=== PATIENT | female | born 1980 | race Caucasian/White ===

== ENCOUNTER 2016-03-10 19:44 | Emergency (ER) | payer OTHER ==
[~2016-03-10] VITALS: Ht 172.7 cm; Wt 79.8 kg
[~2016-03-10 19:44] MED LIST: ACET-1256 PO; BCPILLS PO; CLC100 PO; CLON0.5T3 PO; DICL1GEL28 TOP; KETO10TA PO; MAGN250T3 PO; MENT4GEL TOP; MIDO5TAB PO; MULT-506 PO; PRLSR20 PO; RIBO1TAB PO; SODI1000 PO; SULF500T36 PO; TOPI25TA99 PO; TRAZ1TAB16 PO; VENL1CAP92 PO; VENL75CA73 PO; [UNRECOGNIZED DRUG - CODE] PO
[2016-03-10 20:00] VITALS: TEMP 37; Ht 172.7 cm; Wt 79.8 kg
[2016-03-10] MEDS ORDERED: SODIUM CHLORIDE 0.9% 1000ML 1,000 ML IV STA ×2 (20:23)
--- NOTE | 2016-03-10 20:27 | EMERGENCY ROOM VISIT NOTE ---
History Report prepared by Paulette: Alex Alicea Under the Supervision of: Dr. Gini Dong M.D. First contact with patient: 20:17 Chief Complaint: FLU LIKE SX Stated Complaint: FLU : DEHYDRATION History of Present Illness The patient is a 35 year old female who presents to the Emergency Room with complaints of persistent flu-like symptoms that started 2 days ago. She says this is her 3rd bout with the flu this year. Her symptoms consist of episodes of vomiting and diarrhea, in addition to chills, sweating, and abdominal pain. She notes that her vomiting has stopped but she is still having episodes of diarrhea. The patient describes her abdominal pain as cramping and she also says her abdomen feels bloated. The patient says she is dehydrated, but is trying to drink as much as she can. She has arthritis, and is taking medications for that. Source of History: patient Onset: 2 days ago Position: other (global - flu-like symptoms) Timing: other (persistent) Associated Symptoms: + abdominal pain, + chills, + diaphoresis, + diarrhea, + vomiting Note: Associated symptoms: Abdomen feels bloated. Review of Systems See HPI for pertinent positives & negatives. A total of 10 systems reviewed and were otherwise negative. Past Medical & Surgical Medical Problems: (1) Depression (2) fibromyalgia (3) Juvenile chronic arthritis (4) Orthostatic hypotension (5) Orthostatic hypotension (6) Orthostatic hypotension Surgical Problems: (1) S/P appendectomy Family History Cancer Heart disease Hypertension Social History Smoking Status: Never Smoker Alcohol Use: occasionally Drug Use: none Marital Status: Housing Status: lives with significant other Occupation Status: employed Current/Historical Medications Scheduled Acetaminophen (Tylenol), 1,000 MG PO PRN Control Pills ( Control Pills), 1 TAB PO HS Clonazepam (Klonopin), 0.25 MG PO HS Docusate Sodium (Docusate Sodium), 200 MG PO BID Etodolac (Etodolac), 500 MG PO AMHS Magnesium (Magnesium 250 mg), 500 MG PO DAILY Midodrine Hcl (Midodrine Hcl), 10 MG PO TID Multivitamin (Multivitamin), 1 TAB PO DAILY Omeprazole (Prilosec), 20 MG PO AMHS Ondasetron Odt (Zofran Odt), 4 MG SL Q6H Riboflavin (B-2), 400 MG PO DAILY Sodium Chloride (Sodium Chloride), 2 GM PO TID Sulfasalazine (Azulfidine), 1,000 MG PO AMHS Topiramate (Topamax ), 50 MG PO BID Trazodone Hcl (Desyrel), 50 MG PO HS Venlafaxine Hcl (Venlafaxine Extended Rel), 75 MG PO DAILY Venlafaxine Hcl (Effexor Extended Rel), 150 MG PO DAILY Scheduled PRN Diclofenac Sod (Voltaren), 2 GM TOP QID PRN for PRN Ketorolac Tromethamine (Toradol), 10 MG PO BID PRN for SEVERE PAIN Menthol (Topical Analgesic) (Biofreeze), 1 APPL TOP for Pain Allergies Coded Allergies: Bupropion (Verified Allergy, Mild, 03/10/16) LOW BP Metoclopramide (Verified Allergy, Mild, 03/10/16) LOW BP Adhesives (Verified Allergy, Unknown, RASH, 03/10/16) Gabapentin (Unverified Allergy, Unknown, SHORTNESS OF BREATH, 03/10/16) DEPRESSION MEDICATIONS DEACTIVATE Hyoscyamine (Verified Allergy, Unknown, SHORTNESS OF BREATH/HYPOTENSION, ) Patient states "Levobid or Levibid" Infliximab (Verified Allergy, Unknown, HYPOTENSION, 03/10/16) Latex1 -Allergic Contact Dermititis (Verified Allergy, Unknown, 03/10/16) Propoxyphene (Verified Allergy, Unknown, 03/10/16) Replaces DARVOCET-N 10 Morphine (Verified Adverse Reaction, Intermediate, STOMACH UPSET, 03/10/16) ORAL MORPHINE = ABDOMINAL PAIN Physical Exam Vital Signs Date Time Temp Pulse Resp B/P Pulse Ox O2 Delivery O2 Flow Rate FiO2 03/10/16 22:13 71 112/73 100 03/10/16 20:00 37.0 82 16 116/85 100 Physical Exam CONSTITUTIONAL: Mild distress. HEENT: No icterus, moist mucous membranes NECK: No meningismus, trachea is midline. CARDIOVASCULAR: Regular rate, normal perfusion RESPIRATORY: Unlabored breathing. Clear to auscultation. GASTROINTESTINAL: Benign abdomen. GENITOURINARY: No flank tenderness MUSCULOSKELETAL: Full range of motion NEUROLOGIC: No acute gross focal deficits. PSYCHIATRIC: Normal affect SKIN: Normal for ethnicity. Medical Decision & Procedures Laboratory Results Test 03/10/16 20:46 Bedside Hemoglobin 15.6 g/dl (12.0-16.0) Bedside Hematocrit 46 % (37-47) Bedside Sodium 142 mEq/L (135-144) Bedside Potassium 3.4 mEq/L (3.3-5.0) Bedside Chloride 105 mEq/L (101-112) Bedside Total CO2 24 mEq/l (24-31) Anion Gap 17.0 mmol/L (16-25) Bedside Blood Urea Nitrogen 7 mg/dl (7-18) Bedside Creatinine 0.9 mg/dl (0.6-1.3) Bedside Glucose (other) 97 mg/dl (70-99) Bedside Ionized Calcium (Ginger) 1.22 mmol/l (1.12-1.32) Medications Administered Medications (Trade) Dose Ordered Sig/Debbi Route Start Time Stop Time Status Last Admin Dose Admin Sodium Chloride 1,000 ml @ 0 mls/hr Q0M STAT IV 03/10/16 20:23 03/10/16 20:25 DC 03/10/16 20:50 999 MLS/HR Sodium Chloride (Nss 1000ml) 1,000 ml @ 0 mls/hr Q0M STAT IV 03/10/16 20:23 03/10/16 20:25 DC 03/10/16 20:50 999 MLS/HR ED Course 2018: Past medical records reviewed. The patient was evaluated in room C5. A complete history and physical examination was performed. The patient verbally expressed agreement and understanding of the treatment plan. The patient will be discharged. 2022 :Ordered NSS 1000 ml @ 0 mls/hr Wide Open IV. 2029: Ordered Zofran ODT 4MG Home Pack 1 homepack PO. Medical Decision Differential diagnoses include: viral syndrome. Patient presented to the emergency department over concern of dehydration for 2 days of vomiting and diarrhea and crampy abdominal pain. Abdomen was benign. She was hydrated with IV fluid boluses. Patient improved and subsequent discharged with Zofran home pack and prescription. Impression Primary Impression: Gastroenteritis Scribe Attestation The scribe's documentation has been prepared under my direction and personally reviewed by me in its entirety. I confirm that the note above accurately reflects all work, treatment, procedures, and medical decision making performed by me. Departure Information Dispostion Home / Self-Care Prescriptions Ondasetron Odt (ZOFRAN ODT) 4 Mg Tab 4 MG SL Q6H for Nausea, #20 TAB Prov: Gini Dong MD 03/10/16 Referrals Cinda Kirby M.D. (PCP) Forms HOME CARE DOCUMENTATION FORM, IMPORTANT VISIT INFORMATION Patient Instructions ED Gastroenteritis Viral, My [facility]
[2016-03-10] MEDS ORDERED: ONDANSETRON HOME PACK 4MG OD TAB PO ONE (20:30)
[2016-03-10] MEDS ORDERED: SODI1TAB PO (20:57)
[2016-03-10] MEDS ORDERED: LDN500 PO (20:57)
[2016-03-10] MEDS ORDERED: VLTG TOP (20:57)
[2016-03-10] MEDS ORDERED: CLC100 PO (20:57)
[2016-03-10] MEDS ORDERED: VENL150C56 PO (20:57)
[2016-03-10] MEDS ORDERED: ONDA4TAB10 SL (20:58)
[2016-03-10 21:03] LABS: ISTAT CREATININE 0.9 mg/dl (0.6-1.3); ISTAT HEMOGLOBIN 15.6 g/dl (12.0-16.0); ISTAT IONIZED CALCIUM 1.22 mmol/l (1.12-1.32)
[2016-03-10 22:13] VITALS: BP 112/73; PULSE 71; O2SAT 100
== END 2016-03-10 22:15 | disposition home or self-care (01) ==
LOC: C.EDB 19:46 → C.EDC 22:15
DX: K52.9 Noninfective gastroenteritis and colitis, unspecified (principal); F32.9 Major depressive disorder, single episode, unspecified; M79.7 Fibromyalgia; M08.90 Juvenile arthritis, unspecified, unspecified site; I95.1 Orthostatic hypotension; Z79.3 Long term (current) use of hormonal contraceptives; Z79.899 Other long term (current) drug therapy

== ENCOUNTER → 2016-03-25 | Outpatient (CLI) | payer OTHER ==
[~2016-03-25] MED LIST changes: +DICL1GEL12 TOP; -DICL1GEL28 TOP; +LDN500 PO; +MULTTAB5 PO; +NITR-5 PO; +ONDA4TAB10 SL; +PRT/40 PO; -SODI1000 PO; +SODI1TAB PO; +SUCR1TAB PO; +VALA500T60 PO; +VENL150C56 PO; -VENL1CAP92 PO; +VLTG TOP; +ZNTT/150 PO; +[UNRECOGNIZED DRUG - CODE] PO; -[UNRECOGNIZED DRUG - CODE] PO
== END | disposition home or self-care (01) ==
LOC: C.PAPS 08:09
PROVIDERS: ATTEND Obstetrics & Gynecology
DX: Z01.419 Encounter for gynecological examination (general) (routine) without abnormal findings (principal)

== ENCOUNTER 2016-05-25 14:27 | Emergency (ER) | payer OTHER ==
[~2016-05-25] VITALS: Ht 172.7 cm; Wt 80.7 kg
[~2016-05-25 14:27] MED LIST changes: -CLC100 PO; -CLON0.5T3 PO; -DICL1GEL12 TOP; -KETO10TA PO; -LDN500 PO; -MAGN250T3 PO; -MENT4GEL TOP; -MIDO5TAB PO; -MULTTAB5 PO; -NITR-5 PO; -PRT/40 PO; -RIBO1TAB PO; -SODI1TAB PO; -SUCR1TAB PO; -SULF500T36 PO; -TOPI25TA99 PO; -TRAZ1TAB16 PO; -VALA500T60 PO; -VENL150C56 PO; -ZNTT/150 PO; -[UNRECOGNIZED DRUG - CODE] PO
[2016-05-25 14:30] VITALS: TEMP 36.7; Ht 172.7 cm; Wt 80.7 kg
[2016-05-25] MEDS ORDERED: SODIUM CHLORIDE 0.9% 1000ML 1,000 ML IV STA ×2 (14:46)
[2016-05-25 15:04] LABS: BASO % 0.2 %; BASO ABS # 0.01 K/uL (0-0.2); COMPLETE YES; EOS % 0.7 %; HEMATOCRIT 39.5 % (37-47); IG% 0.2 %; LYMPH % 38.9 %; LYMPH ABS # 2.18 K/uL (1.2-3.4); MEAN CELL VOLUME 88.6 fL (80-100); MEAN CORPUSCULAR HGB CONC 33.9 g/dl (32-36); MEAN PLATELET VOLUME 10.2 fL (7.4-10.4); PLATELET COUNT 206 K/uL (130-400); RED BLOOD COUNT 4.46 M/uL (4.2-5.4); WHITE BLOOD COUNT 5.61 K/uL (4.8-10.8)
[2016-05-25 15:26] LABS: URINE APPEARANCE CLEAR (CLEAR); URINE COLOR DK YELLOW; URINE NITRITE NEG (NEG); URINE SPECIFIC GRAVITY 1.018 (1.000-1.030); UROBILINOGEN NEG (NEG); ZZUR CULT IF INDIC CLEAN CATCH NO
[2016-05-25 15:34] LABS: BLOOD UREA NITROGEN 15 mg/dl (7-18); BUN/CREATININE RATIO 14.9 (10-20); CALCIUM 8.5 mg/dl (8.5-10.1); CARBON DIOXIDE 22 mmol/L (21-32); CHLORIDE 111 mmol/L (98-107); CREATININE 0.97 mg/dl (0.60-1.20); GLUCOSE 106 mg/dl (70-99); SODIUM 141 mmol/L (136-145)
[2016-05-25 15:36] LABS: MANUAL MICROSCOPIC REQUIRED? NO; REVIEW REQ? NO; URINE BILIRUBIN NEG (NEG)
--- NOTE | 2016-05-25 16:25 | EMERGENCY ROOM VISIT NOTE ---
History First contact with patient: 14:33 Chief Complaint: DIZZY Stated Complaint: DIZZY, FAINTED, LOW BLOOD PRESSURE Nursing Triage Summary: Triage note; pt reports "i have been really dizzy sine waking up, i have low blood pressure and am on medication for it, this morning i was sitting on the floor and passed out." pt using crutches for arthritis in right foot. History of Present Illness The patient is a 35 year old female who presents to the Emergency Room with complaints of a syncopal episode which occurred this morning. The patient reports that she has a history of similar episodes. She states that she woke up her son this morning and that she was sitting down and began to feel lightheaded and had tunnel vision. She states that she had a syncopal episode and landed onto a pillow. She reports a very long history of orthostatic hypotension and syncopal episodes in states that she has received IV fluids in the past with improvement. She was previously seen at [facility], but now sees her primary care provider. She does report increased stress recently, as she has recently adopted 3 brothers. She states that stress has increased her symptoms in the past. She also reports that she is currently having a flareup of arthritis, which also tends to increase symptoms for her. Her symptoms usually improve with rest. She states that she takes salt tablets and midodrine , and has increased caffeine in her diet and increased exercise with significant improvement of her symptoms over the past few years. She states she feels slightly dizzy and lightheaded at this time. She denies any chest pain, shortness of breath, recent illnesses, fevers/chills, headache, neck pain , abdominal pain, nausea or vomiting. Review of Systems A complete 10-point Review of Systems was discussed with the patient, with pertinent positives and negatives listed in the History of Present Illness. All remaining Review of Systems questions can be considered negative unless otherwise specified. Past Medical/Surgical History Medical Problems: (1) Depression (2) fibromyalgia (3) Juvenile chronic arthritis (4) Orthostatic hypotension (5) Orthostatic hypotension (6) Orthostatic hypotension Surgical Problems: (1) S/P appendectomy Family History Cancer Heart disease Hypertension Social History Smoking Status: Never Smoker Alcohol Use: occasionally Drug Use: none Marital Status: Housing Status: lives with significant other Occupation Status: employed Current/Historical Medications Scheduled Control Pills ( Control Pills), 1 TAB PO HS Clonazepam (Klonopin), 0.25 MG PO HS Docusate Sodium (Docusate Sodium), 200 MG PO BID Etodolac (Etodolac), 500 MG PO AMHS Magnesium (Magnesium 250 mg), 500 MG PO DAILY Midodrine Hcl (Midodrine Hcl), 10 MG PO TID Multivitamin (Multivitamin), 1 TAB PO DAILY Omeprazole (Prilosec), 20 MG PO AMHS Riboflavin (B-2), 400 MG PO DAILY Sodium Chloride (Sodium Chloride), 2 GM PO TID Sulfasalazine (Azulfidine), 1,000 MG PO AMHS Topiramate (Topamax ), 75 MG PO BID Trazodone Hcl (Desyrel), 100 MG PO HS Venlafaxine Hcl (Venlafaxine Extended Rel), 75 MG PO DAILY Venlafaxine Hcl (Effexor Extended Rel), 150 MG PO DAILY Scheduled PRN Ketorolac Tromethamine (Toradol), 10 MG PO BID PRN for SEVERE PAIN Menthol (Topical Analgesic) (Biofreeze), 1 APPL TOP for Pain Allergies Coded Allergies: Bupropion (Verified Allergy, Mild, 05/25/16) LOW BP Metoclopramide (Verified Allergy, Mild, 05/25/16) LOW BP Adhesives (Verified Allergy, Unknown, RASH, 05/25/16) Gabapentin (Unverified Allergy, Unknown, SHORTNESS OF BREATH, 05/25/16) DEPRESSION MEDICATIONS DEACTIVATE Hyoscyamine (Verified Allergy, Unknown, SHORTNESS OF BREATH/HYPOTENSION, ) Patient states "Levobid or Levibid" Infliximab (Verified Allergy, Unknown, HYPOTENSION, 05/25/16) Latex1 -Allergic Contact Dermititis (Verified Allergy, Unknown, 05/25/16) Propoxyphene (Verified Allergy, Unknown, 05/25/16) Replaces DARVOCET-N 10 Morphine (Verified Adverse Reaction, Intermediate, STOMACH UPSET, 05/25/16) ORAL MORPHINE = ABDOMINAL PAIN Physical Exam Vital Signs Date Time Temp Pulse Resp B/P Pulse Ox O2 Delivery O2 Flow Rate FiO2 05/25/16 16:32 64 16 103/66 100 05/25/16 15:15 73 105/60 80 108/70 95 108/75 05/25/16 14:30 36.7 90 18 121/77 98 Room Air Physical Exam VITALS: Vitals are noted on the nurse's note and reviewed by myself. Vital signs stable. GENERAL: This is a 35-year-old female, in no acute distress, nondiaphoretic, well-developed well-nourished. SKIN: The skin was without rashes. Capillary reflex less than 2 seconds. EARS: External auditory canals clear, tympanic membranes pearly anderson without erythema or effusion bilaterally. EYES: Pupils equal round and reactive to light and accommodation. Conjunctivae without injection, sclerae without icterus. Extraocular movements intact. No nystagmus. MOUTH: Mucous membranes moist. NECK: Supple without nuchal rigidity. No lymphadenopathy. HEART: Regular rate and rhythm without murmurs gallops or rubs. LUNGS: Clear to auscultation bilaterally without wheezes, rales or rhonchi. ABDOMEN: Positive bowel sounds x 4. Soft, nontender to palpation. MUSCULOSKELETAL: Full range of motion throughout. Strength 5/5. NEURO: Patient was alert and oriented to person place and time. Normal sensation to light and sharp touch. Deep tendon reflexes 2+ throughout. No focal neurological deficits. Medical Decision & Procedures Laboratory Results 05/25/16 14:55 Red Blood Count 4.46, Mean Corpuscular Volume 88.6, Mean Corpuscular Hemoglobin 30.0, Mean Corpuscular Hemoglobin Concent 33.9, Mean Platelet Volume 10.2, Neutrophils (%) (Auto) 53.0, Lymphocytes (%) (Auto) 38.9, Monocytes (%) (Auto) 7.0, Eosinophils (%) (Auto) 0.7, Basophils (%) (Auto) 0.2, Neutrophils # (Auto) 2.98, Lymphocytes # (Auto) 2.18, Monocytes # (Auto) 0.39, Eosinophils # (Auto) 0.04, Basophils # (Auto) 0.01 05/25/16 14:55 Test 05/25/16 14:55 05/25/16 15:05 White Blood Count 5.61 K/uL (4.8-10.8) Red Blood Count 4.46 M/uL (4.2-5.4) Hemoglobin 13.4 g/dL (12.0-16.0) Hematocrit 39.5 % (37-47) Mean Corpuscular Volume 88.6 fL (80-100) Mean Corpuscular Hemoglobin 30.0 pg (25-34) Mean Corpuscular Hemoglobin Concent 33.9 g/dl (32-36) Platelet Count 206 K/uL (130-400) Mean Platelet Volume 10.2 fL (7.4-10.4) Neutrophils (%) (Auto) 53.0 % Lymphocytes (%) (Auto) 38.9 % Monocytes (%) (Auto) 7.0 % Eosinophils (%) (Auto) 0.7 % Basophils (%) (Auto) 0.2 % Neutrophils # (Auto) 2.98 K/uL (1.4-6.5) Lymphocytes # (Auto) 2.18 K/uL (1.2-3.4) Monocytes # (Auto) 0.39 K/uL (0.11-0.59) Eosinophils # (Auto) 0.04 K/uL (0-0.5) Basophils # (Auto) 0.01 K/uL (0-0.2) RDW Standard Deviation 42.3 fL (36.4-46.3) RDW Coefficient of Variation 13.1 % (11.5-14.5) Immature Granulocyte % (Auto) 0.2 % Immature Granulocyte # (Auto) 0.01 K/uL (0.00-0.02) Anion Gap 8.0 mmol/L (3-11) Est Creatinine Clear Calc Drug Dose 92.0 ml/min Estimated GFR () 88.9 Estimated GFR (Non- 76.7 BUN/Creatinine Ratio 14.9 (10-20) Calcium Level 8.5 mg/dl (8.5-10.1) Troponin I < 0.015 ng/ml (0-0.045) Thyroid Stimulating Hormone (TSH) 1.160 uIu/ml (0.300-4.500) Urine Color DK YELLOW Urine Appearance CLEAR (CLEAR) Urine pH 6.0 (4.5-7.5) Urine Specific [place] 1.018 (1.000-1.030) Urine Protein NEG (NEG) Urine Glucose (UA) NEG (NEG) Urine Ketones NEG (NEG) Urine Occult Blood NEG (NEG) Urine Nitrite NEG (NEG) Urine Bilirubin NEG (NEG) Urine Urobilinogen NEG (NEG) Urine Leukocyte Esterase SMALL (NEG) Urine WBC (Auto) 1-5 /hpf (0-5) Urine RBC (Auto) 0-4 /hpf (0-4) Urine Hyaline Casts (Auto) 1-5 /lpf (0-5) Urine Epithelial Cells (Auto) 5-10 /lpf (0-5) Urine Bacteria (Auto) NEG (NEG) Urine Test NEG (NEG) Medications Administered Medications (Trade) Dose Ordered Sig/Debbi Route Start Time Stop Time Status Last Admin Dose Admin Sodium Chloride 1,000 ml @ 999 mls/hr Q1H1M STAT IV 05/25/16 14:46 05/25/16 15:46 DC 05/25/16 15:06 999 MLS/HR Sodium Chloride (Nss 1000ml) 1,000 ml @ 999 mls/hr Q1H1M STAT IV 05/25/16 14:46 05/25/16 15:46 DC 05/25/16 15:06 999 MLS/HR ECG Rate (beats per minute): 68 Rhythm: normal sinus Findings: no acute ischemic change, no ectopy Change: no significant change ED Course The patient was evaluated as above. Labs were drawn and IV access was obtained. Patient was medicated with 2 L normal saline solution. Patient was reevaluated and felt much better. She was ready for discharge home. Discharge instructions were reviewed with the patient. The patient verbalized understanding of my assessment and treatment plan and was discharged home in good condition. Medical Decision Differential diagnosis includes orthostatic hypotension, arrhythmia, anxiety, among others. The patient is a 35-year-old female with past medical history orthostatic hypotension and fibromyalgia who presents today complaining of a syncopal episode. The patient reports this is not unusual for her, and records do show that she has been here multiple times previously for similar complaints. Labs revealed no leukocytosis, anemia or concerning electrolyte abnormalities. Urinalysis was not suggestive of infection. Urine was negative. EKG was interpreted by myself and showed a normal sinus rhythm. Troponin 1 was elevated. Orthostatic vital signs did show an increase in heart rate, but no decrease in blood pressure. The patient was given 2 L of fluids and felt much better. She states her symptoms today are similar to previous episodes. Her neurological exam is normal. She requested discharge home. The patient's case was reviewed with Dr. Goode, ED attending physician, who agreed with my assessment and treatment plan. Based on the patient's presentation and work up, I feel the patient is stable for outpatient treatment. The patient was educated to the emergency department for any worsening of their current condition or new/concerning symptoms. The patient will follow up with her primary care provider this week. Impression Primary Impression: Syncope Departure Information Dispostion Home / Self-Care Condition GOOD Referrals Cinda Kirby M.D. (PCP) Patient Instructions My [facility] Additional Instructions Rest and drink plenty of fluids. Follow-up with your primary care provider within one week. Return to the emergency department with recurrent episodes of passing out, worsening of your current condition, or any other new/concerning symptoms. Problem Qualifiers Primary Impression: Syncope Syncope type: unspecified Qualified Codes: R55 - Syncope and collapse
[2016-05-25 16:32] VITALS: BP 103/66; PULSE 64; O2SAT 100
[2016-12-15] MEDS ORDERED: MAGN250T3 PO (10:34)
[2016-12-15] MEDS ORDERED: CLON0.5T3 PO (10:34)
[2016-12-15] MEDS ORDERED: TOPI25TA99 PO (10:34)
[2016-12-15] MEDS ORDERED: MENT4GEL TOP (10:53)
[2016-12-15] MEDS ORDERED: RIBO1TAB PO (10:53)
[2016-12-15] MEDS ORDERED: ZNTT/150 PO (11:00)
[2016-12-15] MEDS ORDERED: PANT40TA2 PO (11:00)
[2016-12-15] MEDS ORDERED: MIDO5TAB PO (11:55)
[2016-12-15] MEDS ORDERED: TRAZ-119 PO (13:58)
[2016-12-15] MEDS ORDERED: KETO10TA PO (14:15)
[2016-12-15] MEDS ORDERED: [UNRECOGNIZED DRUG - CODE] PO (14:20)
[2016-12-15] MEDS ORDERED: VALA500T60 PO (14:20)
[2016-12-15] MEDS ORDERED: MULTTAB5 PO (14:20)
[2016-12-15] MEDS ORDERED: DICL1GEL12 TOP (14:20)
== END 2016-05-25 16:33 | disposition home or self-care (01) ==
LOC: C.EDB 14:30 → C.EDC 16:33
DX: R55 Syncope and collapse (principal); F32.9 Major depressive disorder, single episode, unspecified; M08.90 Juvenile arthritis, unspecified, unspecified site; Z90.49 Acquired absence of other specified parts of digestive tract; Z79.899 Other long term (current) drug therapy; Z88.5 Allergy status to narcotic agent; Z88.8 Allergy status to other drugs, medicaments and biological substances; Z91.040 Latex allergy status; Z91.09 Other allergy status, other than to drugs and biological substances; Z80.9 Family history of malignant neoplasm, unspecified; Z82.49 Family history of ischemic heart disease and other diseases of the circulatory system

== ENCOUNTER 2016-09-24 10:26 | Emergency (ER) | payer OTHER ==
[~2016-09-24] VITALS: Ht 174 cm; Wt 80.5 kg
[~2016-09-24 10:26] MED LIST changes: -ACET-1256 PO; +CLC100 PO; +CLON0.5T3 PO; +KETO10TA PO; +LDN500 PO; +MAGN250T3 PO; +MENT4GEL TOP; +MIDO5TAB PO; -ONDA4TAB10 SL; +RIBO1TAB PO; +SODI1TAB PO; +SULF500T36 PO; +TOPI25TA99 PO; +TRAZ1TAB16 PO; +VENL150C56 PO; -VLTG TOP
[2016-09-24 10:31] VITALS: TEMP 36.7; Ht 174 cm; Wt 80.5 kg
[2016-09-24] MEDS ORDERED: ZNTT/150 PO (11:00)
[2016-09-24] MEDS ORDERED: PRT/40 PO (11:00)
[2016-09-24] MEDS ORDERED: SODIUM CHLORIDE 0.9% 1000ML 1,000 ML IV STA (11:16)
[2016-09-24 11:43] LABS: BASO % 0.3 %; BASO ABS # 0.02 K/uL (0-0.2); COMPLETE YES; HEMATOCRIT 40.5 % (37-47); IG% 0.2 %; LYMPH % 40.7 %; LYMPH ABS # 2.33 K/uL (1.2-3.4); MEAN CELL VOLUME 92.3 fL (80-100); MEAN CORPUSCULAR HEMOGLOBIN 31.2 pg (25-34); MEAN CORPUSCULAR HGB CONC 33.8 g/dl (32-36); MONO % 8.7 %; NEUT % 49.1 %; PLATELET COUNT 247 K/uL (130-400); RED BLOOD COUNT 4.39 M/uL (4.2-5.4); WHITE BLOOD COUNT 5.73 K/uL (4.8-10.8)
[2016-09-24] MEDS ORDERED: CAFFEINE CITRATE 500 MG in SODIUM CHLORIDE 0.9% 1000ML 1,000 ML IV ONE (11:45)
[2016-09-24 11:55] LABS: URINE APPEARANCE CLOUDY (CLEAR); URINE COLOR DK YELLOW; URINE EPITHELIAL CELL AUTO >30 /lpf (0-5); URINE NITRITE POS (NEG); URINE SPECIFIC GRAVITY 1.029 (1.000-1.030); UROBILINOGEN NEG (NEG); ZZUR CULT IF INDIC CLEAN CATCH YES
[2016-09-24 12:01] LABS: MANUAL MICROSCOPIC REQUIRED? NO; REVIEW REQ? YES
[2016-09-24 12:02] LABS: BUN/CREATININE RATIO 13.8 (10-20); CALCIUM 8.7 mg/dl (8.5-10.1); CREATININE 0.92 mg/dl (0.60-1.20); POTASSIUM 4.1 mmol/L (3.5-5.1)
[2016-09-24 12:02] LABS: URINE BILIRUBIN NEG (NEG)
[2016-09-24 12:10] LABS: URINE MUCUS PRESENT (NONE PRSENT)
[2016-09-24] MEDS ORDERED: NITROFURANTOIN MONOHYDRATE 100 MG CAP PO ONE (12:45)
[2016-09-24] MEDS ORDERED: ONDANSETRON INJ 2 MG/ML 2 ML VIAL IV STA (13:45)
[2016-09-24] MEDS ORDERED: MECLIZINE HCL 25 MG TAB PO STA (14:05)
[2016-09-24] MEDS ORDERED: NITR-5 PO (14:55)
--- NOTE | 2016-09-24 14:57 | EMERGENCY ROOM VISIT NOTE ---
History First contact with patient: 11:06 Chief Complaint: HYPOTENSION Stated Complaint: PASSING OUT, LOW BP History of Present Illness The patient is a 36 year old female who presents to the Emergency Room with complaints of syncope. The patient has a long-standing history of low blood pressure and passing out. She has been worked up extensively by her family physician Dr. Kirby as well as cardiology. She sees a computing services director at [facility]. The patient states that she has been placed on Mididrin , high salt diet and high caffeine. This has helped her symptoms. The patient states that 2 weeks ago she had flulike symptoms for several days and she thinks that that triggered the onset of her multiple syncopal episodes this week. She states she thinks she passed out 3-4 times this week. The last time being last evening. The patient most times can catch herself and sit down and prevent the syncopal episode. The patient states that she drinks high pH water to help with her hydration. She sees her family doctor on a routine basis. The patient denies any head injuries with her syncopal episodes. The patient states she gets lightheaded and then sometimes gets a headache. She has not taken any caffeine yet today. Review of Systems 10 system review was performed and was negative unless stated otherwise history of present illness. Past Medical/Surgical History Medical Problems: (1) Depression (2) fibromyalgia (3) Juvenile chronic arthritis (4) Orthostatic hypotension (5) Orthostatic hypotension (6) Orthostatic hypotension Surgical Problems: (1) S/P appendectomy Family History Cancer Heart disease Hypertension Social History Smoking Status: Never Smoker Alcohol Use: occasionally Drug Use: none Marital Status: Housing Status: lives with significant other Occupation Status: employed Current/Historical Medications Scheduled Control Pills ( Control Pills), 1 TAB PO HS Clonazepam (Klonopin), 0.25 MG PO HS Docusate Sodium (Docusate Sodium), 200 MG PO BID Etodolac (Etodolac), 500 MG PO AMHS Magnesium (Magnesium 250 mg), 500 MG PO DAILY Midodrine Hcl (Midodrine Hcl), 10 MG PO TID Multivitamin (Multivitamin), 1 TAB PO DAILY Pantoprazole (Pantoprazole Sodium), 40 MG PO DAILY Ranitidine (Zantac), 150 MG PO BID Riboflavin (B-2), 400 MG PO DAILY Sodium Chloride (Sodium Chloride), 2 GM PO TID Sulfasalazine (Azulfidine), 1,000 MG PO AMHS Topiramate (Topamax ), 75 MG PO BID Trazodone Hcl (Desyrel), 100 MG PO HS Venlafaxine Hcl (Venlafaxine Extended Rel), 75 MG PO DAILY Venlafaxine Hcl (Effexor Extended Rel), 150 MG PO DAILY Scheduled PRN Ketorolac Tromethamine (Toradol), 10 MG PO BID PRN for SEVERE PAIN Menthol (Topical Analgesic) (Biofreeze), 1 APPL TOP for Pain Physical Exam Vital Signs Date Time Temp Pulse Resp B/P (MAP) Pulse Ox O2 Delivery O2 Flow Rate FiO2 09/24/16 14:13 85 18 144/73 99 Room Air 09/24/16 12:24 48 18 105/69 100 Room Air 09/24/16 11:32 52 99/57 95 Room Air 55 103/68 73 103/61 09/24/16 10:31 36.7 71 16 115/73 96 Room Air Physical Exam VITALS: Temperature 36.7, blood pressure 115/73, pulse 71, respirations 16 GENERAL: 36-year-old white female appears in no acute distress. MENTAL Status: Alert and oriented 3. EYES: PERRLA. EOMs intact. EARS: Canals clear. TMs without fluid level noted. NECK: Supple, no lymphadenopathy noted. No carotid bruits noted. LUNGS: Clear auscultation without wheezes rales or rhonchi. CARDIAC: Regular rate and rhythm without murmur. Pulses is full and equal throughout. ABDOMEN: Positive bowel sounds all 4 quadrants. Soft, nontender to palpation without organomegaly or masses. NEURO:Cranial nerves two through 12 intact. Cerebellar function intact with [id number]. Fine motor intact with alternating finger motions. EXTREMITIES: No cyanosis or edema noted. Medical Decision & Procedures Laboratory Results 09/24/16 11:30 Red Blood Count 4.39, Mean Corpuscular Volume 92.3, Mean Corpuscular Hemoglobin 31.2, Mean Corpuscular Hemoglobin Concent 33.8, Mean Platelet Volume 10.0, Neutrophils (%) (Auto) 49.1, Lymphocytes (%) (Auto) 40.7, Monocytes (%) (Auto) 8.7, Eosinophils (%) (Auto) 1.0, Basophils (%) (Auto) 0.3, Neutrophils # (Auto) 2.81, Lymphocytes # (Auto) 2.33, Monocytes # (Auto) 0.50, Eosinophils # (Auto) 0.06, Basophils # (Auto) 0.02 09/24/16 11:30 Test 09/24/16 11:30 09/24/16 11:38 White Blood Count 5.73 K/uL (4.8-10.8) Red Blood Count 4.39 M/uL (4.2-5.4) Hemoglobin 13.7 g/dL (12.0-16.0) Hematocrit 40.5 % (37-47) Mean Corpuscular Volume 92.3 fL (80-100) Mean Corpuscular Hemoglobin 31.2 pg (25-34) Mean Corpuscular Hemoglobin Concent 33.8 g/dl (32-36) Platelet Count 247 K/uL (130-400) Mean Platelet Volume 10.0 fL (7.4-10.4) Neutrophils (%) (Auto) 49.1 % Lymphocytes (%) (Auto) 40.7 % Monocytes (%) (Auto) 8.7 % Eosinophils (%) (Auto) 1.0 % Basophils (%) (Auto) 0.3 % Neutrophils # (Auto) 2.81 K/uL (1.4-6.5) Lymphocytes # (Auto) 2.33 K/uL (1.2-3.4) Monocytes # (Auto) 0.50 K/uL (0.11-0.59) Eosinophils # (Auto) 0.06 K/uL (0-0.5) Basophils # (Auto) 0.02 K/uL (0-0.2) RDW Standard Deviation 44.9 fL (36.4-46.3) RDW Coefficient of Variation 13.2 % (11.5-14.5) Immature Granulocyte % (Auto) 0.2 % Immature Granulocyte # (Auto) 0.01 K/uL (0.00-0.02) Anion Gap 3.0 mmol/L (3-11) Est Creatinine Clear Calc Drug Dose 96.9 ml/min Estimated GFR () 94.2 Estimated GFR (Non- 81.2 BUN/Creatinine Ratio 13.8 (10-20) Calcium Level 8.7 mg/dl (8.5-10.1) Total Bilirubin 0.4 mg/dl (0.2-1) Direct Bilirubin 0.1 mg/dl (0-0.2) Aspartate Amino Transf (AST/SGOT) 9 U/L (15-37) Alanine Aminotransferase (ALT/SGPT) 13 U/L (12-78) Alkaline Phosphatase 68 U/L (45-117) Total Protein 6.9 gm/dl (6.4-8.2) Albumin 3.3 gm/dl (3.4-5.0) Lipase 263 U/L (73-393) Urine Color DK YELLOW Urine Appearance CLOUDY (CLEAR) Urine pH 6.0 (4.5-7.5) Urine Specific [place] 1.029 (1.000-1.030) Urine Protein NEG (NEG) Urine Glucose (UA) NEG (NEG) Urine Ketones TRACE (NEG) Urine Occult Blood NEG (NEG) Urine Nitrite POS (NEG) Urine Bilirubin NEG (NEG) Urine Urobilinogen NEG (NEG) Urine Leukocyte Esterase MODERATE (NEG) Urine WBC (Auto) 10-30 /hpf (0-5) Urine RBC (Auto) 0-4 /hpf (0-4) Urine Hyaline Casts (Auto) /lpf (0-5) Urine Epithelial Cells (Auto) >30 /lpf (0-5) Urine Bacteria (Auto) NEG (NEG) Urine Pathogenic Casts /lpf (0) Urine Mucus PRESENT (NONE PRSENT) Urine Yeast (Auto) (NONE PRSENT) Medications Administered Medications (Trade) Dose Ordered Sig/Debbi Route Start Time Stop Time Status Last Admin Dose Admin Sodium Chloride 1,000 ml @ 999 mls/hr Q1H1M STAT IV 09/24/16 11:16 09/24/16 12:16 DC 09/24/16 11:37 999 MLS/HR Caffeine Citrated 500 mg/Sodium Chloride 1,025 ml @ 512.5 mls/ hr TODAY@1145 ONCE IV 09/24/16 11:45 09/24/16 13:44 DC 09/24/16 11:45 512.5 MLS/HR Nitrofurantoin Macrocrystals (Macrobid Cap) 100 mg ONE ONCE PO 09/24/16 12:45 09/24/16 12:46 DC 09/24/16 13:03 100 MG Ondansetron HCl (Zofran Inj) 4 mg NOW STAT IV 09/24/16 13:45 09/24/16 13:58 DC 09/24/16 13:54 4 MG Meclizine HCl (Antivert Tab) 25 mg NOW STAT PO 09/24/16 14:05 09/24/16 14:08 DC 09/24/16 14:12 25 MG ED Course The patient was evaluated. The patient's EMR medication list were reviewed. The patient was just here in May for signs of similar symptoms. IV access was obtained. The patient was given 1 L normal saline wide-open. She was given caffeine 500 mg IV. EKG was ordered and interpreted by myself as above without any acute findings. CBC and differential, renal profile, LFTs lipase levels were ordered. Urinalysis was ordered. Orthostatic blood pressures were ordered. Labs are reviewed and were unremarkable. Urinalysis revealed positive nitrates positive leukocytes and bacteria. The patient was given Macrobid 100 mg by mouth. Culture is pending. Orthostatics were normal. The patient was reevaluated. She was feeling slightly better she still had a slight headache but they caffeine was still running. She was reevaluated and now was feeling nauseated therefore she was given Zofran 4 mg IV for nausea. She was again reevaluated and stated that the nausea was slightly better but she was very dizzy. The patient was then given Antivert 25 mg by mouth. Patient was reevaluated and was feeling better. The patient was discharged home in stable condition. Medical Decision The patient has a long-standing history of this syncopal episodes which has been worked up extensively in the past. I do not feel that any additional imaging is necessary at this time. Medication Reconcilliation Current Medication List: was personally reviewed by me Blood Pressure Screening Patient's blood pressure: Normal blood pressure Impression Primary Impression: Syncope Additional Impressions: UTI (urinary tract infection) Nausea Departure Information Dispostion Home / Self-Care Condition GOOD Prescriptions Nitrofurantoin Monohyd Macrocr (Macrobid) 100 Mg Cap 100 MG PO BID for 7 Days, #14 CAP Prov: Denia Gray PA-C 09/24/16 Referrals Cinda Kirby M.D. (PCP) Forms HOME CARE DOCUMENTATION FORM, IMPORTANT VISIT INFORMATION, WORK / SCHOOL INSTRUCTIONS Patient Instructions ED UTI Cystitis Female, My [facility], Syncope Additional Instructions Push fluids. Take the antinausea medicine that you have at home as needed for nausea. Take Macrobid as prescribed for your urinary tract infection. Follow- up with your family doctor on Tuesday for reevaluation. If symptoms worsen in the interim, return to ER. Problem Qualifiers Primary Impression: Syncope Syncope type: unspecified Qualified Codes: R55 - Syncope and collapse Additional Impressions: UTI (urinary tract infection) Urinary tract infection type: acute cystitis Hematuria presence: with hematuria Qualified Codes: N30.01 - Acute cystitis with hematuria
[2016-09-24 15:44] VITALS: BP 113/75; PULSE 73; O2SAT 99
== END 2016-09-24 15:45 | disposition home or self-care (01) ==
LOC: C.EDB 10:28 → C.EDC 15:45
DX: R55 Syncope and collapse (principal); R11.0 Nausea; N39.0 Urinary tract infection, site not specified; F32.9 Major depressive disorder, single episode, unspecified; M08.90 Juvenile arthritis, unspecified, unspecified site; Z79.899 Other long term (current) drug therapy; Z80.9 Family history of malignant neoplasm, unspecified; Z82.49 Family history of ischemic heart disease and other diseases of the circulatory system

== ENCOUNTER 2016-09-27 13:02 | Emergency (ER) | payer OTHER ==
[~2016-09-27] VITALS: Ht 172.7 cm; Wt 100.0 kg
[~2016-09-27 13:02] MED LIST changes: +NITR-5 PO; -PRLSR20 PO; +PRT/40 PO; +ZNTT/150 PO
[2016-09-27 13:12] VITALS: TEMP 36.4; Ht 172.7 cm; Wt 100.0 kg
[2016-09-27] MEDS ORDERED: SODIUM CHLORIDE 0.9% 1000ML 2,000 ML IV STA (13:48)
--- NOTE | 2016-09-27 14:14 | DIAGNOSTIC IMAGING REPORT ---
SINGLE VIEW CHEST CLINICAL HISTORY: Dizziness. Muscle spasms. FINDINGS: An AP, portable, upright chest radiograph is compared to study dated 12/25/2008. The examination is degraded by portable technique and patient rotation. The cardiomediastinal silhouette is unremarkable. The lungs and pleural spaces are clear. No pneumothorax is seen. The bony thorax is grossly intact. IMPRESSION: No active disease in the chest. Electronically signed by: Wilbur Steele M.D. 09/27/2016 2:13 PM Dictated Date/Time: 09/27/2016 2:12 PM
[2016-09-27] MEDS ORDERED: ACET-1256 PO (14:20)
[2016-09-27] MEDS ORDERED: DICL1GEL12 TOP (14:20)
[2016-09-27] MEDS ORDERED: [UNRECOGNIZED DRUG - CODE] PO (14:20)
[2016-09-27] MEDS ORDERED: SUCR1TAB PO (14:20)
[2016-09-27] MEDS ORDERED: MULTTAB5 PO (14:20)
[2016-09-27] MEDS ORDERED: VALA500T60 PO (14:20)
[2016-09-27 14:53] LABS: BASO % 0.3 %; BASO ABS # 0.02 K/uL (0-0.2); COMPLETE YES; EOS % 0.4 %; HEMATOCRIT 40.4 % (37-47); IG% 0.1 %; LYMPH % 31.4 %; LYMPH ABS # 2.11 K/uL (1.2-3.4); MEAN CELL VOLUME 91.8 fL (80-100); MEAN CORPUSCULAR HEMOGLOBIN 29.5 pg (25-34); MEAN CORPUSCULAR HGB CONC 32.2 g/dl (32-36); MEAN PLATELET VOLUME 9.8 fL (7.4-10.4); MONO % 7.7 %; NEUT % 60.1 %; PLATELET COUNT 233 K/uL (130-400); WHITE BLOOD COUNT 6.72 K/uL (4.8-10.8)
[2016-09-27 15:09] LABS: BLOOD UREA NITROGEN 14 mg/dl (7-18); BUN/CREATININE RATIO 18.2 (10-20); CALCIUM 8.3 mg/dl (8.5-10.1); CARBON DIOXIDE 26 mmol/L (21-32); CHLORIDE 112 mmol/L (98-107); CREATININE 0.79 mg/dl (0.60-1.20); GLUCOSE 82 mg/dl (70-99); MAGNESIUM 1.9 mg/dl (1.8-2.4); SODIUM 143 mmol/L (136-145)
[2016-09-27 15:12] LABS: URINE APPEARANCE CLEAR (CLEAR); URINE COLOR DK YELLOW; URINE NITRITE NEG (NEG); URINE SPECIFIC GRAVITY 1.014 (1.000-1.030); UROBILINOGEN NEG (NEG)
[2016-09-27 15:14] LABS: PHOSPHORUS 2.6 mg/dl (2.5-4.9)
[2016-09-27] MEDS ORDERED: ACETAMINOPHEN IV 650 MG in EMPTY BAG 0 ML IV STA (15:14)
[2016-09-27] MEDS ORDERED: LORAZEPAM 2 MG/ML 1 ML VIAL IV STA (15:14)
[2016-09-27 15:24] LABS: MANUAL MICROSCOPIC REQUIRED? NO; REVIEW REQ? NO; URINE BILIRUBIN NEG (NEG)
--- NOTE | 2016-09-27 17:19 | EMERGENCY ROOM VISIT NOTE ---
History First contact with patient: 13:14 Chief Complaint: DIZZY Stated Complaint: NAUSEA, MUSCLE CRAMPS History of Present Illness Patient is a 36-year-old white female with long-standing history significant for anxiety, depression, IBS, orthostatic hypotension and autonomic dysfunction , who presents emergency department for evaluation of dizziness, weakness and muscle spasms that began this morning. Patient was seen here in the emergency department 3 days ago for similar symptoms. At that time she was found to have a urinalysis that was concerning for a UTI and she was placed on Macrobid. She felt better after receiving IV fluids in the emergency department, and felt like she had more energy when she was discharged. She did not have any symptoms consistent with UTI however, and throughout the weekend she noted increased muscle cramping and subjective low-grade fevers (did not check with a thermometer). She thought it could be related to the Macrobid, and thus stopped this after 5 doses. Today she tried to go to work, where she began to feel weak, dizzy, nauseous, and began to experience spasms in her neck and legs. She has a mild headache and double vision. She reports drinking a Pepsi to try to help with her symptoms. She did increase her fluid and salt intake as well as drink caffeinated beverages over the weekend which she has been told to do. She otherwise reports she is taking her regular medications as prescribed. She reports "I just don't feel like myself." Review of Systems Review of systems as per HPI. All other systems reviewed were negative. 10 systems reviewed. 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 (11) Migraine (12) Nausea (13) Orthostasis (14) Orthostatic hypotension (15) Orthostatic hypotension (16) Orthostatic hypotension (17) Orthostatic hypotension (18) Orthostatic hypotension (19) Orthostatic hypotension (20) Postural hypotension (21) Postural imbalance (22) Syncope (23) Syncope (24) Syncope (25) UTI (urinary tract infection) (26) Vaginal bleeding Surgical Problems: (1) History of oral surgery (2) History of orthopedic surgery (3) S/P appendectomy Electronic medical records are reviewed and summarized as above/below. See Problem List. Family History Cancer Heart disease Hypertension Social History Smoking Status: Never Smoker Alcohol Use: occasionally Drug Use: none Marital Status: Housing Status: lives with family Occupation Status: employed Current/Historical Medications Scheduled Clonazepam (Klonopin), 0.25 MG PO HS Diclofenac Sodium (Topical) (Voltaren 1% Top Gel), 2 GM TOP QID Docusate Sodium (Docusate Sodium), 200 MG PO BID Ethinyl Estradiol/Norethindr (Ortho-Novum ), 1 TAB PO DAILY Etodolac (Etodolac), 500 MG PO AMHS Magnesium (Magnesium 250 mg), 500 MG PO DAILY Midodrine Hcl (Midodrine Hcl), 10 MG PO TID Multiple Vitamins W/ Minerals (Centrum), 1 TAB PO QAM Pantoprazole (Pantoprazole Sodium), 40 MG PO BID Ranitidine (Zantac), 150 MG PO BID Riboflavin (B-2), 400 MG PO DAILY Sodium Chloride (Sodium Chloride), 2 GM PO TID Sucralfate (Sucralfate), 1 GM PO AC Sulfasalazine (Azulfidine), 1,000 MG PO AMHS Topiramate (Topamax ), 50 MG PO AMPM Trazodone Hcl (Desyrel), 50 MG PO HS Venlafaxine Hcl (Venlafaxine Extended Rel), 75 MG PO QPM Venlafaxine Hcl (Effexor Extended Rel), 150 MG PO DAILY Scheduled PRN Acetaminophen (Tylenol), 1,000 MG PO Q8 PRN for Pain Ketorolac Tromethamine (Toradol), 10 MG PO Q4 PRN for Pain Menthol (Topical Analgesic) (Biofreeze), 1 APPL TOP for Pain Valacyclovir (Valtrex), 500 MG PO AMPM PRN for OUTBREAKS Allergies Coded Allergies: Bupropion (Verified Allergy, Mild, 09/24/16) LOW BP Metoclopramide (Verified Allergy, Mild, 09/24/16) LOW BP Adhesives (Verified Allergy, Unknown, RASH, 09/24/16) Gabapentin (Unverified Allergy, Unknown, SHORTNESS OF BREATH, 09/24/16) DEPRESSION MEDICATIONS DEACTIVATE Hyoscyamine (Verified Allergy, Unknown, SHORTNESS OF BREATH/HYPOTENSION, ) Patient states "Levobid or Levibid" Infliximab (Verified Allergy, Unknown, HYPOTENSION, 09/24/16) Latex1 -Allergic Contact Dermititis (Verified Allergy, Unknown, 09/24/16) Propoxyphene (Verified Allergy, Unknown, 09/24/16) Replaces DARVOCET-N 10 Morphine (Verified Adverse Reaction, Intermediate, STOMACH UPSET, 09/24/16) ORAL MORPHINE = ABDOMINAL PAIN Physical Exam Vital Signs Date Time Temp Pulse Resp B/P (MAP) Pulse Ox O2 Delivery O2 Flow Rate FiO2 09/27/16 17:29 67 16 111/67 100 09/27/16 15:28 63 98/63 98 Room Air 65 109/72 72 106/69 09/27/16 14:37 126 20 107/70 100 Room Air 09/27/16 13:20 70 09/27/16 13:12 36.4 73 24 120/74 99 Room Air Physical Exam CONSTITUTIONAL: Patient is a well-appearing 36-year-old white female who is awake and alert and in no acute distress. HEENT: Normocephalic, atraumatic. Pupils equal, round, reactive to light and accommodation. EOMs intact without nystagmus. Sclera are anicteric. Tympanic membranes intact, with normal landmarks. External canals are clear. No hemotympanum or Blanton sign. Oral and nasopharynx are clear. No CSF rhinorrhea. Mucous membranes are moist. NECK: Supple, nontender, no lymphadenopathy. Full range of motion. HEART: Regular rate and rhythm, with normal S1 and S2, no murmur or gallop or rub is heard. LUNGS: Breath sounds equal and clear to auscultation without wheezes, rales, or rhonchi heard. ABDOMEN: Bowel sounds are present. Abdomen is soft, nontender and nondistended. No guarding or rebound. SKIN: No lesions or rash, normal skin turgor. EXTREMITIES: No cyanosis, edema, joint tenderness or swelling. No deformity. NEUROLOGICAL: Alert and oriented x4. Cranial nerves 2 through 12, sensation and strength grossly intact. Negative Romberg, and pronator drift. Finger to nose, finger to finger and rapid alternating movements are intact. Immediate, recent and remote memories are intact. Concentration is normal. Medical Decision & Procedures ER Provider Diagnostic Interpretation: SINGLE VIEW CHEST CLINICAL HISTORY: Dizziness. Muscle spasms. FINDINGS: An AP, portable, upright chest radiograph is compared to study dated 12/25/2008. The examination is degraded by portable technique and patient rotation. The cardiomediastinal silhouette is unremarkable. The lungs and pleural spaces are clear. No pneumothorax is seen. The bony thorax is grossly intact. IMPRESSION: No active disease in the chest. Laboratory Results 09/27/16 14:40 Red Blood Count 4.40, Mean Corpuscular Volume 91.8, Mean Corpuscular Hemoglobin 29.5, Mean Corpuscular Hemoglobin Concent 32.2, Mean Platelet Volume 9.8, Neutrophils (%) (Auto) 60.1, Lymphocytes (%) (Auto) 31.4, Monocytes (%) (Auto) 7.7, Eosinophils (%) (Auto) 0.4, Basophils (%) (Auto) 0.3, Neutrophils # (Auto) 4.03, Lymphocytes # (Auto) 2.11, Monocytes # (Auto) 0.52, Eosinophils # (Auto) 0.03, Basophils # (Auto) 0.02 09/27/16 14:40 Test 09/27/16 14:40 09/27/16 14:45 White Blood Count 6.72 K/uL (4.8-10.8) Red Blood Count 4.40 M/uL (4.2-5.4) Hemoglobin 13.0 g/dL (12.0-16.0) Hematocrit 40.4 % (37-47) Mean Corpuscular Volume 91.8 fL (80-100) Mean Corpuscular Hemoglobin 29.5 pg (25-34) Mean Corpuscular Hemoglobin Concent 32.2 g/dl (32-36) Platelet Count 233 K/uL (130-400) Mean Platelet Volume 9.8 fL (7.4-10.4) Neutrophils (%) (Auto) 60.1 % Lymphocytes (%) (Auto) 31.4 % Monocytes (%) (Auto) 7.7 % Eosinophils (%) (Auto) 0.4 % Basophils (%) (Auto) 0.3 % Neutrophils # (Auto) 4.03 K/uL (1.4-6.5) Lymphocytes # (Auto) 2.11 K/uL (1.2-3.4) Monocytes # (Auto) 0.52 K/uL (0.11-0.59) Eosinophils # (Auto) 0.03 K/uL (0-0.5) Basophils # (Auto) 0.02 K/uL (0-0.2) RDW Standard Deviation 44.1 fL (36.4-46.3) RDW Coefficient of Variation 13.2 % (11.5-14.5) Immature Granulocyte % (Auto) 0.1 % Immature Granulocyte # (Auto) 0.01 K/uL (0.00-0.02) Anion Gap 5.0 mmol/L (3-11) Est Creatinine Clear Calc Drug Dose 124.1 ml/min Estimated GFR () 113.2 Estimated GFR (Non- 97.7 BUN/Creatinine Ratio 18.2 (10-20) Calcium Level 8.3 mg/dl (8.5-10.1) Phosphorus Level 2.6 mg/dl (2.5-4.9) Magnesium Level 1.9 mg/dl (1.8-2.4) Troponin I < 0.015 ng/ml (0-0.045) Urine Color DK YELLOW Urine Appearance CLEAR (CLEAR) Urine pH 6.0 (4.5-7.5) Urine Specific [place] 1.014 (1.000-1.030) Urine Protein NEG (NEG) Urine Glucose (UA) NEG (NEG) Urine Ketones NEG (NEG) Urine Occult Blood NEG (NEG) Urine Nitrite NEG (NEG) Urine Bilirubin NEG (NEG) Urine Urobilinogen NEG (NEG) Urine Leukocyte Esterase SMALL (NEG) Urine WBC (Auto) 1-5 /hpf (0-5) Urine RBC (Auto) 0-4 /hpf (0-4) Urine Hyaline Casts (Auto) 0 /lpf (0-5) Urine Epithelial Cells (Auto) 10-20 /lpf (0-5) Urine Bacteria (Auto) NEG (NEG) Urine Test NEG (NEG) Medications Administered Medications (Trade) Dose Ordered Sig/Debbi Route Start Time Stop Time Status Last Admin Dose Admin Sodium Chloride 2,000 ml @ 999 mls/hr Q2H1M STAT IV 09/27/16 13:48 09/27/16 15:48 DC 09/27/16 14:50 999 MLS/HR Lorazepam (Ativan Inj) 1 mg NOW STAT IV 09/27/16 15:14 09/27/16 15:18 DC 09/27/16 15:42 1 MG Acetaminophen 650 mg/Empty Bag 65 ml @ 260 mls/hr ONE STAT IV 09/27/16 15:14 09/27/16 15:28 DC 09/27/16 15:41 260 MLS/HR ECG Indication: weakness, syncope Rate (beats per minute): 62 Rhythm: normal sinus Findings: no acute ischemic change, no ectopy Change: no significant change ED Course The patient was seen and assessed as above. Her old records are reviewed. IV lock was initiated and laboratory studies were collected. Orthostatic vitals did not indicate orthostasis. She was hydrated with normal saline solution. Urinalysis, urine test, CBC, BMP, magnesium, phosphorus and troponin were drawn. Chest x-ray was obtained and was unremarkable. Patient was reassessed and continued to complain of a mild headache and spasms in her neck. She was medicated with acetaminophen 650 mg IV and lorazepam 1 mg IV. Her laboratory studies revealed a normal white count and H&H. No gross electrolyte abnormalities are noted. Troponin is negative. Urinalysis notes only a small amount of leuk esterase and 10-20 epithelial cells, essentially negative for infection. Urine test was negative. The patient was reassessed. At this time her mother was at the bedside. The patient reported that she felt improved. She has a long-standing history of symptoms similar to this, and has responded well to IV hydration. Her physical exam is benign. There is no apparent infectious etiology. She has a benign neurologic exam. Differential includes acute coronary syndrome, arrhythmia, seizure, syncope, orthostasis, dehydration, electrolyte/metabolic abnormalities , anemia, hypoglycemia, among others. The patient was encouraged to rest at home, push her fluids, salt and caffeine intake as previously educated by her specialists, and to have close follow-up with her primary care provider in the next one to 2 days. She exposed understanding of this and was agreeable. The patient was discharged home in good condition, accompanied by her mother. Vital signs were stable at that time. Medication reconciliation: I attest that I have personally reviewed the patient' s current medication list. Blood pressure screening : Patient was found to have normal blood pressure on screening and does not require follow-up. Medical Decision See emergency Department course Impression Primary Impression: Dizziness Departure Information Referrals Cinda Kirby M.D. (PCP) Patient Instructions My [facility] [place] i-marker Additional Instructions Rest and drink plenty of fluids as tolerated. Continue current medications. Diet as tolerated. Return to the ER immediately for passing out, headache, rapid heart rates, chest pains, difficulty breathing, black or bloody stools, slurred speech, numbness, weakness, visual changes, worsening of your condition, or as needed. Refrain from dangerous activities, operating machinery, drinking alcohol, and such until you are rechecked at a follow up appointment. No driving until cleared by your primary care physician. Follow up with your primary physician in 2-3 days for a recheck of your current condition.
[2016-09-27 17:29] VITALS: BP 111/67; PULSE 67; O2SAT 100
== END 2016-09-27 17:31 | disposition home or self-care (01) ==
LOC: EDBD 13:02 → C.EDB 13:04
DX: R42 Dizziness and giddiness (principal); F41.9 Anxiety disorder, unspecified; F32.9 Major depressive disorder, single episode, unspecified; K58.9 Irritable bowel syndrome, unspecified; Z87.440 Personal history of urinary (tract) infections; Z90.89 Acquired absence of other organs; Z98.890 Other specified postprocedural states; Z82.49 Family history of ischemic heart disease and other diseases of the circulatory system; Z79.899 Other long term (current) drug therapy

== ENCOUNTER 2016-12-15 14:50 | Emergency (ER) | payer OTHER ==
[~2016-12-15] VITALS: Ht 172.7 cm; Wt 76.2 kg
[~2016-12-15 14:50] MED LIST changes: +ACET-1256 PO; -BCPILLS PO; -CLC100 PO; +DICL1GEL12 TOP; -LDN500 PO; -MULT-506 PO; +MULTTAB5 PO; -NITR-5 PO; +PANT40TA2 PO; -PRT/40 PO; -SODI1TAB PO; +SUCR1TAB PO; -SULF500T36 PO; +TRAZ-119 PO; -TRAZ1TAB16 PO; +VALA500T60 PO; -VENL150C56 PO; +[UNRECOGNIZED DRUG - CODE] PO
[2016-12-15 14:56] VITALS: TEMP 36.7; Ht 172.7 cm; Wt 76.2 kg
[2016-12-15] MEDS ORDERED: ACETAMINOPHEN 500 MG TAB PO STA (15:06)
[2016-12-15] MEDS ORDERED: SODIUM CHLORIDE 0.9% 1000ML 1,000 ML IV STA (15:06)
[2016-12-15] MEDS ORDERED: ONDANSETRON INJ 2 MG/ML 2 ML VIAL IV STA (15:06)
[2016-12-15 15:52] LABS: BASO % 0.2 %; BASO ABS # 0.01 K/uL (0-0.2); COMPLETE YES; EOS % 0.4 %; HEMATOCRIT 41.4 % (37-47); LYMPH % 42.7 %; MEAN CELL VOLUME 91.8 fL (80-100); MEAN CORPUSCULAR HEMOGLOBIN 30.4 pg (25-34); MEAN CORPUSCULAR HGB CONC 33.1 g/dl (32-36); MEAN PLATELET VOLUME 10.1 fL (7.4-10.4); MONO % 5.2 %; NEUT % 51.5 %; PLATELET COUNT 220 K/uL (130-400); RED BLOOD COUNT 4.51 M/uL (4.2-5.4); WHITE BLOOD COUNT 5.15 K/uL (4.8-10.8)
[2016-12-15 15:56] LABS: PREG INTERNAL NEGATIVE QC NEG CLEAR BACKGROUND; PREG INTERNAL POSITIVE QC POS CONTROL LINE
[2016-12-15 16:02] LABS: URINE APPEARANCE CLEAR (CLEAR); URINE COLOR DK YELLOW; URINE NITRITE NEG (NEG); URINE PH 5.5 (4.5-7.5); URINE SPECIFIC GRAVITY 1.024 (1.000-1.030); UROBILINOGEN NEG (NEG); ZZUR CULT IF INDIC CLEAN CATCH NO
[2016-12-15 16:03] LABS: MANUAL MICROSCOPIC REQUIRED? NO; REVIEW REQ? NO
[2016-12-15 16:04] LABS: URINE BILIRUBIN NEG (NEG)
[2016-12-15 16:04] LABS: BUN/CREATININE RATIO 10.5 (10-20); CALCIUM 8.6 mg/dl (8.5-10.1); CREATININE 1.07 mg/dl (0.60-1.20); MAGNESIUM 2.2 mg/dl (1.8-2.4); POTASSIUM 3.6 mmol/L (3.5-5.1)
[2016-12-15] MEDS ORDERED: PROMETHAZINE HCL INJ 25 MG in SODIUM CHLORIDE 0.9% 50ML 50 ML IV STA (16:16)
--- NOTE | 2016-12-15 17:04 | DIAGNOSTIC IMAGING REPORT ---
ABDOMEN LIMITED (US) HISTORY: Pain. Nausea. RUQ and mid abdominal pain. Please eval gallbladder and pancreas. COMPARISON: 04/16/2011 FINDINGS: Pancreas: The pancreas demonstrates a normal echotexture. Liver: Mild fatty infiltration Gallbladder: Slightly contracted. No shadowing gallstones. CBD: 3 mm Right kidney: No hydronephrosis. IMPRESSION: Mild fatty infiltration of liver. Mild gallbladder contraction. Normal caliber bile ducts. No shadowing gallstones. The above report was generated using voice recognition software. It may contain grammatical, syntax or spelling errors. Electronically signed by: Isra Gray M.D. 12/15/2016 5:03 PM Dictated Date/Time: 12/15/2016 5:01 PM
--- NOTE | 2016-12-15 17:07 | EMERGENCY ROOM VISIT NOTE ---
History First contact with patient: 14:58 Chief Complaint: VOMITING Stated Complaint: SICK X3DAYS, NO ENERGY Nursing Triage Summary: triage note; pt reports nausea and vomitting x 3 days. History of Present Illness The patient is a 36 year old female who presents to the Emergency Room via private vehicle with complaints of "sick 3 days, no energy". The patient states that she had a bad migraine all last week, and Tuesday was seen for a physical and received an injection of Toradol. She notes that her headache was feeling much better by that time. She states that she then started vomiting on Tuesday, and has difficulty tolerating fluids or foods. She denies any diarrhea. She notes she has been unable to take her medications secondary to the vomiting. This is been for the past 2 days. She feels dehydrated. She denies any chest pain, fevers or chills, vaginal discharge, chance of , urinary symptoms. She does note minimal lower and mid abdominal pain rated as a 2/10. This began after the vomiting. Review of Systems A complete 10-point Review of Systems was discussed with the patient, with pertinent positives and negatives listed in the History of Present Illness. All remaining Review of Systems questions can be considered negative unless otherwise specified. 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 (11) Migraine (12) Nausea (13) Orthostasis (14) Orthostatic hypotension (15) Orthostatic hypotension (16) Orthostatic hypotension (17) Orthostatic hypotension (18) Orthostatic hypotension (19) Orthostatic hypotension (20) Postural hypotension (21) Postural imbalance (22) Syncope (23) Syncope (24) Syncope (25) UTI (urinary tract infection) (26) Vaginal bleeding Surgical Problems: (1) History of oral surgery (2) History of orthopedic surgery (3) S/P appendectomy Family History Cancer Heart disease Hypertension Social History Smoking Status: Never Smoker Alcohol Use: occasionally Drug Use: none Marital Status: Housing Status: lives with family Occupation Status: employed Current/Historical Medications Scheduled Clonazepam (Klonopin), 0.25 MG PO HS Docusate Sodium (Docusate Sodium), 200 MG PO BID Ethinyl Estradiol/Norethindr (Ortho-Novum ), 1 TAB PO DAILY Etodolac (Etodolac), 500 MG PO AMHS Magnesium (Magnesium 250 mg), 500 MG PO DAILY Midodrine Hcl (Midodrine Hcl), 10 MG PO TID Multiple Vitamins W/ Minerals (Centrum), 1 TAB PO QAM Pantoprazole (Pantoprazole Sodium), 40 MG PO DAILY Ranitidine (Zantac), 150 MG PO BID Riboflavin (B-2), 400 MG PO DAILY Sodium Chloride (Sodium Chloride), 2 GM PO TID Sulfasalazine (Azulfidine), 1,000 MG PO AMHS Topiramate (Topamax ), 75 MG PO AMPM Trazodone Hcl (Desyrel), 50 MG PO HS Venlafaxine Hcl (Venlafaxine Extended Rel), 75 MG PO QAM Venlafaxine Hcl (Effexor Extended Rel), 150 MG PO QA Scheduled PRN Acetaminophen (Tylenol), 1,000 MG PO Q8 PRN for Pain Diclofenac Sodium (Topical) (Voltaren 1% Top Gel), 2 GM TOP QID PRN for Pain Ketorolac Tromethamine (Toradol), 10 MG PO Q4 PRN for Pain Menthol (Topical Analgesic) (Biofreeze), 1 APPL TOP for Pain Promethazine Hcl (Phenergan), 25 MG PO Q4H PRN for Nausea Sucralfate (Sucralfate), 1 GM PO AC PRN for ABD PAIN Valacyclovir (Valtrex), 500 MG PO AMPM PRN for OUTBREAKS Physical Exam Vital Signs Date Time Temp Pulse Resp B/P (MAP) Pulse Ox O2 Delivery O2 Flow Rate FiO2 12/15/16 18:45 58 18 104/71 98 Room Air 12/15/16 17:28 98 Room Air 12/15/16 16:45 60 18 109/63 98 Room Air 12/15/16 14:56 36.7 80 18 108/78 95 Room Air Physical Exam VITAL SIGNS - Vital signs and nursing notes were reviewed. Stable. GENERAL -36-year-old female appearing her stated age who is in no acute distress. Communicates well with provider and answers questions appropriately. SKIN - Without rashes. No petechial rashes. HEAD - NC/AT. EYES - PERRL with EOMI bilaterally. Sclera anicteric. EARS - No deformities of external structures noted on gross examination bilaterally. No pain elicited with palpation of the tragus bilaterally. NOSE - Midline and without cyanosis. No epistaxis or purulent drainage noted. MOUTH/OROPHARYNX - Without perioral cyanosis. Buccal mucosa pink and moist and without leukoplakia. LUNGS - Chest wall symmetric without accessory muscle use, intercostals retractions, or central cyanosis. Normal vesicular breath sounds CTA B/L. No wheezes, rales, or rhonchi appreciated. CARDIAC - RRR with S1/S2. No murmur, rubs, or gallops appreciated. ABDOMEN - Abdominal contour normal without pulsations or visible masses. BS normoactive all four quadrants. No significant tenderness, palpable masses, hepatosplenomegaly, or ascites noted. EXTREMITIES - No clubbing or peripheral cyanosis. No pretibial edema present. + 5/5 strength noted in UE/LE bilaterally. NEUROLOGIC - Cranial nerves II through XII grossly intact. Sensory intact to light touch throughout. Medical Decision & Procedures ER Provider Diagnostic Interpretation: ABDOMEN LIMITED (US) HISTORY: Pain. Nausea. RUQ and mid abdominal pain. Please eval gallbladder and pancreas. COMPARISON: 04/16/2011 FINDINGS: Pancreas: The pancreas demonstrates a normal echotexture. Liver: Mild fatty infiltration Gallbladder: Slightly contracted. No shadowing gallstones. CBD: 3 mm Right kidney: No hydronephrosis. IMPRESSION: Mild fatty infiltration of liver. Mild gallbladder contraction. Normal caliber bile ducts. No shadowing gallstones. The above report was generated using voice recognition software. It may contain grammatical, syntax or spelling errors. Electronically signed by: Isra Gray M.D. 12/15/2016 5:03 PM Dictated Date/Time: 12/15/2016 5:01 PM Laboratory Results 12/15/16 15:24 Red Blood Count 4.51, Mean Corpuscular Volume 91.8, Mean Corpuscular Hemoglobin 30.4, Mean Corpuscular Hemoglobin Concent 33.1, Mean Platelet Volume 10.1, Neutrophils (%) (Auto) 51.5, Lymphocytes (%) (Auto) 42.7, Monocytes (%) (Auto) 5.2, Eosinophils (%) (Auto) 0.4, Basophils (%) (Auto) 0.2, Neutrophils # (Auto) 2.65, Lymphocytes # (Auto) 2.20, Monocytes # (Auto) 0.27, Eosinophils # (Auto) 0.02, Basophils # (Auto) 0.01 12/15/16 15:24 Test 12/15/16 15:20 12/15/16 15:24 Urine Color DK YELLOW Urine Appearance CLEAR (CLEAR) Urine pH 5.5 (4.5-7.5) Urine Specific [place] 1.024 (1.000-1.030) Urine Protein NEG (NEG) Urine Glucose (UA) NEG (NEG) Urine Ketones NEG (NEG) Urine Occult Blood NEG (NEG) Urine Nitrite NEG (NEG) Urine Bilirubin NEG (NEG) Urine Urobilinogen NEG (NEG) Urine Leukocyte Esterase SMALL (NEG) Urine WBC (Auto) 1-5 /hpf (0-5) Urine RBC (Auto) 0-4 /hpf (0-4) Urine Hyaline Casts (Auto) 1-5 /lpf (0-5) Urine Epithelial Cells (Auto) 10-20 /lpf (0-5) Urine Bacteria (Auto) NEG (NEG) Urine Test NEG (NEG) White Blood Count 5.15 K/uL (4.8-10.8) Red Blood Count 4.51 M/uL (4.2-5.4) Hemoglobin 13.7 g/dL (12.0-16.0) Hematocrit 41.4 % (37-47) Mean Corpuscular Volume 91.8 fL (80-100) Mean Corpuscular Hemoglobin 30.4 pg (25-34) Mean Corpuscular Hemoglobin Concent 33.1 g/dl (32-36) Platelet Count 220 K/uL (130-400) Mean Platelet Volume 10.1 fL (7.4-10.4) Neutrophils (%) (Auto) 51.5 % Lymphocytes (%) (Auto) 42.7 % Monocytes (%) (Auto) 5.2 % Eosinophils (%) (Auto) 0.4 % Basophils (%) (Auto) 0.2 % Neutrophils # (Auto) 2.65 K/uL (1.4-6.5) Lymphocytes # (Auto) 2.20 K/uL (1.2-3.4) Monocytes # (Auto) 0.27 K/uL (0.11-0.59) Eosinophils # (Auto) 0.02 K/uL (0-0.5) Basophils # (Auto) 0.01 K/uL (0-0.2) RDW Standard Deviation 44.1 fL (36.4-46.3) RDW Coefficient of Variation 13.2 % (11.5-14.5) Immature Granulocyte % (Auto) 0.0 % Immature Granulocyte # (Auto) 0.00 K/uL (0.00-0.02) Anion Gap 8.0 mmol/L (3-11) Est Creatinine Clear Calc Drug Dose 74.7 ml/min Estimated GFR () 78.4 Estimated GFR (Non- 67.7 BUN/Creatinine Ratio 10.5 (10-20) Calcium Level 8.6 mg/dl (8.5-10.1) Magnesium Level 2.2 mg/dl (1.8-2.4) Total Bilirubin 0.5 mg/dl (0.2-1) Aspartate Amino Transf (AST/SGOT) 10 U/L (15-37) Alanine Aminotransferase (ALT/SGPT) 13 U/L (12-78) Alkaline Phosphatase 58 U/L (45-117) Total Protein 7.3 gm/dl (6.4-8.2) Albumin 3.6 gm/dl (3.4-5.0) Globulin 3.7 gm/dl (2.5-4.0) Albumin/Globulin Ratio 1.0 (0.9-2) Lipase 277 U/L (73-393) Medications Administered Medications (Trade) Dose Ordered Sig/Debbi Route Start Time Stop Time Status Last Admin Dose Admin Sodium Chloride 1,000 ml @ 999 mls/hr Q1H1M STAT IV 12/15/16 15:06 12/15/16 16:06 DC 12/15/16 15:48 999 MLS/HR Ondansetron HCl (Zofran Inj) 4 mg NOW STAT IV 12/15/16 15:06 12/15/16 15:09 DC 12/15/16 15:47 4 MG Acetaminophen (Tylenol Tab) 500 mg NOW STAT PO 12/15/16 15:06 12/15/16 15:09 DC 12/15/16 15:47 500 MG Promethazine HCl 25 mg/Sodium Chloride 51 ml @ 204 mls/hr NOW STAT IV 12/15/16 16:16 12/15/16 16:30 DC 12/15/16 17:27 204 MLS/HR Medical Decision Patient was seen and evaluated as above. She presents to us today with nausea, vomiting and minimal abdominal pain. She is nontoxic in appearance. Ultrasound was obtained of right upper quadrant and found to be negative. Mild fatty infiltration of the liver which she was informed upon. At this time she was given Zofran, with no relief. She was given Phenergan and feeling much better. She'll be sent home on a short course of the Phenergan. CBC reveals no leukocytosis or anemia. Metabolic panel reveals no evidence of kidney or liver failure. Urine essentially negative. Urine test negative. At this time she appears stable for outpatient management. I believe she is likely experiencing a viral process. She was educated upon management, educated upon worrisome symptoms in which to return, had questions prior to discharge, and was discharged home in good condition. In evaluation treatment this patient following differential diagnoses were obtained: Acute cholecystitis, cholangitis, viral process, sepsis, dehydration, among others. Impression Primary Impression: Vomiting Departure Information Dispostion Home / Self-Care Condition GOOD Prescriptions Promethazine Hcl (Phenergan) 25 Mg Tab 25 MG PO Q4H Y for Nausea for 5 Days, #20 TAB Prov: Corey Batista PA-C 12/15/16 Referrals Cinda Kirby M.D. (PCP) Patient Instructions [facility] Additional Instructions You have been treated in the Emergency Department your nausea and vomiting. Laboratory results and imaging studies have ruled out any emergent causes for your symptoms which would warrant admission or surgery. You have been prescribed Phenergan to be used for any nausea or vomiting. Take as prescribed. 12.5 to 25 mg every 4 to 6 hours as needed for nausea For pain control, you can use the following [id number] medicines (if >12 yo): - Regular strength (325mg/tab) Tylenol (acetaminophen) 2 tabs every 4-6 hours as needed. Do not exceed 12 tablets in a 24 hour period. Avoid taking more than 4 grams (4000 mg) of Tylenol per day. This includes any other sources of acetaminophen you may take on a regular basis. Drink plenty of water and stay well hydrated. As with any trip to the Emergency Department, you should follow-up with your Primary Care Provider from today's visit. Return to the emergency department if your symptoms persist despite treatment plan outlined above or if the following symptoms occur: increased fevers, chills , worsening nausea/vomiting, blood in your stool or urine. Please return with any new/concerning symptoms.
[2016-12-15 17:28] VITALS: O2SAT 98
[2016-12-15] MEDS ORDERED: PROM25TA9 PO (18:35)
[2016-12-15 18:45] VITALS: BP 104/71; PULSE 58; O2SAT 98
[2016-12-15] MEDS ORDERED: SULF500T36 PO (19:18)
[2016-12-15] MEDS ORDERED: CLC100 PO (20:57)
[2016-12-15] MEDS ORDERED: SODI1TAB PO (20:57)
[2016-12-15] MEDS ORDERED: LDN500 PO (20:57)
[2016-12-15] MEDS ORDERED: VENL150C56 PO (20:57)
== END 2016-12-15 19:10 | disposition home or self-care (01) ==
LOC: C.EDB 14:51 → C.EDC 19:10
DX: R11.10 Vomiting, unspecified (principal); F41.9 Anxiety disorder, unspecified; F32.9 Major depressive disorder, single episode, unspecified; M79.7 Fibromyalgia; K58.9 Irritable bowel syndrome, unspecified; R55 Syncope and collapse; I10 Essential (primary) hypertension; Z82.49 Family history of ischemic heart disease and other diseases of the circulatory system

== ENCOUNTER 2016-12-30 14:06 | Emergency (ER) | payer OTHER ==
[~2016-12-30] VITALS: Ht 172.7 cm; Wt 78.0 kg
[~2016-12-30 14:06] MED LIST changes: +CLC100 PO; +LDN500 PO; +SODI1TAB PO; +SULF500T36 PO; +VENL150C56 PO
[2016-12-30 14:08] VITALS: TEMP 36.3; Ht 172.7 cm; Wt 78.0 kg
--- NOTE | 2016-12-30 14:33 | EMERGENCY ROOM VISIT NOTE ---
History Report prepared by Paulette: Alex Alicea Under the Supervision of: Dr. Olinda Greene D.O. First contact with patient: 14:12 Chief Complaint: ABDOMINAL PAIN Stated Complaint: EXTREME STOMACH PAIN History of Present Illness The patient is a 36 year old female who presents to the Emergency Room with a persistent need for a GI assessment that started yesterday afternoon. She says that at work yesterday, she had a bowel movement and wiped, and noticed "tons" of bright red blood. The patient notes that she has had hemorrhoids before, but this was way more blood yesterday than the hemorrhoids. She says that she did not have any pain yesterday. The patient states upon waking this morning, she has had "bend-over" abdominal pain which has persisted all day. She says that she went to [employer] an hour ago, and was told to come here for evaluation. She says that nothing changes the pain. The patient denies any fevers, chills, nausea, other bleeding, abdominal bloating, or urinary symptoms. She notes no chance of . The patient adds that she has been tested for IBS in the past, but has not really been fully diagnosed. She also notes no family history of bowel issues. The patient denies any recent diet changes or recent travels. Source of History: patient Onset: Yesterday afternoon Position: other (global - GI assessment need) Quality: other (bleeding and pain) Timing: other (persistent) Associated Symptoms: + abdominal pain (denies abdominal bloating), + hematochezia, No fevers, No chills, No nausea, No urinary symptoms Note: Associated symptoms: Denies any other bleeding. Review of Systems See HPI for pertinent positives & negatives. A total of 10 systems reviewed and were otherwise negative. 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 (11) Migraine (12) Nausea (13) Orthostasis (14) Orthostatic hypotension (15) Orthostatic hypotension (16) Orthostatic hypotension (17) Orthostatic hypotension (18) Orthostatic hypotension (19) Orthostatic hypotension (20) Postural hypotension (21) Postural imbalance (22) Syncope (23) Syncope (24) Syncope (25) UTI (urinary tract infection) (26) Vaginal bleeding Surgical Problems: (1) History of oral surgery (2) History of orthopedic surgery (3) S/P appendectomy Family History Cancer Heart disease Hypertension Social History Smoking Status: Never Smoker Alcohol Use: occasionally Drug Use: none Marital Status: Housing Status: lives with family Occupation Status: employed Current/Historical Medications Scheduled Clonazepam (Klonopin), 0.25 MG PO HS Dicyclomine Hcl (Bentyl), 20 MG PO Q8 Docusate Sodium (Docusate Sodium), 200 MG PO BID Ethinyl Estradiol/Norethindr (Ortho-Novum ), 1 TAB PO DAILY Etodolac (Etodolac), 500 MG PO AMHS Magnesium (Magnesium 250 mg), 500 MG PO DAILY Metronidazole (Flagyl), 500 MG PO BID Midodrine Hcl (Midodrine Hcl), 10 MG PO TID Multiple Vitamins W/ Minerals (Centrum), 1 TAB PO QAM Pantoprazole (Pantoprazole Sodium), 40 MG PO DAILY Ranitidine (Zantac), 150 MG PO BID Riboflavin (B-2), 400 MG PO DAILY Sodium Chloride (Sodium Chloride), 2 GM PO TID Sulfasalazine (Azulfidine), 1,000 MG PO AMHS Topiramate (Topamax ), 75 MG PO AMPM Trazodone Hcl (Desyrel), 50 MG PO HS Venlafaxine Hcl (Venlafaxine Extended Rel), 75 MG PO QAM Venlafaxine Hcl (Effexor Extended Rel), 150 MG PO QAM Scheduled PRN Acetaminophen (Tylenol), 1,000 MG PO Q8 PRN for Pain Diclofenac Sodium (Topical) (Voltaren 1% Top Gel), 2 GM TOP QID PRN for Pain Ketorolac Tromethamine (Toradol), 10 MG PO Q4 PRN for Pain Menthol (Topical Analgesic) (Biofreeze), 1 APPL TOP for Pain Oxycodone/Acetaminophen 5MG/325MG (Percocet 5MG/325MG), 1-2 TABS PO Q4H PRN for Pain Sucralfate (Sucralfate), 1 GM PO AC PRN for ABD PAIN Valacyclovir (Valtrex), 500 MG PO AMPM PRN for OUTBREAKS Allergies Coded Allergies: Bupropion (Verified Allergy, Mild, 09/24/16) LOW BP Metoclopramide (Verified Allergy, Mild, 09/24/16) LOW BP Adhesives (Verified Allergy, Unknown, RASH, 09/24/16) Gabapentin (Unverified Allergy, Unknown, SHORTNESS OF BREATH, 09/24/16) DEPRESSION MEDICATIONS DEACTIVATE Hyoscyamine (Verified Allergy, Unknown, SHORTNESS OF BREATH/HYPOTENSION, ) Patient states "Levobid or Levibid" Infliximab (Verified Allergy, Unknown, HYPOTENSION, 09/24/16) Latex1 -Allergic Contact Dermititis (Verified Allergy, Unknown, 09/24/16) Propoxyphene (Verified Allergy, Unknown, 09/24/16) Replaces DARVOCET-N 10 Morphine (Verified Adverse Reaction, Intermediate, STOMACH UPSET, 09/24/16) ORAL MORPHINE = ABDOMINAL PAIN Physical Exam Vital Signs Date Time Temp Pulse Resp B/P (MAP) Pulse Ox O2 Delivery O2 Flow Rate FiO2 12/30/16 20:40 60 18 111/76 96 12/30/16 20:06 76 18 111/74 97 Room Air 12/30/16 18:36 70 20 110/68 96 Room Air 12/30/16 17:04 74 22 114/83 97 Room Air 12/30/16 16:18 59 18 113/74 96 Room Air 12/30/16 15:39 63 17 112/74 100 Room Air 12/30/16 15:24 75 12/30/16 15:12 67 18 99 Room Air 12/30/16 14:08 36.3 77 15 127/80 99 Room Air Physical Exam GENERAL: alert, uncomfortable appearing, well nourished, no distress, non-toxic EYE EXAM: normal conjunctiva, PERRL and EOM's grossly intact OROPHARYNX: no exudate, no erythema, lips, buccal mucosa, and tongue normal and mucous membranes are moist NECK: supple, no nuchal rigidity, no adenopathy, non-tender LUNGS: Clear to auscultation. Normal chest wall mechanics HEART: no murmurs, S1 normal and S2 normal ABDOMEN: Periumbilical tenderness, no distension, no organomegaly. Abdomen soft , normo-active bowel sounds, no masses, no rebound or guarding. BACK: Back is symmetrical on inspection and there is no deformity, no midline tenderness, no CVA tenderness. SKIN: no rashes and no bruising UPPER EXTREMITIES: upper extremities are grossly normal. LOWER EXTREMITIES: No pitting edema. NEURO EXAM: Normal sensorium, cranial nerves II-XII grossly intact, normal speech, no gross weakness of arms, no gross weakness of legs. Medical Decision & Procedures ER Provider Diagnostic Interpretation: Radiology results have been interpreted by the radiologist and reviewed by me. ABDOMEN AND PELVIS CT WITH IV AND ORAL CONTRAST CT DOSE: 544.53 mGy.cm HISTORY: Acute generalized abdominal pain with bloody stool abd pain, bloody BM TECHNIQUE: Multiaxial CT images of the abdomen and pelvis were performed following the use of intravenous and oral contrast. A dose lowering technique was utilized adhering to the principles of ALARA. COMPARISON STUDY: Abdominal ultrasound 12/15/2016 and 04/16/2011. FINDINGS: Mild dependent bibasilar atelectasis. No pneumoperitoneum or pneumatosis. The imaged inferior cardiac chambers are unremarkable. There are ill-defined hyperattenuating lesions involving segment VIII of the liver, largest measuring 3.0 x 4.5 cm and the smaller lesion measuring 1.5 x 1.1 cm no intrahepatic biliary ductal dilation. The gallbladder, spleen, pancreas and adrenal glands are unremarkable. Kidneys, ureters are unremarkable. There is moderate distention of the urinary bladder. Uterus and adnexa are within normal limits. Aorta is normal in course and caliber. No bulky adenopathy. No bowel obstruction or focal bowel wall thickening. There is mild to moderate circumferential wall thickening of the rectum with mild stranding inflammatory stranding. There is moderate stool volume of the mid sigmoid colon. No diverticulosis or diverticulitis identified. The appendix is not seen, likely surgically absent. Soft tissues are unremarkable. Bones appear intact. IMPRESSION: 1. Mild to moderate circumferential wall thickening of the rectum with mild surrounding inflammatory stranding suggests proctitis. No evidence of diverticulosis or diverticulitis. 2. No bowel obstruction or pneumoperitoneum. 3. Two hyperattenuating ill-defined lesions involving segment VIII of the liver measuring up to 4.5 cm are indeterminate and may reflect hemangiomas. Follow-up MRI of the liver may be considered to further evaluate. Electronically signed by: Chauncey Gardiner M.D. 12/30/2016 6:09 PM Dictated Date/Time: 12/30/2016 6:02 PM Laboratory Results 12/30/16 15:03 Red Blood Count 4.11, Mean Corpuscular Volume 92.2, Mean Corpuscular Hemoglobin 30.4, Mean Corpuscular Hemoglobin Concent 33.0, Mean Platelet Volume 10.0, Neutrophils (%) (Auto) 52.2, Lymphocytes (%) (Auto) 38.6, Monocytes (%) (Auto) 8.4, Eosinophils (%) (Auto) 0.4, Basophils (%) (Auto) 0.2, Neutrophils # (Auto) 2.73, Lymphocytes # (Auto) 2.02, Monocytes # (Auto) 0.44, Eosinophils # (Auto) 0.02, Basophils # (Auto) 0.01 12/30/16 15:03 Test 12/30/16 14:36 12/30/16 15:03 Urine Color DK YELLOW Urine Appearance CLEAR (CLEAR) Urine pH 5.0 (4.5-7.5) Urine Specific [place] 1.024 (1.000-1.030) Urine Protein NEG (NEG) Urine Glucose (UA) NEG (NEG) Urine Ketones NEG (NEG) Urine Occult Blood NEG (NEG) Urine Nitrite NEG (NEG) Urine Bilirubin 3+ (NEG) Urine Urobilinogen NEG (NEG) Urine Leukocyte Esterase MODERATE (NEG) Urine WBC (Auto) 10-30 /hpf (0-5) Urine RBC (Auto) 0-4 /hpf (0-4) Urine Hyaline Casts (Auto) 1-5 /lpf (0-5) Urine Epithelial Cells (Auto) >30 /lpf (0-5) Urine Bacteria (Auto) NEG (NEG) White Blood Count 5.23 K/uL (4.8-10.8) Red Blood Count 4.11 M/uL (4.2-5.4) Hemoglobin 12.5 g/dL (12.0-16.0) Hematocrit 37.9 % (37-47) Mean Corpuscular Volume 92.2 fL (80-100) Mean Corpuscular Hemoglobin 30.4 pg (25-34) Mean Corpuscular Hemoglobin Concent 33.0 g/dl (32-36) Platelet Count 193 K/uL (130-400) Mean Platelet Volume 10.0 fL (7.4-10.4) Neutrophils (%) (Auto) 52.2 % Lymphocytes (%) (Auto) 38.6 % Monocytes (%) (Auto) 8.4 % Eosinophils (%) (Auto) 0.4 % Basophils (%) (Auto) 0.2 % Neutrophils # (Auto) 2.73 K/uL (1.4-6.5) Lymphocytes # (Auto) 2.02 K/uL (1.2-3.4) Monocytes # (Auto) 0.44 K/uL (0.11-0.59) Eosinophils # (Auto) 0.02 K/uL (0-0.5) Basophils # (Auto) 0.01 K/uL (0-0.2) RDW Standard Deviation 44.4 fL (36.4-46.3) RDW Coefficient of Variation 13.3 % (11.5-14.5) Immature Granulocyte % (Auto) 0.2 % Immature Granulocyte # (Auto) 0.01 K/uL (0.00-0.02) Prothrombin Time 10.7 SECONDS (9.0-12.0) Prothromb Time International Ratio 1.0 (0.9-1.1) Anion Gap 8.0 mmol/L (3-11) Est Creatinine Clear Calc Drug Dose 98.9 ml/min Estimated GFR () 99.4 Estimated GFR (Non- 85.7 BUN/Creatinine Ratio 14.2 (10-20) Lactic Acid Level 0.4 mmol/L (0.4-2.0) Calcium Level 8.3 mg/dl (8.5-10.1) Magnesium Level 1.9 mg/dl (1.8-2.4) Total Bilirubin 0.5 mg/dl (0.2-1) Aspartate Amino Transf (AST/SGOT) 12 U/L (15-37) Alanine Aminotransferase (ALT/SGPT) 14 U/L (12-78) Alkaline Phosphatase 50 U/L (45-117) Total Protein 6.8 gm/dl (6.4-8.2) Albumin 3.5 gm/dl (3.4-5.0) Globulin 3.3 gm/dl (2.5-4.0) Albumin/Globulin Ratio 1.1 (0.9-2) Lipase 259 U/L (73-393) Laboratory results per my review. Medications Administered Medications (Trade) Dose Ordered Sig/Debbi Route Start Time Stop Time Status Last Admin Dose Admin Sodium Chloride 1,000 ml @ 250 mls/hr Q4H STAT IV 12/30/16 14:34 12/30/16 18:33 DC 12/30/16 15:12 250 MLS/HR Morphine Sulfate (MoRPHine SULFATE INJ) 4 mg NOW STAT IV 12/30/16 14:34 12/30/16 14:36 DC 12/30/16 15:12 4 MG Morphine Sulfate (MoRPHine SULFATE INJ) 4 mg NOW STAT IV 12/30/16 15:58 12/30/16 15:59 DC 12/30/16 16:15 4 MG Dicyclomine HCl (Bentyl Tab) 20 mg NOW STAT PO 12/30/16 15:58 12/30/16 15:59 DC 12/30/16 16:15 20 MG Morphine Sulfate (MoRPHine SULFATE INJ) 4 mg NOW STAT IV 12/30/16 17:53 12/30/16 17:54 DC 12/30/16 18:35 4 MG Sodium Chloride 1,000 ml @ 999 mls/hr Q1H1M STAT IV 12/30/16 18:35 12/30/16 19:35 DC 12/30/16 19:06 999 MLS/HR Dexamethasone Sodium Phosphate 10 mg/Syringe 2.5 ml @ 1 mls/min NOW STAT IV 12/30/16 18:35 12/30/16 18:37 DC 12/30/16 19:06 1 MLS/MIN Metronidazole (Flagyl Tab) 500 mg NOW STAT PO 12/30/16 18:52 12/30/16 18:53 DC 12/30/16 19:05 500 MG Oxycodone/ Acetaminophen (Percocet 5-325mg Tab) 1 tab NOW ONCE PO 12/30/16 19:30 12/30/16 19:31 DC 12/30/16 20:06 1 TAB ED Course 1418: The patient was evaluated in room A4B. A complete history and physical exam was performed. 1434: Ordered Morphine Sulfate Inj 4 mg IV, NSS 1000 ml @ 250 mls/hr IV. 1558: Ordered Bentyl Tab 20 mg PO, Morphine Sulfate Inj 4 mg IV. 1817: I reevaluated the patient and updated her. I did a rectal exam, which revealed no anal fissures, no external hemorrhoid, no stool in vault, mucous Guaiac negative. 1835: Ordered Dexamethasone Sodium Phosphate 10mg/Syringe 2.5 ml @ 1 mls/min IV , NSS 1000 ml @ 999 mls/hr IV. 1851: Ordered Flagyl Tab 500 mg PO. 1929: Ordered Percocet 5-325mg Tab 1 tab PO. 2017: Upon reevaluation, the patient is feeling better. I discussed the findings and the treatment plan with the patient. She verbalizes agreement and understanding. She was discharged home. Medical Decision Differential diagnosis includes etiologies such as diverticulosis, AVM, coagulopathy, colitis, inflammatory bowel disease, malignancy, Gia-Shea tear, esophagitis, peptic ulcer disease, variceal bleed, gastritis, epistaxis, fissure, hemorrhoids, as well as others were entertained. Unclear etiology of patient's proctitis, however given mildly complex my status on RA medications, patient covered with Flagyl. Patient with no other bleeding seen here. Patient given medications to help with nausea as well as pain. Patient afebrile here with stable vital signs. No evidence of additional GI or pathology. Discussed with patient need for close follow-up with family doctor and referral to GI for additional evaluation. Patient has previously had a colonoscopy several years ago. No other concerning first degree relative with inflammatory bowel disease. Discussed with patient symptoms to watch and return for, diet and hydration, use of medications, she verbalized understanding was agreeable with plan. I do not suspect infection has been caused by any sexual transmitted disease. Medication Reconcilliation Current Medication List: was personally reviewed by me Blood Pressure Screening Patient's blood pressure: Normal blood pressure Impression Primary Impression: Abdominal pain Additional Impressions: GI bleed Proctitis Scribe Attestation The scribe's documentation has been prepared under my direction and personally reviewed by me in its entirety. I confirm that the note above accurately reflects all work, treatment, procedures, and medical decision making performed by me. Departure Information Dispostion Home / Self-Care Prescriptions Oxycodone/Acetaminophen 5MG/325MG (PERCOCET 5MG/325MG) Tab 1-2 TABS PO Q4H Y for Pain, #12 TAB Prov: Olinda Greene, DO 12/30/16 Dicyclomine Hcl (BENTYL) 20 Mg Tab 20 MG PO Q8 for Pain, #20 TAB Prov: Olinda Greene, DO 12/30/16 Metronidazole (FLAGYL) 500 Mg Tab 500 MG PO BID for 7 Days, #14 TAB Prov: Olinda Greene, DO 12/30/16 Referrals Cinda Kirby M.D. (PCP) Patient Instructions My [facility] Additional Instructions Please follow up with your family doctor, and follow-up additionally with GI. Please continue regular medications as prescribed, however avoid your use of Toradol. Do not take aspirin. Please take the antibiotic as prescribed. Please take to a light and clear diet for 48-72 hours. If you have any worsening symptoms or new concerns including worsening pain, fevers, recurrent blood with the bowel movement, vomiting, or any other new concerns, please return the emergency room. If your symptoms are persistent or worsening, please return the emergency room. Problem Qualifiers Primary Impression: Abdominal pain Abdominal location: periumbilical Qualified Codes: R10.33 - Periumbilical pain Additional Impressions: GI bleed GI bleed type/associated pathology: unspecified gastrointestinal hemorrhage type Qualified Codes: K92.2 - Gastrointestinal hemorrhage, unspecified
[2016-12-30] MEDS ORDERED: SODIUM CHLORIDE 0.9% 1000ML 1,000 ML IV STA ×2 (14:34→18:35)
[2016-12-30] MEDS ORDERED: MoRPHine SULFATE 4 MG/ML 1 ML CARP\\VIAL IV STA ×3 (14:34→17:53)
[2016-12-30 15:15] LABS: BASO % 0.2 %; BASO ABS # 0.01 K/uL (0-0.2); COMPLETE YES; EOS % 0.4 %; HEMATOCRIT 37.9 % (37-47); IG% 0.2 %; LYMPH % 38.6 %; LYMPH ABS # 2.02 K/uL (1.2-3.4); MEAN CELL VOLUME 92.2 fL (80-100); MEAN CORPUSCULAR HEMOGLOBIN 30.4 pg (25-34); MONO % 8.4 %; NEUT % 52.2 %; PLATELET COUNT 193 K/uL (130-400); RED BLOOD COUNT 4.11 M/uL (4.2-5.4); WHITE BLOOD COUNT 5.23 K/uL (4.8-10.8)
[2016-12-30 15:16] LABS: URINE APPEARANCE CLEAR (CLEAR); URINE COLOR DK YELLOW; URINE EPITHELIAL CELL AUTO >30 /lpf (0-5); URINE NITRITE NEG (NEG); URINE SPECIFIC GRAVITY 1.024 (1.000-1.030); UROBILINOGEN NEG (NEG); ZZUR CULT IF INDIC CLEAN CATCH YES
[2016-12-30 15:22] LABS: URINE BILIRUBIN 3+ (NEG)
[2016-12-30 15:24] LABS: PROTHROMBIN TIME (PATIENT) 10.7 SECONDS (9.0-12.0)
[2016-12-30 15:24] LABS: MANUAL MICROSCOPIC REQUIRED? NO; REVIEW REQ? NO
[2016-12-30 15:34] LABS: BUN/CREATININE RATIO 14.2 (10-20); CALCIUM 8.3 mg/dl (8.5-10.1); CREATININE 0.88 mg/dl (0.60-1.20); MAGNESIUM 1.9 mg/dl (1.8-2.4); POTASSIUM 3.6 mmol/L (3.5-5.1)
[2016-12-30 15:36] LABS: ALB/GLOB RATIO 1.1 (0.9-2)
[2016-12-30] MEDS ORDERED: DICYCLOMINE HCL 20 MG TAB PO STA (15:58)
[2016-12-30] MEDS ORDERED: OPTIRAY 320 IV PRN (16:15)
--- NOTE | 2016-12-30 18:11 | DIAGNOSTIC IMAGING REPORT ---
ABDOMEN AND PELVIS CT WITH IV AND ORAL CONTRAST CT DOSE: 544.53 mGy.cm HISTORY: Acute generalized abdominal pain with bloody stool abd pain, bloody BM TECHNIQUE: Multiaxial CT images of the abdomen and pelvis were performed following the use of intravenous and oral contrast. A dose lowering technique was utilized adhering to the principles of ALARA. COMPARISON STUDY: Abdominal ultrasound 12/15/2016 and 04/16/2011. FINDINGS: Mild dependent bibasilar atelectasis. No pneumoperitoneum or pneumatosis. The imaged inferior cardiac chambers are unremarkable. There are ill-defined hyperattenuating lesions involving segment VIII of the liver, largest measuring 3.0 x 4.5 cm and the smaller lesion measuring 1.5 x 1.1 cm no intrahepatic biliary ductal dilation. The gallbladder, spleen, pancreas and adrenal glands are unremarkable. Kidneys, ureters are unremarkable. There is moderate distention of the urinary bladder. Uterus and adnexa are within normal limits. Aorta is normal in course and caliber. No bulky adenopathy. No bowel obstruction or focal bowel wall thickening. There is mild to moderate circumferential wall thickening of the rectum with mild stranding inflammatory stranding. There is moderate stool volume of the mid sigmoid colon. No diverticulosis or diverticulitis identified. The appendix is not seen, likely surgically absent. Soft tissues are unremarkable. Bones appear intact. IMPRESSION: 1. Mild to moderate circumferential wall thickening of the rectum with mild surrounding inflammatory stranding suggests proctitis. No evidence of diverticulosis or diverticulitis. 2. No bowel obstruction or pneumoperitoneum. 3. Two hyperattenuating ill-defined lesions involving segment VIII of the liver measuring up to 4.5 cm are indeterminate and may reflect hemangiomas. Follow-up MRI of the liver may be considered to further evaluate. Electronically signed by: Chauncey Gardiner M.D. 12/30/2016 6:09 PM Dictated Date/Time: 12/30/2016 6:02 PM
[2016-12-30] MEDS ORDERED: DEXAMETHASONE INJ 10 MG in SYRINGE 0 ML IV STA (18:35)
[2016-12-30] MEDS ORDERED: METRONIDAZOLE 250 MG TAB PO STA (18:52)
[2016-12-30] MEDS ORDERED: OXYCODONE/ACETAMINOPHEN 5-325 TAB PO ONE (19:30)
[2016-12-30] MEDS ORDERED: OXYC-57 PO (19:36)
[2016-12-30] MEDS ORDERED: METR500T PO (19:36)
[2016-12-30] MEDS ORDERED: DICY20TA35 PO (19:36)
[2016-12-30 20:40] VITALS: BP 111/76; PULSE 60; O2SAT 96
== END 2016-12-30 20:36 | disposition home or self-care (01) ==
LOC: C.EDB 14:07 → C.EDA 20:36
DX: R10.33 Periumbilical pain (principal); K92.2 Gastrointestinal hemorrhage, unspecified; K62.89 Other specified diseases of anus and rectum; K58.9 Irritable bowel syndrome, unspecified; Z87.440 Personal history of urinary (tract) infections; Z90.89 Acquired absence of other organs; Z98.890 Other specified postprocedural states; Z82.49 Family history of ischemic heart disease and other diseases of the circulatory system; Z79.899 Other long term (current) drug therapy

== ENCOUNTER 2017-03-10 12:05 | Emergency (ER) | payer OTHER ==
[~2017-03-10] VITALS: Ht 172.7 cm; Wt 77.5 kg
[~2017-03-10 12:05] MED LIST changes: +OXYC-57 PO
[2017-03-10 12:14] VITALS: Ht 172.7 cm; Wt 77.5 kg
[2017-03-10] MEDS ORDERED: SODIUM CHLORIDE 0.9% 1000ML 1,000 ML IV STA (12:41)
[2017-03-10] MEDS ORDERED: PROMETHAZINE HCL INJ 25 MG in SODIUM CHLORIDE 0.9% 50ML 50 ML IV STA (13:07)
[2017-03-10] MEDS ORDERED: KETOROLAC TROMETHAMINE 30 MG/ML VIAL IV STA (13:10)
[2017-03-10 13:30] LABS: BASO % 0.1 %; BASO ABS # 0.01 K/uL (0-0.2); EOS % 0.7 %; EOS ABS # 0.05 K/uL (0-0.5); HEMATOCRIT 42.6 % (37-47); HEMOGLOBIN 14.4 g/dL (12.0-16.0); IG# 0.02 K/uL (0.00-0.02); LYMPH % 30.5 %; LYMPH ABS # 2.07 K/uL (1.2-3.4); MEAN CORPUSCULAR HEMOGLOBIN 31.1 pg (25-34); MEAN CORPUSCULAR HGB CONC 33.8 g/dl (32-36); MEAN PLATELET VOLUME 10.1 fL (7.4-10.4); MONO % 8.1 %; MONO ABS # 0.55 K/uL (0.11-0.59); NEUT % 60.3 %; NEUT ABS # 4.09 K/uL (1.4-6.5); PLATELET COUNT 236 K/uL (130-400); RED CELL DISTRIBUTION WIDTH CV 13.1 % (11.5-14.5); RED CELL DISTRIBUTION WIDTH SD 43.8 fL (36.4-46.3); WHITE BLOOD COUNT 6.79 K/uL (4.8-10.8)
[2017-03-10 13:50] LABS: ALBUMIN 3.6 gm/dl (3.4-5.0); ALT/SGPT 14 U/L (12-78); AST/SGOT 10 U/L (15-37); BLOOD UREA NITROGEN 9 mg/dl (7-18); CALCIUM 8.9 mg/dl (8.5-10.1); CARBON DIOXIDE 26 mmol/L (21-32); CREATININE 0.98 mg/dl (0.60-1.20); GLUCOSE 64 mg/dl (70-99); LIPASE 281 U/L (73-393); POTASSIUM 3.8 mmol/L (3.5-5.1); SODIUM 139 mmol/L (136-145)
[2017-03-10 14:00] LABS: ALKALINE PHOSPHATASE 61 U/L (45-117); TOTAL PROTEIN 7.3 gm/dl (6.4-8.2)
[2017-03-10 14:54] LABS: INFLUENZA B ANTIGEN Neg for Influ B (NEG)
[2017-03-10] MEDS ORDERED: CEPH500C PO (16:14)
[2017-03-10] MEDS ORDERED: FLUC150T PO (16:14)
[2017-03-10] MEDS ORDERED: CEPHALEXIN MONOHYDRATE 250 MG CAP PO ONE (16:15)
[2017-03-10 16:29] VITALS: BP 115/81; PULSE 74; TEMP 36.7; O2SAT 96
[2017-03-10 18:44] VITALS: O2SAT 96
--- NOTE | 2017-03-10 19:45 | EMERGENCY ROOM VISIT NOTE ---
History Report prepared by Paulette: Francisco Marin Under the Supervision of: Dr. Stefano Goode M.D. First contact with patient: 12:40 Chief Complaint: DIZZY Stated Complaint: DIZZINESS History of Present Illness The patient is a 36 year old female who presents to the Emergency Room with complaints of flu-like symptoms that she has been experiencing for the past two days. The patient states that her symptoms began on Tuesday night with vomiting. She is also complaining of global achiness, dizziness, and fevers/ chills. She has not had much of an appetite for the past two days and has only drank Gatorade and ate some crackers. She does feel like she has been urinating more frequently and feels dehydrated. The patient has taken over the counter NSAIDs for her symptoms without much relief. She continued to mention that she felt some unusual vaginal itching/increased discharge yesterday and felt like she was starting a yeast infection. The patient denies any further LOC, headache , visual changes, neck pain, chest pain, breathing difficulties, back pain, melena, hematochezia, urinary symptoms, numbness, weakness, lymphadenopathy, rash, or other complaints. Source of History: patient Onset: Two days Position: other (Global) Quality: other (Flu-like) Associated Symptoms: + fevers, + chills, + vomiting Review of Systems See HPI for pertinent positives and negatives. A total of ten systems were reviewed and were otherwise negative. 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 (11) Migraine (12) Nausea (13) Orthostasis (14) Orthostatic hypotension (15) Orthostatic hypotension (16) Orthostatic hypotension (17) Orthostatic hypotension (18) Orthostatic hypotension (19) Orthostatic hypotension (20) Postural hypotension (21) Postural imbalance (22) Syncope (23) Syncope (24) Syncope (25) UTI (urinary tract infection) (26) Vaginal bleeding Surgical Problems: (1) History of oral surgery (2) History of orthopedic surgery (3) S/P appendectomy Family History Cancer Heart disease Hypertension Social History Smoking Status: Never Smoker Alcohol Use: occasionally Drug Use: none Marital Status: Housing Status: lives with family Occupation Status: employed Current/Historical Medications Scheduled Cephalexin Monohydrate (Keflex), 500 MG PO QID Clonazepam (Klonopin), 0.25 MG PO HS Docusate Sodium (Docusate Sodium), 200 MG PO BID Ethinyl Estradiol/Norethindr (Ortho-Novum ), 1 TAB PO DAILY Etodolac (Etodolac), 500 MG PO AMHS Fluconazole (Diflucan), 150 MG PO UD Magnesium (Magnesium 250 mg), 500 MG PO DAILY Midodrine Hcl (Midodrine Hcl), 10 MG PO TID Multiple Vitamins W/ Minerals (Centrum), 1 TAB PO QAM Pantoprazole (Pantoprazole Sodium), 40 MG PO DAILY Ranitidine (Zantac), 150 MG PO BID Riboflavin (B-2), 400 MG PO DAILY Sodium Chloride (Sodium Chloride), 2 GM PO TID Sulfasalazine (Azulfidine), 1,000 MG PO AMHS Topiramate (Topamax ), 75 MG PO AMPM Trazodone Hcl (Desyrel), 50 MG PO HS Venlafaxine Hcl (Venlafaxine Extended Rel), 75 MG PO QAM Venlafaxine Hcl (Effexor Extended Rel), 150 MG PO QAM Scheduled PRN Acetaminophen (Tylenol), 1,000 MG PO Q8 PRN for Pain Diclofenac Sodium (Topical) (Voltaren 1% Top Gel), 2 GM TOP QID PRN for Pain Ketorolac Tromethamine (Toradol), 10 MG PO Q4 PRN for Pain Menthol (Topical Analgesic) (Biofreeze), 1 APPL TOP for Pain Valacyclovir (Valtrex), 500 MG PO AMPM PRN for OUTBREAKS Allergies Coded Allergies: Bupropion (Verified Allergy, Mild, 03/10/17) LOW BP Metoclopramide (Verified Allergy, Mild, 03/10/17) LOW BP Adhesives (Verified Allergy, Unknown, RASH, 03/10/17) Gabapentin (Unverified Allergy, Unknown, SHORTNESS OF BREATH, 03/10/17) DEPRESSION MEDICATIONS DEACTIVATE Hyoscyamine (Verified Allergy, Unknown, SHORTNESS OF BREATH/HYPOTENSION, ) Patient states "Levobid or Levibid" Infliximab (Verified Allergy, Unknown, HYPOTENSION, 03/10/17) Latex1 -Allergic Contact Dermititis (Verified Allergy, Unknown, 03/10/17) Propoxyphene (Verified Allergy, Unknown, 03/10/17) Replaces DARVOCET-N 10 Morphine (Verified Adverse Reaction, Intermediate, STOMACH UPSET, 03/10/17) ORAL MORPHINE = ABDOMINAL PAIN Physical Exam Vital Signs Date Time Temp Pulse Resp B/P (MAP) Pulse Ox O2 Delivery O2 Flow Rate FiO2 03/10/17 18:44 96 Room Air 03/10/17 16:29 36.7 74 19 115/81 96 03/10/17 16:00 74 19 115/81 96 03/10/17 15:55 69 18 96 03/10/17 15:50 65 16 97 03/10/17 15:45 66 17 97 03/10/17 15:40 67 16 97 03/10/17 15:35 68 19 97 03/10/17 15:30 66 19 97 03/10/17 15:25 68 19 97 03/10/17 15:20 69 18 98 03/10/17 15:15 67 17 98 03/10/17 15:10 65 27 97 03/10/17 15:05 70 17 98 03/10/17 15:00 65 18 98 03/10/17 14:55 58 19 99 03/10/17 14:50 58 19 97 03/10/17 14:45 71 24 98 03/10/17 14:40 65 17 98 03/10/17 14:35 70 14 98 03/10/17 14:30 60 18 99 03/10/17 14:25 63 18 99 03/10/17 14:20 61 18 100 03/10/17 14:15 63 17 100 03/10/17 14:10 57 16 100 03/10/17 14:05 57 17 99 03/10/17 14:00 66 21 98 03/10/17 13:55 65 17 97 03/10/17 13:50 62 19 100 03/10/17 13:48 75 03/10/17 13:31 103/77 03/10/17 13:30 55 18 108/62 99 Room Air 57 105/72 70 107/77 03/10/17 13:30 99 Room Air 03/10/17 12:14 36.7 78 20 111/77 98 Room Air Physical Exam GENERAL: Awake, alert, uncomfortable-appearing, in no distress HENT: Normocephalic, atraumatic. Oropharynx unremarkable. EYES: Normal conjunctiva. Sclera non-icteric. NECK: Supple. No nuchal rigidity. FROM. No JVD. RESPIRATORY: Clear to auscultation. CARDIAC: Regular rate, normal rhythm. Extremities warm and well perfused. Pulses equal. ABDOMEN: Soft, non-distended. No tenderness to palpation. No rebound or guarding. No masses. RECTAL: Deferred. MUSCULOSKELETAL: Chest examination reveals no tenderness. The back is symmetrical on inspection without obvious abnormality. There is no CVA tenderness to palpation. No joint edema. LOWER EXTREMITIES: Calves are equal size bilaterally and non-tender. No edema. No discoloration. NEURO: Normal sensorium. No sensory or motor deficits noted. SKIN: No rash or jaundice noted. Medical Decision & Procedures Laboratory Results 03/10/17 12:50 Red Blood Count 4.63, Mean Corpuscular Volume 92.0, Mean Corpuscular Hemoglobin 31.1, Mean Corpuscular Hemoglobin Concent 33.8, Mean Platelet Volume 10.1, Neutrophils (%) (Auto) 60.3, Lymphocytes (%) (Auto) 30.5, Monocytes (%) (Auto) 8.1, Eosinophils (%) (Auto) 0.7, Basophils (%) (Auto) 0.1, Neutrophils # (Auto) 4.09, Lymphocytes # (Auto) 2.07, Monocytes # (Auto) 0.55, Eosinophils # (Auto) 0.05, Basophils # (Auto) 0.01 03/10/17 12:50 Test 03/10/17 12:50 03/10/17 13:52 03/10/17 16:00 White Blood Count 6.79 K/uL (4.8-10.8) Red Blood Count 4.63 M/uL (4.2-5.4) Hemoglobin 14.4 g/dL (12.0-16.0) Hematocrit 42.6 % (37-47) Mean Corpuscular Volume 92.0 fL (80-100) Mean Corpuscular Hemoglobin 31.1 pg (25-34) Mean Corpuscular Hemoglobin Concent 33.8 g/dl (32-36) Platelet Count 236 K/uL (130-400) Mean Platelet Volume 10.1 fL (7.4-10.4) Neutrophils (%) (Auto) 60.3 % Lymphocytes (%) (Auto) 30.5 % Monocytes (%) (Auto) 8.1 % Eosinophils (%) (Auto) 0.7 % Basophils (%) (Auto) 0.1 % Neutrophils # (Auto) 4.09 K/uL (1.4-6.5) Lymphocytes # (Auto) 2.07 K/uL (1.2-3.4) Monocytes # (Auto) 0.55 K/uL (0.11-0.59) Eosinophils # (Auto) 0.05 K/uL (0-0.5) Basophils # (Auto) 0.01 K/uL (0-0.2) RDW Standard Deviation 43.8 fL (36.4-46.3) RDW Coefficient of Variation 13.1 % (11.5-14.5) Immature Granulocyte % (Auto) 0.3 % Immature Granulocyte # (Auto) 0.02 K/uL (0.00-0.02) Urine Color DK YELLOW Urine Appearance CLEAR (CLEAR) Urine pH 6.0 (4.5-7.5) Urine Specific [place] 1.022 (1.000-1.030) Urine Protein NEG (NEG) Urine Glucose (UA) NEG (NEG) Urine Ketones TRACE (NEG) Urine Occult Blood NEG (NEG) Urine Nitrite POS (NEG) Urine Bilirubin 3+ (NEG) Urine Urobilinogen NEG (NEG) Urine Leukocyte Esterase SMALL (NEG) Urine WBC (Auto) 1-5 /hpf (0-5) Urine RBC (Auto) 0-4 /hpf (0-4) Urine Hyaline Casts (Auto) 1-5 /lpf (0-5) Urine Epithelial Cells (Auto) 5-10 /lpf (0-5) Urine Bacteria (Auto) NEG (NEG) Urine Mucus PRESENT (NONE PRSENT) Urine Yeast (Auto) (NONE PRSENT) Anion Gap 5.0 mmol/L (3-11) Est Creatinine Clear Calc Drug Dose 88.5 ml/min Estimated GFR () 87.2 Estimated GFR (Non- 75.3 BUN/Creatinine Ratio 9.6 (10-20) Calcium Level 8.9 mg/dl (8.5-10.1) Magnesium Level 2.2 mg/dl (1.8-2.4) Total Bilirubin 0.5 mg/dl (0.2-1) Direct Bilirubin < 0.1 mg/dl (0-0.2) Aspartate Amino Transf (AST/SGOT) 10 U/L (15-37) Alanine Aminotransferase (ALT/SGPT) 14 U/L (12-78) Alkaline Phosphatase 61 U/L (45-117) Total Creatine Kinase 55 U/L (26-192) Total Protein 7.3 gm/dl (6.4-8.2) Albumin 3.6 gm/dl (3.4-5.0) Lipase 281 U/L (73-393) Thyroid Stimulating Hormone (TSH) 1.350 uIu/ml (0.300-4.500) Human Chorionic Gonadotropin, Qual NEG (NEG) Influenza Type A Antigen Neg for Influ A (NEG) Influenza Type B Antigen Neg for Influ B (NEG) Bedside Glucose 75 mg/dl (70-90) Laboratory results reviewed by me Medications Administered Medications (Trade) Dose Ordered Sig/Debbi Route Start Time Stop Time Status Last Admin Dose Admin Sodium Chloride 1,000 ml @ 999 mls/hr Q1H1M STAT IV 03/10/17 12:41 03/10/17 13:41 DC 03/10/17 13:22 999 MLS/HR Promethazine HCl 25 mg/Sodium Chloride 51 ml @ 204 mls/hr NOW STAT IV 03/10/17 13:07 03/10/17 13:21 DC 03/10/17 13:36 204 MLS/HR Ketorolac Tromethamine (Toradol Inj) 10 mg NOW STAT IV 03/10/17 13:10 03/10/17 13:12 DC 03/10/17 13:37 10 MG Cephalexin Monohydrate (Keflex Cap) 500 mg NOW ONCE PO 03/10/17 16:15 03/10/17 16:16 DC 03/10/17 16:26 500 MG ECG Indication: other (Dizziness) Rate (beats per minute): 54 Rhythm: sinus bradycardia Findings: no acute ischemic change, no ectopy Change: Patient's electrocardiogram was interpreted by me. ED Course 1306: The patient was evaluated in room B5. A complete history and physical exam was performed. 1241: Ordered Sodium Chloride 1000 mL @ 999 mL/hr IV. 1307: Ordered Promethazine HCl 51 mL @ 204 mL/hr IV. 1310: Ordered Toradol 10 mg IV. 1549: I reevaluated the patient. Discussed results and discharge instructions: she verbalized understanding and agreement. The patient is ready for discharge. 1615: Ordered Keflex 500 mg PO. Medical Decision Prior records/ancillary studies reviewed and summarized above. Nursing notes reviewed and agree them. The patient's history was concerning for flulike symptoms, myalgias, dizziness, weakness. Differential diagnosis: Etiologies such as metabolic, infection, hypo/hyperglycemia, electrolyte abnormalities, cardiac sources, intracerebral event, toxicologic, neurologic, as well as others were entertained. Physical examination: As above. ER treatment provided: IV Lock Normal saline hydration IV Phenergan IV Toradol On reassessment the patient felt better. Oral Keflex Diagnostics interpretation by me: ECG: Normal The labs revealed an unremarkable CBC and chemistry panel. Flu test negative. Urinalysis was concerning for infection. Imaging studies: Deferred The patient was concerned that she may be dehydrated. Both of her children had viral syndromes this week. She also noted muscle cramping. She had a fluid bolus administered. She was treated with the above medications. Orthostatic testing was negative. ECG was unremarkable. The patient did feel better. She has Phenergan at home. She will continue her current medications. If she worsens in any way she will be back. She will need close follow-up with her primary physician. By the evaluation outlined above other emergent etiologies such as those listed in the differential, as well as others, were deemed relatively unlikely. The patient was educated about the findings as listed above. All questions were answered and the patient was pleased with the treatment. Return instructions were outlined and the patient was discharged in stable condition. The patient was referred to her PCP for follow-up for a recheck of the current condition. Blood Pressure Screening Patient's blood pressure: Elevated blood pressure Impression Primary Impression: Dizziness Additional Impressions: UTI (urinary tract infection) Myalgia Scribe Attestation The scribe's documentation has been prepared under my direction and personally reviewed by me in its entirety. I confirm that the note above accurately reflects all work, treatment, procedures, and medical decision making performed by me. Departure Information Dispostion Home / Self-Care Prescriptions Cephalexin Monohydrate (Keflex) 500 Mg Cap 500 MG PO QID, #19 CAP Prov: Stefano Goode MD 03/10/17 Fluconazole (DIFLUCAN) 150 Mg Tab 150 MG PO UD, #1 TAB Prov: Stefano Goode MD 03/10/17 Referrals Cinda Kirby M.D. (PCP) Forms HOME CARE DOCUMENTATION FORM, IMPORTANT VISIT INFORMATION Patient Instructions My [facility] Additional Instructions Cephalexin(Keflex) 500mg: Take one pill four times daily for 5 days for your skin infection. All antibiotics can cause diarrhea. If this occurs and you feel worse or it does not resolve in 1-2 days follow up with your doctor or return to the Emergency Department as this could be signs of serious underlying problems. Any medication can cause an allergic reaction, stop the pills immediately and return to the ER for rash, hives, breathing difficulties, or swelling. A prescription was sent for Diflucan in case of any yeastlike discharge. Take one pill if needed. Acetaminophen(Tylenol) may be used for fever or pain. Use 1000mg every six hours as needed. Avoid using more than 4000mg in a 24 hour period. Rest and drink plenty of fluids. Controlling your fever with Tylenol and Ibuprofen as above will make you feel better. Wash your hands after nose blowing, sneezing, or coughing. Most germs are spread through contact, therefore improper hygiene may result in your close contacts and loved ones becoming ill just like you. Return to the ER for severe headache, neck stiffness, chest pain, difficulty breathing, fevers, vomiting, worsening of your condition, or as needed. Follow up with your primary physician this coming week for a recheck of your current condition. Problem Qualifiers
== END 2017-03-10 16:30 | disposition home or self-care (01) ==
LOC: C.EDB 12:06
DX: R42 Dizziness and giddiness (principal); N39.0 Urinary tract infection, site not specified; M79.1 Myalgia; F41.9 Anxiety disorder, unspecified; F32.9 Major depressive disorder, single episode, unspecified; M79.7 Fibromyalgia; K58.9 Irritable bowel syndrome, unspecified; I95.1 Orthostatic hypotension; R56.9 Unspecified convulsions; Z82.49 Family history of ischemic heart disease and other diseases of the circulatory system

== ENCOUNTER 2017-04-22 14:07 | Emergency (ER) | payer OTHER ==
[~2017-04-22] VITALS: Ht 172.7 cm; Wt 76.0 kg
[~2017-04-22 14:07] MED LIST changes: -ACET-1256 PO; +CEPH500C PO; -CLC100 PO; -DICL1GEL12 TOP; -LDN500 PO; -MULTTAB5 PO; -OXYC-57 PO; +RANI150T85 PO; -SODI1TAB PO; -SUCR1TAB PO; -SULF500T36 PO; -VALA500T60 PO; -VENL150C56 PO; -ZNTT/150 PO
[2017-04-22 14:10] VITALS: Ht 172.7 cm; Wt 76.0 kg
[2017-04-22] MEDS ORDERED: MULTTAB5 PO (14:20)
[2017-04-22] MEDS ORDERED: DICL1GEL12 TOP (14:20)
[2017-04-22] MEDS ORDERED: VALA500T60 PO (14:20)
[2017-04-22] MEDS ORDERED: ACET-1256 PO (14:20)
[2017-04-22] MEDS ORDERED: ONDANSETRON INJ 2 MG/ML 2 ML VIAL IV STA (14:30)
[2017-04-22] MEDS ORDERED: SODIUM CHLORIDE 0.9% 1000ML 2,000 ML IV STA (14:30)
[2017-04-22] MEDS ORDERED: KETOROLAC TROMETHAMINE 30 MG/ML VIAL IV STA (14:30)
[2017-04-22] MEDS ORDERED: MECLIZINE HCL 25 MG TAB PO STA (14:30)
[2017-04-22] MEDS ORDERED: LORAZEPAM 0.5 MG TAB SL STA (14:30)
[2017-04-22 15:12] LABS: BASO % 0.2 %; BASO ABS # 0.01 K/uL (0-0.2); EOS % 1.2 %; EOS ABS # 0.07 K/uL (0-0.5); HEMATOCRIT 44.2 % (37-47); HEMOGLOBIN 14.9 g/dL (12.0-16.0); IG# 0.01 K/uL (0.00-0.02); LYMPH % 41.4 %; LYMPH ABS # 2.49 K/uL (1.2-3.4); MEAN CELL VOLUME 92.1 fL (80-100); MEAN CORPUSCULAR HGB CONC 33.7 g/dl (32-36); MEAN PLATELET VOLUME 9.9 fL (7.4-10.4); MONO ABS # 0.42 K/uL (0.11-0.59); NEUT ABS # 3.01 K/uL (1.4-6.5); PLATELET COUNT 208 K/uL (130-400); RED CELL DISTRIBUTION WIDTH CV 13.2 % (11.5-14.5); RED CELL DISTRIBUTION WIDTH SD 44.3 fL (36.4-46.3); WHITE BLOOD COUNT 6.01 K/uL (4.8-10.8)
[2017-04-22 15:29] LABS: ALBUMIN 3.7 gm/dl (3.4-5.0); CALCIUM 8.7 mg/dl (8.5-10.1); CREATININE 0.98 mg/dl (0.60-1.20); POTASSIUM 3.8 mmol/L (3.5-5.1)
[2017-04-22 15:32] LABS: TOTAL PROTEIN 7.5 gm/dl (6.4-8.2)
[2017-04-22] MEDS ORDERED: [UNRECOGNIZED DRUG - CODE] PO (15:32)
[2017-04-22] MEDS ORDERED: RANI150T2 PO (15:32)
[2017-04-22] MEDS ORDERED: HYDR-3126 PO (15:32)
[2017-04-22] MEDS ORDERED: DICY20TA10 PO (15:32)
[2017-04-22] MEDS ORDERED: TRD10 PO (15:32)
[2017-04-22] MEDS ORDERED: TPM25 PO (15:32)
[2017-04-22] MEDS ORDERED: BCPILLS PO (15:36)
--- NOTE | 2017-04-22 15:38 | DIAGNOSTIC IMAGING REPORT ---
SINGLE VIEW CHEST CLINICAL HISTORY: Dizziness. FINDINGS: An AP, portable, upright chest radiograph is compared to study dated 09/27/2016. The examination is degraded by portable technique and patient rotation. The cardiomediastinal silhouette is unremarkable. The lungs and pleural spaces are clear. No pneumothorax is seen. The bony thorax is grossly intact. IMPRESSION: No active disease in the chest. Electronically signed by: Wilbur Steele M.D. 04/22/2017 3:37 PM Dictated Date/Time: 04/22/2017 3:36 PM
--- NOTE | 2017-04-22 15:46 | DIAGNOSTIC IMAGING REPORT ---
CT SCAN OF THE BRAIN WITHOUT IV CONTRAST CLINICAL HISTORY: Dizziness. Headache. COMPARISON STUDY: CT of the brain dated 11/27/2013. TECHNIQUE: Unenhanced axial CT scan of the brain is performed from the vertex to the skull base. A dose lowering technique was utilized adhering to the principles of ALARA. CT DOSE: 690.05 mGycm FINDINGS: Brain parenchyma: The brain parenchyma is normal in appearance. There is no hemorrhage, mass effect, or evidence of acute territorial ischemia by CT criteria. Tripp-white matter is preserved. No extra-axial fluid collection is seen. Ventricles, sulci, cisterns: Normal in configuration. Intracranial vasculature: The visualized intracranial vasculature at the skull base is normal in appearance. Calvarium: Unremarkable. Sinuses and mastoids: The visualized paranasal sinuses are clear. The mastoid air cells are well pneumatized. Orbits: The bony orbits are grossly intact. IMPRESSION: No acute intracranial abnormality. Electronically signed by: Wilbur Steele M.D. 04/22/2017 3:44 PM Dictated Date/Time: 04/22/2017 3:43 PM
[2017-04-22] MEDS ORDERED: MIDODRINE 10 MG TAB PO ONE (16:00)
[2017-04-22] MEDS ORDERED: PROMETHAZINE HCL INJ 25 MG in SODIUM CHLORIDE 0.9% 50ML 50 ML IV STA (16:02)
[2017-04-22 17:14] VITALS: BP 109/65; PULSE 59; TEMP 36.4; O2SAT 99
[2017-04-22] MEDS ORDERED: SULF500T36 PO (19:18)
--- NOTE | 2017-04-22 20:37 | EMERGENCY ROOM VISIT NOTE ---
History Report prepared by Paulette: Francisco Marin Under the Supervision of: Dr. Jayy Vences D.O. First contact with patient: 14:22 Chief Complaint: DIZZY Stated Complaint: DIZZY Nursing Triage Summary: pt to the ED with c/o dizziness and low BP today pt states she is having double and triple vision History of Present Illness The patient is a 36 year old female who presents to the Emergency Room with complaints of intermittent and severe dizziness that she has been experiencing for the past week. She notes that she also has associated vision irregularities and a severe headache. She rates her current headache as a 10/10 in severity. The patient does have a history of dizziness like this and has been extensively worked-up by cardiology and neurology. Her dizziness is not always associated with the blurry vision, and the severity of this headache is unusual as well. The patient adds that she had 1 bout of diarrhea two days ago, as well as 3 bouts of diarrhea yesterday. This may have caused her to get a little behind on her fluid intake. Dehydration has sometimes been associated to her dizziness in the past. The patient also has a history of hypotension. She has not taken her daily medications today. The patient denies any further fevers, chest pain, shortness of breath, nausea, vomiting, pain with urination, and melena. Source of History: patient Onset: 1 week Position: head Symptom Intensity: severe Quality: other (Dizziness) Timing: intermittent Associated Symptoms: + headache, + diarrhea, No nausea, No vomiting Review of Systems See HPI for pertinent positives & negatives. A total of 10 systems reviewed and were otherwise negative. 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 (11) Migraine (12) Nausea (13) Orthostasis (14) Orthostatic hypotension (15) Orthostatic hypotension (16) Orthostatic hypotension (17) Orthostatic hypotension (18) Orthostatic hypotension (19) Orthostatic hypotension (20) Postural hypotension (21) Postural imbalance (22) Syncope (23) Syncope (24) Syncope (25) UTI (urinary tract infection) (26) Vaginal bleeding Surgical Problems: (1) History of oral surgery (2) History of orthopedic surgery (3) S/P appendectomy Family History Cancer Heart disease Hypertension Social History Smoking Status: Never Smoker Alcohol Use: occasionally Drug Use: none Marital Status: Housing Status: lives with family Occupation Status: employed Current/Historical Medications Scheduled Control Pills ( Control Pills), 1 TAB PO DAILY Clonazepam (Klonopin), 0.25 MG PO HS Docusate Sodium (Docusate Sodium), 200 MG PO BID Etodolac (Etodolac), 500 MG PO AMHS Magnesium Oxide (mg Supplement (Cvs Magnesium), 500 MG PO DAILY Midodrine Hcl (Midodrine Hcl), 10 MG PO TID Multiple Vitamins W/ Minerals (Centrum), 1 TAB PO QAM Pantoprazole (Pantoprazole Sodium), 40 MG PO DAILY Ranitidine HCl (Ranitidine HCl), 150 MG PO BID Riboflavin (B-2), 400 MG PO QAM Sodium Chloride (Sodium Chloride), 2 GM PO TID Sulfasalazine (Azulfidine), 1,000 MG PO AMHS Topiramate (Topiramate), 75 MG PO AMHS Trazodone Hcl (Desyrel), 100 MG PO HS Venlafaxine Hcl (Venlafaxine Extended Rel), 75 MG PO QAM Venlafaxine Hcl (Effexor Extended Rel), 150 MG PO QAM Scheduled PRN Acetaminophen (Tylenol), 1,000 MG PO Q8 PRN for Pain Diclofenac Sodium (Topical) (Voltaren 1% Top Gel), 2 GM TOP QID PRN for Pain Dicyclomine Hcl (Dicyclomine Hcl), 20 MG PO BID PRN for Abdominal Pain Hydroxyzine Hcl (Atarax), 50 MG PO TID PRN for Itching Ketorolac Tromethamine (Ketorolac Tromethamine), 10 MG PO DAILY PRN for Pain Menthol (Topical Analgesic) (Biofreeze), 1 APPL TOP UD PRN for Pain Valacyclovir (Valtrex), 500 MG PO AMPM PRN for Outbreaks Allergies Coded Allergies: Bupropion (Verified Allergy, Mild, 03/10/17) LOW BP Metoclopramide (Verified Allergy, Mild, 03/10/17) LOW BP Adhesives (Verified Allergy, Unknown, RASH, 03/10/17) Gabapentin (Unverified Allergy, Unknown, SHORTNESS OF BREATH, 03/10/17) DEPRESSION MEDICATIONS DEACTIVATE Hyoscyamine (Verified Allergy, Unknown, SHORTNESS OF BREATH/HYPOTENSION, ) Patient states "Levobid or Levibid" Infliximab (Verified Allergy, Unknown, HYPOTENSION, 03/10/17) Latex1 -Allergic Contact Dermititis (Verified Allergy, Unknown, 03/10/17) Propoxyphene (Verified Allergy, Unknown, 03/10/17) Replaces DARVOCET-N 10 Morphine (Verified Adverse Reaction, Intermediate, STOMACH UPSET, 03/10/17) ORAL MORPHINE = ABDOMINAL PAIN Physical Exam Vital Signs Date Time Temp Pulse Resp B/P (MAP) Pulse Ox O2 Delivery O2 Flow Rate FiO2 04/22/17 17:14 36.4 59 18 109/65 99 04/22/17 17:05 59 18 109/65 99 Room Air 04/22/17 16:11 54 18 101/62 99 Room Air 04/22/17 14:10 36.4 76 18 102/69 99 Room Air Physical Exam GENERAL: Sitting up in bed, alert, anxious appearing, talking in full sentences. EYE EXAM: normal conjunctiva. PERRL and EOM's intact. No Nystagmus. OROPHARYNX: no exudate, no erythema, lips, buccal mucosa, and tongue normal and mucous membranes are moist NECK: supple, no nuchal rigidity, no adenopathy, non-tender LUNGS: Clear to auscultation. Normal chest wall mechanics HEART: no murmurs, S1 normal and S2 normal ABDOMEN: abdomen soft, non-tender, normo-active bowel sounds, no masses, no rebound or guarding. BACK: Back is symmetrical on inspection and there is no deformity, no midline tenderness, no CVA tenderness. SKIN: no rashes and no bruising UPPER EXTREMITIES: upper extremities are grossly normal. LOWER EXTREMITIES: No pitting edema. NEURO EXAM: Normal sensorium, cranial nerves II-XII intact, normal speech, no weakness of arms, no weakness of legs. No drift. Finger to nose intact. Gross sensation intact. Medical Decision & Procedures ER Provider Diagnostic Interpretation: Radiology results as stated below per my review and the radiologist's interpretation: SINGLE VIEW CHEST CLINICAL HISTORY: Dizziness. FINDINGS: An AP, portable, upright chest radiograph is compared to study dated 09/27/2016. The examination is degraded by portable technique and patient rotation. The cardiomediastinal silhouette is unremarkable. The lungs and pleural spaces are clear. No pneumothorax is seen. The bony thorax is grossly intact. IMPRESSION: No active disease in the chest. Electronically signed by: Wilbur Steele M.D. 04/22/2017 3:37 PM Dictated Date/Time: 04/22/2017 3:[address] SCAN OF THE BRAIN WITHOUT IV CONTRAST CLINICAL HISTORY: Dizziness. Headache. COMPARISON STUDY: CT of the brain dated 11/27/2013. TECHNIQUE: Unenhanced axial CT scan of the brain is performed from the vertex to the skull base. A dose lowering technique was utilized adhering to the principles of ALARA. CT DOSE: 690.05 mGycm FINDINGS: Brain parenchyma: The brain parenchyma is normal in appearance. There is no hemorrhage, mass effect, or evidence of acute territorial ischemia by CT criteria. Tripp-white matter is preserved. No extra-axial fluid collection is seen. Ventricles, sulci, cisterns: Normal in configuration. Intracranial vasculature: The visualized intracranial vasculature at the skull base is normal in appearance. Calvarium: Unremarkable. Sinuses and mastoids: The visualized paranasal sinuses are clear. The mastoid air cells are well pneumatized. Orbits: The bony orbits are grossly intact. IMPRESSION: No acute intracranial abnormality. Electronically signed by: Wilbur Steele M.D. 04/22/2017 3:44 PM Dictated Date/Time: 04/22/2017 3:43 PM Laboratory Results 04/22/17 14:55 Red Blood Count 4.80, Mean Corpuscular Volume 92.1, Mean Corpuscular Hemoglobin 31.0, Mean Corpuscular Hemoglobin Concent 33.7, Mean Platelet Volume 9.9, Neutrophils (%) (Auto) 50.0, Lymphocytes (%) (Auto) 41.4, Monocytes (%) (Auto) 7.0, Eosinophils (%) (Auto) 1.2, Basophils (%) (Auto) 0.2, Neutrophils # (Auto) 3.01, Lymphocytes # (Auto) 2.49, Monocytes # (Auto) 0.42, Eosinophils # (Auto) 0.07, Basophils # (Auto) 0.01 04/22/17 14:55 Test 04/22/17 14:50 04/22/17 14:55 Urine Color DK YELLOW Urine Appearance CLEAR (CLEAR) Urine pH 5.0 (4.5-7.5) Urine Specific [place] 1.019 (1.000-1.030) Urine Protein NEG (NEG) Urine Glucose (UA) NEG (NEG) Urine Ketones NEG (NEG) Urine Occult Blood NEG (NEG) Urine Nitrite NEG (NEG) Urine Bilirubin NEG (NEG) Urine Urobilinogen NEG (NEG) Urine Leukocyte Esterase SMALL (NEG) Urine WBC (Auto) 5-10 /hpf (0-5) Urine RBC (Auto) 0-4 /hpf (0-4) Urine Hyaline Casts (Auto) 1-5 /lpf (0-5) Urine Epithelial Cells (Auto) 10-20 /lpf (0-5) Urine Bacteria (Auto) NEG (NEG) Urine Test NEG (NEG) White Blood Count 6.01 K/uL (4.8-10.8) Red Blood Count 4.80 M/uL (4.2-5.4) Hemoglobin 14.9 g/dL (12.0-16.0) Hematocrit 44.2 % (37-47) Mean Corpuscular Volume 92.1 fL (80-100) Mean Corpuscular Hemoglobin 31.0 pg (25-34) Mean Corpuscular Hemoglobin Concent 33.7 g/dl (32-36) Platelet Count 208 K/uL (130-400) Mean Platelet Volume 9.9 fL (7.4-10.4) Neutrophils (%) (Auto) 50.0 % Lymphocytes (%) (Auto) 41.4 % Monocytes (%) (Auto) 7.0 % Eosinophils (%) (Auto) 1.2 % Basophils (%) (Auto) 0.2 % Neutrophils # (Auto) 3.01 K/uL (1.4-6.5) Lymphocytes # (Auto) 2.49 K/uL (1.2-3.4) Monocytes # (Auto) 0.42 K/uL (0.11-0.59) Eosinophils # (Auto) 0.07 K/uL (0-0.5) Basophils # (Auto) 0.01 K/uL (0-0.2) RDW Standard Deviation 44.3 fL (36.4-46.3) RDW Coefficient of Variation 13.2 % (11.5-14.5) Immature Granulocyte % (Auto) 0.2 % Immature Granulocyte # (Auto) 0.01 K/uL (0.00-0.02) Anion Gap 6.0 mmol/L (3-11) Est Creatinine Clear Calc Drug Dose 81.6 ml/min Estimated GFR () 87.2 Estimated GFR (Non- 75.3 BUN/Creatinine Ratio 11.8 (10-20) Calcium Level 8.7 mg/dl (8.5-10.1) Total Bilirubin 0.8 mg/dl (0.2-1) Direct Bilirubin 0.1 mg/dl (0-0.2) Aspartate Amino Transf (AST/SGOT) 13 U/L (15-37) Alanine Aminotransferase (ALT/SGPT) 15 U/L (12-78) Alkaline Phosphatase 57 U/L (45-117) Total Protein 7.5 gm/dl (6.4-8.2) Albumin 3.7 gm/dl (3.4-5.0) Lipase 226 U/L (73-393) Laboratory results per my review. Medications Administered Medications (Trade) Dose Ordered Sig/Debbi Route Start Time Stop Time Status Last Admin Dose Admin Sodium Chloride 2,000 ml @ 999 mls/hr Q2H1M STAT IV 04/22/17 14:30 04/22/17 16:30 DC 04/22/17 15:23 999 MLS/HR Ketorolac Tromethamine (Toradol Inj) 30 mg NOW STAT IV 04/22/17 14:30 04/22/17 14:32 DC 04/22/17 15:24 30 MG Ondansetron HCl (Zofran Inj) 4 mg NOW STAT IV 04/22/17 14:30 04/22/17 14:32 DC 04/22/17 15:23 4 MG Meclizine HCl (Antivert Tab) 25 mg NOW STAT PO 04/22/17 14:30 04/22/17 14:32 DC 04/22/17 15:23 25 MG Lorazepam (Ativan Tab) 0.5 mg NOW STAT SL 04/22/17 14:30 04/22/17 14:32 DC 04/22/17 15:23 0.5 MG Midodrine (Proamatine Tab) 10 mg ONE ONCE PO 04/22/17 16:00 04/22/17 16:01 DC 04/22/17 16:38 10 MG Promethazine HCl 25 mg/Sodium Chloride 51 ml @ 204 mls/hr NOW STAT IV 04/22/17 16:02 04/22/17 16:16 DC 04/22/17 16:38 204 MLS/HR ECG Per My Interpretation Indication: other (Dizziness) Rate (beats per minute): 51 Rhythm: sinus bradycardia Findings: other (Low voltage criteria, normal intervals. NO STD/MALACHI) ED Course ED COURSE: Vital signs were reviewed and showed normal vitals. The patients medical record was reviewed The above diagnostic studies were performed and reviewed. ED treatments and interventions as stated above. 1423: The patient was evaluated in room C10. A complete history and physical examination was performed. 1430: Ordered Ativan 0.5 mg SL, Antivert 25 mg PO, Zofran 4 mg IV, Toradol 30 mg IV, Sodium Chloride 2000 mL @ 999 mL/hr IV. 1600: Ordered Midodrine 10 mg PO. 1601: I checked on the patient at this time. Dizziness is still there, but nausea has improved. 1602: Ordered Promethazine HCl 51 mL @ 204 mL/hr IV. 1624: I updated the patient on this time. She is feeling much better. She is waiting on meds. 1700: The patient would like something to eat. 1701: Upon reevaluation, the patient is resting in bed.I discussed my findings with the patient and she understands and agrees with the treatment plan. Based on the patients age, coexisting illnesses, exam and lab findings the decision to treat as an outpatient was made. The patient remained stable while under my care. The patient appeared well at the time of discharge. Medical Decision Differential diagnosis includes etiologies such as benign positional vertigo, dehydration, hypovolemia, anemia, tumor, infection, hypoglycemia, electrolyte abnormalities, cardiac sources, intracerebral event, toxicologic, neurologic, as well as others were entertained. Patient is a 36-year-old female who presents the ER for dizziness. She has an extensive history of dizziness associated with intermittent headaches. She notes that secondary to orthostatic hypotension which she has had worked up by neurology and cardiology at [facility]. She takes midodrine but did not take this today. She has also been having diarrhea for the past 2 days. She did not eat or drink anything today. CBC along with BMP, LFTs, bilirubin and lipase was normal. UA was contaminated. was negative. Patient was completely neurologically intact on exam. CT head was negative. Patient was given IV fluids, Zofran, Toradol, Ativan, Phenergan and Midrin. She did feel significant better. She is requesting to eat. She still felt slightly dizzy. This point she was still neurologically intact with a negative workup. With her extensive history of this orthostasis dizziness I did feel is reasonable to discharge her to follow-up as an outpatient as she was feeling better. Discussed with Pt concerning signs and symptoms to watch out for. Pt was instructed to follow up with their PCP and discussed with the patient their option to return to the ED at anytime for persistent or worsening symptoms. The appropriate anticipatory guidance and out-patient management, including indications for return to the emergency department, were explained at length to the patient and understood. Medication Reconcilliation Current Medication List: was personally reviewed by me Blood Pressure Screening Patient's blood pressure: Normal blood pressure Impression Primary Impression: Dizziness Scribe Attestation The scribe's documentation has been prepared under my direction and personally reviewed by me in its entirety. I confirm that the note above accurately reflects all work, treatment, procedures, and medical decision making performed by me. Departure Information Dispostion Home / Self-Care Referrals Cinda Kirby M.D. (PCP) Forms HOME CARE DOCUMENTATION FORM, IMPORTANT VISIT INFORMATION Patient Instructions My [facility] Additional Instructions Please follow up with your primary care doctor with in the next 24 hours. Any worsening of your symptoms, please return to the ED immediately. This includes any fevers greater than 100.4, worsening pain, chest pain, shortness breath, persistent nausea, vomiting, unable to eat or drink, or any other concerning signs or symptoms from your standpoint. You were given medications during this visit that will inhibit your ability to drive, operate machinery and work. Please do NOT drive, operate machinery, drink alcohol or work for the next 12hrs.
[2017-04-22] MEDS ORDERED: CLC100 PO (20:57)
[2017-04-22] MEDS ORDERED: VENL150C56 PO (20:57)
[2017-04-22] MEDS ORDERED: LDN500 PO (20:57)
[2017-04-22] MEDS ORDERED: SODI1TAB PO (20:57)
== END 2017-04-22 17:15 | disposition home or self-care (01) ==
LOC: C.EDB 14:08 → C.EDC 17:15
DX: R42 Dizziness and giddiness (principal); I95.1 Orthostatic hypotension; F41.9 Anxiety disorder, unspecified; F32.9 Major depressive disorder, single episode, unspecified; M79.7 Fibromyalgia; K58.9 Irritable bowel syndrome, unspecified; G43.909 Migraine, unspecified, not intractable, without status migrainosus; Z87.440 Personal history of urinary (tract) infections; Z80.9 Family history of malignant neoplasm, unspecified; Z82.49 Family history of ischemic heart disease and other diseases of the circulatory system; Z79.3 Long term (current) use of hormonal contraceptives; Z79.899 Other long term (current) drug therapy; Z91.048 Other nonmedicinal substance allergy status; Z91.040 Latex allergy status; Z88.5 Allergy status to narcotic agent; Z88.8 Allergy status to other drugs, medicaments and biological substances

== ENCOUNTER → 2017-05-02 | Outpatient (CLI) | payer OTHER ==
[~2017-05-02] MED LIST changes: +ACET-1256 PO; +BCPILLS PO; -CEPH500C PO; +CLC100 PO; +DICL1GEL12 TOP; +DICY20TA10 PO; +HYDR-3126 PO; -KETO10TA PO; +LDN500 PO; -MAGN250T3 PO; +MULTTAB5 PO; +RANI150T2 PO; -RANI150T85 PO; +SODI1TAB PO; +SULF500T36 PO; -TOPI25TA99 PO; +TPM25 PO; +TRD10 PO; +VALA500T60 PO; +VENL150C56 PO; +[UNRECOGNIZED DRUG - CODE] PO; -[UNRECOGNIZED DRUG - CODE] PO
== END | disposition home or self-care (01) ==
LOC: C.LABSPEC 11:25
PROVIDERS: ATTEND Obstetrics & Gynecology
DX: N73.9 Female pelvic inflammatory disease, unspecified (principal)

== ENCOUNTER → 2017-05-02 | Outpatient (CLI) | payer OTHER | END | disposition home or self-care (01) | LOC: C.PAPS 11:36 | PROVIDERS: ATTEND Obstetrics & Gynecology | DX: Z12.4 Encounter for screening for malignant neoplasm of cervix (principal) ==

== ENCOUNTER 2017-05-20 14:05 | Emergency (ER) | payer OTHER ==
[~2017-05-20] VITALS: Ht 172.7 cm; Wt 77.0 kg
[~2017-05-20 14:05] MED LIST changes: -ACET-1256 PO; -BCPILLS PO; -CLC100 PO; -DICL1GEL12 TOP; -DICY20TA10 PO; -LDN500 PO; -MULTTAB5 PO; -RANI150T2 PO; -SODI1TAB PO; -SULF500T36 PO; -TPM25 PO; -TRD10 PO; -VALA500T60 PO; -VENL150C56 PO; -[UNRECOGNIZED DRUG - CODE] PO
[2017-05-20 14:11] VITALS: TEMP 36.4; Ht 172.7 cm; Wt 77.0 kg
[2017-05-20] MEDS ORDERED: VALA500T60 PO (14:20)
[2017-05-20] MEDS ORDERED: DICL1GEL12 TOP (14:20)
[2017-05-20] MEDS ORDERED: MULTTAB5 PO (14:20)
[2017-05-20] MEDS ORDERED: ACET-1256 PO (14:20)
[2017-05-20] MEDS ORDERED: ONDANSETRON INJ 2 MG/ML 2 ML VIAL IV PRN (15:00)
--- NOTE | 2017-05-20 15:07 | EMERGENCY ROOM VISIT NOTE ---
History First contact with patient: 14:33 Chief Complaint: OTHER COMPLAINT Stated Complaint: VAGINAL PAIN CRAMPING HOT/COLD FLASHES TARY STOOL History of Present Illness The patient is a 36 year old female who presents to the Emergency Room with complaints of abdominal cramping and vaginal discharge for the last several days. The patient saw her PROJECT COORDINATOR RN doctor last month. She was put on doxycycline , Flagyl and Keflex for 2 weeks. She finished a course of these antibiotics a few days ago. She developed her symptoms the day after. She also reports chills. She did not take her temperature at home. She denies any nausea or vomiting. No diarrhea. She does report one episode of tarry stools earlier today. The patient has been taking Toradol with minimal relief. She has been struggling with dyspareunia for the last several weeks. She discussed this at length with her PROJECT COORDINATOR RN doctor on her last visit. She denies any vaginal itching. She does have vaginal pain with sitting. She denies any urinary symptoms. 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 (11) Migraine (12) Nausea (13) Orthostasis (14) Orthostatic hypotension (15) Orthostatic hypotension (16) Orthostatic hypotension (17) Orthostatic hypotension (18) Orthostatic hypotension (19) Orthostatic hypotension (20) Postural hypotension (21) Postural imbalance (22) Syncope (23) Syncope (24) Syncope (25) UTI (urinary tract infection) (26) Vaginal bleeding Surgical Problems: (1) History of oral surgery (2) History of orthopedic surgery (3) S/P appendectomy Family History Cancer Heart disease Hypertension Social History Smoking Status: Never Smoker Alcohol Use: occasionally Drug Use: none Marital Status: Housing Status: lives with family Occupation Status: employed Current/Historical Medications Scheduled Control Pills ( Control Pills), 1 TAB PO DAILY Cephalexin Monohydrate (Keflex), 500 MG PO TID Clonazepam (Klonopin), 0.5 MG PO HS Docusate Sodium (Docusate Sodium), 200 MG PO BID Etodolac (Etodolac), 500 MG PO AMHS Magnesium Oxide (mg Supplement (Cvs Magnesium), 500 MG PO DAILY Midodrine Hcl (Midodrine Hcl), 10 MG PO TID Multiple Vitamins W/ Minerals (Centrum), 1 TAB PO QAM Pantoprazole (Pantoprazole Sodium), 40 MG PO DAILY Probiotic Product (Probiotic), 1 CAP PO DAILY Ranitidine HCl (Ranitidine HCl), 150 MG PO BID Riboflavin (B-2), 400 MG PO QAM Sodium Chloride (Sodium Chloride), 2 GM PO TID Sulfasalazine (Azulfidine), 1,000 MG PO AMHS Topiramate (Topiramate), 75 MG PO AMHS Tramadol Hcl (Ultram), 50 MG PO Q4H Trazodone Hcl (Desyrel), 50 MG PO HS Venlafaxine Hcl (Effexor Extended Rel), 300 MG PO QAM Scheduled PRN Acetaminophen (Tylenol), 1,000 MG PO Q8 PRN for Pain Diclofenac Sodium (Topical) (Voltaren 1% Top Gel), 2 GM TOP QID PRN for Pain Dicyclomine Hcl (Dicyclomine Hcl), 20 MG PO BID PRN for Abdominal Pain Ketorolac Tromethamine (Ketorolac Tromethamine), 10 MG PO DAILY PRN for Pain Menthol (Topical Analgesic) (Biofreeze), 1 APPL TOP UD PRN for Pain Valacyclovir (Valtrex), 500 MG PO AMPM PRN for Outbreaks Physical Exam Vital Signs Date Time Temp Pulse Resp B/P (MAP) Pulse Ox O2 Delivery O2 Flow Rate FiO2 05/20/17 17:50 77 18 121/77 98 05/20/17 16:25 77 18 101/68 98 Room Air 05/20/17 14:11 36.4 87 16 113/76 99 Room Air Physical Exam VITALS: Vitals are noted on the nurse's note and reviewed by myself. Vital signs stable. GENERAL: 36-year-old female, in no acute distress, nondiaphoretic, well- developed well-nourished. SKIN: The skin was without rashes, erythema, edema, or bruising. HEAD: Normocephalic atraumatic. MOUTH: Mucous membranes slightly dry NECK: Supple without nuchal rigidity. No lymphadenopathy. Cervical spine is nontender. No JVD. HEART: Regular rate and rhythm without murmurs gallops or rubs. LUNGS: Clear to auscultation bilaterally without wheezes, rales or rhonchi. No accessory muscle use. ABDOMEN: Positive bowel sounds x 4.Soft, tenderness to palpation in the suprapubic region , without organomegaly. No guarding or rebound tenderness. : External genitalia free of any lesions. Speculum exam caused moderate discomfort. The cervix is pink. No lesions were visualized. The os is closed. There is a small amount of yellow discharge in the vaginal vault. Bimanual exam reveals mild cervical motion tenderness. No masses on the adnexa bilaterally. RECTAL: Good sphincter tone. One small nonbleeding external hemorrhoid noted. Guaiac negative. MUSCULOSKELETAL: No muscle atrophy, erythema, or edema noted. Strength 5/5 throughout. NEURO: Patient was alert and oriented to person place and time. Normal sensation to touch. No focal neurological deficits. Medical Decision & Procedures ER Provider Diagnostic Interpretation: pelvic US IMPRESSION: No significant abnormality identified within the pelvis. Electronically signed by: Juan Gerard M.D. 05/20/2017 4:14 PM Dictated Date/Time: 05/20/2017 4:13 PM The status of this report is Signed. Draft = Not yet reviewed or approved by Radiologist. Signed = Reviewed and approved by Radiologist Laboratory Results 05/20/17 14:35 Red Blood Count 4.55, Mean Corpuscular Volume 91.6, Mean Corpuscular Hemoglobin 31.0, Mean Corpuscular Hemoglobin Concent 33.8, Mean Platelet Volume 10.1, Neutrophils (%) (Auto) 48.3, Lymphocytes (%) (Auto) 44.1, Monocytes (%) (Auto) 6.8, Eosinophils (%) (Auto) 0.6, Basophils (%) (Auto) 0.1, Neutrophils # (Auto) 3.27, Lymphocytes # (Auto) 2.99, Monocytes # (Auto) 0.46, Eosinophils # (Auto) 0.04, Basophils # (Auto) 0.01 05/20/17 14:35 Test 05/20/17 14:30 05/20/17 14:35 05/20/17 15:30 Urine Color DK YELLOW Urine Appearance CLEAR (CLEAR) Urine pH 5.5 (4.5-7.5) Urine Specific [place] 1.027 (1.000-1.030) Urine Protein NEG (NEG) Urine Glucose (UA) NEG (NEG) Urine Ketones TRACE (NEG) Urine Occult Blood NEG (NEG) Urine Nitrite POS (NEG) Urine Bilirubin 3+ (NEG) Urine Urobilinogen NEG (NEG) Urine Leukocyte Esterase SMALL (NEG) Urine WBC (Auto) 5-10 /hpf (0-5) Urine RBC (Auto) 5-10 /hpf (0-4) Urine Hyaline Casts (Auto) 10-30 /lpf (0-5) Urine Epithelial Cells (Auto) 20-30 /lpf (0-5) Urine Bacteria (Auto) NEG (NEG) Urine Test NEG (NEG) White Blood Count 6.78 K/uL (4.8-10.8) Red Blood Count 4.55 M/uL (4.2-5.4) Hemoglobin 14.1 g/dL (12.0-16.0) Hematocrit 41.7 % (37-47) Mean Corpuscular Volume 91.6 fL (80-100) Mean Corpuscular Hemoglobin 31.0 pg (25-34) Mean Corpuscular Hemoglobin Concent 33.8 g/dl (32-36) Platelet Count 224 K/uL (130-400) Mean Platelet Volume 10.1 fL (7.4-10.4) Neutrophils (%) (Auto) 48.3 % Lymphocytes (%) (Auto) 44.1 % Monocytes (%) (Auto) 6.8 % Eosinophils (%) (Auto) 0.6 % Basophils (%) (Auto) 0.1 % Neutrophils # (Auto) 3.27 K/uL (1.4-6.5) Lymphocytes # (Auto) 2.99 K/uL (1.2-3.4) Monocytes # (Auto) 0.46 K/uL (0.11-0.59) Eosinophils # (Auto) 0.04 K/uL (0-0.5) Basophils # (Auto) 0.01 K/uL (0-0.2) RDW Standard Deviation 43.6 fL (36.4-46.3) RDW Coefficient of Variation 13.1 % (11.5-14.5) Immature Granulocyte % (Auto) 0.1 % Immature Granulocyte # (Auto) 0.01 K/uL (0.00-0.02) Anion Gap 6.0 mmol/L (3-11) Est Creatinine Clear Calc Drug Dose 87.4 ml/min Estimated GFR () 86.2 Estimated GFR (Non- 74.3 BUN/Creatinine Ratio 12.3 (10-20) Calcium Level 8.7 mg/dl (8.5-10.1) Total Bilirubin 0.4 mg/dl (0.2-1) Aspartate Amino Transf (AST/SGOT) 12 U/L (15-37) Alanine Aminotransferase (ALT/SGPT) 10 U/L (12-78) Alkaline Phosphatase 55 U/L (45-117) Total Protein 7.1 gm/dl (6.4-8.2) Albumin 3.5 gm/dl (3.4-5.0) Globulin 3.6 gm/dl (2.5-4.0) Albumin/Globulin Ratio 1.0 (0.9-2) Date/Time Source Procedure Growth Status 05/20/17 15:30 Cervix Swab Trichomonas Preparation - Final Complete Medications Administered Medications (Trade) Dose Ordered Sig/Debbi Route Start Time Stop Time Status Last Admin Dose Admin Morphine Sulfate (MoRPHine SULFATE INJ) 4 mg Q1H PRN IV 05/20/17 15:00 05/20/17 18:36 DC 05/20/17 16:29 4 MG Ondansetron HCl (Zofran Inj) 4 mg Q2H PRN IV 05/20/17 15:00 05/20/17 18:36 DC 05/20/17 15:21 4 MG Cephalexin Monohydrate (Keflex Cap) 500 mg NOW ONCE PO 05/20/17 17:00 05/20/17 17:01 DC 05/20/17 17:45 500 MG ED Course Patient was seen and examined Vital signs including blood pressure were reviewed medications list was verified with patient Labs were obtained, and a saline lock was established The patient was medicated with morphine and Zofran. Imaging was performed and reviewed The patient did require an additional dose of morphine. She was reassessed. She was resting comfortably. We thoroughly reviewed her results. She voiced understanding. She was comfortable being discharged home. She was given 1 dose of Keflex I reviewed discharge instructions the patient. They voiced understanding and had no further questions. Medical Decision Differential diagnosis: PID, STD, anxiety, depression, ovarian cyst, ovarian torsion, ectopic , menstrual cramping, lower GI bleed, upper GI bleed This patient is a 36-year-old female presents to the emergency department with lower abdominal cramping and vaginal discharge. She just finished a two-week course of antibiotics that was prescribed to her from her cage unloader for PID. On exam, she had a small amount of discharge. She was tender in the suprapubic region. She was also complaining of one episode of tarry stools. A rectal exam was performed. She was guaiac negative. H&H is stable. Her workup reveals no leukocytosis. A pelvic ultrasound was performed. No abnormalities were noted. She did have positive nitrites and leuk esterase in her urine. When asked about urinary symptoms, she admits to urinary frequency. For this reason, the patient will be started on Keflex. Given the fact that she just finished a two-week course of antibiotics for PID, I did not find further antibiotics necessary for the vaginal discharge. Cultures were taken. The patient will be notified if there are any abnormalities. She will be given a short course of pain medication. I highly advise patient follow-up with her PROJECT COORDINATOR RN doctor as soon as possible. She will call Tuesday morning for a follow- up appointment. She agrees to return with any worsening symptoms. This chart was completed in part utilizing [employer] Voice Recognition software. Attempts were made to minimize the grammatical errors, random word insertions, pronoun errors and incomplete sentences. Any formal questions or concerns about the content, text or information contained within the body of this dictation should be directly addressed to the provider for clarification. Medication Reconcilliation Current Medication List: was personally reviewed by me Blood Pressure Screening Patient's blood pressure: Normal blood pressure Impression Primary Impression: Pelvic pain Departure Information Dispostion Home / Self-Care Condition GOOD Prescriptions Tramadol Hcl (ULTRAM) 50 Mg Tab 50 MG PO Q4H for Pain, #15 TAB PRN PAIN Prov: Zayda Mcmullen PA-C 05/20/17 Cephalexin Monohydrate (Keflex) 500 Mg Cap 500 MG PO TID for 5 Days, #15 CAP Prov: Zayda Mcmullen PA-C 05/20/17 Referrals Cinda Kirby M.D. (PCP) Kaelyn Bee MD Patient Instructions My [facility] Additional Instructions You were evaluated in the emergency department for pelvic pain. It does appear that you have a urinary tract infection. A pelvic ultrasound did not show any abnormalities. Please take the entire course of Keflex Ibuprofen 800 mg and/or Tylenol 1000 mg every 8 hours. You may also alternate these medications for more effective pain relief: Ibuprofen --4 HRS--> Tylenol --4 HRS--> ibuprofen --4 HRS--> Tylenol .... Please take tramadol 1 tab every 4 hours as needed for severe pain. This may be taken with ibuprofen and Tylenol. Please do not drink alcohol or drive while taking this medication. Please refrain from sexual intercourse until follow-up with your PROJECT COORDINATOR RN doctor. Please call first thing Tuesday morning for a follow-up appointment. Please do not hesitate to return to the emergency department with any new, worsening or concerning symptoms It was a pleasure participating in your care this afternoon
[2017-05-20 15:19] LABS: BASO % 0.1 %; BASO ABS # 0.01 K/uL (0-0.2); EOS % 0.6 %; EOS ABS # 0.04 K/uL (0-0.5); HEMATOCRIT 41.7 % (37-47); HEMOGLOBIN 14.1 g/dL (12.0-16.0); IG# 0.01 K/uL (0.00-0.02); LYMPH % 44.1 %; LYMPH ABS # 2.99 K/uL (1.2-3.4); MEAN CELL VOLUME 91.6 fL (80-100); MEAN CORPUSCULAR HGB CONC 33.8 g/dl (32-36); MEAN PLATELET VOLUME 10.1 fL (7.4-10.4); MONO % 6.8 %; MONO ABS # 0.46 K/uL (0.11-0.59); NEUT % 48.3 %; NEUT ABS # 3.27 K/uL (1.4-6.5); PLATELET COUNT 224 K/uL (130-400); RED CELL DISTRIBUTION WIDTH CV 13.1 % (11.5-14.5); RED CELL DISTRIBUTION WIDTH SD 43.6 fL (36.4-46.3); WHITE BLOOD COUNT 6.78 K/uL (4.8-10.8)
[2017-05-20] MEDS: MoRPHine SULFATE 4 MG/ML 1 ML CARP\\VIAL IV PRN ×2 (15:22→16:29)
[2017-05-20 15:28] LABS: ALBUMIN 3.5 gm/dl (3.4-5.0); CALCIUM 8.7 mg/dl (8.5-10.1); CREATININE 0.99 mg/dl (0.60-1.20); POTASSIUM 3.9 mmol/L (3.5-5.1)
[2017-05-20 15:31] LABS: TOTAL PROTEIN 7.1 gm/dl (6.4-8.2)
[2017-05-20] MEDS ORDERED: DICY20TA10 PO (15:32)
[2017-05-20] MEDS ORDERED: RANI150T2 PO (15:32)
[2017-05-20] MEDS ORDERED: TRD10 PO (15:32)
[2017-05-20] MEDS ORDERED: TPM25 PO (15:32)
[2017-05-20] MEDS ORDERED: [UNRECOGNIZED DRUG - CODE] PO (15:32)
[2017-05-20] MEDS ORDERED: BCPILLS PO (15:36)
[2017-05-20] MEDS ORDERED: MISCCAP80 PO (15:39)
--- NOTE | 2017-05-20 16:16 | DIAGNOSTIC IMAGING REPORT ---
PELVIC COMPLETE NON OB CLINICAL HISTORY: 36 years-old Female presenting with lower abd pain dyspareunia, lower uterine and vaginal pain, not , G0, P0, on contraception. TECHNIQUE: Real-time grayscale and color and spectral Doppler ultrasound imaging of the pelvis was performed first using a transabdominal probe and subsequently transvaginal for better characterization. COMPARISON: None. FINDINGS: Uterus: Normal. Retroverted. The uterus measures 6.3 x 3.1 x 4.2 cm. Endometrial stripe measures 4 mm in thickness. Endometrium normal-appearing. Cervix normal. Right adnexa: Right ovary normal. Right ovary measures 2.6 x 1.0 x 1.1 cm. Normal color Doppler flow and arterial and venous waveforms within the ovarian parenchyma. Left adnexa: Left ovary normal. Left ovary measures 2.8 x 1.2 x 0.8 cm. Normal color Doppler flow and arterial and venous waveforms within the ovarian parenchyma. Other: No free fluid. IMPRESSION: No significant abnormality identified within the pelvis. Electronically signed by: Juan Gerard M.D. 05/20/2017 4:14 PM Dictated Date/Time: 05/20/2017 4:13 PM
[2017-05-20] MEDS ORDERED: CEPH500C PO (16:59)
[2017-05-20] MEDS ORDERED: CEPHALEXIN MONOHYDRATE 250 MG CAP PO ONE (17:00)
[2017-05-20] MEDS ORDERED: TRAM-453 PO (17:03)
[2017-05-20 17:50] VITALS: BP 121/77; PULSE 77; O2SAT 98
[2017-05-20] MEDS ORDERED: SULF500T36 PO (19:18)
[2017-05-20] MEDS ORDERED: LDN500 PO (20:57)
[2017-05-20] MEDS ORDERED: VENL150C56 PO (20:57)
[2017-05-20] MEDS ORDERED: SODI1TAB PO (20:57)
[2017-05-20] MEDS ORDERED: CLC100 PO (20:57)
== END 2017-05-20 17:51 | disposition home or self-care (01) ==
LOC: C.EDB 14:08 → C.EDA 17:51
DX: R10.2 Pelvic and perineal pain (principal); F41.9 Anxiety disorder, unspecified; F45.8 Other somatoform disorders; F32.9 Major depressive disorder, single episode, unspecified; M79.7 Fibromyalgia; K58.9 Irritable bowel syndrome, unspecified; M08.90 Juvenile arthritis, unspecified, unspecified site; G43.909 Migraine, unspecified, not intractable, without status migrainosus; I95.1 Orthostatic hypotension; Z87.440 Personal history of urinary (tract) infections; Z80.9 Family history of malignant neoplasm, unspecified; Z82.49 Family history of ischemic heart disease and other diseases of the circulatory system; Z79.3 Long term (current) use of hormonal contraceptives; Z79.899 Other long term (current) drug therapy

== ENCOUNTER 2017-06-01 08:47 | Emergency (ER) | payer OTHER ==
[~2017-06-01] VITALS: Ht 172.7 cm; Wt 76.3 kg
[~2017-06-01 08:47] MED LIST changes: +ACET-1256 PO; +BCPILLS PO; +CLC100 PO; +DICL1GEL12 TOP; +DICY20TA10 PO; -HYDR-3126 PO; +LDN500 PO; +MISCCAP80 PO; +MULTTAB5 PO; +RANI150T2 PO; +SODI1TAB PO; +SULF500T36 PO; +TPM25 PO; +TRD10 PO; +VALA500T60 PO; +VENL150C56 PO; -VENL75CA73 PO; +[UNRECOGNIZED DRUG - CODE] PO
[2017-06-01 08:49] VITALS: TEMP 36.7; Ht 172.7 cm; Wt 76.3 kg
[2017-06-01] MEDS ORDERED: TIZA2CAP PO (09:05)
[2017-06-01] MEDS ORDERED: MoRPHine SULFATE 4 MG/ML 1 ML CARP\\VIAL IV STA (09:39)
[2017-06-01 09:54] LABS: BASO % 0.2 %; BASO ABS # 0.01 K/uL (0-0.2); EOS % 1.2 %; EOS ABS # 0.07 K/uL (0-0.5); HEMATOCRIT 42.5 % (37-47); HEMOGLOBIN 14.2 g/dL (12.0-16.0); IG# 0.01 K/uL (0.00-0.02); LYMPH % 42.4 %; LYMPH ABS # 2.44 K/uL (1.2-3.4); MEAN CELL VOLUME 91.2 fL (80-100); MEAN CORPUSCULAR HEMOGLOBIN 30.5 pg (25-34); MEAN CORPUSCULAR HGB CONC 33.4 g/dl (32-36); MEAN PLATELET VOLUME 9.7 fL (7.4-10.4); MONO % 5.9 %; MONO ABS # 0.34 K/uL (0.11-0.59); NEUT % 50.1 %; NEUT ABS # 2.89 K/uL (1.4-6.5); PLATELET COUNT 210 K/uL (130-400); RED CELL DISTRIBUTION WIDTH CV 12.9 % (11.5-14.5); RED CELL DISTRIBUTION WIDTH SD 42.9 fL (36.4-46.3); WHITE BLOOD COUNT 5.76 K/uL (4.8-10.8)
[2017-06-01 10:09] LABS: ALBUMIN 3.5 gm/dl (3.4-5.0); CREATININE 1.01 mg/dl (0.60-1.20); POTASSIUM 3.8 mmol/L (3.5-5.1)
--- NOTE | 2017-06-01 10:40 | DIAGNOSTIC IMAGING REPORT ---
PELVIC COMPLETE NON OB CLINICAL HISTORY: pelvic pain PAIN COMPARISON STUDY: 05/20/2017 FINDINGS: The uterus measured 6.3 cm. A retroverted configuration.. The endometrial stripe measured 4 mm. The right ovary measured 2.6 cm maximum dimension with normal vascular flow. The left ovary measured 2.6 cm with normal vascular flow There is no ultrasonographic evidence of ovarian torsion. It should be noted that ovarian torsion can be present with normal Doppler ultrasonographic findings. There was no evidence of pathologic free pelvic fluid. IMPRESSION: Retroverted uterus. Otherwise normal exam. No change from the prior study. The above report was generated using voice recognition software. It may contain grammatical, syntax or spelling errors. Electronically signed by: Isra Gray M.D. 06/01/2017 10:39 AM Dictated Date/Time: 06/01/2017 10:37 AM
[2017-06-01] MEDS ORDERED: HYDROmorphone INJ 1 MG/ML SYR IV STA ×2 (10:52→11:54)
[2017-06-01] MEDS ORDERED: ONDANSETRON INJ 2 MG/ML 2 ML VIAL IV STA (10:52)
[2017-06-01] MEDS ORDERED: METRONIDAZOLE 250 MG TAB PO STA (13:06)
[2017-06-01] MEDS ORDERED: SULFAMETHOXAZOLE/TRIMETHOPRIM DS 800/160MG TAB PO STA (13:06)
[2017-06-01 13:08] VITALS: BP 111/69; PULSE 60; O2SAT 96
[2017-06-01] MEDS ORDERED: SULF800T23 PO (13:10)
[2017-06-01] MEDS ORDERED: METR-163 PO (13:10)
[2017-06-01] MEDS ORDERED: OXYC1TAB3 PO (13:10)
--- NOTE | 2017-06-01 13:12 | EMERGENCY ROOM VISIT NOTE ---
History First contact with patient: : Chief Complaint: PELVIC PAIN Stated Complaint: VAGINAL PAIN, CAN'T SIT, EXTREME DISCOMFORT History of Present Illness The patient is a 36 year old female who presents to the Emergency Room via private vehicle with complaints of "vaginal pain, cannot sit, extreme discomfort ". The patient states that she has been experiencing right inguinal/pelvic discomfort for quite some time. She states that she follows with her CONTENT DEVELOPMENT MANAGER for vaginal pain and suprapubic pain which began prior to she notes. She states that May 02 she saw the CONTENT DEVELOPMENT MANAGER for dyspareunia and had STD testing which was negative. She was given antibiotics, Keflex, doxycycline and Flagyl with persistence of her symptoms. She notes a monogamous relationship was had no sexual activity for numerous months secondary to her pain and discomfort. She states that it seems as though after she had her breakthrough bleeding she has had these pelvic symptoms. She denies any history of known endometriosis. She rates the overall pain as a 10/10, and is sharp in nature. It is worse with sitting. She also notes vaginal discharge which has been persistent. She also notes a history of herpes simplex but denies any recent outbreak. Review of Systems A complete 10-point Review of Systems was discussed with the patient, with pertinent positives and negatives listed in the History of Present Illness. All remaining Review of Systems questions can be considered negative unless otherwise specified. 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 (11) Migraine (12) Nausea (13) Orthostasis (14) Orthostatic hypotension (15) Orthostatic hypotension (16) Orthostatic hypotension (17) Orthostatic hypotension (18) Orthostatic hypotension (19) Orthostatic hypotension (20) Postural hypotension (21) Postural imbalance (22) Syncope (23) Syncope (24) Syncope (25) UTI (urinary tract infection) (26) Vaginal bleeding Surgical Problems: (1) History of oral surgery (2) History of orthopedic surgery (3) S/P appendectomy Family History Cancer Heart disease Hypertension Social History Smoking Status: Never Smoker Alcohol Use: occasionally Drug Use: none Marital Status: Housing Status: lives with family Occupation Status: employed Current/Historical Medications Scheduled Control Pills ( Control Pills), 1 TAB PO DAILY Clonazepam (Klonopin), 0.5 MG PO HS Docusate Sodium (Docusate Sodium), 200 MG PO BID Etodolac (Etodolac), 500 MG PO AMHS Magnesium Oxide (mg Supplement (Cvs Magnesium), 500 MG PO DAILY Metronidazole (Flagyl), 500 MG PO BID Midodrine Hcl (Midodrine Hcl), 10 MG PO BID Multiple Vitamins W/ Minerals (Centrum), 1 TAB PO QAM Pantoprazole (Pantoprazole Sodium), 40 MG PO DAILY Probiotic Product (Probiotic), 1 CAP PO DAILY Ranitidine HCl (Ranitidine HCl), 150 MG PO BID Riboflavin (B-2), 400 MG PO QAM Sodium Chloride (Sodium Chloride), 2 GM PO TID Sulfa/Trimethoprim (Bactrim Ds 800MG/160MG), 1 TAB PO BID Sulfasalazine (Azulfidine), 1,000 MG PO AMHS Topiramate (Topiramate), 75 MG PO AMHS Trazodone Hcl (Desyrel), 50 MG PO HS Venlafaxine Hcl (Effexor Extended Rel), 300 MG PO QAM Scheduled PRN Acetaminophen (Tylenol), 1,000 MG PO Q8 PRN for Pain Diclofenac Sodium (Topical) (Voltaren 1% Top Gel), 2 GM TOP QID PRN for Pain Dicyclomine Hcl (Dicyclomine Hcl), 20 MG PO BID PRN for Abdominal Pain Ketorolac Tromethamine (Ketorolac Tromethamine), 10 MG PO DAILY PRN for Pain Menthol (Topical Analgesic) (Biofreeze), 1 APPL TOP UD PRN for Pain Oxycodone Ir (Roxicodone Ir), 1-2 TAB PO Q6 PRN for Pain Tizanidine (Zanaflex), 2 MG PO Q8 PRN for MUSSP Valacyclovir (Valtrex), 500 MG PO AMPM PRN for Outbreaks Physical Exam Vital Signs Date Time Temp Pulse Resp B/P (MAP) Pulse Ox O2 Delivery O2 Flow Rate FiO2 06/01/17 13:08 60 18 111/69 96 Room Air 06/01/17 11:54 58 18 114/83 94 Room Air 06/01/17 08:49 36.7 86 20 100/68 97 Room Air Physical Exam VITAL SIGNS - Vital signs and nursing notes were reviewed. Stable. GENERAL - 36-year-old female appearing her stated age who is in no acute distress. Communicates well with provider and answers questions appropriately. SKIN - Without rashes. No meningeal or petechial rash. HEAD - NC/AT. EYES - Sclera anicteric. Palpebral conjunctiva pink and moist with no injection noted. EARS - No deformities of external structures noted on gross examination bilaterally. NOSE - Midline and without cyanosis. No epistaxis or purulent drainage noted. Septum midline without deviation or septal hematoma noted. MOUTH/OROPHARYNX - Without perioral cyanosis. Buccal mucosa pink and moist and without leukoplakia. Tongue midline with equal elevation of palate bilaterally. No tonsillar hypertrophy, erythema, or exudates noted. NECK - Neck with FROM. Supple to palpation. No nuchal rigidity. LUNGS - Chest wall symmetric without accessory muscle use, intercostals retractions, or central cyanosis. Normal vesicular breath sounds CTA B/L. No wheezes, rales, or rhonchi appreciated. CARDIAC - RRR with S1/S2. No murmur, rubs, or gallops appreciated. ABDOMEN - Abdominal contour normal without pulsations or visible masses. BS normoactive all four quadrants. No tenderness, palpable masses, hepatosplenomegaly, or ascites noted. There is tenderness identified in the right inguinal/at the lower portion of the abdomen overlying the right ovary. EXTREMITIES - No clubbing or peripheral cyanosis. No pretibial edema present. NEUROLOGIC - Cranial nerves II through XII grossly intact. PSYCH - A&O, and cooperates fully with examiner. Pt is very pleasant and interacts well with examiner. PELVIC EXAM: Mariana the physician timber management assistant student was present to assist with exam, and health program director. The patient was educated upon what her pelvic exam was, and she was offered to decline. Patient did not decline. I explained to her the pelvic exam. The patient was prepared and positioned for best examination. Patient was positioned by nurse. The external genitalia, mons pubis, labia majora, labia minora, clitoris, urethral meatus,, Bartholin's glands, perineum, and anus were within normal limits other than a clear/ grayish/slightly yellow discharge noted. The speculum was held then a 45 angle and properly lubricated , the speculum was inserted without difficulty to the depth of the cervix. Speculum was then open slowly. Cervix was identified. The cervix was erythematous in the posterior vaginal wall near the cervix was also erythematous.. At this time 4 samples were taken of the discharge. These were cultured. The speculum was then closed and removed without difficulty. I then explained to the patient that I was in a perform a bimanual pelvic examination. I then introduced the index finger into the vaginal vault, palpated the cervix and cervical os and noted no abnormalities however the patient did experience pain in the right ovarian region. The uterine body, apex and fundus were then palpated and were within normal limits, and position. The ovaries were then palpated with my left hand pressing over the lower quadrants of the abdomen and my right index finger pressing in the region of the ovary with no abnormal findings other than the reproducible tenderness. Medical Decision & Procedures ER Provider Diagnostic Interpretation: PELVIC COMPLETE NON OB CLINICAL HISTORY: pelvic pain PAIN COMPARISON STUDY: 05/20/2017 FINDINGS: The uterus measured 6.3 cm. A retroverted configuration.. The endometrial stripe measured 4 mm. The right ovary measured 2.6 cm maximum dimension with normal vascular flow. The left ovary measured 2.6 cm with normal vascular flow There is no ultrasonographic evidence of ovarian torsion. It should be noted that ovarian torsion can be present with normal Doppler ultrasonographic findings. There was no evidence of pathologic free pelvic fluid. IMPRESSION: Retroverted uterus. Otherwise normal exam. No change from the prior study. The above report was generated using voice recognition software. It may contain grammatical, syntax or spelling errors. Electronically signed by: Isra Gray M.D. 06/01/2017 10:39 AM Dictated Date/Time: 06/01/2017 10:37 AM Laboratory Results 06/01/17 09:45 Red Blood Count 4.66, Mean Corpuscular Volume 91.2, Mean Corpuscular Hemoglobin 30.5, Mean Corpuscular Hemoglobin Concent 33.4, Mean Platelet Volume 9.7, Neutrophils (%) (Auto) 50.1, Lymphocytes (%) (Auto) 42.4, Monocytes (%) (Auto) 5.9, Eosinophils (%) (Auto) 1.2, Basophils (%) (Auto) 0.2, Neutrophils # (Auto) 2.89, Lymphocytes # (Auto) 2.44, Monocytes # (Auto) 0.34, Eosinophils # (Auto) 0.07, Basophils # (Auto) 0.01 06/01/17 09:45 Test 06/01/17 09:45 06/01/17 09:55 06/01/17 11:50 White Blood Count 5.76 K/uL (4.8-10.8) Red Blood Count 4.66 M/uL (4.2-5.4) Hemoglobin 14.2 g/dL (12.0-16.0) Hematocrit 42.5 % (37-47) Mean Corpuscular Volume 91.2 fL (80-100) Mean Corpuscular Hemoglobin 30.5 pg (25-34) Mean Corpuscular Hemoglobin Concent 33.4 g/dl (32-36) Platelet Count 210 K/uL (130-400) Mean Platelet Volume 9.7 fL (7.4-10.4) Neutrophils (%) (Auto) 50.1 % Lymphocytes (%) (Auto) 42.4 % Monocytes (%) (Auto) 5.9 % Eosinophils (%) (Auto) 1.2 % Basophils (%) (Auto) 0.2 % Neutrophils # (Auto) 2.89 K/uL (1.4-6.5) Lymphocytes # (Auto) 2.44 K/uL (1.2-3.4) Monocytes # (Auto) 0.34 K/uL (0.11-0.59) Eosinophils # (Auto) 0.07 K/uL (0-0.5) Basophils # (Auto) 0.01 K/uL (0-0.2) RDW Standard Deviation 42.9 fL (36.4-46.3) RDW Coefficient of Variation 12.9 % (11.5-14.5) Immature Granulocyte % (Auto) 0.2 % Immature Granulocyte # (Auto) 0.01 K/uL (0.00-0.02) Anion Gap 4.0 mmol/L (3-11) Est Creatinine Clear Calc Drug Dose 79.1 ml/min Estimated GFR () 84.1 Estimated GFR (Non- 72.6 BUN/Creatinine Ratio 14.5 (10-20) Calcium Level 9.0 mg/dl (8.5-10.1) Total Bilirubin 0.4 mg/dl (0.2-1) Aspartate Amino Transf (AST/SGOT) 11 U/L (15-37) Alanine Aminotransferase (ALT/SGPT) 13 U/L (12-78) Alkaline Phosphatase 53 U/L (45-117) Total Protein 7.0 gm/dl (6.4-8.2) Albumin 3.5 gm/dl (3.4-5.0) Globulin 3.5 gm/dl (2.5-4.0) Albumin/Globulin Ratio 1.0 (0.9-2) Urine Color DK YELLOW Urine Appearance CLOUDY (CLEAR) Urine pH 5.0 (4.5-7.5) Urine Specific [place] 1.027 (1.000-1.030) Urine Protein NEG (NEG) Urine Glucose (UA) NEG (NEG) Urine Ketones NEG (NEG) Urine Occult Blood NEG (NEG) Urine Nitrite POS (NEG) Urine Bilirubin NEG (NEG) Urine Urobilinogen NEG (NEG) Urine Leukocyte Esterase MODERATE (NEG) Urine WBC (Auto) 10-30 /hpf (0-5) Urine RBC (Auto) 0-4 /hpf (0-4) Urine Hyaline Casts (Auto) 5-10 /lpf (0-5) Urine Epithelial Cells (Auto) >30 /lpf (0-5) Urine Bacteria (Auto) NEG (NEG) Urine Test NEG (NEG) Medications Administered Medications (Trade) Dose Ordered Sig/Debbi Route Start Time Stop Time Status Last Admin Dose Admin Morphine Sulfate (MoRPHine SULFATE INJ) 4 mg NOW STAT IV 06/01/17 09:39 06/01/17 09:41 DC 06/01/17 09:51 4 MG Hydromorphone HCl (Dilaudid Inj) 1 mg NOW STAT IV 06/01/17 10:52 06/01/17 10:53 DC 06/01/17 11:03 1 MG Ondansetron HCl (Zofran Inj) 4 mg NOW STAT IV 06/01/17 10:52 06/01/17 10:53 DC 06/01/17 11:02 4 MG Hydromorphone HCl (Dilaudid Inj) 0.5 mg NOW STAT IV 06/01/17 11:54 06/01/17 11:55 DC 06/01/17 11:54 0.5 MG Trimethoprim/ Sulfamethoxazole (Septra Ds 800/ 160MG Tab) 1 tab NOW STAT PO 06/01/17 13:06 06/01/17 13:07 DC 06/01/17 13:17 1 TAB Metronidazole (Flagyl Tab) 500 mg NOW STAT PO 06/01/17 13:06 06/01/17 13:07 DC 06/01/17 13:17 500 MG Medical Decision Patient was seen and evaluated as above in B6. Review was performed of nursing notes and vital signs. After obtaining a thorough history and physical examination the above work up was performed. Previous visit was reviewed. It appears that the patient has been experiencing this. She is quite uncomfortable on exam and was given initially. She was reevaluated and the pain persisted. She was also given Dilaudid for her pain as well as Zofran. I did elect to repeat the ultrasound of the pelvis to ensure that there has no been interval development of an abnormality. Results as above. This was negative. In review of her blood work, there is no concerning leukocytosis, or metabolic abnormality. Urine does reveal nitrites. There is no CVA to. I question if this is contaminant however certainly underlying UTI cannot be ruled out. On her physical examination, particularly the pelvic exam which was performed which did reveal a large amount of discharge. There is also erythema of the cervix and posterior vagina. The patient notes a monogamous relationship. I did elect to discuss this with the attending physician, and subsequently the on-call OB G Dr. Hoover. We discussed the case. At this time it was recommended to initiate Flagyl, as well as Bactrim. I did reveal her previous culture result of the urine, and this appeared to have multiple organisms therefore further culture was not performed. At this time urine cultures pending. The patient notes no allergies to what she is provided here. The Flagyl was recommended as at the time it did not appear that she had the Flagyl in the past have persistence of the Gardnerella vaginalis which could be causing a severe vaginitis. Regardless, no emergent processes identify this. She will be given a short prescription for that as well. No red flags identified in the [place] of any drug monitoring system. The patient was educated upon management, had questions answered prior to discharge, and was discharged home in good condition. Patient denies chance of . Being that the patient is in a monogamous relationship, I do not suspect that this is a sexually transmitted infection. Case was discussed with the attending physician. In the evaluation and treatment of this patient the following differential diagnoses were entertained: Bacterial vaginosis, vaginitis, cervicitis among others. Impression Primary Impression: Pelvic pain Departure Information Dispostion Home / Self-Care Condition GOOD Prescriptions Oxycodone Ir (Roxicodone Ir) 5 Mg Tab 1-2 TAB PO Q6 Y for Pain, #15 TAB For Initial Treatment Prov: Corey Batista PA-C 06/01/17 Sulfa/Trimethoprim (Bactrim Ds 800MG/160MG) Tab 1 TAB PO BID for 7 Days, #14 TAB Prov: Corey Batista PA-C 18 Metronidazole (Flagyl) 500 Mg Tab 500 MG PO BID for 7 Days, #14 TAB Prov: Corey Batista PA-C 18 Referrals Cinda Kirby M.D. (PCP) Patient Instructions [facility] Additional Instructions You have been treated in the Emergency Department for a Urinary Tract Infection (UTI), vaginal pain/discharge. You have been prescribed Bactrim to be taken every 12 hours. This is an antibiotic. All antibiotics have the potential to cause diarrhea. Stop this medication and contact a medical provider if you were to develop any significant adverse side effects including: wheezing, shortness of breath, passing out, vomiting, or a diffuse rash. Always take antibiotics as directed and COMPLETE the ENTIRE course regardless of the improvement of your symptoms. Flagyl every 12 hours as well Oxy IR for pain. 1 tab every 6 hours for pain. No driving with this For pain control, you can use the following [id number] medicines (if >12 yo): - Regular strength (325mg/tab) Tylenol (acetaminophen) 2 tabs every 4-6 hours as needed. Do not exceed 12 tablets in a 24 hour period. Avoid taking more than 3 grams (3000 mg) of Tylenol per day. This includes any other sources of acetaminophen you may take on a regular basis. - Regular strength (200 mg/tab) Advil (ibuprofen) 1-2 tabs every 4-6 hours as needed. Do not exceed a dose of 3200 mg per day. Return to the emergency department if your symptoms worsen despite treatment course outlined above. Drink plenty of water and stay well hydrated. As with any trip to the Emergency Department, you should follow-up with your Primary Care Provider from today's visit. Please keep appointment tomorrow with your OIL SPRAYER doctor Return to the emergency department if your symptoms persist despite treatment plan outlined above or if the following symptoms occur: increased fevers, chills , low back pain, nausea/vomiting, or blood in your urine.
[2017-06-03 09:47] LABS: HERPES SIMPLEX VIRUS CULT NOT ISOLATED (NOT ISOLATED)
== END 2017-06-01 13:53 | disposition home or self-care (01) ==
LOC: C.EDB 08:49
DX: R10.2 Pelvic and perineal pain (principal); I10 Essential (primary) hypertension

== ENCOUNTER 2017-06-02 15:49 | Observation (INO) | payer OTHER ==
[~2017-06-02] VITALS: Ht 172.7 cm; Wt 78.8 kg
[~2017-06-02 15:49] MED LIST changes: +METR-163 PO; +OXYC1TAB3 PO; +SULF800T23 PO; +TIZA2CAP PO
[2017-06-02] MEDS ORDERED: SODIUM CHLORIDE 0.9% 1000ML 500 ML IV STA (18:46)
[2017-06-02] MEDS ORDERED: PROMETHAZINE HCL INJ 25 MG/ML 1 ML VIAL IV STA (18:46)
[2017-06-02] MEDS ORDERED: KETOROLAC TROMETHAMINE 30 MG/ML VIAL IV STA (18:46)
[2017-06-02] MEDS ORDERED: OPTIRAY 320 IV PRN (19:00)
[2017-06-02 19:21] LABS: BASO % 0.1 %; BASO ABS # 0.01 K/uL (0-0.2); EOS % 0.8 %; EOS ABS # 0.06 K/uL (0-0.5); HEMATOCRIT 39.2 % (37-47); HEMOGLOBIN 13.2 g/dL (12.0-16.0); IG# 0.01 K/uL (0.00-0.02); LYMPH % 39.9 %; MEAN CELL VOLUME 91.4 fL (80-100); MEAN CORPUSCULAR HEMOGLOBIN 30.8 pg (25-34); MEAN CORPUSCULAR HGB CONC 33.7 g/dl (32-36); MONO % 7.1 %; MONO ABS # 0.53 K/uL (0.11-0.59); PLATELET COUNT 212 K/uL (130-400); RED CELL DISTRIBUTION WIDTH CV 12.8 % (11.5-14.5); WHITE BLOOD COUNT 7.51 K/uL (4.8-10.8)
[2017-06-02] MEDS: MoRPHine SULFATE 10 MG/ML CARP/VIAL IV PRN ×2 (19:22→21:29)
[2017-06-02 19:53] LABS: ALBUMIN 3.6 gm/dl (3.4-5.0); CALCIUM 8.6 mg/dl (8.5-10.1); CREATININE 1.06 mg/dl (0.60-1.20); POTASSIUM 3.7 mmol/L (3.5-5.1)
[2017-06-02 19:56] LABS: TOTAL PROTEIN 6.7 gm/dl (6.4-8.2)
--- NOTE | 2017-06-02 21:56 | DIAGNOSTIC IMAGING REPORT ---
ABDOMEN AND PELVIS CT WITH IV AND ORAL CONTRAST CT DOSE: 438.28 mGy.cm HISTORY: Acute generalized abdominal pain ABDOMINAL PAIN/GI--?DIVERTICULITIS--GIVE PO AND IV CONTRAST TECHNIQUE: Multiaxial CT images of the abdomen and pelvis were performed following the use of intravenous and oral contrast. A dose lowering technique was utilized adhering to the principles of ALARA. COMPARISON STUDY: CT 12/30/2016 FINDINGS: Mild dependent subsegmental bibasilar atelectasis. No pneumatosis or pneumoperitoneum identified. Imaged inferior cardiac chambers are unremarkable. There are least 2 and possibly 3 hyperattenuating lesions again seen within segment VIII of the liver largest of which measures up to 4.8 cm. Again, these suggest hemangiomas however are not completely characterized on this single phase study. No intrahepatic biliary ductal dilation. Gallbladder, spleen, pancreas and adrenal glands are within normal limits. Kidneys, ureters are unremarkable. Urinary bladder is distended measuring up to 12.6 cm in length. Uterus and adnexa are unremarkable. Aorta is normal in course and caliber. No bulky adenopathy. There is no bowel obstruction or focal bowel wall thickening. Indeterminate 6 mm nodular density is seen adjacent to the splenic flexure which is unchanged. Appendix is not visualized and likely surgically absent. No inflammatory changes identified. Soft tissues and breast parenchyma appear unremarkable. Bones appear intact. IMPRESSION: 1. No acute intra-abdominal or intrapelvic abnormality identified. 2. No bowel obstruction or focal bowel wall thickening. 3. Prior appendectomy. 4. Hyperattenuating lesions involving segment VIII of the liver redemonstrated, possibly reflecting hepatic hemangiomas. Electronically signed by: Chauncey Gardiner M.D. 06/02/2017 9:55 PM Dictated Date/Time: 06/02/2017 9:45 PM
[2017-06-02] MEDS ORDERED: PSYLLIUM 58.6% PWD PACK S\\F PO ONE (23:25)
[2017-06-02] MEDS ORDERED: TOPIRAMATE 25 MG TAB PO ONE (23:27)
[2017-06-02] MEDS ORDERED: TRAZODONE HCL 50 MG TAB PO ONE (23:27)
[2017-06-02] MEDS ORDERED: PROCHLORPERAZINE INJ 5 MG in SYRINGE 4 ML IV PRN (23:30)
[2017-06-02] MEDS ORDERED: ACETAMINOPHEN 325 MG TAB PO PRN (23:30)
[2017-06-02] MEDS ORDERED: LORAZEPAM 0.5 MG TAB PO PRN (23:30)
[2017-06-02] MEDS ORDERED: MoRPHine SULFATE 2 MG/ML CARP IV PRN (23:30)
[2017-06-02] MEDS ORDERED: IBUPROFEN 200 MG TAB PO PRN (23:30)
--- NOTE | 2017-06-02 23:30 | EMERGENCY ROOM VISIT NOTE ---
History Report prepared by Paulette: Cal Maddox Under the Supervision of: Dr. Wilbur Quinteros M.D. First contact with patient: 18:43 Chief Complaint: ABDOMINAL PAIN Stated Complaint: EXTREME ABDOMINAL PAIN- OBGYN SAID TO SEE GASTRO Nursing Triage Summary: Patient ambulatory to triage, states "I am having extreme pain in my pelvic region. I was here yesterday and had a bunch of tests. I saw the TELEMETRY TECHNICIAN today. She sent me here to see a GI specialist. She called over here to let you know I was coming. I was started on Flagyl and Bactrim yesterday. I was started on a pain medication too, Oxy IR." Patient last took the pain medication around 1400 today. History of Present Illness The patient is a 36 year old female who presents to the Emergency Room with complaints of constant pelvic pain beginning a month ago. The patient states that she has been having constant cramping and breakthrough bleeding that has worsened over the last month. She notes that her pain is worse on the right side. She reports that her pain worsens with urination and bowel movements. The patient states that she was in the emergency department yesterday to have tests and an US done, which all came back normal. She notes that she was in the ED yesterday, and was placed on Bactrim and Flagyl for her symptoms. She reports that her HOSPITAL SUPERVISOR referred her to the ED today for her symptoms--she was in the OB /TELEMETRY TECHNICIAN office today. The patient states that she has a history of an appendectomy. She notes that she had a colonoscopy and endoscopy in December 2016 due to rectal bleeding which came back normal. She denies any family history of Crohn's disease and endometriosis. She also denies any personal history of diverticulitis. She rates her current pain as a 10/10. Source of History: patient Onset: a month ago Position: pelvis Symptom Intensity: 10/10 Quality: cramping, other (breakthrough bleeding) Timing: constant Modifying Factors (Worsening): urination, other (bowel movements) Note: The patient also complains of breakthrough bleeding. Review of Systems See HPI for pertinent positives & negatives. A total of 10 systems reviewed and were otherwise negative. 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 (15) Migraine (16) Nausea (17) Orthostasis (18) Orthostatic hypotension (19) Orthostatic hypotension (20) Orthostatic hypotension (21) Orthostatic hypotension (22) Orthostatic hypotension (23) Orthostatic hypotension (24) Postural hypotension (25) Postural imbalance (26) Rectal bleeding (27) Syncope (28) Syncope (29) Syncope (30) UTI (urinary tract infection) (31) Vaginal bleeding Surgical Problems: (1) History of oral surgery (2) History of orthopedic surgery (3) S/P appendectomy Family History Cancer Heart disease Hypertension Social History Smoking Status: Never Smoker Alcohol Use: occasionally Drug Use: none Marital Status: Housing Status: lives with family Occupation Status: employed Current/Historical Medications Scheduled Control Pills ( Control Pills), 1 TAB PO DAILY Clonazepam (Klonopin), 0.5 MG PO HS Docusate Sodium (Docusate Sodium), 200 MG PO BID Etodolac (Etodolac), 500 MG PO AMHS Magnesium Oxide (mg Supplement (Cvs Magnesium), 500 MG PO DAILY Metronidazole (Flagyl), 500 MG PO BID Midodrine Hcl (Midodrine Hcl), 10 MG PO BID Multiple Vitamins W/ Minerals (Centrum), 1 TAB PO QAM Pantoprazole (Pantoprazole Sodium), 40 MG PO DAILY Probiotic Product (Probiotic), 1 CAP PO DAILY Ranitidine HCl (Ranitidine HCl), 150 MG PO BID Riboflavin (B-2), 400 MG PO QAM Sodium Chloride (Sodium Chloride), 2 GM PO TID Sulfa/Trimethoprim (Bactrim Ds 800MG/160MG), 1 TAB PO BID Sulfasalazine (Azulfidine), 1,000 MG PO AMHS Topiramate (Topiramate), 75 MG PO AMHS Trazodone Hcl (Desyrel), 50 MG PO HS Venlafaxine Hcl (Effexor Extended Rel), 300 MG PO QAM Scheduled PRN Acetaminophen (Tylenol), 1,000 MG PO Q8 PRN for Pain Diclofenac Sodium (Topical) (Voltaren 1% Top Gel), 2 GM TOP QID PRN for Pain Dicyclomine Hcl (Dicyclomine Hcl), 20 MG PO BID PRN for Abdominal Pain Ketorolac Tromethamine (Ketorolac Tromethamine), 10 MG PO DAILY PRN for Pain Menthol (Topical Analgesic) (Biofreeze), 1 APPL TOP UD PRN for Pain Oxycodone Ir (Roxicodone Ir), 1-2 TAB PO Q6 PRN for Pain Tizanidine (Zanaflex), 2 MG PO Q8 PRN for MUSSP Valacyclovir (Valtrex), 500 MG PO AMPM PRN for Outbreaks Allergies Coded Allergies: Bupropion (Verified Allergy, Mild, 06/02/17) LOW BP Metoclopramide (Verified Allergy, Mild, 06/02/17) LOW BP Adhesives (Verified Allergy, Unknown, RASH, 06/02/17) Gabapentin (Verified Allergy, Unknown, SHORTNESS OF BREATH, 06/02/17) DEPRESSION MEDICATIONS DEACTIVATE Hyoscyamine (Verified Allergy, Unknown, SHORTNESS OF BREATH/HYPOTENSION, ) Patient states "Levobid or Levibid" Infliximab (Verified Allergy, Unknown, HYPOTENSION, 06/02/17) Latex1 -Allergic Contact Dermititis (Verified Allergy, Unknown, 06/02/17) Propoxyphene (Verified Allergy, Unknown, 06/02/17) Replaces DARVOCET-N 10 Physical Exam Vital Signs Date Time Temp Pulse Resp B/P (MAP) Pulse Ox O2 Delivery O2 Flow Rate FiO2 06/02/17 21:29 72 18 111/69 97 Room Air 06/02/17 18:38 36.7 118 20 96/63 98 Room Air 06/02/17 16:05 36.5 77 18 122/79 96 Room Air Physical Exam GENERAL: Patient is in no acute distress. HEENT: No acute trauma, normocephalic atraumatic, mucous membranes moist, no nasal congestion, no scleral icterus. NECK: No stridor, no adenopathy, no meningismus, trachea is midline. LUNGS: Clear to auscultation bilaterally, no wheeze, no rhonchi, breath sounds equal. HEART: Without murmurs gallops or rubs, regular rate and rhythm. ABDOMEN: Soft, bowel sounds positive, no hernias, no peritonitis, moderately tender to lower abdomen and pelvis, mostly on the right. EXTREMITIES: No cyanosis or edema, full range of motion of all the joints without pain or difficulty, no signs for acute trauma. NEUROLOGIC: Oriented x 3, no acute motor or sensory deficits, no focal weakness. SKIN: No rash, no jaundice, no diaphoresis. Medical Decision & Procedures ER Provider Diagnostic Interpretation: Radiology results as stated below per my review and radiologist interpretation: ABDOMEN AND PELVIS CT WITH IV AND ORAL CONTRAST FINDINGS: Mild dependent subsegmental bibasilar atelectasis. No pneumatosis or pneumoperitoneum identified. Imaged inferior cardiac chambers are unremarkable. There are least 2 and possibly 3 hyperattenuating lesions again seen within segment VIII of the liver largest of which measures up to 4.8 cm. Again, these suggest hemangiomas however are not completely characterized on this single phase study. No intrahepatic biliary ductal dilation. Gallbladder, spleen, pancreas and adrenal glands are within normal limits. Kidneys, ureters are unremarkable. Urinary bladder is distended measuring up to 12.6 cm in length. Uterus and adnexa are unremarkable. Aorta is normal in course and caliber. No bulky adenopathy. There is no bowel obstruction or focal bowel wall thickening. Indeterminate 6 mm nodular density is seen adjacent to the splenic flexure which is unchanged. Appendix is not visualized and likely surgically absent. No inflammatory changes identified. Soft tissues and breast parenchyma appear unremarkable. Bones appear intact. IMPRESSION: 1. No acute intra-abdominal or intrapelvic abnormality identified. 2. No bowel obstruction or focal bowel wall thickening. 3. Prior appendectomy. 4. Hyperattenuating lesions involving segment VIII of the liver redemonstrated, possibly reflecting hepatic hemangiomas. Electronically signed by: Chauncey Gardiner M.D. 06/02/2017 9:55 PM Laboratory Results 06/02/17 19:08 Red Blood Count 4.29, Mean Corpuscular Volume 91.4, Mean Corpuscular Hemoglobin 30.8, Mean Corpuscular Hemoglobin Concent 33.7, Mean Platelet Volume 10.0, Neutrophils (%) (Auto) 52.0, Lymphocytes (%) (Auto) 39.9, Monocytes (%) (Auto) 7.1, Eosinophils (%) (Auto) 0.8, Basophils (%) (Auto) 0.1, Neutrophils # (Auto) 3.90, Lymphocytes # (Auto) 3.00, Monocytes # (Auto) 0.53, Eosinophils # (Auto) 0.06, Basophils # (Auto) 0.01 06/02/17 19:08 Test 06/02/17 19:08 White Blood Count 7.51 K/uL (4.8-10.8) Red Blood Count 4.29 M/uL (4.2-5.4) Hemoglobin 13.2 g/dL (12.0-16.0) Hematocrit 39.2 % (37-47) Mean Corpuscular Volume 91.4 fL (80-100) Mean Corpuscular Hemoglobin 30.8 pg (25-34) Mean Corpuscular Hemoglobin Concent 33.7 g/dl (32-36) Platelet Count 212 K/uL (130-400) Mean Platelet Volume 10.0 fL (7.4-10.4) Neutrophils (%) (Auto) 52.0 % Lymphocytes (%) (Auto) 39.9 % Monocytes (%) (Auto) 7.1 % Eosinophils (%) (Auto) 0.8 % Basophils (%) (Auto) 0.1 % Neutrophils # (Auto) 3.90 K/uL (1.4-6.5) Lymphocytes # (Auto) 3.00 K/uL (1.2-3.4) Monocytes # (Auto) 0.53 K/uL (0.11-0.59) Eosinophils # (Auto) 0.06 K/uL (0-0.5) Basophils # (Auto) 0.01 K/uL (0-0.2) RDW Standard Deviation 43.0 fL (36.4-46.3) RDW Coefficient of Variation 12.8 % (11.5-14.5) Immature Granulocyte % (Auto) 0.1 % Immature Granulocyte # (Auto) 0.01 K/uL (0.00-0.02) Anion Gap 7.0 mmol/L (3-11) Est Creatinine Clear Calc Drug Dose 81.7 ml/min Estimated GFR () 79.3 Estimated GFR (Non- 68.5 BUN/Creatinine Ratio 16.3 (10-20) Lactic Acid Level 0.9 mmol/L (0.4-2.0) Calcium Level 8.6 mg/dl (8.5-10.1) Total Bilirubin 0.3 mg/dl (0.2-1) Aspartate Amino Transf (AST/SGOT) 11 U/L (15-37) Alanine Aminotransferase (ALT/SGPT) 11 U/L (12-78) Alkaline Phosphatase 51 U/L (45-117) Total Protein 6.7 gm/dl (6.4-8.2) Albumin 3.6 gm/dl (3.4-5.0) Globulin 3.1 gm/dl (2.5-4.0) Albumin/Globulin Ratio 1.2 (0.9-2) Lipase 300 U/L (73-393) Laboratory results reviewed by me. Medications Administered Medications (Trade) Dose Ordered Sig/Debbi Route Start Time Stop Time Status Last Admin Dose Admin Sodium Chloride 500 ml @ 999 mls/hr Q31M STAT IV 06/02/17 18:46 06/02/17 19:16 DC 06/02/17 19:22 999 MLS/HR Promethazine HCl (Phenergan Inj) 12.5 mg NOW STAT IV 06/02/17 18:46 06/02/17 19:01 DC 06/02/17 19:22 12.5 MG Morphine Sulfate (MoRPHine SULFATE INJ) 6 mg Q30M PRN IV 06/02/17 19:00 06/02/17 23:36 DC 06/02/17 21:29 6 MG Ketorolac Tromethamine (Toradol Inj) 30 mg NOW STAT IV 06/02/17 18:46 06/02/17 19:01 DC 06/02/17 19:21 30 MG ED Course 1846: The patient was evaluated in room C3. A complete history and physical exam was performed. 1846: Toradol Inj 30mg IV, Promethazine HCl 12.5 IV, Sodium Chloride 500 ml @ 999 mls/hr IV, Morphine Sulfate 6mg IV 1900: [place] Bee [place]st[place] [facility] [place] states that she does not believe that the patient's symptoms are a pelvic problem. 2213: Reevaluated and updated the patient. 2238: Upon reexamination the patient is stable. I discussed results and treatment plan with the patient. She verbalizes agreement and understanding. I spoke with Dr. Nova of the [facility] service. We discussed the patient's results and findings. The patient will be evaluated by Dr. Oconer for further management. Medical Decision Differential diagnoses include: UTI, pelvic inflammatory disease, diverticulitis , abscess, Crohn's disease, pancreatitis, and endometriosis. There is no leukocytosis or concerning anemia. No significant electrolyte abnormality, kidney failure, hepatitis or pancreatitis. Urinalysis does not show evidence for infection. Abdominal and pelvis CT does not show any evidence for diverticulitis or acute surgical process. No bowel obstruction. No abscess. Lactic acid level is not elevated making bowel ischemia less likely. The patient received IV saline, IV Phenergan, IV Toradol and IV morphine. She is still having quite a bit of discomfort. I did review her old records from her recent ER visits, no cause for her pain was found. Laboratory testing was unrevealing, pelvic inflammatory disease testing returned negative, ultrasounds of the pelvis were negative. The cause for her symptoms is unclear, endometriosis is a consideration though. I spoke with the OB doctor call or contact centre manager. At this point, given her outpatient treatment failure, given her persistent pain despite even oral narcotics as an outpatient, a hospital stay for further workup was felt warranted. I did speak with case management and the on-call hospitalist. The patient is aware of all her findings. Medication Reconcilliation Current Medication List: was personally reviewed by me Blood Pressure Screening Patient's blood pressure: Normal blood pressure Blood pressure disposition: Did not require urgent referral Consults Time Called: 1899 Consulting Physician: Dr. Cristal Meraz Obstetrics/GynecologyMARY Returned Call: [address] Cristal Gutierres/GynecologyMARY. She states that she does not believe that the patient's symptoms are a pelvic problem. Additional Consults: Time Called: 2235 Consulted Physician: Fransico Tavarez Returned Call: [phone] Additional Comments: Discussed the patient's case. The patient will be evaluated for further management. Impression Primary Impression: Pelvic pain Additional Impression: Failure of outpatient treatment Scribe Attestation The scribe's documentation has been prepared under my direction and personally reviewed by me in its entirety. I confirm that the note above accurately reflects all work, treatment, procedures, and medical decision making performed by me. Departure Information Dispostion Being Evaluated By Hospitalist Referrals Cinda Kirby M.D. (PCP) Patient Instructions [facility] Problem Qualifiers
[2017-06-02] MEDS ORDERED: DOCUSATE SODIUM 100 MG CAP PO STA (23:41)
[2017-06-02] MEDS ORDERED: RANITIDINE HCL 150 MG TAB PO STA (23:41)
[2017-06-02] MEDS ORDERED: DICYCLOMINE HCL 10 MG CAP PO STA (23:41)
[2017-06-02] MEDS ORDERED: CLONAZEPAM 0.5 MG TAB PO STA (23:43)
[2017-06-02] MEDS ORDERED: IV FLUIDS COMPLETED PRN (23:45)
[2017-06-02] MEDS ORDERED: POLYETHYLENE (MIRALAX) 17 GM PACK PO ONE (23:45)
[2017-06-03 00:32] VITALS: BP 121/78; PULSE 82; TEMP 36.4; O2SAT 97; Ht 172.7 cm; Wt 78.8 kg
[2017-06-03] MEDS: OXYCODONE/ACETAMINOPHEN 5-325 TAB PO PRN ×4 (00:36→20:47)
[2017-06-03] MEDS ORDERED: NSS + 20MEQ KCL 1000ML 1,000 ML IV ONE (01:00)
--- NOTE | 2017-06-03 02:08 | HISTORY & PHYSICAL EXAMINATION ---
DATE OF ADMISSION: 06/02/2017 PRIMARY CARE PHYSICIAN: Dr. Kirby CHIEF COMPLAINT: Abdominal pain. HISTORY OF PRESENT ILLNESS: History obtained from patient and records. 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 Recent confinement 2013 for recurrent syncope attributed to autonomic dysfunction. Patient has had dyspareunia symptoms for some time now. In the last month, patient had sharp RLQ pain, constant symptoms/ Patient seen by [facility] [place] [facility] last month.. Cervical motion tenderness on exam as per note. Patient given antibiotic course for possible PID despite low suspicion as per outpatient note. No improvement in pain as per patient. Patient gives account of 1 episode of dark tarry stools from a few weeks ago. Constipation from narcotics causing transient blood streaked stools from 2 days ago which patient attributes to a "popped hemorrhoid." Three ER visits for abdominal pain this month. Patient was last seen in the Emergency Room yesterday. Ultrasound showed retroverted uterus. Impression was pelvic pain. Patient was given Bactrim, Flagyl for possible UTI, vaginosis, respectively. Worsening abdominal pain. No fever, no chills. Some stress at home with recent adoption of 3 children. Had a follow up with her hard metals engraver hand this morning who told her that her symptoms are not likely a gynecologic. Patient sent to the Emergency Room for evaluation of intractable abdominal pain. MEDICAL HISTORY: As above. Seen by [facility] last 12/2016 for rectal bleeding, outpatient CT evidence of mild- to-moderate proctitis. Outpatient EGD, colonoscopy negative. Symptoms attributed to IBS as per records. Patient also noted to have a hepatic adenoma on imaging. Patient hesitant to discontinue her OCP as per records. SURGERIES: She has had gynecologic procedures, appendectomy, knee surgery, and lymph node biopsy. HOME MEDICATIONS: Include Tylenol, OCP, Klonopin, Voltaren, dicyclomine, sodium tabs, Toradol, Biofreeze, midodrine, probiotic, Protonix, ranitidine, sodium chloride, sulfasalazine, Desyrel, Zanaflex, Topamax, Effexor, Valtrex. ALLERGIES: ADHESIVE, REGLAN, PROPOXYPHENE, BUPROPION, GABAPENTIN, INFLIXIMAB. FAMILY HISTORY: Heart disease, high blood pressure. PERSONAL AND SOCIAL HISTORY: Nonsmoker. No chronic intake of alcoholic beverages. 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 REVIEW OF SYSTEMS: As per HPI. All 10 systems reviewed, all other ROS negative. PHYSICAL EXAMINATION: VITAL SIGNS: Blood pressure was noted to be 100/70, MI 90 RR 20, T 37 sats 97 on room air. GENERAL: Noted to be anxious, uncomfortable. No respiratory distress. SKIN: Normal color, warm. HEENT: [place] palpebral conjunctivae. No ptosis. Dry mucosa.. NECK: Supple. NT CHEST: Clear to auscultation. No tenderness HEART: Regular, rate and rhythm. No murmur. ABDOMEN: Some distention, RLQ tenderness Rectal exam : intact sphincter, brown stool, heme negative. EXTREMITIES: No edema. No tenderness. No gross deformities. NEUROLOGIC: Coherent. No gross focality. LABORATORIES: Hemoglobin 13.2, white cell count 7.5, platelets 212. Sodium 138, potassium 3.8, chloride 109, CO2 of 22, BUN 17, creatinine 1, glucose noted to be 76. CT abdomen and pelvis showed no acute pathology or thickening; appendectomy, hepatic hemangiomas. ASSESSMENT AND PLAN: 1. Intractable lower abdominal pain hx irritable bowel syndrome, constipation predominant. No response to recent outpatient regimen for PID 2. mood disorder, stable. 3. hx autonomic dysfunction on midodrine, sodium tablets 4. history juvenile RA on Sulfasalazine as per records. 5. hx of fibromyalgia/reflex sympathetic dystrophy as per records 6. history conversion disorder as per records. Observation GMF analgesia Judicious narcotic use. Trial of daily psyllium, augmented bowel regimen; dicyclomine as needed GI consult. RE abdominal pain DVT prophylaxis SCDs Full code. MTDD
[2017-06-03] MEDS: KETOROLAC TROMETHAMINE 30 MG/ML VIAL IV PRN ×3 (06:18→18:47)
[2017-06-03 07:10] VITALS: BP 101/67; PULSE 70; TEMP 36.4; O2SAT 95
[2017-06-03] MEDS: PANTOprazole SOD 40 MG TAB PO SCH (07:35)
[2017-06-03] MEDS: SULFASALAZINE 500 MG TAB PO SCH ×2 (07:35→20:32)
[2017-06-03] MEDS: SODIUM CHLORIDE 1 GM TAB PO SCH ×3 (07:35→20:31)
[2017-06-03] MEDS: TOPIRAMATE 25 MG TAB PO SCH ×2 (07:36→20:36)
[2017-06-03] MEDS: VENLAFAXINE HCL XR 150 MG CAPXR PO SCH (07:36)
[2017-06-03] MEDS: DICYCLOMINE HCL 20 MG TAB PO PRN ×2 (07:36→13:45)
[2017-06-03] MEDS: RANITIDINE HCL 150 MG TAB PO SCH ×2 (07:36→20:31)
[2017-06-03] MEDS: POLYETHYLENE (MIRALAX) 17 GM PACK PO PRN (07:37)
[2017-06-03] MEDS: CEROVITE ADV FORMULA TAB PO SCH (07:37)
[2017-06-03] MEDS: PSYLLIUM 58.6% PWD PACK S\\F PO SCH (07:37)
[2017-06-03] MEDS: LACTOBACILLUS ACIDOPHILUS (FLORANEX) TAB PO SCH (07:37)
[2017-06-03 08:00] VITALS: O2SAT 95
[2017-06-03] MEDS: DOCUSATE SODIUM 100 MG CAP PO SCH ×2 (08:41→20:32)
[2017-06-03] MEDS ORDERED: MIDODRINE 10 MG TAB PO SCH ×2 (09:00→18:00)
[2017-06-03] MEDS ORDERED: NURSING VERBAL MED ORDER ONE ×4 (09:00→18:45)
[2017-06-03] MEDS ORDERED: RIBOFLAVIN SCH (10:00)
--- NOTE | 2017-06-03 10:48 | Gastrointestinal Consultation ---
Gastrointestinal Consultation Date of Consultation: Jun 03, 2017 Attending Physician: Lynda Consulting Physician: Cooper Reason for Consultation: abd pain History of Present Illness Patient is a 36 year old female w/ history below who presented through the ED for chronic pelvis pain - GI was asked to evaluate the pt for her pain. She has previously been evaluated as an PP w/ OP EGD/Colonoscopy negative. Notes continued symptoms. Daily chronic lower pelvis pain. unchanged with PO intake. Worse w/ pressure including urinary pressure or urge to have a BM. Notes painful intercourse and unable to insert a tampon for this pain. Notes she was treated for PID x 2 trials despite negative findings. Notes no changes in her symptoms with this therapy. She tells me she had one black stool on 05/20/18, is on iron. She had one episode of BRBPR limited to the toilet paper tissue about a week ago. Otherwise no change in bowel habits. Typically has formed stools. No fever, chills, CP, SOB. No ETOH No tobacco use No drug use CT: No acute intra-abdominal or intrapelvic abnormality identified. No bowel obstruction or focal bowel wall thickening. Prior appendectomy. Hyperattenuating lesions involving segment VIII of the liver redemonstrated, possibly reflecting hepatic hemangiomas. 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 (12) Migraine Status: Chronic (13) Orthostatic hypotension Status: Chronic (14) Pelvic pain Status: Acute (15) Pelvic pain Status: Acute (16) Proctitis Status: Acute (17) Vomiting Status: Acute Past Medical History: juvenile RA on sulfasalazine, IBS, RSD, migraine, depression, autonomic dysfunction on midodrine and sodium tablets Past Surgical History: colonoscopy egd appendectomy Family History Cancer Heart disease Hypertension Social History Smoking Status: Never Smoker Alcohol Use: occasionally Drug Use: none Marital Status: Housing Status: lives with family Occupation Status: employed Allergies Coded Allergies: Bupropion (Verified Allergy, Mild, 06/02/17) LOW BP Metoclopramide (Verified Allergy, Mild, 06/02/17) LOW BP Adhesives (Verified Allergy, Unknown, RASH, 06/02/17) Gabapentin (Verified Allergy, Unknown, SHORTNESS OF BREATH, 06/02/17) DEPRESSION MEDICATIONS DEACTIVATE Hyoscyamine (Verified Allergy, Unknown, SHORTNESS OF BREATH/HYPOTENSION, ) Patient states "Levobid or Levibid" Infliximab (Verified Allergy, Unknown, HYPOTENSION, 06/02/17) Latex1 -Allergic Contact Dermititis (Verified Allergy, Unknown, 06/02/17) Propoxyphene (Verified Allergy, Unknown, 06/02/17) Replaces DARVOCET-N 10 Current Medications Home Meds and Scripts Medications Dose Route/Sig Max Daily Dose Days Date Category Dose Instructions Roxicodone Ir (Oxycodone HCl) 5 Mg Tab 1-2 Tab PO Q6 PRN 06/01/17 Rx For Initial Treatment Bactrim Ds 800MG/160MG (Trimethoprim/Sulfamethoxazole) Tab 1 Tab PO BID 7 06/01/17 Rx Flagyl (Metronidazole) 500 Mg Tab 500 Mg PO BID 7 06/01/17 Rx Zanaflex (Tizanidine HCl) 2 Mg Cap 2 Mg PO Q8 PRN 06/01/17 Reported Probiotic (Probiotic Product) 1 Cap Cap 1 Cap PO DAILY 05/20/17 Reported Control Pills (Miscellaneous) Tab 1 Tab PO DAILY 04/22/17 Reported Dicyclomine Hcl 20 Mg Tab 20 Mg PO BID PRN 04/22/[address] [facility] Magnesium (Magnesium Oxide (mg Supplement) 500 Mg Tab 500 Mg PO DAILY 04/22/17 Reported Ketorolac Tromethamine 10 Mg Tab 10 Mg PO DAILY PRN 04/22/17 Reported Ranitidine HCl 150 Mg Tab 150 Mg PO BID 04/22/17 Reported Topiramate 25 Mg Tab 75 Mg PO AMHS 04/22/17 Reported Valtrex (Valacyclovir HCl) 500 Mg Tab 500 Mg PO AMPM PRN 09/27/16 Reported Tylenol (Acetaminophen) 500 Mg Tab 1,000 Mg PO Q8 PRN 09/27/16 Reported Voltaren 1% Top Gel (Diclofenac Sodium (Topical)) 1 % Gel 2 Gm TOP QID PRN 09/27/16 Reported Centrum (Multiple Vitamins W/ Minerals) 1 Tab Tab 1 Tab PO QAM 09/27/16 Reported Pantoprazole Sodium (Pantoprazole) 40 Mg Tab 40 Mg PO DAILY 09/24/16 Reported Effexor Extended Rel (Venlafaxine Hcl) 150 Mg Cap 300 Mg PO QAM 03/10/16 Reported Sodium Chloride 1 Gm Tab 2 Gm PO TID 03/10/16 Reported Docusate Sodium 100 Mg Cap 200 Mg PO BID 03/10/16 Reported Etodolac 500 Mg Tab 500 Mg PO AMHS 03/10/16 Reported Klonopin (Clonazepam) 0.5 Mg Tab 0.5 Mg PO HS 11/05/15 Reported Biofreeze (Menthol (Topical Analgesic)) 4 % Gel 1 Appl TOP UD PRN 08/07/13 Reported APPLY PER PACKAGE DIRECTIONS B-2 (Riboflavin) 100 Mg Tab 400 Mg PO QAM 08/07/13 Reported Midodrine Hcl 5 Mg Tab 10 Mg PO BID 05/10/13 Reported Desyrel (Trazodone Hcl) 50 Mg Tab 50 Mg PO HS 03/30/12 Reported Azulfidine (Sulfasalazine) 500 Mg Tab 1,000 Mg PO AMHS 07/01/09 Reported Review of Systems Constitutional: No fever, No chills, No weight loss Cardiac: No chest pain, No edema Abdomen: + pain (pelvic pain worse with palpation, intercourse), No nausea, No vomiting, No diarrhea, No constipation, No GI bleeding Skin: No rash, No color change Physical Exam Date Time Temp Pulse Resp B/P (MAP) Pulse Ox O2 Delivery O2 Flow Rate FiO2 06/03/17 08:00 95 Room Air 06/03/17 07:10 36.4 70 18 101/67 (78) 95 Room Air 06/03/17 00:32 36.4 82 20 121/78 97 Room Air 06/03/17 00:05 Room Air 06/02/17 23:41 72 18 110/74 97 Room Air 06/02/17 21:29 72 18 111/69 97 Room Air 06/02/17 18:38 36.7 118 20 96/63 98 Room Air 06/02/17 16:05 36.5 77 18 122/79 96 Room Air General Appearance: no apparent distress Eyes: PERRL ENT: normal ENT inspection Neck: supple, trachea midline Respiratory/Chest: lungs clear, normal breath sounds, no respiratory distress, no accessory muscle use Cardiovascular: regular rate, rhythm, no gallop, no JVD, no murmur Abdomen: normal bowel sounds, soft, no organomegaly, no pulsatile mass, + tenderness (bilateral lower pelvic pain) Neurologic/Psych: alert, normal mood/affect, oriented x 3 Skin: normal color, no jaundice, warm/dry, no rash Laboratory Results Last 24 Hours Test 06/02/17 19:08 06/03/17 00:05 White Blood Count 7.51 K/uL Red Blood Count 4.29 M/uL Hemoglobin 13.2 g/dL Hematocrit 39.2 % Mean Corpuscular Volume 91.4 fL Mean Corpuscular Hemoglobin 30.8 pg Mean Corpuscular Hemoglobin Concent 33.7 g/dl Platelet Count 212 K/uL Mean Platelet Volume 10.0 fL Neutrophils (%) (Auto) 52.0 % Lymphocytes (%) (Auto) 39.9 % Monocytes (%) (Auto) 7.1 % Eosinophils (%) (Auto) 0.8 % Basophils (%) (Auto) 0.1 % Neutrophils # (Auto) 3.90 K/uL Lymphocytes # (Auto) 3.00 K/uL Monocytes # (Auto) 0.53 K/uL Eosinophils # (Auto) 0.06 K/uL Basophils # (Auto) 0.01 K/uL RDW Standard Deviation 43.0 fL RDW Coefficient of Variation 12.8 % Immature Granulocyte % (Auto) 0.1 % Immature Granulocyte # (Auto) 0.01 K/uL Sodium Level 138 mmol/L Potassium Level 3.7 mmol/L Chloride Level 109 mmol/L Carbon Dioxide Level 22 mmol/L Anion Gap 7.0 mmol/L Blood Urea Nitrogen 17 mg/dl Creatinine 1.06 mg/dl Est Creatinine Clear Calc Drug Dose 81.7 ml/min Estimated GFR () 79.3 Estimated GFR (Non- 68.5 BUN/Creatinine Ratio 16.3 Random Glucose 76 mg/dl Lactic Acid Level 0.9 mmol/L Calcium Level 8.6 mg/dl Total Bilirubin 0.3 mg/dl Aspartate Amino Transf (AST/SGOT) 11 U/L Alanine Aminotransferase (ALT/SGPT) 11 U/L Alkaline Phosphatase 51 U/L Total Protein 6.7 gm/dl Albumin 3.6 gm/dl Globulin 3.1 gm/dl Albumin/Globulin Ratio 1.2 Lipase 300 U/L Urine Color DK YELLOW Urine Appearance CLEAR Urine pH 5.5 Urine Specific [place] 1.029 Urine Protein NEG Urine Glucose (UA) NEG Urine Ketones NEG Urine Occult Blood NEG Urine Nitrite POS Urine Bilirubin NEG Urine Urobilinogen NEG Urine Leukocyte Esterase SMALL Urine WBC (Auto) 1-5 /hpf Urine RBC (Auto) 0-4 /hpf Urine Hyaline Casts (Auto) 1-5 /lpf Urine Epithelial Cells (Auto) 20-30 /lpf Urine Bacteria (Auto) NEG Impression Patient is a 36 year old female w/ chronic, lower pelvic pain worse w/ palpation , also has pain w/ intercourse. Per pt Ob-Custodial Manager has exhausted work-up. No exploratory surgery was performed. She was treated for PID x 2 treatments although negative culture. From a GI standpoint, CT w/o source of pain identified, recent EGD and colon were negative. Perhaps she has functional abd pain related to adhesions from appendectomy vs IBS vs pudendal neuralgia. Plan No role for repeat endoscopic evaluation FODMAPs diet Bentyl 10 mg TID Can discuss low dose Elavil HS if pt does not respond to Bentyl Consider inpatient OBGYN consultation GI to sign off, please call with any acute changes, questions or concerns. Attg add: i interviewed and examined pt, reviewed chart and labs. Pt with chronic pelvic pain, negative GI w/u. History is not typical of IBS; other GI testing seems low yield. Would consider empiric elavil, pain management consult for possible diagnosis of pudendal neuropathy. I have no other recommendations.
--- NOTE | 2017-06-03 12:43 | Progress Note ---
Internal Med Progress Note Date of Service: Jun 03, 2017. Provider Documentation: SUBJECTIVE: The patient was seen and examined She was admitted with acute on chronic abdominal pain without any nausea and vomiting, fever ,chills or riders She was evaluated by QUAD STAYER the day before admission and no twice daily or suspected Still complains pain in the abdomen without any other symptoms OBJECTIVE: Vital Signs-as noted below Exam: General-no distress at rest Eyes-normal ENT-normal Neck-supple Lungs-clear Heart-regular, no murmur appreciated Abdomen-benign, soft, tender all over, no rebound tenderness, bowel sounds present Extremities-no edema Neuro-AAA 3 No focal neuro deficit Lab data as noted below. ASSESSMENT & PLAN: Intractable lower abdominal pain hx irritable bowel syndrome, constipation predominant. No response to recent outpatient regimen for PID and was evaluated by QUAD STAYER the day before admission Clinically a little better Appreciate GI evaluation Bentyl added Mood disorder, stable. 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 No bowel symptoms H/P of fibromyalgia/reflex sympathetic dystrophy as per records History conversion disorder as per records. DVT prophylaxis SCDs Full code. Vital Signs: Date Time Temp Pulse Resp B/P (MAP) Pulse Ox O2 Delivery O2 Flow Rate FiO2 06/03/17 08:00 95 Room Air 06/03/17 07:10 36.4 70 18 101/67 (78) 95 Room Air 06/03/17 00:32 36.4 82 20 121/78 97 Room Air 06/03/17 00:05 Room Air 06/02/17 23:41 72 18 110/74 97 Room Air 06/02/17 21:29 72 18 111/69 97 Room Air 06/02/17 18:38 36.7 118 20 96/63 98 Room Air 06/02/17 16:05 36.5 77 18 122/79 96 Room Air Lab Results: Results Past 24 Hours Test 06/02/17 19:08 06/03/17 00:05 Range/Units White Blood Count 7.51 4.8-10.8 K/uL Red Blood Count 4.29 4.2-5.4 M/uL Hemoglobin 13.2 12.0-16.0 g/dL Hematocrit 39.2 37-47 % Mean Corpuscular Volume 91.4 80-100 fL Mean Corpuscular Hemoglobin 30.8 25-34 pg Mean Corpuscular Hemoglobin Concent 33.7 32-36 g/dl Platelet Count 212 130-400 K/uL Mean Platelet Volume 10.0 7.4-10.4 fL Neutrophils (%) (Auto) 52.0 % Lymphocytes (%) (Auto) 39.9 % Monocytes (%) (Auto) 7.1 % Eosinophils (%) (Auto) 0.8 % Basophils (%) (Auto) 0.1 % Neutrophils # (Auto) 3.90 1.4-6.5 K/uL Lymphocytes # (Auto) 3.00 1.2-3.4 K/uL Monocytes # (Auto) 0.53 0.11-0.59 K/uL Eosinophils # (Auto) 0.06 0-0.5 K/uL Basophils # (Auto) 0.01 0-0.2 K/uL RDW Standard Deviation 43.0 36.4-46.3 fL RDW Coefficient of Variation 12.8 11.5-14.5 % Immature Granulocyte % (Auto) 0.1 % Immature Granulocyte # (Auto) 0.01 0.00-0.02 K/uL Sodium Level 138 136-145 mmol/L Potassium Level 3.7 3.5-5.1 mmol/L Chloride Level 109 98-107 mmol/L Carbon Dioxide Level 22 21-32 mmol/L Anion Gap 7.0 3-11 mmol/L Blood Urea Nitrogen 17 7-18 mg/dl Creatinine 1.06 0.60-1.20 mg/dl Est Creatinine Clear Calc Drug Dose 81.7 ml/min Estimated GFR () 79.3 Estimated GFR (Non- 68.5 BUN/Creatinine Ratio 16.3 10-20 Random Glucose 76 70-99 mg/dl Lactic Acid Level 0.9 0.4-2.0 mmol/L Calcium Level 8.6 8.5-10.1 mg/dl Total Bilirubin 0.3 0.2-1 mg/dl Aspartate Amino Transf (AST/SGOT) 11 15-37 U/L Alanine Aminotransferase (ALT/SGPT) 11 12-78 U/L Alkaline Phosphatase 51 45-117 U/L Total Protein 6.7 6.4-8.2 gm/dl Albumin 3.6 3.4-5.0 gm/dl Globulin 3.1 2.5-4.0 gm/dl Albumin/Globulin Ratio 1.2 0.9-2 Lipase 300 73-393 U/L Urine Color DK YELLOW Urine Appearance CLEAR CLEAR Urine pH 5.5 4.5-7.5 Urine Specific [place] 1.029 1.000-1.030 Urine Protein NEG NEG Urine Glucose (UA) NEG NEG Urine Ketones NEG NEG Urine Occult Blood NEG NEG Urine Nitrite POS NEG Urine Bilirubin NEG NEG Urine Urobilinogen NEG NEG Urine Leukocyte Esterase SMALL NEG Urine WBC (Auto) 1-5 0-5 /hpf Urine RBC (Auto) 0-4 0-4 /hpf Urine Hyaline Casts (Auto) 1-5 0-5 /lpf Urine Epithelial Cells (Auto) 20-30 0-5 /lpf Urine Bacteria (Auto) NEG NEG
[2017-06-03 15:42] VITALS: BP 82/57; PULSE 56; TEMP 36.4; O2SAT 98
[2017-06-03] MEDS: MIDODRINE 10 MG TAB PO SCH (15:50)
[2017-06-03 16:00] VITALS: O2SAT 98
[2017-06-03 18:34] VITALS: BP 92/60; PULSE 62; TEMP 36.4; O2SAT 99
[2017-06-03] MEDS ORDERED: SODIUM CHLORIDE 0.9% 500ML 500 ML IV ONE (18:45)
[2017-06-03] MEDS: CLONAZEPAM 0.5 MG TAB PO SCH (20:36)
[2017-06-03] MEDS ORDERED: TRAZODONE HCL 50 MG TAB PO SCH (21:00)
[2017-06-04 00:10] VITALS: BP 95/59; PULSE 51; TEMP 36.5; O2SAT 96
[2017-06-04] MEDS: KETOROLAC TROMETHAMINE 30 MG/ML VIAL IV PRN ×3 (06:30→20:50)
[2017-06-04] MEDS: OXYCODONE/ACETAMINOPHEN 5-325 TAB PO PRN (06:31)
[2017-06-04 07:40] VITALS: BP 93/58; PULSE 63; TEMP 36.8; O2SAT 96
[2017-06-04] MEDS: SODIUM CHLORIDE 1 GM TAB PO SCH ×3 (08:29→20:47)
[2017-06-04] MEDS: VENLAFAXINE HCL XR 150 MG CAPXR PO SCH (08:29)
[2017-06-04] MEDS: NORTREL PO SCH (08:33)
[2017-06-04] MEDS: RIBOFLAVIN 100 MG TAB PO SCH (08:33)
[2017-06-04] MEDS: CEROVITE ADV FORMULA TAB PO SCH (08:34)
[2017-06-04] MEDS: MIDODRINE 10 MG TAB PO SCH ×3 (08:34→16:41)
[2017-06-04] MEDS: DOCUSATE SODIUM 100 MG CAP PO SCH ×2 (08:34→20:48)
[2017-06-04] MEDS: DICYCLOMINE HCL 20 MG TAB PO PRN ×2 (08:35→14:50)
[2017-06-04] MEDS: SULFASALAZINE 500 MG TAB PO SCH ×2 (08:36→20:49)
[2017-06-04] MEDS: PANTOprazole SOD 40 MG TAB PO SCH (08:36)
[2017-06-04] MEDS: PSYLLIUM 58.6% PWD PACK S\\F PO SCH (08:36)
[2017-06-04] MEDS: RANITIDINE HCL 150 MG TAB PO SCH ×2 (08:36→20:48)
[2017-06-04] MEDS: TOPIRAMATE 25 MG TAB PO SCH ×2 (08:37→20:49)
[2017-06-04] MEDS: POLYETHYLENE (MIRALAX) 17 GM PACK PO PRN (08:41)
[2017-06-04] MEDS ORDERED: RIBOFLAVIN 400 MG PO SCH (09:00)
[2017-06-04] MEDS ORDERED: NURSING VERBAL MED ORDER ONE ×2 (09:30→17:00)
[2017-06-04] MEDS ORDERED: MAGNESIUM OXIDE 400 MG TAB PO ONE (09:45)
[2017-06-04] MEDS ORDERED: BISACODYL 10 MG SUPP PR STA (09:58)
[2017-06-04] MEDS: LACTOBACILLUS ACIDOPHILUS (FLORANEX) TAB PO SCH (10:02)
[2017-06-04 10:28] LABS: HEMATOCRIT 34.8 % (37-47); HEMOGLOBIN 11.4 g/dL (12.0-16.0); MEAN CELL VOLUME 93.3 fL (80-100); MEAN CORPUSCULAR HEMOGLOBIN 30.6 pg (25-34); MEAN CORPUSCULAR HGB CONC 32.8 g/dl (32-36); MEAN PLATELET VOLUME 9.9 fL (7.4-10.4); PLATELET COUNT 163 K/uL (130-400); RED CELL DISTRIBUTION WIDTH CV 13.1 % (11.5-14.5); RED CELL DISTRIBUTION WIDTH SD 44.7 fL (36.4-46.3); WHITE BLOOD COUNT 6.59 K/uL (4.8-10.8)
[2017-06-04 10:56] LABS: CALCIUM 8.3 mg/dl (8.5-10.1); CREATININE 0.9 mg/dl (0.60-1.20); POTASSIUM 3.8 mmol/L (3.5-5.1)
[2017-06-04] MEDS ORDERED: SOD PHOSPHATE/SOD BIPHOSPHATE ENEMA 132 ML BTL PR PRN (11:00)
--- NOTE | 2017-06-04 14:39 | Progress Note ---
Internal Med Progress Note Date of Service: Jun 04, 2017. Provider Documentation: SUBJECTIVE: The patient was seen and examined She was admitted with acute on chronic abdominal pain without any nausea and vomiting, fever ,chills or riders She was evaluated by CNC MILLING MACHINIST the day before admission and no twice daily or suspected Still complains pain in the abdomen without any other symptoms Still complains of severe lower abdominal pain ,mostly RLQ No associate Nausea and or vomiting OBJECTIVE: Vital Signs-as noted below Exam: General-no distress at rest Eyes-normal ENT-normal Neck-supple Lungs-clear Heart-regular, no murmur appreciated Abdomen-benign, soft, tender all over but more tenderness RLQ, no rebound tenderness, bowel sounds present Extremities-no edema Neuro-AAA 3 No focal neuro deficit Lab data as noted below. ASSESSMENT & PLAN: Intractable lower abdominal pain-Negative CT of the Abd and Pelvis hx irritable bowel syndrome, constipation predominant. No response to recent outpatient regimen for PID and was evaluated by CNC MILLING MACHINIST the day before admission Clinically a little better Appreciate GI evaluation and signed off Suggested to have Pudendal Nerve Neuralgia Bentyl added as needed No signs of Infection Mood disorder, stable. 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 No bowel symptoms H/P of fibromyalgia/reflex sympathetic dystrophy as per records History conversion disorder as per records. Constipation Minor sbeen on Stool softer Will try Suppository and or Enema DVT prophylaxis SCDs Full code. Vital Signs: Date Time Temp Pulse Resp B/P (MAP) Pulse Ox O2 Delivery O2 Flow Rate FiO2 06/04/17 08:00 Room Air 06/04/17 07:40 36.8 63 16 93/58 (70) 96 Room Air 06/04/17 00:10 36.5 51 16 95/59 (71) 96 Room Air 06/04/17 00:00 Room Air 06/03/17 18:34 36.4 62 14 92/60 (71) 99 Room Air 06/03/17 16:00 98 Room Air 06/03/17 15:42 36.4 56 16 82/57 (65) 98 Room Air Lab Results: Results Past 24 Hours Test 06/04/17 10:04 Range/Units White Blood Count 6.59 4.8-10.8 K/uL Red Blood Count 3.73 4.2-5.4 M/uL Hemoglobin 11.4 12.0-16.0 g/dL Hematocrit 34.8 37-47 % Mean Corpuscular Volume 93.3 80-100 fL Mean Corpuscular Hemoglobin 30.6 25-34 pg Mean Corpuscular Hemoglobin Concent 32.8 32-36 g/dl RDW Standard Deviation 44.7 36.4-46.3 fL RDW Coefficient of Variation 13.1 11.5-14.5 % Platelet Count 163 130-400 K/uL Mean Platelet Volume 9.9 7.4-10.4 fL Sodium Level 141 136-145 mmol/L Potassium Level 3.8 3.5-5.1 mmol/L Chloride Level 111 98-107 mmol/L Carbon Dioxide Level 26 21-32 mmol/L Anion Gap 4.0 3-11 mmol/L Blood Urea Nitrogen 8 7-18 mg/dl Creatinine 0.90 0.60-1.20 mg/dl Est Creatinine Clear Calc Drug Dose 97.1 ml/min Estimated GFR () 96.7 Estimated GFR (Non- 83.4 BUN/Creatinine Ratio 9.1 10-20 Random Glucose 94 70-99 mg/dl Calcium Level 8.3 8.5-10.1 mg/dl Magnesium Level 2.0 1.8-2.4 mg/dl
[2017-06-04] MEDS: ONDANSETRON INJ 2 MG/ML 2 ML VIAL IV PRN (14:52)
[2017-06-04 15:38] VITALS: BP 110/69; PULSE 45; TEMP 36.5; O2SAT 100
[2017-06-04] MEDS ORDERED: SOD PHOSPHATE/SOD BIPHOSPHATE ENEMA 132 ML BTL PR ONE (17:00)
[2017-06-04 19:55] VITALS: TEMP 36.6
[2017-06-04 20:07] LABS: HEMATOCRIT 34.3 % (37-47); HEMOGLOBIN 11.4 g/dL (12.0-16.0)
[2017-06-04] MEDS: CLONAZEPAM 0.5 MG TAB PO SCH (20:45)
[2017-06-04] MEDS: TRAZODONE HCL 50 MG TAB PO SCH (20:48)
[2017-06-04 23:39] VITALS: BP 99/69; PULSE 40; TEMP 36.7; O2SAT 97
[2017-06-05 02:00] VITALS: PULSE 45
[2017-06-05 07:15] VITALS: BP 103/68; PULSE 41; TEMP 37; O2SAT 96
[2017-06-05] MEDS: KETOROLAC TROMETHAMINE 30 MG/ML VIAL IV PRN ×3 (07:55→20:58)
[2017-06-05] MEDS: DICYCLOMINE HCL 20 MG TAB PO PRN ×3 (07:57→20:54)
[2017-06-05 07:58] VITALS: PULSE 50
[2017-06-05] MEDS: MAGNESIUM OXIDE 400 MG TAB PO SCH (07:58)
[2017-06-05] MEDS: SODIUM CHLORIDE 1 GM TAB PO SCH ×3 (07:59→20:55)
[2017-06-05] MEDS: SULFASALAZINE 500 MG TAB PO SCH ×2 (07:59→20:56)
[2017-06-05] MEDS: TOPIRAMATE 25 MG TAB PO SCH ×2 (07:59→20:55)
[2017-06-05] MEDS: MIDODRINE 10 MG TAB PO SCH ×3 (07:59→15:45)
[2017-06-05] MEDS: PSYLLIUM 58.6% PWD PACK S\\F PO SCH (07:59)
[2017-06-05] MEDS: RIBOFLAVIN 100 MG TAB PO SCH (08:00)
[2017-06-05] MEDS: PANTOprazole SOD 40 MG TAB PO SCH (08:00)
[2017-06-05] MEDS: DOCUSATE SODIUM 100 MG CAP PO SCH ×2 (08:00→20:56)
[2017-06-05] MEDS: CEROVITE ADV FORMULA TAB PO SCH (08:00)
[2017-06-05] MEDS: VENLAFAXINE HCL XR 150 MG CAPXR PO SCH (08:00)
[2017-06-05] MEDS: NORTREL PO SCH (08:03)
[2017-06-05] MEDS: POLYETHYLENE (MIRALAX) 17 GM PACK PO PRN (08:06)
[2017-06-05] MEDS: LACTOBACILLUS ACIDOPHILUS (FLORANEX) TAB PO SCH (08:26)
[2017-06-05] MEDS: RANITIDINE HCL 150 MG TAB PO SCH ×2 (08:26→20:56)
[2017-06-05] MEDS ORDERED: NURSING VERBAL MED ORDER ONE ×2 (09:15→10:45)
[2017-06-05] MEDS ORDERED: SOD PHOSPHATE/SOD BIPHOSPHATE ENEMA 132 ML BTL PR PRN (10:45)
--- NOTE | 2017-06-05 13:58 | Progress Note ---
Internal Med Progress Note Date of Service: Jun 05, 2017. Provider Documentation: SUBJECTIVE: The patient was seen and examined She was admitted with acute on chronic abdominal pain without any nausea and vomiting, fever ,chills or riders She was evaluated by NITROGLYCERIN DISTRIBUTOR the day before admission and no twice daily or suspected Still complains pain in the abdomen without any other symptoms Still complains of severe lower abdominal pain ,mostly RLQ No associate Nausea and or vomiting Ongoing severe pain RLQ and adjoining groin area No associated symptoms OBJECTIVE: Vital Signs-as noted below Exam: General-no distress at rest Eyes-normal ENT-normal Neck-supple Lungs-clear Heart-regular, no murmur appreciated Abdomen-benign, soft, tender all over but more tenderness RLQ, no rebound tenderness, bowel sounds present 1 or 2 shotty lymph nodes right groin Extremities-no edema Neuro-AAA 3 No focal neuro deficit Lab data as noted below. ASSESSMENT & PLAN: Intractable lower abdominal pain-Negative CT of the Abd and Pelvis hx irritable bowel syndrome, constipation predominant. No response to recent outpatient regimen for PID and was evaluated by NITROGLYCERIN DISTRIBUTOR the day before admission Clinically a little better Appreciate GI evaluation and signed off Suggested to have Pudendal Nerve Neuralgia Bentyl added as needed No signs of Infection Continues to have severe pain Pain therapy consult Trying to use less narcotics Mood disorder, stable. 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 No bowel symptoms H/P of fibromyalgia/reflex sympathetic dystrophy as per records History conversion disorder as per records. Constipation Minor sbeen on Stool softer Will try Suppository and or Enema DVT prophylaxis SCDs Full code. Vital Signs: Date Time Temp Pulse Resp B/P (MAP) Pulse Ox O2 Delivery O2 Flow Rate FiO2 06/05/17 08:00 Room Air 06/05/17 07:58 50 06/05/17 07:15 37.0 41 20 103/68 (80) 96 Room Air 06/05/17 02:00 45 06/05/17 00:00 Room Air 06/04/17 23:39 36.7 40 17 99/69 (79) 97 Room Air 06/04/17 20:00 Room Air 06/04/17 19:55 36.6 06/04/17 16:00 Room Air 4/21/18 15:38 36.5 45 18 110/69 (83) 100 Room Air Lab Results: Results Past 24 Hours Test 06/04/17 20:00 Range/Units Hemoglobin 11.4 12.0-16.0 g/dL Hematocrit 34.3 37-47 %
[2017-06-05 16:12] VITALS: BP 122/76; PULSE 37; TEMP 36.8; O2SAT 98
[2017-06-05 17:00] VITALS: PULSE 49
[2017-06-05] MEDS: OXYCODONE/ACETAMINOPHEN 5-325 TAB PO PRN (17:04)
[2017-06-05] MEDS: CLONAZEPAM 0.5 MG TAB PO SCH (20:54)
[2017-06-05] MEDS: TRAZODONE HCL 50 MG TAB PO SCH (20:57)
[2017-06-05 23:38] VITALS: BP 94/56; PULSE 49; TEMP 36.7; O2SAT 97
[2017-06-06] MEDS: ONDANSETRON INJ 2 MG/ML 2 ML VIAL IV PRN (03:41)
[2017-06-06] MEDS: DICYCLOMINE HCL 20 MG TAB PO PRN ×2 (03:49→11:13)
[2017-06-06 07:08] LABS: HEMATOCRIT 35.1 % (37-47); HEMOGLOBIN 11.9 g/dL (12.0-16.0); MEAN CELL VOLUME 91.6 fL (80-100); MEAN CORPUSCULAR HEMOGLOBIN 31.1 pg (25-34); MEAN CORPUSCULAR HGB CONC 33.9 g/dl (32-36); MEAN PLATELET VOLUME 10.4 fL (7.4-10.4); PLATELET COUNT 142 K/uL (130-400); RED CELL DISTRIBUTION WIDTH SD 43.5 fL (36.4-46.3); WHITE BLOOD COUNT 7.95 K/uL (4.8-10.8)
[2017-06-06 07:21] VITALS: BP 93/59; PULSE 66; TEMP 36.9; O2SAT 97
[2017-06-06 07:40] LABS: ALBUMIN 2.9 gm/dl (3.4-5.0); CALCIUM 8.3 mg/dl (8.5-10.1); CREATININE 0.87 mg/dl (0.60-1.20); POTASSIUM 3.9 mmol/L (3.5-5.1)
[2017-06-06] MEDS: KETOROLAC TROMETHAMINE 30 MG/ML VIAL IV PRN (07:58)
[2017-06-06] MEDS: POLYETHYLENE (MIRALAX) 17 GM PACK PO PRN (08:00)
[2017-06-06] MEDS: PSYLLIUM 58.6% PWD PACK S\\F PO SCH (08:00)
[2017-06-06] MEDS: SULFASALAZINE 500 MG TAB PO SCH (08:01)
[2017-06-06] MEDS: MIDODRINE 10 MG TAB PO SCH ×3 (08:01→15:51)
[2017-06-06] MEDS: DOCUSATE SODIUM 100 MG CAP PO SCH (08:01)
[2017-06-06] MEDS: MAGNESIUM OXIDE 400 MG TAB PO SCH (08:01)
[2017-06-06] MEDS: CEROVITE ADV FORMULA TAB PO SCH (08:01)
[2017-06-06] MEDS: TOPIRAMATE 25 MG TAB PO SCH (08:02)
[2017-06-06] MEDS: RANITIDINE HCL 150 MG TAB PO SCH (08:02)
[2017-06-06] MEDS: VENLAFAXINE HCL XR 150 MG CAPXR PO SCH (08:02)
[2017-06-06] MEDS: SODIUM CHLORIDE 1 GM TAB PO SCH ×2 (08:03→13:27)
[2017-06-06] MEDS: PANTOprazole SOD 40 MG TAB PO SCH (08:03)
[2017-06-06] MEDS: NORTREL PO SCH (08:04)
[2017-06-06] MEDS: RIBOFLAVIN 100 MG TAB PO SCH (08:04)
[2017-06-06] MEDS ORDERED: BUPIVACAINE 0.5 % 5 MG/1 ML PF 10ML VIAL ONE (08:58)
[2017-06-06] MEDS ORDERED: TRIAMCINOLONE ACET 40 MG/ML VIAL ONE (08:59)
[2017-06-06] MEDS ORDERED: LACTOBACILLUS ACIDOPHILUS (FLORANEX) TAB PO SCH (09:00)
--- NOTE | 2017-06-06 09:32 | Pain Clinic Procedure Note ---
Pain Management Procedure Note Procedure Date Jun 06, 2017. Procedure Description Procedure Time Out: side/site verified, patient ID confirmed, correct procedure Consent Obtained: written Performed By: Dr. Sarah Roberts Indications: diagnostic, therapeutic Contraindications: none Pre Procedure Vital Signs Date Time Temp Pulse Resp B/P (MAP) Pulse Ox O2 Delivery O2 Flow Rate FiO2 06/06/17 07:21 36.9 66 18 93/59 (70) 97 Room Air ASA Class: 2 Description: GENITOFEMORAL NERVE BLOCK Diagnosis: Genitofemoral neuralgia Site: Right Anesthesia: none Material forwarded to lab: none Consent was obtained and witnessed. No signs of infection at sites of needle insertion. The patient laid in the supine position on her hospital bed. Immediately prior to starting the procedure, a ``time out was conducted with the staff and the patient where the patient was identified, proposed procedure was verified, consent was reviewed and the proper site for the planned procedure was identified. The groin was prepped with ChloraPrep. Sterile technique was maintained throughout the procedure. Using skeletal landmarks a 25 gauge needle, the Genitofemoral nerve was located. Then a mixture of 4ml 0.5 % bupivacaine-MPF, 30mg toradol, and 40mg kenalog was injected after negative aspiration for blood. The needle was flushed and withdrawn. Adequate hemostasis was noted. The patient noted recurrence of her pain during the course of the procedure. The patient tolerated the procedure well without noted complications. Report was given to the floor RN. Complications: none Patient Tolerated Procedure: well Post-procedure Vital Signs: reviewed and stable Discharge Instructions: reviewed & understood
--- NOTE | 2017-06-06 09:53 | Pain Management Consultation ---
Pain Management Consultation Date of Consultation Jun 06, 2017. Reason for Consultation Right-sided groin pain Pain Location 1 - History 36-year-old female with a history of right lower quadrant pain radiating into the vagina since 05/15/2017 without known injury or etiology. She states that the pain is sharp shooting and burning. She is tried to utilize ice with limited benefit. She states that her pain is currently 10 out of 10 and worse with movement. She notes minimal efficacy with IV narcotics as well as her typical oral Percocet. She has had extensive workup by [facility] physician group gynecology without localization of the source of her pain. During this admission she has consulted with gastroenterology who have not found an anatomic basis for her pain. She denies any fever, chills, night sweats, bowel or bladder incontinence, motor weakness, footdrop, falls. 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 (22) Migraine (23) Nausea (24) Proctitis (25) S/P appendectomy (26) fibromyalgia Family History Cancer Heart disease Hypertension Family Hx Review: history personally reviewed by me Social / Work History Smokeless Tobacco Use: No Drug Use: none Marital Status: Housing Status: lives with family, other Occupation: employed 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 [employer] Allergies Coded Allergies: Bupropion (Verified Allergy, Mild, 06/02/17) LOW BP Metoclopramide (Verified Allergy, Mild, 06/02/17) LOW BP Adhesives (Verified Allergy, Unknown, RASH, 06/02/17) Gabapentin (Verified Allergy, Unknown, SHORTNESS OF BREATH, 06/02/17) DEPRESSION MEDICATIONS DEACTIVATE Hyoscyamine (Verified Allergy, Unknown, SHORTNESS OF BREATH/HYPOTENSION, ) Patient states "Levobid or Levibid" Infliximab (Verified Allergy, Unknown, HYPOTENSION, 06/02/17) Latex1 -Allergic Contact Dermititis (Verified Allergy, Unknown, 06/02/17) Propoxyphene (Verified Allergy, Unknown, 06/02/17) Replaces DARVOCET-N 10 Medications Current Inpatient Medications Medications (Trade) Dose Ordered Sig/Debbi Route Start Time Stop Time Status Last Admin Dose Admin Ioversol (Optiray 320) 100 ml UD PRN IV 06/02/17 19:00 06/06/17 18:59 Psyllium Hydrophilic Mucilloid (Metamucil Powder) 1 pkt QAM PO 06/03/17 09:00 07/03/17 08:59 06/06/17 08:00 1 PKT Dicyclomine HCl (Bentyl Tab) 20 mg QID PRN PO 06/02/17 23:30 07/02/17 23:29 06/06/17 03:49 20 MG Ketorolac Tromethamine (Toradol Inj) 30 mg Q6H PRN IV 06/02/17 23:30 06/07/17 23:29 06/06/17 07:58 30 MG Ibuprofen (Advil Tab) 400 mg Q6H PRN PO 06/02/17 23:30 07/02/17 23:29 Prochlorperazine Edisylate 5 mg/ Syringe 5 ml @ 5 mls/min Q6H PRN IV 06/02/17 23:30 07/02/17 23:29 Clonazepam (Klonopin Tab) 0.5 mg HS PO 06/03/17 21:00 07/03/17 20:59 06/05/17 20:54 0.5 MG Docusate Sodium (coLACE CAP) 200 mg BID PO 06/03/17 09:00 07/03/17 08:59 06/06/17 08:01 200 MG Multivitamins/ Minerals (Multivitamin W/ Minerals Tab) 1 tab QAM PO 06/03/17 09:00 07/03/17 08:59 06/06/17 08:01 1 TAB Pantoprazole Sodium (Protonix Tab) 40 mg DAILY PO 06/03/17 09:00 07/03/17 08:59 06/06/17 08:03 40 MG Ranitidine HCl (zANTac TAB) 150 mg BID PO 06/03/17 09:00 07/03/17 08:59 06/06/17 08:02 150 MG Sulfasalazine (Azulfidine Tab) 1,000 mg AMHS PO 06/03/17 09:00 07/03/17 08:59 06/06/17 08:01 1,000 MG Topiramate (Topamax Tab) 75 mg AMHS PO 06/03/17 09:00 07/03/17 08:59 06/06/17 08:02 75 MG Venlafaxine HCl (effeXOR EXTENDED REL CAP) 300 mg QAM PO 06/03/17 09:00 07/03/17 08:59 06/06/17 08:02 300 MG Oxycodone/ Acetaminophen (Percocet 5-325mg Tab) pain not relieved by ot... Q6H PRN PO 06/02/17 23:30 06/16/17 23:29 06/05/17 17:04 2 TAB Acetaminophen (Tylenol Tab) 650 mg Q4H PRN PO 06/02/17 23:30 07/02/17 23:29 Ondansetron HCl (Zofran Inj) 4 mg Q6H PRN IV 06/02/17 23:30 07/02/17 23:29 06/06/17 03:41 4 MG Sodium Chloride (Sodium Chloride Tab) 2 gm TID PO 06/03/17 09:00 07/03/17 08:59 06/06/17 08:03 2 GM Polyethylene (Miralax Powder Packet) 17 gm DAILY PRN PO 06/02/17 23:45 07/02/17 23:44 06/06/17 08:00 17 GM Miscellaneous (Iv Fluids Completed) 1 ea PRN PRN N/A 06/02/17 23:45 06/02/18 23:44 Midodrine (Proamatine Tab) 10 mg TID@0800,1200,1600 PO 06/03/17 16:00 07/03/17 15:59 06/06/17 08:01 10 MG Ethinyl Estradiol/ Norethindrone (Nortrel 35 28 Tabs) 1 tab DAILY PO 06/04/17 09:00 07/04/17 08:59 06/06/17 08:04 1 TAB Riboflavin (Vitamin B-2) 400 mg QAM PO 06/04/17 09:00 07/04/17 08:59 06/06/17 08:04 400 MG Magnesium Oxide (Mag-Ox Tab) 400 mg DAILY PO 06/05/17 09:00 07/05/17 08:59 06/06/17 08:01 400 MG Trazodone HCl (Desyrel Tab) 150 mg HS PO 06/04/17 21:00 07/04/17 20:59 06/05/17 20:57 100 MG Tizanidine HCl (Zanaflex Tab) 1 mg Q4H PRN PO 06/05/17 09:15 07/05/17 09:14 06/06/17 08:02 1 MG Lactobacillus Acidophilus (Floranex Tab) 1 tab DAILY PO 06/06/17 09:00 07/03/17 08:59 Review of Systems Constitutional: Negative for fever, chills, sweats Eyes: Negative for eye pain, photophobia, drainage Ear, nose, mouth, throat: Negative for ear pain, nasal congestion, mouth lesions , change in voice Respiratory: Negative for wheezing, sputum production Cardiovascular: Negative for chest pain, palpitations, calf pain Gastrointestinal: Positive for abdominal pain, negative for belching or bloating Genitourinary: Negative for dysuria, urinary incontinence, urinary urgency Musculoskeletal: Negative for deformities Integumentary: Negative for nail changes, skin yellowing, pruritus Neurological: Negative for abnormal speech, seizure type activity Physical Exam Height & Weight: Height 5 feet, 8.00 inches. Weight 78.800 (Kilograms) 173 (Pounds) Last Vital Signs Documentation Date Time Temp Pulse Resp B/P (MAP) Pulse Ox O2 Delivery O2 Flow Rate FiO2 06/06/17 07:21 36.9 66 18 93/59 (70) 97 Room Air Exam: Constitutional: Well-developed, well-nourished, healthy-appearing, normal weight , she is a [place] by her mother on today's examination Psych: Awake, alert, and oriented 3 with normal affect and mood. Recent memory appears grossly intact Eyes: Pupils are equally round and reactive to light with normal size pupils, eyelids appear normal Ear, nose, mouth, and throat: Moist nasal and oral membranes, lips and tongues appear normal, no external ear abnormalities are noted Neck: The trachea is midline without deviation and no thyromegaly is noted Respiratory: Normal respiratory effort without distress, no audible wheezes or rhonchi CV: Normal S1 and S2, carotid upstroke is within normal limits Chest: Deferred GI/abdomen: no masses noted, she is exquisitely tender over the genitofemoral nerve and ilioinguinal nerve on the right side. She does have a well-healed laparotomy scar as well as a scar over her right inguinal region status post lymph node removal. She does not have allodynia or hyperpathia directly over her scars. Musculoskeletal: Head is normocephalic and atraumatic, gait is within normal limits Cervical: Lordotic curve: Normal Range of motion is normal with extension, flexion, side- bending, rotation Strength: Strength is equal bilaterally with 5 out of 5 strength in all planes Lumbar: Lordotic curve: Normal Range of motion is normal with extension, flexion, side- bending, rotation Strength: Strength is equal bilaterally with 5 out of 5 strength in all planes Skin: No rashes, lesions, ulcers, and duration are noted Neuro: No nystagmus noted, the tongue is midline, the patient is able to rotate their head bilaterally : Deferred Laboratory Laboratory Results (Last CBC): 06/06/17 06:[address]: reports reviewed CT Findings Patient: SARAH FLOYD Address1: [address] [place] [address] Rec: [id number] Address2: Acct ID: [id number] [facility] Zip: [place] [address] Date: 1980 Sex: F Room/Bed: Ref Phy: Cinda Kirby M.D. SC: LYNDSEY Att Phy: Report #: [id number] Kallie Phy: Cinda Kirby M.D. Test: APW Admit Phy: Neuro Psych Sales Specialist: INDIRA Interpreting Phy: Shaquille Gradiner D.O. Diagnosis: EXTREME ABDOMINAL PAIN- OBGYN SAID TO SEE GASTRO Ordering Phy: Wilbur Quinteros M.D. Service Date: 06/02/17 Admit Date: 06/02/17 MNE: [id number] CONF: DICTATED BY: Shaquille Gardiner D.OGladis]] CC: Wilbur Quinteros M.D. Patel, Manisha N., M.D. [facility]: [~ rep ct add3]] ABDOMEN AND PELVIS CT WITH IV AND ORAL CONTRAST CT DOSE: 438.28 mGy.cm HISTORY: Acute generalized abdominal pain ABDOMINAL PAIN/GI--?DIVERTICULITIS--GIVE PO AND IV CONTRAST TECHNIQUE: Multiaxial CT images of the abdomen and pelvis were performed following the use of intravenous and oral contrast. A dose lowering technique was utilized adhering to the principles of ALARA. COMPARISON STUDY: CT 12/30/2016 FINDINGS: Mild dependent subsegmental bibasilar atelectasis. No pneumatosis or pneumoperitoneum identified. Imaged inferior cardiac chambers are unremarkable. There are least 2 and possibly 3 hyperattenuating lesions again seen within segment VIII of the liver largest of which measures up to 4.8 cm. Again, these suggest hemangiomas however are not completely characterized on this single phase study. No intrahepatic biliary ductal dilation. Gallbladder, spleen, pancreas and adrenal glands are within normal limits. Kidneys, ureters are unremarkable. Urinary bladder is distended measuring up to 12.6 cm in length. Uterus and adnexa are unremarkable. Aorta is normal in course and caliber. No bulky adenopathy. There is no bowel obstruction or focal bowel wall thickening. Indeterminate 6 mm nodular density is seen adjacent to the splenic flexure which is unchanged. Appendix is not visualized and likely surgically absent. No inflammatory changes identified. Soft tissues and breast parenchyma appear unremarkable. Bones appear intact. IMPRESSION: 1. No acute intra-abdominal or intrapelvic abnormality identified. 2. No bowel obstruction or focal bowel wall thickening. 3. Prior appendectomy. 4. Hyperattenuating lesions involving segment VIII of the liver redemonstrated, possibly reflecting hepatic hemangiomas. Past Records Previous Records: none available for review Assessment 1. Right sided genitofemoral neuralgia 2. Possible right sided ilioinguinal neuralgia 3. Fibromyalgia 4. History of conversion disorder 5. Abdominal pain 6. History of chronic pelvic pain 7. History of depression 8. History of anxiety Recommendations 1. After long talk with the patient explaining the risks and benefits, a right genital femoral nerve block was performed today. Please see the procedure note associated with this visit for further details of the procedure. 2. Recommend diminish utilization of narcotics after the nerve block becomes effective. 3. Recommend continuation of Effexor at current dosing. 4. I provided the patient with our contact information for the office. She is welcome to follow-up as an outpatient if needed. 5. Thank you very much for this consultation.
--- NOTE | 2017-06-06 12:42 | Progress Note ---
Internal Med Progress Note Date of Service: Jun 06, 2017. Provider Documentation: SUBJECTIVE: The patient was seen and examined She was admitted with acute on chronic abdominal pain without any nausea and vomiting, fever ,chills or riders She was evaluated by PASTING MACHINE OPERATOR the day before admission and no twice daily or suspected Still complains pain in the abdomen without any other symptoms Still complains of severe lower abdominal pain ,mostly RLQ No associate Nausea and or vomiting Ongoing severe pain RLQ and adjoining groin area No associated symptoms 06/06-Was seen by pain therapist S/P right Genitofemoral nerve block Still has pain Increase ambulation before discharge OBJECTIVE: Vital Signs-as noted below Exam: General-no distress at rest Eyes-normal ENT-normal Neck-supple Lungs-clear Heart-regular, no murmur appreciated Abdomen-benign, soft, tender all over but more tenderness RLQ, no rebound tenderness, bowel sounds present 1 or 2 shotty lymph nodes right groin Extremities-no edema Neuro-AAA 3 No focal neuro deficit Lab data as noted below. ASSESSMENT & PLAN: Right Genitofemoral Neuralgia Appreciate pain therapy input and recommendation S/O Right genitofemoral nerve block Increase ambulation-likely discharge this afternoon Intractable lower abdominal pain-Negative CT of the Abd and Pelvis hx irritable bowel syndrome, constipation predominant. No response to recent outpatient regimen for PID and was evaluated by PASTING MACHINE OPERATOR the day before admission Clinically a little better Appreciate GI evaluation and signed off Suggested to have Pudendal Nerve Neuralgia Bentyl added as needed No signs of Infection Continues to have severe pain Pain therapy consult -appreciate input Trying to use less narcotics Mood disorder, stable. 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 No bowel symptoms H/P of fibromyalgia/reflex sympathetic dystrophy as per records History conversion disorder as per records. Constipation Has been on Stool softer Will try Suppository and or Enema DVT prophylaxis SCDs Full code. Increase ambulation Likely discharge this afternoon Vital Signs: Date Time Temp Pulse Resp B/P (MAP) Pulse Ox O2 Delivery O2 Flow Rate FiO2 06/06/17 08:00 Room Air 06/06/17 07:21 36.9 66 18 93/59 (70) 97 Room Air 06/06/17 00:00 Room Air 06/05/17 23:38 36.7 49 16 94/56 (69) 97 Room Air 06/05/17 20:00 Room Air 06/05/17 17:00 49 06/05/17 16:12 36.8 37 18 122/76 (91) 98 Room Air 06/05/17 16:00 Room Air Lab Results: Results Past 24 Hours Test 06/06/17 06:42 Range/Units White Blood Count 7.95 4.8-10.8 K/uL Red Blood Count 3.83 4.2-5.4 M/uL Hemoglobin 11.9 12.0-16.0 g/dL Hematocrit 35.1 37-47 % Mean Corpuscular Volume 91.6 80-100 fL Mean Corpuscular Hemoglobin 31.1 25-34 pg Mean Corpuscular Hemoglobin Concent 33.9 32-36 g/dl RDW Standard Deviation 43.5 36.4-46.3 fL RDW Coefficient of Variation 13.0 11.5-14.5 % Platelet Count 142 130-400 K/uL Mean Platelet Volume 10.4 7.4-10.4 fL Sodium Level 141 136-145 mmol/L Potassium Level 3.9 3.5-5.1 mmol/L Chloride Level 113 98-107 mmol/L Carbon Dioxide Level 26 21-32 mmol/L Anion Gap 2.0 3-11 mmol/L Blood Urea Nitrogen 10 7-18 mg/dl Creatinine 0.87 0.60-1.20 mg/dl Est Creatinine Clear Calc Drug Dose 100.5 ml/min Estimated GFR () 100.7 Estimated GFR (Non- 86.9 BUN/Creatinine Ratio 11.7 10-20 Random Glucose 88 70-99 mg/dl Calcium Level 8.3 8.5-10.1 mg/dl Magnesium Level 1.9 1.8-2.4 mg/dl Total Bilirubin 0.3 0.2-1 mg/dl Aspartate Amino Transf (AST/SGOT) 10 15-37 U/L Alanine Aminotransferase (ALT/SGPT) 11 12-78 U/L Alkaline Phosphatase 51 45-117 U/L Total Protein 6.0 6.4-8.2 gm/dl Albumin 2.9 3.4-5.0 gm/dl Globulin 3.1 2.5-4.0 gm/dl Albumin/Globulin Ratio 0.9 0.9-2
[2017-06-06] MEDS ORDERED: NURSING VERBAL MED ORDER ONE (15:00)
[2017-06-06] MEDS ORDERED: CALCIUM CARBONATE 500 MG CHEWABLE PO PRN (15:00)
--- NOTE | 2017-06-06 15:07 | Discharge Instructions ---
Discharge Instructions Date of Service Jun 06, 2017. Admission Reason for Admission: Abdominal Pain Discharge Discharge Diagnosis / Problem: Intractable LRQ pain,Right Genitofemoral Neuralgia Discharge Goals Goal(s): Prevent Disease Progression Activity Recommendations Activity Limitations: resume your previous activity . Instructions / Follow-Up Instructions / Follow-Up Dr Felipa Groves on 06/10 at 10:45 AM Current Hospital Diet Patient's current hospital diet: Regular Diet Discharge Diet Recommended Diet: Regular Diet Pending Studies Studies pending at discharge: no Medical Emergencies . Who to Call and When: Medical Emergencies: If at any time you feel your situation is an emergency, please call 911 immediately. . Non-Emergent Contact Non-Emergency issues call your: Primary Care Provider . Past History Medical & Surgical History: (1) Abdominal pain (2) Myalgia (3) Pelvic pain (4) Failure of outpatient treatment . "Provider Documentation" section prepared by [place]. .
[2017-06-06 16:03] VITALS: BP 118/76; PULSE 45; TEMP 37.1; O2SAT 96
[2017-06-06 17:14] VITALS: BP 118/76; PULSE 45; TEMP 37.1; O2SAT 96
--- NOTE | 2017-06-06 18:28 | Discharge Summary ---
Discharge Summary Date of Service Jun 06, 2017. Discharge Summary Admission Date: Jun 02, 2017 at 23:12 Discharge Date: Jun 06, 2017 Discharge Disposition: Home Principal Diagnosis: Intractable LRQ pain,Right Genitofemoral Neuralgia Secondary Diagnoses/Problems: Please see H&P and Hospital progress note Medication Reconciliation Continued Medications: Acetaminophen (Tylenol) 500 Mg Tab 1000 MG PO Q8 PRN for Pain Control Pills ( Control Pills) Tab 1 TAB PO DAILY, TAB Clonazepam (Klonopin) 0.5 Mg Tab 0.5 MG PO HS Diclofenac Sodium (Topical) (Voltaren 1% Top Gel) 1 % Gel 2 GM TOP QID PRN for Pain Dicyclomine Hcl (Dicyclomine Hcl) 20 Mg Tab 20 MG PO BID PRN for Abdominal Pain Docusate Sodium (Docusate Sodium) 100 Mg Cap 200 MG PO BID Etodolac (Etodolac) 500 Mg Tab 500 MG PO AMHS Ketorolac Tromethamine (Ketorolac Tromethamine) 10 Mg Tab 10 MG PO DAILY PRN for Pain Magnesium Oxide (mg Supplement (Cvs Magnesium) 500 Mg Tab 500 MG PO DAILY Menthol (Topical Analgesic) (Biofreeze) 4 % Gel 1 APPL TOP UD PRN for Pain APPLY PER PACKAGE DIRECTIONS Metronidazole (Flagyl) 500 Mg Tab 500 MG PO BID for 7 Days, #14 TAB Midodrine Hcl (Midodrine Hcl) 5 Mg Tab 10 MG PO BID Multiple Vitamins W/ Minerals (Centrum) 1 Tab Tab 1 TAB PO QAM Oxycodone Ir (Roxicodone Ir) 5 Mg Tab 1-2 TAB PO Q6 PRN for Pain, #15 TAB For Initial Treatment Pantoprazole (Pantoprazole Sodium) 40 Mg Tab 40 MG PO DAILY Probiotic Product (Probiotic) 1 Cap Cap 1 CAP PO DAILY Ranitidine HCl (Ranitidine HCl) 150 Mg Tab 150 MG PO BID Riboflavin (B-2) 100 Mg Tab 400 MG PO QAM Sodium Chloride (Sodium Chloride) 1 Gm Tab 2 GM PO TID Sulfa/Trimethoprim (Bactrim Ds 800MG/160MG) Tab 1 TAB PO BID for 7 Days, #14 TAB Sulfasalazine (Azulfidine) 500 Mg Tab 1000 MG PO AMHS Tizanidine (Zanaflex) 2 Mg Cap 2 MG PO Q8 PRN for MUSSP Topiramate (Topiramate) 25 Mg Tab 75 MG PO AMHS Trazodone Hcl (Desyrel) 50 Mg Tab 50 MG PO HS Valacyclovir (Valtrex) 500 Mg Tab 500 MG PO AMPM PRN for Outbreaks Venlafaxine Hcl (Effexor Extended Rel) 150 Mg Cap 300 MG PO QAM Admission Information HPI (per Admitting provider): DATE OF ADMISSION: 06/02/2017 PRIMARY CARE PHYSICIAN: Dr. Kirby CHIEF COMPLAINT: Abdominal pain. HISTORY OF PRESENT ILLNESS: History obtained from patient and records. 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 Recent confinement 2013 for recurrent syncope attributed to autonomic dysfunction. Patient has had dyspareunia symptoms for some time now. In the last month, patient had sharp RLQ pain, constant symptoms/ Patient seen by [facility] [place]ne[place] last month.. Cervical motion tenderness on exam as per note. Patient given antibiotic course for possible PID despite low suspicion as per outpatient note. No improvement in pain as per patient. Patient gives account of 1 episode of dark tarry stools from a few weeks ago. Constipation from narcotics causing transient blood streaked stools from 2 days ago which patient attributes to a "popped hemorrhoid." Three ER visits for abdominal pain this month. Patient was last seen in the Emergency Room yesterday. Ultrasound showed retroverted uterus. Impression was pelvic pain. Patient was given Bactrim, Flagyl for possible UTI, vaginosis, respectively. Worsening abdominal pain. No fever, no chills. Some stress at home with recent adoption of 3 children. Had a follow up with her lode miner this morning who told her that her symptoms are not likely a gynecologic. Patient sent to the Emergency Room for evaluation of intractable abdominal pain. MEDICAL HISTORY: As above. Seen by [facility] [place] [facility] last 12/2016 for rectal bleeding, outpatient CT evidence of mild- to-moderate proctitis. Outpatient EGD, colonoscopy negative. Symptoms attributed to IBS as per records. Patient also noted to have a hepatic adenoma on imaging. Patient hesitant to discontinue her OCP as per records. SURGERIES: She has had gynecologic procedures, appendectomy, knee surgery, and lymph node biopsy. HOME MEDICATIONS: Include Tylenol, OCP, Klonopin, Voltaren, dicyclomine, sodium tabs, Toradol, Biofreeze, midodrine, probiotic, Protonix, ranitidine, sodium chloride, sulfasalazine, Desyrel, Zanaflex, Topamax, Effexor, Valtrex. ALLERGIES: ADHESIVE, REGLAN, PROPOXYPHENE, BUPROPION, GABAPENTIN, INFLIXIMAB. FAMILY HISTORY: Heart disease, high blood pressure. PERSONAL AND SOCIAL HISTORY: Nonsmoker. No chronic intake of alcoholic beverages. 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 REVIEW OF SYSTEMS: As per HPI. All 10 systems reviewed, all other ROS negative. PHYSICAL EXAMINATION: VITAL SIGNS: Blood pressure was noted to be 100/70, KS 90 RR 20, T 37 sats 97 on room air. GENERAL: Noted to be anxious, uncomfortable. No respiratory distress. SKIN: Normal color, warm. HEENT: Ruch palpebral conjunctivae. No ptosis. Dry mucosa.. NECK: Supple. NT CHEST: Clear to auscultation. No tenderness HEART: Regular, rate and rhythm. No murmur. ABDOMEN: Some distention, RLQ tenderness Rectal exam : intact sphincter, brown stool, heme negative. EXTREMITIES: No edema. No tenderness. No gross deformities. NEUROLOGIC: Coherent. No gross focality. LABORATORIES: Hemoglobin 13.2, white cell count 7.5, platelets 212. Sodium 138, potassium 3.8, chloride 109, CO2 of 22, BUN 17, creatinine 1, glucose noted to be 76. CT abdomen and pelvis showed no acute pathology or thickening; appendectomy, hepatic hemangiomas. ASSESSMENT AND PLAN: 1. Intractable lower abdominal pain hx irritable bowel syndrome, constipation predominant. No response to recent outpatient regimen for PID 2. mood disorder, stable. 3. hx autonomic dysfunction on midodrine, sodium tablets 4. history juvenile RA on Sulfasalazine as per records. 5. hx of fibromyalgia/reflex sympathetic dystrophy as per records 6. history conversion disorder as per records. Observation GMF analgesia Judicious narcotic use. Trial of daily psyllium, augmented bowel regimen; dicyclomine as needed GI consult. RE abdominal pain DVT prophylaxis SCDs Full code. Hospital Course Right Genitofemoral Neuralgia Appreciate pain therapy input and recommendation S/O Right genitofemoral nerve block Increase ambulation-likely discharge this afternoon Intractable lower abdominal pain-Negative CT of the Abd and Pelvis hx irritable bowel syndrome, constipation predominant. No response to recent outpatient regimen for PID and was evaluated by REFINERY PROCESS ENGINEER the day before admission Clinically a little better Appreciate GI evaluation and signed off Suggested to have Pudendal Nerve Neuralgia Bentyl added as needed No signs of Infection Continues to have severe pain Pain therapy consult -appreciate input Trying to use less narcotics Mood disorder, stable. 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 No bowel symptoms H/P of fibromyalgia/reflex sympathetic dystrophy as per records History conversion disorder as per records. Constipation Has been on Stool softer Will try Suppository and or Enema DVT prophylaxis SCDs Full code. Increase ambulation Likely discharge this afternoon Total time spent on discharge = This includes examination of the patient, discharge planning, medication reconciliation, and communication with other providers. Discharge Instructions Date of Service Jun 06, 2017. Admission Reason for Admission: Abdominal Pain Discharge Discharge Diagnosis / Problem: Intractable LRQ pain,Right Genitofemoral Neuralgia Discharge Goals Goal(s): Prevent Disease Progression Activity Recommendations Activity Limitations: resume your previous activity . Instructions / Follow-Up Instructions / Follow-Up Dr Felipa Groves on 06/10 at 10:45 AM Current Hospital Diet Patient's current hospital diet: Regular Diet Discharge Diet Recommended Diet: Regular Diet Pending Studies Studies pending at discharge: no Medical Emergencies . Who to Call and When: Medical Emergencies: If at any time you feel your situation is an emergency, please call 911 immediately. . Non-Emergent Contact Non-Emergency issues call your: Primary Care Provider . Past History Medical & Surgical History: (1) Abdominal pain (2) Myalgia (3) Pelvic pain (4) Failure of outpatient treatment . "Provider Documentation" section prepared by [place]. . <Electronically signed by [place] Howell M.D.> Signed: 06/06/17 [id number] Additional Copies To Cinda Kirby M.D.
== END 2017-06-06 17:30 | disposition home or self-care (01) ==
LOC: C.EDB 15:51 → C.MS2W 23:12 → ENRESERV 23:38
PROVIDERS: ADMIT Internal Medicine; ATTEND Internal Medicine
DX: M79.2 Neuralgia and neuritis, unspecified (principal); F32.9 Major depressive disorder, single episode, unspecified; M79.7 Fibromyalgia; K58.9 Irritable bowel syndrome, unspecified; M08.00 Unspecified juvenile rheumatoid arthritis of unspecified site; Z90.49 Acquired absence of other specified parts of digestive tract; Z91.040 Latex allergy status; Z79.3 Long term (current) use of hormonal contraceptives; Z82.49 Family history of ischemic heart disease and other diseases of the circulatory system

== ENCOUNTER 2017-06-08 05:09 | Emergency (ER) | payer OTHER ==
[~2017-06-08] VITALS: Ht 172.7 cm; Wt 77.2 kg
[2017-06-08 05:16] VITALS: Ht 172.7 cm; Wt 77.2 kg
[2017-06-08] MEDS ORDERED: DiphenhydrAMINE HCL 50 MG/ML VIAL IV STA (05:28)
[2017-06-08] MEDS ORDERED: PROCHLORPERAZINE 5 MG/ML 2 ML VIAL IV STA (05:28)
[2017-06-08] MEDS ORDERED: KETOROLAC TROMETHAMINE 30 MG/ML VIAL IV STA (05:28)
[2017-06-08 05:57] LABS: BASO % 0.3 %; BASO ABS # 0.02 K/uL (0-0.2); EOS % 1.3 %; HEMATOCRIT 38.7 % (37-47); HEMOGLOBIN 13.1 g/dL (12.0-16.0); IG# 0.01 K/uL (0.00-0.02); LYMPH % 29.4 %; LYMPH ABS # 2.22 K/uL (1.2-3.4); MEAN CELL VOLUME 91.1 fL (80-100); MEAN CORPUSCULAR HEMOGLOBIN 30.8 pg (25-34); MEAN CORPUSCULAR HGB CONC 33.9 g/dl (32-36); MEAN PLATELET VOLUME 9.9 fL (7.4-10.4); MONO % 7.7 %; MONO ABS # 0.58 K/uL (0.11-0.59); NEUT % 61.2 %; NEUT ABS # 4.63 K/uL (1.4-6.5); PLATELET COUNT 155 K/uL (130-400); RED CELL DISTRIBUTION WIDTH CV 13.1 % (11.5-14.5); RED CELL DISTRIBUTION WIDTH SD 43.1 fL (36.4-46.3); WHITE BLOOD COUNT 7.56 K/uL (4.8-10.8)
[2017-06-08] MEDS ORDERED: OXYC1TAB3 PO (06:00)
[2017-06-08] MEDS ORDERED: RIBOCAP PO (06:03)
[2017-06-08 06:13] LABS: CALCIUM 8.5 mg/dl (8.5-10.1); CREATININE 1.08 mg/dl (0.60-1.20); POTASSIUM 3.7 mmol/L (3.5-5.1)
--- NOTE | 2017-06-08 06:46 | EMERGENCY ROOM VISIT NOTE ---
History First contact with patient: 05:24 Chief Complaint: BACK PAIN Stated Complaint: SEVERE PAIN,FOLLOWING BACK INJECTION History of Present Illness The patient is a 36 year old female who presents to the Emergency Room with complaints of ongoing right lower groin pain for the past few weeks who was hospitalized last week and got a nerve block who states this morning she woke up at 2 AM with severe pain. She then came here. She is appointment this Tuesday with pain management. Patient states they never told her that the pain would come back like this. She describes the pain as severe, 10 out of 10. Nothing makes it better or worse. They feel similar to her pain from the past. Patient denies chest pain, dyspnea, fever, chills, nausea, vomiting, diarrhea , back pain, urinary symptoms. Patient had an extensive workup in the past for this ongoing pain. Review of Systems An 10 system review of systems was completed with positives and pertinent negatives listed in the HPI. Past Medical/Surgical History Medical Problems: (1) Abdominal pain (2) Anxiety State Nos (3) Autonomic dysfunction (4) Dehydration (5) Depression (6) Depressive Disorder Nec (7) Dizziness (8) fibromyalgia (9) Gastroenteritis (10) H/O colonoscopy (11) H/O endoscopy (12) Hypotension (13) Irritable Bowel Syndrome (14) Juvenile chronic arthritis (15) Migraine (16) Nausea (17) Orthostasis (18) Orthostatic hypotension (19) Orthostatic hypotension (20) Orthostatic hypotension (21) Orthostatic hypotension (22) Orthostatic hypotension (23) Orthostatic hypotension (24) Postural hypotension (25) Postural imbalance (26) Rectal bleeding (27) Syncope (28) Syncope (29) Syncope (30) UTI (urinary tract infection) (31) Vaginal bleeding Surgical Problems: (1) History of oral surgery (2) History of orthopedic surgery (3) S/P appendectomy Family History Cancer Heart disease Hypertension Social History Smoking Status: Never Smoker Alcohol Use: occasionally Drug Use: none Marital Status: Housing Status: lives with family Occupation Status: employed Current/Historical Medications Scheduled Control Pills ( Control Pills), 1 TAB PO DAILY Clonazepam (Klonopin), 0.5 MG PO HS Docusate Sodium (Docusate Sodium), 200 MG PO BID Etodolac (Etodolac), 500 MG PO AMHS Magnesium Oxide (mg Supplement (Cvs Magnesium), 500 MG PO DAILY Midodrine Hcl (Midodrine Hcl), 10 MG PO TID Multiple Vitamins W/ Minerals (Centrum), 1 TAB PO QAM Pantoprazole (Pantoprazole Sodium), 40 MG PO QAM Probiotic Product (Probiotic), 1 CAP PO DAILY Ranitidine HCl (Ranitidine HCl), 150 MG PO BID Riboflavin (B-2-400), 400 MG PO QAM Sodium Chloride (Sodium Chloride), 2 GM PO TID Sulfasalazine (Azulfidine), 1,000 MG PO AMHS Topiramate (Topiramate), 75 MG PO AMHS Trazodone Hcl (Desyrel), 100-150 MG PO HS Venlafaxine Hcl (Effexor Extended Rel), 300 MG PO QAM Scheduled PRN Acetaminophen (Tylenol), 1,000 MG PO Q8 PRN for Pain Diclofenac Sodium (Topical) (Voltaren 1% Top Gel), 2 GM TOP QID PRN for Pain Dicyclomine Hcl (Dicyclomine Hcl), 20 MG PO BID PRN for Abdominal Pain Ketorolac Tromethamine (Ketorolac Tromethamine), 10 MG PO DAILY PRN for Pain Menthol (Topical Analgesic) (Biofreeze), 1 APPL TOP UD PRN for Pain Oxycodone Ir (Roxicodone Ir), 5-10 TAB PO Q6H PRN for Severe Pain Tizanidine (Zanaflex), 2 MG PO Q8 PRN for MUSSP Valacyclovir (Valtrex), 500 MG PO AMPM PRN for Outbreaks Physical Exam Vital Signs Date Time Temp Pulse Resp B/P (MAP) Pulse Ox O2 Delivery O2 Flow Rate FiO2 06/08/17 06:40 57 18 95/59 95 Room Air 06/08/17 05:16 36.5 96 16 109/73 97 Room Air Physical Exam VITALS: Vitals are noted on the nurse's note and reviewed by myself. Vital signs stable. GENERAL: White female, in no acute distress, nondiaphoretic, well-developed well -nourished. SKIN: Capillary reflex less than 2 seconds. HEENT: Normocephalic. PERRLA. EOMI. Nares patent. Mucous membranes moist. Neck is supple without nuchal rigidity. HEART: Regular rate and rhythm without murmurs gallops or rubs. LUNGS: Clear to auscultation bilaterally without wheezes, rales or rhonchi. No retractions or accessory muscle use. ABDOMEN: Positive bowel sounds x 4. Normal tympanic percussion. Soft, nontender, without masses or organomegaly. Lenz sign negative. No guarding or rebound tenderness. No CVA tenderness area: Right groin with no palpable abscess or lymph nodes. No signs of infection. Left groin nontender to palpation. MUSCULOSKELETAL: No gross musculoskeletal defects. No pedal edema. No calf tenderness. NEURO: Patient was alert and oriented to person place and time. Normal sensation to light and sharp touch. No focal neurological deficits. Medical Decision & Procedures Laboratory Results 06/08/17 05:00 Red Blood Count 4.25, Mean Corpuscular Volume 91.1, Mean Corpuscular Hemoglobin 30.8, Mean Corpuscular Hemoglobin Concent 33.9, Mean Platelet Volume 9.9, Neutrophils (%) (Auto) 61.2, Lymphocytes (%) (Auto) 29.4, Monocytes (%) (Auto) 7.7, Eosinophils (%) (Auto) 1.3, Basophils (%) (Auto) 0.3, Neutrophils # (Auto) 4.63, Lymphocytes # (Auto) 2.22, Monocytes # (Auto) 0.58, Eosinophils # (Auto) 0.10, Basophils # (Auto) 0.02 06/08/17 05:00 Test 06/08/17 05:00 White Blood Count 7.56 K/uL (4.8-10.8) Red Blood Count 4.25 M/uL (4.2-5.4) Hemoglobin 13.1 g/dL (12.0-16.0) Hematocrit 38.7 % (37-47) Mean Corpuscular Volume 91.1 fL (80-100) Mean Corpuscular Hemoglobin 30.8 pg (25-34) Mean Corpuscular Hemoglobin Concent 33.9 g/dl (32-36) Platelet Count 155 K/uL (130-400) Mean Platelet Volume 9.9 fL (7.4-10.4) Neutrophils (%) (Auto) 61.2 % Lymphocytes (%) (Auto) 29.4 % Monocytes (%) (Auto) 7.7 % Eosinophils (%) (Auto) 1.3 % Basophils (%) (Auto) 0.3 % Neutrophils # (Auto) 4.63 K/uL (1.4-6.5) Lymphocytes # (Auto) 2.22 K/uL (1.2-3.4) Monocytes # (Auto) 0.58 K/uL (0.11-0.59) Eosinophils # (Auto) 0.10 K/uL (0-0.5) Basophils # (Auto) 0.02 K/uL (0-0.2) RDW Standard Deviation 43.1 fL (36.4-46.3) RDW Coefficient of Variation 13.1 % (11.5-14.5) Immature Granulocyte % (Auto) 0.1 % Immature Granulocyte # (Auto) 0.01 K/uL (0.00-0.02) Anion Gap 4.0 mmol/L (3-11) Est Creatinine Clear Calc Drug Dose 80.2 ml/min Estimated GFR () 77.6 Estimated GFR (Non- 66.9 BUN/Creatinine Ratio 13.4 (10-20) Calcium Level 8.5 mg/dl (8.5-10.1) Human Chorionic Gonadotropin, Qual NEG (NEG) Medications Administered Medications (Trade) Dose Ordered Sig/Debbi Route Start Time Stop Time Status Last Admin Dose Admin Ketorolac Tromethamine (Toradol Inj) 10 mg NOW STAT IV 06/08/17 05:28 06/08/17 05:30 DC 06/08/17 05:52 10 MG Prochlorperazine Edisylate (Compazine Inj) 10 mg NOW STAT IV 06/08/17 05:28 06/08/17 05:30 DC 06/08/17 05:52 10 MG Diphenhydramine HCl (Benadryl Inj) 12.5 mg NOW STAT IV 06/08/17 05:28 06/08/17 05:30 DC 06/08/17 05:52 12.5 MG ED Course Prior records/ancillary studies reviewed. Triage Nursing notes reviewed. The patient's history was concerning for right groin pain. Differential diagnosis: Etiologies such as acute on chronic pain, drug-seeking behavior, ligamental injury, pelvic congestion syndrome, appendicitis, diverticulitis, obstruction, mesenteric ischemia, infections, inflammatory bowel disease, renal colic, as well as others were entertained. Physical examination findings: As above. ER treatment provided: Toradol, Compazine, Benadryl On reassessment the patient felt better. Diagnostics interpreted by me: The labs revealed stable H&H. No leukocytosis. Negative hCG Imaging studies: ABDOMEN LIMITED (US) HISTORY: Pain right lower groin pain, ? infx/fluid collection. COMPARISON: None. FINDINGS: Ultrasonographic evaluation of the right inguinal region shows presence of a 1.4 x 0.5 cm benign-appearing lymph node. No evidence for abscess or collection. No abnormal mass. IMPRESSION: Normal study of the right inguinal region. No evidence for abscess or collection. The above report was generated using voice recognition software. It may contain grammatical, syntax or spelling errors. Electronically signed by: Isra Gray M.D. ABDOMEN AND PELVIS CT WITH IV AND ORAL CONTRAST CT DOSE: 438.28 mGy.cm HISTORY: Acute generalized abdominal pain ABDOMINAL PAIN/GI--?DIVERTICULITIS--GIVE PO AND IV CONTRAST TECHNIQUE: Multiaxial CT images of the abdomen and pelvis were performed following the use of intravenous and oral contrast. A dose lowering technique was utilized adhering to the principles of ALARA. COMPARISON STUDY: CT 12/30/2016 FINDINGS: Mild dependent subsegmental bibasilar atelectasis. No pneumatosis or pneumoperitoneum identified. Imaged inferior cardiac chambers are unremarkable. There are least 2 and possibly 3 hyperattenuating lesions again seen within segment VIII of the liver largest of which measures up to 4.8 cm. Again, these suggest hemangiomas however are not completely characterized on this single phase study. No intrahepatic biliary ductal dilation. Gallbladder, spleen, pancreas and adrenal glands are within normal limits. Kidneys, ureters are unremarkable. Urinary bladder is distended measuring up to 12.6 cm in length. Uterus and adnexa are unremarkable. Aorta is normal in course and caliber. No bulky adenopathy. There is no bowel obstruction or focal bowel wall thickening. Indeterminate 6 mm nodular density is seen adjacent to the splenic flexure which is unchanged. Appendix is not visualized and likely surgically absent. No inflammatory changes identified. Soft tissues and breast parenchyma appear unremarkable. Bones appear intact. IMPRESSION: 1. No acute intra-abdominal or intrapelvic abnormality identified. 2. No bowel obstruction or focal bowel wall thickening. 3. Prior appendectomy. 4. Hyperattenuating lesions involving segment VIII of the liver redemonstrated, possibly reflecting hepatic hemangiomas. Electronically signed by: Chauncey Gardiner M.D. Exam and history seem consistent with patient's ongoing right groin pain. Unclear etiology. Patient had no signs of infection. She is advised to follow- up as scheduled pain management and tomorrow with her family doctor for reevaluation or here in the ER sooner for severe pain, numbness, tingling, worsening signs or symptoms or as needed. Patient did not have an acute abdomen on exam. She is well-appearing. She has had this pain for a few weeks now. She claims she was not informed of the pain would come back the same as before the nerve block procedure. I informed her unfortunately that sometimes the pain can come back and she would need to follow-up as scheduled with pain management. By the evaluation outlined above emergent etiologies such as diverticulitis, PUD, biliary pathology, UTI, pancreatitis, obstruction, mesenteric ischemia, aortic pathology, infections, inflammatory bowel disease, renal colic, as well as others were deemed relatively unlikely. The pt informed about the findings as listed above. All questions were answered and patient displeased with the treatment. Return instructions were outlined and the patient was discharged in stable condition. Patient was informed that all narcotics need to be obtained from the family care doctor or pain management training is chronic in nature. This pain is not acute. She has had this pain for a few weeks. Referral: The patient was referred back to their primary care physician for follow-up in 1 -2 days for a recheck of the current condition. Follow-up as scheduled with pain management. Case reviewed with my attending The chart was completed utilizing [employer] or [employer] voice recognition software. Grammatical errors, random word insertions, pronoun errors, and incomplete sentences are an occassional consequence of this system due to software limitations, ambient noise, and hardware issues. Any formal questions or concerns about the content, text, or information contained within the body of this dictation should be directly addressed to the physician business assistant for clarification. Medical Decision as above Medication Reconcilliation Current Medication List: was personally reviewed by me Blood Pressure Screening Patient's blood pressure: Normal blood pressure Impression Primary Impression: Right groin pain Departure Information Dispostion Home / Self-Care Condition GOOD Referrals Cinda Kirby M.D. (PCP) Patient Instructions My [facility] Additional Instructions DO NOT drive, drink alcohol, operate machinery, or perform dangerous activities today. You were given medications in the ER that can affect your ability to safely function or operate a vehicle. Ibuprofen(Motrin, Advil) may be used for fever or pain. Use 600mg every six hours as needed. Take with food. Avoid using more than 2400mg in a 24 hour period. Do not use 2400mg per day for more than three consecutive days without physician direction. Prolonged inappropriate use can lead to stomach upset or ulcers. (AND/OR) Acetaminophen(Tylenol) may be used for fever or pain. Use 1000mg every six hours as needed. Avoid using more than 3000mg in a 24 hour period. Continue current medications. Return to the ER immediately for worsening or persistent groin pain, vomiting, fevers, chest pains, difficulty breathing, black or bloody stools, worsening of your condition, or as needed. Follow up with your primary physician in 24 hours for a recheck of your current condition. Keep your appointment as scheduled with your pain management doctor for follow-up next week.
[2017-06-08 07:26] VITALS: BP 107/71; PULSE 61; TEMP 36.5; O2SAT 96
== END 2017-06-08 07:26 | disposition home or self-care (01) ==
LOC: C.EDB 05:11 → C.EDA 07:26
DX: R10.31 Right lower quadrant pain (principal); Z98.890 Other specified postprocedural states; F41.9 Anxiety disorder, unspecified; F32.9 Major depressive disorder, single episode, unspecified; M79.7 Fibromyalgia; K58.9 Irritable bowel syndrome, unspecified; M08.90 Juvenile arthritis, unspecified, unspecified site; Z87.440 Personal history of urinary (tract) infections; Z80.9 Family history of malignant neoplasm, unspecified; Z82.49 Family history of ischemic heart disease and other diseases of the circulatory system; Z79.3 Long term (current) use of hormonal contraceptives; Z79.899 Other long term (current) drug therapy

== ENCOUNTER 2017-10-06 21:03 | Emergency (ER) | payer OTHER ==
[~2017-10-06] VITALS: Ht 172.7 cm; Wt 74.3 kg
[~2017-10-06 21:03] MED LIST changes: -CLON0.5T3 PO; +CLON0.5T9 PO; -METR-163 PO; +OXYC-90 PO; -OXYC1TAB3 PO; -RIBO1TAB PO; +RIBOCAP PO; -SULF800T23 PO; -TRAZ-119 PO; +TRAZ1TAB96 PO
[2017-10-06 21:07] VITALS: TEMP 36.8; Ht 172.7 cm; Wt 74.3 kg
[2017-10-06] MEDS ORDERED: MECLIZINE HCL 25 MG TAB PO STA (21:52)
[2017-10-06] MEDS ORDERED: ONDANSETRON INJ 2 MG/ML 2 ML VIAL IV STA (21:52)
[2017-10-06 21:54] LABS: BASO % 0.1 %; BASO ABS # 0.01 K/uL (0-0.2); EOS % 0.9 %; EOS ABS # 0.07 K/uL (0-0.5); HEMATOCRIT 40.9 % (37-47); HEMOGLOBIN 13.5 g/dL (12.0-16.0); IG# 0.02 K/uL (0.00-0.02); LYMPH % 38.6 %; LYMPH ABS # 3.09 K/uL (1.2-3.4); MEAN CELL VOLUME 93.4 fL (80-100); MEAN CORPUSCULAR HEMOGLOBIN 30.8 pg (25-34); MEAN PLATELET VOLUME 10.2 fL (7.4-10.4); MONO % 6.6 %; MONO ABS # 0.53 K/uL (0.11-0.59); NEUT % 53.5 %; NEUT ABS # 4.28 K/uL (1.4-6.5); PLATELET COUNT 228 K/uL (130-400); RED CELL DISTRIBUTION WIDTH SD 44.9 fL (36.4-46.3)
--- NOTE | 2017-10-06 22:13 | DIAGNOSTIC IMAGING REPORT ---
CT HEAD WITHOUT CONTRAST (CT) CLINICAL HISTORY: Persistent dizziness COMPARISON STUDY: 04/22/2017 TECHNIQUE: Axial CT of the brain is performed from the vertex to the skull base. IV contrast was not administered for this examination. A dose lowering technique was utilized adhering to the principles of ALARA. CT DOSE: 537.48 mGy.cm FINDINGS: No intra or extra-axial mass lesions are visualized. There is no CT evidence of acute cortical infarction. There is no evidence of midline shift. There is no acute hemorrhage. No calvarial fractures are visualized. There is no evidence of pathologic ventricular dilatation. There is no evidence of acute sinusitis IMPRESSION: No acute intracranial findings Electronically signed by: Ubaldo Garrett M.D. 10/06/2017 10:11 PM Dictated Date/Time: 10/06/2017 10:10 PM
[2017-10-06 22:15] LABS: ALBUMIN 3.7 gm/dl (3.4-5.0); CALCIUM 8.9 mg/dl (8.5-10.1); CREATININE 0.84 mg/dl (0.60-1.20); POTASSIUM 3.8 mmol/L (3.5-5.1); TOTAL PROTEIN 7.5 gm/dl (6.4-8.2)
[2017-10-06] MEDS ORDERED: TIZA2TAB3 PO (22:53)
[2017-10-06] MEDS ORDERED: MECL-91 PO (23:10)
[2017-10-06] MEDS ORDERED: LORAZEPAM 2 MG/ML 1 ML VIAL IV STA (23:12)
[2017-10-06 23:13] VITALS: BP 103/80; PULSE 60; O2SAT 98
--- NOTE | 2017-10-07 01:25 | EMERGENCY ROOM VISIT NOTE ---
History Report prepared by Paulette: Ludwig Inman Under the Supervision of: Dr. Jayy Vences D.O. First contact with patient: 21:43 Chief Complaint: DIZZY Stated Complaint: DEHYDRATION; DIZZINESS History of Present Illness The patient is a 37 year old female who presents to the Emergency Room with complaints intermittent dizziness and constant shakes that began about 2 weeks ago. The symptoms do not worsen with any sudden movements or change in positions. No other exacerbating or remitting factors. She reports that she is on medications to lower her blood pressure and that her psychiatric medications generics have recently changed. The patient denies weakness and numbness to the extremities as well as a headache, change in vision, fevers, chest pain, shortness of breath, nausea, vomiting, diarrhea, pain with urination , and melena. Source of History: patient Onset: 2 weeks ago Position: head Quality: other (Dizziness ) Timing: constant (shakes), intermittent (dizzy) Associated Symptoms: No fevers, No chest pain, No SOB, No nausea, No vomiting, No melena, No diarrhea, No urinary symptoms, No weakness, No numbness Review of Systems See HPI for pertinent positives & negatives. A total of 10 systems reviewed and were otherwise negative. 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 (16) Migraine (17) Nausea (18) Orthostasis (19) Orthostatic hypotension (20) Orthostatic hypotension (21) Orthostatic hypotension (22) Orthostatic hypotension (23) Orthostatic hypotension (24) Orthostatic hypotension (25) Postural hypotension (26) Postural imbalance (27) Rectal bleeding (28) Syncope (29) Syncope (30) Syncope (31) UTI (urinary tract infection) (32) Vaginal bleeding Surgical Problems: (1) History of appendectomy (2) History of oral surgery (3) History of orthopedic surgery (4) S/P appendectomy Family History Cancer Heart disease Hypertension Social History Smoking Status: Never Smoker Alcohol Use: occasionally Drug Use: none Marital Status: Housing Status: lives with family Occupation Status: employed Current/Historical Medications Scheduled Control Pills ( Control Pills), 1 TAB PO DAILY Clonazepam (Klonopin), 0.5 MG PO HS Docusate Sodium (Docusate Sodium), 200 MG PO BID Etodolac (Etodolac), 500 MG PO AMHS Magnesium Oxide (mg Supplement (Cvs Magnesium), 500 MG PO DAILY Meclizine HCl (Meclizine 25), 25 MG PO TID Midodrine Hcl (Midodrine Hcl), 10 MG PO TID Multiple Vitamins W/ Minerals (Centrum), 1 TAB PO QAM Pantoprazole (Pantoprazole Sodium), 40 MG PO QAM Probiotic Product (Probiotic), 1 CAP PO DAILY Ranitidine HCl (Ranitidine HCl), 150 MG PO BID Riboflavin (B-2-400), 400 MG PO QAM Sodium Chloride (Sodium Chloride), 2 GM PO TID Sulfasalazine (Azulfidine), 1,000 MG PO AMHS Tizanidine Hcl (Zanaflex), 2 MG PO DAILY Topiramate (Topiramate), 75 MG PO AMHS Trazodone Hcl (Desyrel), 100-150 MG PO HS Venlafaxine Hcl (Effexor Extended Rel), 300 MG PO QAM Scheduled PRN Acetaminophen (Tylenol), 1,000 MG PO Q8 PRN for Pain Diclofenac Sodium (Topical) (Voltaren 1% Top Gel), 2 GM TOP QID PRN for Pain Dicyclomine Hcl (Dicyclomine Hcl), 20 MG PO BID PRN for Abdominal Pain Ketorolac Tromethamine (Ketorolac Tromethamine), 10 MG PO DAILY PRN for Pain Menthol (Topical Analgesic) (Biofreeze), 1 APPL TOP UD PRN for Pain Oxycodone Ir (Roxicodone Ir), 5-10 TAB PO Q6H PRN for Severe Pain Tizanidine (Zanaflex), 2 MG PO Q8 PRN for MUSSP Valacyclovir (Valtrex), 500 MG PO AMPM PRN for Outbreaks Allergies Coded Allergies: Bupropion (Verified Allergy, Mild, 10/06/17) LOW BP Metoclopramide (Verified Allergy, Mild, 10/06/17) LOW BP Adhesives (Verified Allergy, Unknown, RASH, 10/06/17) Gabapentin (Verified Allergy, Unknown, SHORTNESS OF BREATH, 10/06/17) DEPRESSION MEDICATIONS DEACTIVATE Hyoscyamine (Verified Allergy, Unknown, SHORTNESS OF BREATH/HYPOTENSION, ) Patient states "Levobid or Levibid" Infliximab (Verified Allergy, Unknown, HYPOTENSION, 10/06/17) Latex1 -Allergic Contact Dermititis (Verified Allergy, Unknown, 10/06/17) Propoxyphene (Verified Allergy, Unknown, 10/06/17) Replaces DARVOCET-N 10 Physical Exam Vital Signs Date Time Temp Pulse Resp B/P (MAP) Pulse Ox O2 Delivery O2 Flow Rate FiO2 10/06/17 23:13 60 18 103/80 98 Room Air 10/06/17 21:55 60 10/06/17 21:07 36.8 67 20 114/75 98 Room Air Physical Exam GENERAL: Sitting up in bed, alert, well appearing, well nourished, no distress, non-toxic EYE EXAM: normal conjunctiva. PERRL and EOM's intact. OROPHARYNX: no exudate, no erythema, lips, buccal mucosa, and tongue normal and mucous membranes are moist NECK: supple, no nuchal rigidity, no adenopathy, non-tender LUNGS: Clear to auscultation. Normal chest wall mechanics HEART: no murmurs, S1 normal and S2 normal ABDOMEN: abdomen soft, non-tender, normo-active bowel sounds, no masses, no rebound or guarding. BACK: Back is symmetrical on inspection and there is no deformity, no midline tenderness, no CVA tenderness. SKIN: no rashes and no bruising UPPER EXTREMITIES: upper extremities are grossly normal. LOWER EXTREMITIES: No pitting edema. NEURO EXAM: Normal sensorium, cranial nerves II-XII intact, normal speech, no weakness of arms, no weakness of legs. No drift. Finger to nose intact. Gross sensation intact. Medical Decision & Procedures ER Provider Diagnostic Interpretation: Radiology results as stated below per my review and the radiologist's interpretation: CT HEAD WITHOUT CONTRAST (CT) CLINICAL HISTORY: Persistent dizziness COMPARISON STUDY: 04/22/2017 TECHNIQUE: Axial CT of the brain is performed from the vertex to the skull base. IV contrast was not administered for this examination. A dose lowering technique was utilized adhering to the principles of ALARA. CT DOSE: 537.48 mGy.cm FINDINGS: No intra or extra-axial mass lesions are visualized. There is no CT evidence of acute cortical infarction. There is no evidence of midline shift. There is no acute hemorrhage. No calvarial fractures are visualized. There is no evidence of pathologic ventricular dilatation. There is no evidence of acute sinusitis IMPRESSION: No acute intracranial findings Electronically signed by: Ubaldo Garrett M.D. 10/06/2017 10:11 PM Dictated Date/Time: 10/06/2017 10:10 PM Laboratory Results 10/06/17 21:30 Red Blood Count 4.38, Mean Corpuscular Volume 93.4, Mean Corpuscular Hemoglobin 30.8, Mean Corpuscular Hemoglobin Concent 33.0, Mean Platelet Volume 10.2, Neutrophils (%) (Auto) 53.5, Lymphocytes (%) (Auto) 38.6, Monocytes (%) (Auto) 6.6, Eosinophils (%) (Auto) 0.9, Basophils (%) (Auto) 0.1, Neutrophils # (Auto) 4.28, Lymphocytes # (Auto) 3.09, Monocytes # (Auto) 0.53, Eosinophils # (Auto) 0.07, Basophils # (Auto) 0.01 10/06/17 21:30 Test 10/06/17 21:30 White Blood Count 8.00 K/uL (4.8-10.8) Red Blood Count 4.38 M/uL (4.2-5.4) Hemoglobin 13.5 g/dL (12.0-16.0) Hematocrit 40.9 % (37-47) Mean Corpuscular Volume 93.4 fL (80-100) Mean Corpuscular Hemoglobin 30.8 pg (25-34) Mean Corpuscular Hemoglobin Concent 33.0 g/dl (32-36) Platelet Count 228 K/uL (130-400) Mean Platelet Volume 10.2 fL (7.4-10.4) Neutrophils (%) (Auto) 53.5 % Lymphocytes (%) (Auto) 38.6 % Monocytes (%) (Auto) 6.6 % Eosinophils (%) (Auto) 0.9 % Basophils (%) (Auto) 0.1 % Neutrophils # (Auto) 4.28 K/uL (1.4-6.5) Lymphocytes # (Auto) 3.09 K/uL (1.2-3.4) Monocytes # (Auto) 0.53 K/uL (0.11-0.59) Eosinophils # (Auto) 0.07 K/uL (0-0.5) Basophils # (Auto) 0.01 K/uL (0-0.2) RDW Standard Deviation 44.9 fL (36.4-46.3) RDW Coefficient of Variation 13.0 % (11.5-14.5) Immature Granulocyte % (Auto) 0.3 % Immature Granulocyte # (Auto) 0.02 K/uL (0.00-0.02) Urine Color DK YELLOW Urine Appearance CLEAR (CLEAR) Urine pH 6.5 (4.5-7.5) Urine Specific [place] 1.021 (1.000-1.030) Urine Protein NEG (NEG) Urine Glucose (UA) NEG (NEG) Urine Ketones NEG (NEG) Urine Occult Blood NEG (NEG) Urine Nitrite NEG (NEG) Urine Bilirubin NEG (NEG) Urine Urobilinogen NEG (NEG) Urine Leukocyte Esterase NEG (NEG) Urine WBC (Auto) 1-5 /hpf (0-5) Urine RBC (Auto) 0-4 /hpf (0-4) Urine Hyaline Casts (Auto) 0 /lpf (0-5) Urine Epithelial Cells (Auto) 0-5 /lpf (0-5) Urine Bacteria (Auto) NEG (NEG) Urine Test NEG (NEG) Anion Gap 6.0 mmol/L (3-11) Est Creatinine Clear Calc Drug Dose 94.3 ml/min Estimated GFR () 104.4 Estimated GFR (Non- 90.0 BUN/Creatinine Ratio 16.6 (10-20) Calcium Level 8.9 mg/dl (8.5-10.1) Total Bilirubin 0.3 mg/dl (0.2-1) Aspartate Amino Transf (AST/SGOT) 12 U/L (15-37) Alanine Aminotransferase (ALT/SGPT) 14 U/L (12-78) Alkaline Phosphatase 69 U/L (45-117) Total Protein 7.5 gm/dl (6.4-8.2) Albumin 3.7 gm/dl (3.4-5.0) Globulin 3.8 gm/dl (2.5-4.0) Albumin/Globulin Ratio 1.0 (0.9-2) Lipase 314 U/L (73-393) Laboratory results per my review. Medications Administered Medications (Trade) Dose Ordered Sig/Debbi Route Start Time Stop Time Status Last Admin Dose Admin Meclizine HCl (Antivert Tab) 25 mg NOW STAT PO 10/06/17 21:52 10/06/17 21:54 DC 10/06/17 21:56 25 MG Ondansetron HCl (Zofran Inj) 4 mg NOW STAT IV 10/06/17 21:52 10/06/17 21:54 DC 10/06/17 21:56 4 MG Lorazepam (Ativan Inj) 0.5 mg NOW STAT IV 10/06/17 23:12 10/06/17 23:14 DC 10/06/17 23:20 0.5 MG ECG Per My Interpretation Indication: weakness Rate (beats per minute): 61 Rhythm: sinus rhythm Findings: other (Normal axis, No PVC) ED Course ED COURSE: Vital signs were reviewed and showed normotension The patients medical record was reviewed The above diagnostic studies were performed and reviewed. ED treatments and interventions as stated above. 2145: The patient was evaluated in room A2. A complete history and physical examination was performed. 2337: Upon reevaluation, the patient is resting in bed. I discussed my findings with the patient and she understands and agrees with the treatment plan. Based on the patients age, coexisting illnesses, exam and lab findings the decision to treat as an outpatient was made. The patient remained stable while under my care. The patient appeared well at the time of discharge. Medical Decision Differential diagnosis includes etiologies such as benign positional vertigo, dehydration, hypovolemia, anemia, tumor, infection, hypoglycemia, electrolyte abnormalities, cardiac sources, intracerebral event, toxicologic, neurologic, as well as others were entertained. Patient is a 37-year-old female who presents the ER for dizziness. She notes that this is been present for the past 2 weeks. Worse with movement. She is neurologically intact. CBC along with BMP, LFTs, bilirubin and lipase is unremarkable. UA was negative. was negative. EKG unremarkable. CT head was negative. She was given fluids, Zofran, Antivert and Ativan. She did have improvement of symptoms. I do not feel this consistent with a central process. She was updated bedside discharge follow-up with PCP as an outpatient. Discussed with Pt concerning signs and symptoms to watch out for. Pt was instructed to follow up with their PCP and discussed with the patient their option to return to the ED at anytime for persistent or worsening symptoms. The appropriate anticipatory guidance and out-patient management, including indications for return to the emergency department, were explained at length to the patient and understood. Medication Reconcilliation Current Medication List: was personally reviewed by me Blood Pressure Screening Patient's blood pressure: Normal blood pressure Impression Primary Impression: Dizziness Scribe Attestation The scribe's documentation has been prepared under my direction and personally reviewed by me in its entirety. I confirm that the note above accurately reflects all work, treatment, procedures, and medical decision making performed by me. Departure Information Dispostion Home / Self-Care Prescriptions Meclizine HCl (Meclizine 25) 25 Mg Tab 25 MG PO TID, #30 Prov: Jayy Vences, DO 10/06/17 Referrals Cinad Kirby M.D. (PCP) Forms HOME CARE DOCUMENTATION FORM, IMPORTANT VISIT INFORMATION Patient Instructions My [facility] Additional Instructions Please follow up with your primary care doctor with in the next 24 hours. Any worsening of your symptoms, please return to the ED immediately. This includes any fevers greater than 100.4, worsening pain, chest pain, shortness breath, persistent nausea, vomiting, unable to eat or drink, or any other concerning signs or symptoms from your standpoint. Please take Antivert as prescribed.
== END 2017-10-06 23:37 | disposition home or self-care (01) ==
LOC: C.EDB 21:05 → C.EDA 23:37
DX: R42 Dizziness and giddiness (principal); F41.9 Anxiety disorder, unspecified; F32.9 Major depressive disorder, single episode, unspecified; I95.9 Hypotension, unspecified; R55 Syncope and collapse; Z88.8 Allergy status to other drugs, medicaments and biological substances; Z91.040 Latex allergy status

== ENCOUNTER 2018-06-06 11:17 | Inpatient (IN) ==
[2018-06-06] MEDS ORDERED: KETOROLAC 30 MG/ML VIAL IV STA (12:23)
[2018-06-06] MEDS ORDERED: DiphenhydrAMINE HCL 50 MG/ML VIAL IV STA (12:23)
[2018-06-06] MEDS ORDERED: PROCHLORPERAZINE 2 ML IV ONE (12:23)
[2018-06-06] MEDS ORDERED: SODIUM CHLORIDE 0.9% 1000ML 1,000 ML IV ONE (12:23)
[2018-06-06] MEDS ORDERED: MAGNESIUM SULFATE / D5W 1 GM/100 ML BAG IV ONE (12:23)
[2018-06-06] MEDS ORDERED: SODIUM CHLORIDE 0.9% 1000ML 1,000 ML IV SCH ×2 (12:30→20:09)
[2018-06-06 12:36] LABS: Basophils # (auto) 0.01 K/uL (0-0.2); Basophils % (auto) 0.1 %; Eosinophils # (auto) 0.01 K/uL (0-0.5); Eosinophils % (auto) 0.1 %; Hematocrit (blood only) 38.1 % (37-47); Hemoglobin 12.8 g/dL (12.0-16.0); Immature Granulocytes # (auto) 0.02 K/uL (0.00-0.02); Immature Granulocytes % (auto) 0.2 %; Lymphocytes # (auto) 1.83 K/uL (1.2-3.4); Lymphocytes % (auto) 18.9 %; Mean Corpuscular Hgb Conc 33.6 g/dL (32-36); Mean Corpuscular Volume 91.8 fL (80-100); Mean Platelet Volume 10.2 fL (7.4-10.4); Monocytes # (auto) 0.53 K/uL (0.11-0.59); Monocytes % (auto) 5.5 %; Neutrophils # (auto) 7.27 K/uL (1.4-6.5); Neutrophils % (auto) 75.2 %; Platelet Count 164 K/uL (130-400); RDW Coefficient of Variation 13.1 % (11.5-14.5); RDW Standard Deviation 44.1 fL (36.4-46.3); Red Blood Count 4.15 M/uL (4.2-5.4); White Blood Count 9.67 K/uL (4.8-10.8)
[2018-06-06 12:44] LABS: Alanine Aminotransferase 14 U/L (12-78); Albumin Level 3.3 gm/dl (3.4-5.0); Aspartate Aminotransferase 12 U/L (15-37); BUN Creatinine Ratio 12.1 (10-20); Blood Urea Nitrogen 10 mg/dl (7-18); C Reactive Protein 6.02 mg/dl (0-0.29); Calcium 8.4 mg/dl (8.5-10.1); Carbon Dioxide 22 mmol/L (21-32); Chloride 112 mmol/L (98-107); Creatinine Clr Calc Pharmacy 100.8 ml/min; Est GFR (African American) 101.4; Est GFR (Non-African American) 87.5; Glucose 87 mg/dl (70-99); Potassium 3.9 mmol/L (3.5-5.1); Sodium 140 mmol/L (136-145)
--- NOTE | 2018-06-06 12:44 | XRay Report ---
XR chest 1V portable CLINICAL HISTORY: weakness mental status change COMPARISON STUDY: 04/11/2018 FINDINGS: The bones soft tissues and hemidiaphragms are normal. The cardiomediastinal silhouette is n ormal. The lungs are clear. The pulmonary vasculature is normal. IMPRESSION: Negative chest. The above report was generated using voice recognition software. It may contain grammatical, syntax or spelling errors. Electronically signed by: Isra Gray M.D. 06/06/2018 12:43 PM
[2018-06-06 12:55] LABS: Alkaline Phosphatase 68 U/L (45-117); Bilirubin,Total 0.3 mg/dl (0.2-1); Creatine Kinase 64 U/L (26-192); Globulin 3.5 gm/dl (2.5-4.0); Total Protein 6.8 gm/dl (6.4-8.2); Troponin I < 0.015 ng/ml (0-0.045)
[2018-06-06 13:29] LABS: Influenza A virus by PCR Neg for Influ A (Neg); Influenza B virus by PCR Neg for Influ B (Neg)
[2018-06-06] MEDS ORDERED: DEXAMETHASONE **PF** INJ 10 MG/ML VIAL IV ONE (14:18)
[2018-06-06] MEDS ORDERED: ACETAMINOPHEN 1,000 MG/100 ML VIAL IV STA (14:18)
[2018-06-06] MEDS ORDERED: VALPROATE SOD 500 MG in DEXTROSE 5% 50 ML IV STA (14:18)
[2018-06-06] MEDS ORDERED: ONDANSETRON INJ 2 MG/ML 2 ML VIAL IV STA (14:19)
[2018-06-06 15:06] LABS: iSTAT Creatinine 0.8 mg/dl (0.6-1.3); iSTAT Hemoglobin 13.9 g/dl (12.0-16.0); iSTAT Ionized Calcium 1.18 mmol/l (1.12-1.32); iSTAT Potassium 3.7 mEq/L (3.3-5.0)
[2018-06-06] MEDS ORDERED: IOVERSOL 100ml IV PRN (15:18)
[2018-06-06 15:20] LABS: Appearance Urine Clear (Clear); Bacteria Urine Automated Negative (Negative); Bilirubin Urine Negative (Negative); Blood Urine Negative (Negative); Cast Urine Automated 0 /lpf (0-5); Color Urine Yellow; Epithelial Cell Urine Auto 20-30 /lpf (0-5); Glucose Urine UA Negative (Negative); Ketones Urine Negative (Negative); Leukocyte Esterase Urine 2+ (Negative); Nitrite Urine Negative (Negative); Protein Urine Negative (Negative); RBC Urine Automated 0-4 /hpf (0-4); Specific Gravity Urine 1.008 (1.000-1.030); Urobilinogen Urine Negative (Negative); pH Urine 6.5 (4.5-7.5)
--- NOTE | 2018-06-06 15:32 | CT Scan Report ---
CT head/brain wo con CLINICAL HISTORY: 37 years-old Female with Pt c/o severe migraine. Acute severe migraine headache TECHNIQUE: Multiple axial CT images of the head were obtained without contrast. A dose lowering tech nique was utilized adhering to the principles of ALARA. COMPARISON: CT venogram of same day, CT head 03/31/2018. FINDINGS: No acute intracranial hemorrhage, midline shift, intracranial mass, hydrocephalus, territorial ischem ia or abnormal extra-axial collection. The calvarium is intact. The paranasal sinuses, mastoid air cells, and middle ear cavities are clear . IMPRESSION: No acute intracranial abnormality. The above report was generated using voice recognition software. It may contain grammatical, syntax o r spelling errors. Electronically signed by: Chauncey Gardiner M.D. 06/06/2018 3:31 PM
[2018-06-06] MEDS ORDERED: cefTRIAXone SODIUM 1,000 MG/50 ML BAG IV STA (15:33)
--- NOTE | 2018-06-06 15:39 | CT Scan Report ---
CT head venogram w con CLINICAL HISTORY: 37 years-old Female presenting with severe headache and migraine. TECHNIQUE: Multidetector CT venography of the head was performed after the administration of intraven ous contrast. 3-D volumetric and/or maximum intensity projection (MIP) images were subsequently recon structed for review. IV contrast: 95 mL of Optiray 320. One or more dose lowering techniques were use d consistent with the principles of ALARA (as low as reasonably achievable), including automatic expo sure control, mA or kV adjustment to individual patient size, and/or use of iterative reconstruction. COMPARISON: None. CT DOSE (mGy.cm): The estimated cumulative dose is 635.73 mGy.cm. FINDINGS: Formulator topogram: Unremarkable. Dural venous sinuses: Patent. Prominent pacchionian granulation in the right transverse sinus. Admitting Interviewer al cerebral veins as well as cortical veins patent. Anterior circulation: Grossly patent. Posterior circulation: Grossly patent. Other: Allowing for the phase of contrast, brain parenchyma within normal limits. Calvarium intact. IMPRESSION: 1. No evidence of dural venous sinus thrombosis. Electronically signed by: Juan Gerard M.D. 06/06/2018 3:38 PM
[2018-06-06 17:01] LABS: Pregnancy Test, Urine Negative (Negative)
--- NOTE | 2018-06-06 18:53 | History & Physical Report ---
Date of Service June 06, 2018 Assessment & Plan (1) Migraine: Pt presented to ER with c/o diffuse headache with associated photophobia, phonophobia, nausea. Hx Migraine HERNADEZ's and reports this is symptoms however HERNADEZ more intense. Patient was seen in ER 06/04/18 for severe headache and photoph obia and was treated for migraine with reported improvement. HERNADEZ started again last night. She tried Imitrex without much relief. Denies fever/chills, vomiting, paresthesias, vision changes, syncope, speech changes. Reports chronic intermittent neck stiffness and has been using TENS unit at home. -In ER vitals stable CT head and CT venogram: negative -In ER was given 2L NSS, Benadryl IV, Toradol IV, Compazine, magnesium 1gm, IV Tylenol, Valporic acid, Decadron 10mg, Zofran -Pt reports improvement and decreased HERNADEZ -Will continue home imitrex prn HERNADEZ -Toradol, IV Tylenol prn HERNADEZ -Continue Topamax -if no improvement may need to consider neurology consult (2) Rheumatoid arthritis: Patient states the past couple of days has had some mild aching to karina ateral anterior knees which has increased to not being able to flex or stand secondary to discomfort. Reported warmth noted to anterior knees yesterday ESR: 6, CRP: 6 Possible rheumatoid arthritis flare -Solumedrol 40mg Q8H -Will hold home etodolac at this time and use toradol prn -Continue sulfasalazine -Consider rheumatology consult (3) Oral ulcer: Onset oral ulcers x 1 day DDX: herpes, other viral etiology -pending RPR -Magic swizzle prn mouth discomfort (4) Possible urinary tract infection: UA: 2+ leuk, 10-30 WBC, 20-30 epithelial, No bacteria. negative urine test -Rocephin given in ER -Pt without urinary symptoms -pending urine culture -will continue Rocephin for now (5) Anxiety and depression: -Continue Effexor, Klonopin , Trazadone (6) Fibromyalgia: -Continue home muscle relaxer (7) Orthostatic hypotension: -Continue midodrine, sodium tabs DVT Prophylaxis -SCDs Follows with Dr Cinda Kirby for routine care Pt was seen with Dr Howell. See addendum History of Present Illness Chief Complaint: HERNADEZ, knee pain Primary Care Provider: Cinda Kirby MD Pt is 37 y/o F with PMH Rheumatoid arthritis, depression, anxiety, migraine, IBS, fibromyalgia, orthostatic hypotension presented to ER with complaint of headache. Patient was seen in ER 06/04/18 for severe headache and photophobia and was treated for migraine with reported improvement. Patient states slept most of the day yesterday and was feeling okay. She reports last night started with diffuse headache and headache behind bilateral eyes with associated photophobia, phonophobia, nausea. Patient states this feels like her migraine headaches but is more intense. She denies any paresthesias, vision changes, syncope, speech changes. Patient states his been having some neck stiffness and has been using her home TENS unit. She denies any fevers or chills. Patient states the past couple of days has had some mild aching to bilateral anterior knees. States yesterday with increased pain and noticed warmth to bilateral knees. Did not notice any skin erythema. She thought knees looked a little bit swollen. She reports knees have becoming increasingly painful and is unable to bend without significant pain and unable to stand secondary to pain. Patient reports has crutches and wheelchair at home that she has had to use intermittently over the years secondary to extremity pain. Patient denies any recent injury or trauma. She reports that his been several years since her last RA flare. In the past she has received IV steroids with some relief. She follows with Dr. Mercado-rheumatology. Follows with Dr. Carlos Rubio-neurology [facility]. Patient also reports this morning she woke up with oral ulcers that are tender. Reports hx genital herpes but has never had any oral lesions. Reported only sexual partner. Denies any ill contacts or others with similar symptoms. Denies rashes. Denies recent travel, insect bite, prolonged immobilization. Denies diaphoresis, V/D/C, CP, SOB, orthopnea, pal pitations, cough, sore throat, choking, otalgia, rhinorrhea, abdominal pain, paresthesias, urinary symptoms. Denies other STD history. Allergies Allergy/AdvReac Type Severity Reaction Status Date / Time bupropion Allergy Mild Verified 06/06/18 14:03 metoclopramide Allergy Mild Verified 06/06/18 14:03 adhesive Allergy Unknown RASH Verified 06/06/18 14:03 gabapentin Allergy Unknown SHORTNESS Verified 06/06/18 14:03 OF BREATH hyoscyamine Allergy Unknown SHORTNESS Verified 06/06/18 14:03 OF BREATH/HYPOTENSION infliximab Allergy Unknown HYPOTENSION Verified 06/06/18 14:03 latex Allergy Unknown Verified 06/06/18 14:03 propoxyphene Allergy Unknown Verified 06/06/18 14:03 Home Medications Home Medications Medication Instructions Recorded Confirmed Type L.acidophilus-Bifido.longum 1 cap PO QAM 03/31/18 06/06/18 History [Probiotic Pearls] clonazepam 0.5 mg PO HS 03/31/18 06/06/18 History diclofenac sodium 1 applic TOPICAL QID PRN 03/31/18 06/06/18 History docusate sodium [Colace] 200 mg PO BID 03/31/18 06/06/18 History etodolac 500 mg PO BID 03/31/18 06/06/18 History ketorolac 10 mg PO Q6H PRN 03/31/18 06/06/18 History magnesium oxide 500 mg PO QAM 03/31/18 06/06/18 History midodrine 10 mg PO TID 03/31/18 06/06/18 History npenjglwiwks-ofan-ovtvt acid 1 tab PO QAM 03/31/18 06/06/18 History [Centrum] norethindrone-ethin estradiol 1 tab PO HS 03/31/18 06/06/18 History [Alyacen (28)] ranitidine HCl 150 mg PO BID 03/31/18 06/06/18 History riboflavin (vitamin B2) 400 mg PO QAM 03/31/18 06/06/18 History sodium chloride 2,000 mg PO TID 03/31/18 06/06/18 History sulfasalazine 1,000 mg PO BID 03/31/18 06/06/18 History tizanidine [Zanaflex] 2 mg PO TID PRN 03/31/18 06/06/18 History valacyclovir 500 mg PO BID PRN 03/31/18 06/06/18 History sumatriptan succinate 100 mg PO DIRECTED PRN 06/04/18 06/06/18 History melatonin 0.5 tab PO HS 06/06/18 06/06/18 History topiramate 100 mg PO BID 06/06/18 06/06/18 History trazodone 100 mg PO HS 06/06/18 06/06/18 History venlafaxine 300 mg PO DAILY 06/06/18 06/06/18 History Past Med/Surg History Medical History Fibromyalgia (Chronic) Anxiety and depression (Chronic) Rheumatoid arthritis (Chronic) Migraine (Acute) Orthostatic hypotension (Chronic) Myalgia Surgical History History of appendectomy (Chronic) Family History Other Cancer Social History Preferred Language: Indonesian Feels Safe at Home: Yes Smoking Status: Never smoker Hx Alcohol Use: No Hx Substance Use: No Review of Systems Review of Systems: All systems reviewed & are unremarkable except as noted in HPI & below Physical Exam Physical Exam: General: no acute distress at this time. Is wearing sunglasses for photophobia, however reports improvement, WDWN, non-toxic appearance. Head: normocephalic, atraumatic Eyes: PERRL, EOM's intact, conjunctiva non-injected, anicteric ENT: normal inspection external ears, nose, mucous membranes moist, +oral ulcers noted to inside of upper and lower lips, one noted to right lower lateral gingiva near posterior molar, no lesions noted to external lips or tongue or pharynx Neck: supple, trachea midline, non-tender, ROM intact, no rigidity Lungs: clear, no respiratory distress, no wheezing/rhonchi/rales CV: RRR, no murmur, no JVD, no pretibial edema Abd: normal BS, soft, non-tender Ext: no cyanosis, no calf tenderness, Bilateral anterior knees without significant edema, no erythema, +warmth with L knee greater than R knee, + moderate tenderness to light palpation of anterior knees only. Remaining legs, hips, ankles, feet without edema/erythema and non-tender. Limited active ROM of knees to flexion secondary to discomfort. ROM upper extremities intact and non- tender with normal appearance. Distal pulses intact, brisk capillary refill, sensation to light touch intact. Neuro: A&O x 3, no focal deficits noted, normal affect, negative kernigs and brudzinski Skin: warm, dry Results & Data Vital Signs (Past 12 Hours) Vital Signs Temp Pulse Pulse Resp BP BP Pulse Ox 06/06/18 18:12 71 18 106/69 97 06/06/18 16:30 77 18 100/59 L 96 06/06/18 15:30 79 18 107/57 L 99 06/06/18 14:30 72 30 H 116/70 99 06/06/18 14:00 79 22 122/71 97 06/06/18 13:30 71 22 106/76 99 06/06/18 13:00 75 27 H 126/72 100 06/06/18 12:50 74 19 116/71 100 06/06/18 12:30 64 18 100 06/06/18 12:09 100 06/06/18 12:06 73 19 99 06/06/18 11:20 36.9 C 70 18 107/71 98 Laboratory Results Short CBC 06/06/18 Range/Units 12:02 WBC 9.67 (4.8-10.8) K/uL Hgb 12.8 (12.0-16.0) g/dL Hct 38.1 (37-47) % Plt Count 164 (130-400) K/uL BMP 06/06/18 12:02 Sodium 140 Potassium 3.9 Chloride 112 H Carbon Dioxide 22 BUN 10 Creatinine 0.86 Glucose 87 Calcium 8.4 L Cardiac Enzymes 06/06/18 06/06/18 Range/Units 12:02 15:04 Total Creatine Kinase 64 48 (26-192) U/L Troponin I < 0.015 (0-0.045) ng/ml Liver Function 06/06/18 Range/Units 12:02 Total Bilirubin 0.3 (0.2-1) mg/dl AST 12 L (15-37) U/L ALT 14 (12-78) U/L Alkaline Phosphatase 68 (45-117) U/L Albumin 3.3 L (3.4-5.0) gm/dl Urine 06/06/18 Range/Units 15:05 Urine Color Yellow Urine Appearance Clear (Clear) Urine pH 6.5 (4.5-7.5) Ur Specific [place] 1.008 (1.000-1.030) Urine Protein Negative (Negative) Urine Glucose (UA) Negative (Negative) Diagnostic Findings CXR: IMPRESSION: Negative chest. CT HEAD: IMPRESSION: No acute intracranial abnormality. CT VENOGRAM HEAD: IMPRESSION: 1. No evidence of dural venous sinus thrombosis. Supervising Physician Co-Signing Physician Notes Attending addendum The patient was seen and examined in the emergency room Pt is 37 y/o F with PMH Rheumatoid arthritis, depression, anxiety, migraine, IBS, fibromyalgia, orthostatic hypotension presented to ER with complaint of headache. Patient was seen in ER 06/04/18 for severe headache and photophobia and was treated for migraine with reported improvement. 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
[2018-06-06] MEDS ORDERED: ACETAMINOPHEN 325 MG TAB PO PRN (20:09)
[2018-06-06] MEDS ORDERED: ACETAMINOPHEN 1,000 MG/100 ML VIAL IV PRN (20:09)
[2018-06-06] MEDS ORDERED: ONDANSETRON INJ 2 MG/ML 2 ML VIAL IV PRN (20:09)
[2018-06-06] MEDS ORDERED: MELATONIN PO SCH (21:00)
[2018-06-06] MEDS: KETOROLAC TROMETHAMINE 15 MG/ML VIAL IV PRN (21:37)
[2018-06-06] MEDS: methylPREDNISolone 40 MG in SYRINGE 0 ML IV SCH (21:42)
[2018-06-06] MEDS: TIZANIDINE HCL 4 MG TABLET PO PRN (21:43)
[2018-06-06] MEDS: TOPIRAMATE 100 MG TAB PO SCH (21:43)
[2018-06-06] MEDS: DOCUSATE SODIUM 100 MG CAP PO SCH (21:44)
[2018-06-06] MEDS: TRAZODONE HCL 100 MG TAB PO SCH (21:44)
[2018-06-06] MEDS: MIDODRINE HCL 10 MG TAB PO SCH (21:45)
[2018-06-06] MEDS: clonazePAM 0.5 MG TAB PO SCH ×3 (21:46→21:55)
[2018-06-06] MEDS: SODIUM CHLORIDE 1 GM TABLET PO SCH ×2 (21:50→22:22)
[2018-06-06] MEDS: sulfaSALAzine 500 MG TABLET PO SCH ×2 (21:50→22:22)
[2018-06-06] MEDS: SUMAtriptan succinate 100 MG TAB PO PRN (22:23)
[2018-06-07] MEDS: KETOROLAC TROMETHAMINE 15 MG/ML VIAL IV PRN ×3 (05:00→21:53)
[2018-06-07] MEDS: methylPREDNISolone 40 MG in SYRINGE 0 ML IV SCH ×3 (05:00→20:42)
[2018-06-07 07:53] LABS: Hematocrit (blood only) 35.6 % (37-47); Mean Corpuscular Hgb Conc 33.7 g/dL (32-36); Mean Platelet Volume 10.3 fL (7.4-10.4); Platelet Count 155 K/uL (130-400); RDW Coefficient of Variation 13.2 % (11.5-14.5); RDW Standard Deviation 43.8 fL (36.4-46.3); Red Blood Count 3.91 M/uL (4.2-5.4); White Blood Count 8.89 K/uL (4.8-10.8)
[2018-06-07] MEDS: SUMAtriptan succinate 100 MG TAB PO PRN ×2 (08:08→10:39)
[2018-06-07] MEDS: TOPIRAMATE 100 MG TAB PO SCH ×2 (08:09→20:37)
[2018-06-07 08:20] LABS: BUN Creatinine Ratio 15.3 (10-20); Calcium 8.3 mg/dl (8.5-10.1); Creatinine Clr Calc Pharmacy 136.4 ml/min; Est GFR (African American) 134.7; Est GFR (Non-African American) 116.2; Potassium 4.2 mmol/L (3.5-5.1)
[2018-06-07] MEDS: MIDODRINE HCL 10 MG TAB PO SCH ×3 (08:51→18:38)
[2018-06-07] MEDS: MAGNESIUM OXIDE 400 MG TAB PO SCH (08:52)
[2018-06-07] MEDS: CEROVITE ADV FORMULA TAB PO SCH (08:52)
[2018-06-07] MEDS: DOCUSATE SODIUM 100 MG CAP PO SCH ×2 (08:52→20:32)
[2018-06-07] MEDS: LACTOBACILLUS ACIDOPHILUS (FLORANEX) TAB PO SCH (08:53)
[2018-06-07] MEDS: SODIUM CHLORIDE 1 GM TABLET PO SCH ×3 (08:53→20:41)
[2018-06-07] MEDS: sulfaSALAzine 500 MG TABLET PO SCH ×2 (08:53→20:33)
[2018-06-07] MEDS: VENLAFAXINE HCL XR 150 MG CAPXR PO SCH (08:53)
[2018-06-07] MEDS: LIDOCAINE HCL 2% VISCOUS 60 ML, DiphenhydrAMINE Syrup 150 MG, ALUMINUM/MAGNESIUM SUSP 6... PO PRN ×2 (10:40→20:42)
[2018-06-07] MEDS ORDERED: ETODOLAC~ORDER AWAITING ACTION SCH (12:00)
[2018-06-07] MEDS: VALACYCLOVIR HCL 500 MG TABLET PO SCH ×2 (12:53→20:41)
[2018-06-07] MEDS: ETODOLAC PO SCH ×2 (12:53→20:42)
[2018-06-07] MEDS: DICLOFENAC SOD 1% GEL 100 GM TUBE EXT PRN (12:57)
[2018-06-07] MEDS: cefTRIAXone SODIUM 1,000 MG in DEXTROSE 5% 50 ML IV SCH (16:41)
--- NOTE | 2018-06-07 17:31 | Emergency Department Note ---
Entered by Kaelyn Powell acting as a scribe for Ascencion Padilla MD History of Present Illness General Chief complaint: Headache Stated complaint: SEVERE HEADACHE,PAIN IN BILAT KNEES,MOUTH SORES Time Seen by Provider: 06/06/18 11:58 Source: patient Mode of arrival: ambulatory Limitations: no limitations History of Present Illness Provider complaint: Headache Onset (ago): hour(s) 5 Location: head Severity: moderate Pain Consistency: + constant Maximum Pain Intensity: 10 Associated symptoms: + denies other symptoms and + other (vision changes, pain in bilateral knees, subjective fever, mouth sores) Patient is a 37 year old female presenting to the ED with headache beginning today. Headache pain is moderate in severity and constant since onset. She shares that she was seen in the ED x2 days ago for similar migraine pain and noticed improvement until awakening this morning. Patient shares that she has taken imitrex, and toradol overnight. She shares she did take hydrocodone about x5 hours ago with no improvement. Patient shares she has a subjective fever with sweats. She also shares she is having vision changes and sores in the mouth. She shares that she did have similar migraine pains in the past. Patient includes she has a history of RA in the knees, and has occasional flare ups. She shares that she is having trouble bearing weight on the legs, and having radiating pain up the back and neck. Patient denies numbness, rashes, or any other complaints or concerns at this time. Home Medications Home Medications Medication Instructions Recorded Confirmed Type L.acidophilus-Bifido.longum 1 cap PO QAM 03/31/18 06/06/18 History [Probiotic Pearls] clonazepam 0.5 mg PO HS 03/31/18 06/06/18 History diclofenac sodium 1 applic TOPICAL QID PRN 03/31/18 06/06/18 History docusate sodium [Colace] 200 mg PO BID 03/31/18 06/06/18 History etodolac 500 mg PO BID 03/31/18 06/06/18 History ketorolac 10 mg PO Q6H PRN 03/31/18 06/06/18 History magnesium oxide 500 mg PO QAM 03/31/18 06/06/18 History midodrine 10 mg PO TID 03/31/18 06/06/18 History aezkehdcrrbt-mvha-koict acid 1 tab PO QAM 03/31/18 06/06/18 History [Centrum] norethindrone-ethin estradiol 1 tab PO HS 03/31/18 06/06/18 History [Alyacen (28)] ranitidine HCl 150 mg PO BID 03/31/18 06/06/18 History riboflavin (vitamin B2) 400 mg PO QAM 03/31/18 06/06/18 History sodium chloride 2,000 mg PO TID 03/31/18 06/06/18 History sulfasalazine 1,000 mg PO BID 03/31/18 06/06/18 History tizanidine [Zanaflex] 2 mg PO TID PRN 03/31/18 06/06/18 History valacyclovir 500 mg PO BID PRN 03/31/18 06/06/18 History sumatriptan succinate 100 mg PO DIRECTED PRN 06/04/18 06/06/18 History melatonin 0.5 tab PO HS 06/06/18 06/06/18 History topiramate 100 mg PO BID 06/06/18 06/06/18 History trazodone 100 mg PO HS 06/06/18 06/06/18 History venlafaxine 300 mg PO DAILY 06/06/18 06/06/18 History Allergies Allergy/AdvReac Type Severity Reaction Status Date / Time bupropion Allergy Mild Verified 06/06/18 14:03 metoclopramide Allergy Mild Verified 06/06/18 14:03 adhesive Allergy Unknown RASH Verified 06/06/18 14:03 gabapentin Allergy Unknown SHORTNESS Verified 06/06/18 14:03 OF BREATH hyoscyamine Allergy Unknown SHORTNESS Verified 06/06/18 14:03 OF BREATH/HYPOTENSION infliximab Allergy Unknown HYPOTENSION Verified 06/06/18 14:03 latex Allergy Unknown Verified 06/06/18 14:03 propoxyphene Allergy Unknown Verified 06/06/18 14:03 Past Med/Surg History Medical History Fibromyalgia (Chronic) Anxiety and depression (Chronic) Rheumatoid arthritis (Chronic) Migraine (Acute) Orthostatic hypotension (Chronic) Myalgia Surgical History History of appendectomy (Chronic) Family History Other Cancer Social History Preferred Language: Thai Esthetics Instructor Required: Yes Beliefs That Will Affect Care: None Current Living Situation: Family Other Information That Helps Us Care for You: No Feels Safe at Home: Yes Safety Concerns: Feels Safe At This Time Smoking Status: Never smoker Hx Alcohol Use: Yes Hx Substance Use: No Review of Systems See HPI for pertinent positives & negatives. and A total of 10 systems reviewed and were otherwise negative Physical Exam Vital Signs Vital Signs - 24 hr 06/06/18 18:12 06/06/18 19:48 06/06/18 20:09 Temperature 36.7 C Temperature Source Oral Pulse Rate 77 Pulse Rate [Apical] 71 65 Pulse Rate [Finger] Pulse Rhythm [Apical] Pulse Rhythm [Finger] Pulse Strength [Apical] Pulse Strength [Finger] Respiratory Rate 18 18 18 Respiratory Effort / Characteristics Non-Labored Spontaneous Respiratory Depth Normal Blood Pressure 145/73 H Blood Pressure [Left Arm] 106/69 108/67 Blood Pressure [Right Arm] Blood Pressure Mean [Left Arm] 81 80 Blood Pressure Mean [Right Arm] Blood Pressure Position [Left Arm] Sitting Blood Pressure Position [Right Arm] Pulse Oximetry 97 95 99 Oxygen Delivery Method Room Air Room Air Room Air 06/06/18 23:00 06/06/18 23:34 06/07/18 00:12 Temperature 36.9 C Temperature Source Oral Oral Pulse Rate Pulse Rate [Apical] Pulse Rate [Finger] 47 L Pulse Rhythm [Apical] Regular Pulse Rhythm [Finger] Regular Pulse Strength [Apical] Normal Pulse Strength [Finger] Normal Normal Respiratory Rate 18 20 Respiratory Effort / Characteristics Non-Labored Respiratory Depth Normal Normal Blood Pressure Blood Pressure [Left Arm] 89/54 L 97/60 L Blood Pressure [Right Arm] Blood Pressure Mean [Left Arm] 65 72 Blood Pressure Mean [Right Arm] Blood Pressure Position [Left Arm] Lying Blood Pressure Position [Right Arm] Pulse Oximetry 97 Oxygen Delivery Method Room Air Room Air 06/07/18 07:00 06/07/18 15:35 Temperature 36.8 C 36.7 C Temperature Source Oral Oral Pulse Rate Pulse Rate [Apical] Pulse Rate [Finger] 46 L 49 L Pulse Rhythm [Apical] Pulse Rhythm [Finger] Pulse Strength [Apical] Pulse Strength [Finger] Normal Respiratory Rate 18 18 Respiratory Effort / Characteristics Respiratory Depth Normal Blood Pressure Blood Pressure [Left Arm] Blood Pressure [Right Arm] 99/66 L 104/64 Blood Pressure Mean [Left Arm] Blood Pressure Mean [Right Arm] 77 77 Blood Pressure Position [Left Arm] Blood Pressure Position [Right Arm] Lying Pulse Oximetry 99 99 Oxygen Delivery Method Room Air Room Air GENERAL: Awake, alert, well-appearing, in no acute distress HENT: Normocephalic, atraumatic. Oropharynx unremarkable. EYES: Normal conjunctiva. Sclera non-icteric. NECK: Supple. No nuchal rigidity. FROM. No JVD. RESPIRATORY: Clear to auscultation. CARDIAC: Regular rate, normal rhythm. Extremities warm and well perfused. Pulses equal. ABDOMEN: Soft, non-distended. No tenderness to palpation. No rebound or guarding. No masses. RECTAL: Deferred. MUSCULOSKELETAL: Chest examination reveals no tenderness. The back is symmetrical on inspection without obvious abnormality. There is no CVA tenderness to palpation. No joint edema. LOWER EXTREMITIES: Calves are equal size bilaterally and non-tender. No edema. No discoloration. NEURO: Normal sensorium. No sensory or motor deficits noted. No evidence of meningitis or encephalitis. SKIN: No rash or jaundice noted. Course 1215: Patient was evaluated in room C04. A full history and physical examination were obtained. 1719: Discussed case with Edel Lomas PA-C, who accepts patient for admission. Administered Medications Clonazepam (Klonopin) 0.5 mg PO HS SAMANTHA Stop: 07/06/18 20:59 Last Admin: 06/06/18 21:55 Dose: 0.5 mg Documented by: [id number] Admin: 06/06/18 21:54 Dose: 0.5 mg Documented by: [id number] Admin: 06/06/18 21:46 Dose: Not Given Documented by: [id number] Lidocaine HCl 60 ml/Diphenhydramine HCl 150 mg/ Al Hydrox/Mg Hydrox/Simethicone 60 ml/ Glycerin 60 ml/ BARCODE IDENTIFIER 1 ea 0 ml PO QID PRN PRN Reason: mouth pain Stop: 07/06/18 20:08 Last Admin: 06/07/18 10:40 Dose: 5 ml Documented by: [id number] Diclofenac Sodium (Voltaren 1% Top) 1 appln EXT QID PRN PRN Reason: Pain Stop: 07/06/18 20:08 Last Admin: 06/07/18 12:57 Dose: 1 appln Documented by: [id number] Docusate Sodium (Colace) 200 mg PO BID SAMANTHA Stop: 07/06/18 20:59 Last Admin: 04/24/19 08:52 Dose: 200 mg Documented by: [id number] Admin: 06/06/18 21:44 Dose: 200 mg Documented by: [id number] Ceftriaxone Sodium 1,000 mg/ (Dextrose) 50 mls @ 100 mls/hr IV Q24H [facility]; Protocol Stop: 06/11/18 15:59 Last Admin: 06/07/18 16:41 Dose: 100 mls/hr Documented by: [id number] Methylprednisolone 40 mg/ (Syringe) 0.64 mls @ 1.5 mls/min IV Q8H [facility] Stop: 07/06/18 20:59 Last Admin: 06/07/18 12:53 Dose: 1.5 mls/min Documented by: [id number] Admin: 06/07/18 05:00 Dose: 1.5 mls/min Documented by: [id number] Admin: 06/06/18 21:42 Dose: 1.5 mls/min Documented by: [id number] Ketorolac Tromethamine (Toradol) 15 mg IV Q6H PRN PRN Reason: Pain Stop: 06/07/18 18:00 Last Admin: 06/07/18 12:54 Dose: 15 mg Documented by: [id number] Admin: 06/07/18 05:00 Dose: 15 mg Documented by: [id number] Admin: 06/06/18 21:37 Dose: 15 mg Documented by: [id number] Lactobacillus Acidophilus (Floranex) 4 tab PO QAM [facility] Stop: 07/07/18 08:59 Last Admin: 06/07/18 08:53 Dose: 4 tab Documented by: [id number] Magnesium Oxide (Mag-Ox) 400 mg PO QAM [facility] Stop: 07/07/18 08:59 Last Admin: 06/07/18 08:52 Dose: 400 mg Documented by: [id number] Midodrine (Proamatine) 10 mg PO TID@0800,1300,1800 [facility] Stop: 07/06/18 20:59 Last Admin: 06/07/18 12:54 Dose: 10 mg Documented by: [id number] Admin: 06/07/18 08:51 Dose: 10 mg Documented by: [id number] Admin: 06/06/18 21:45 Dose: 10 mg Documented by: [id number] Miscellaneous (Order Awaiting Action) 1 ea N/A QS [facility] Stop: 07/07/18 00:00 Last Admin: 06/07/18 16:41 Dose: Not Given Documented by: [id number] Admin: 06/07/18 08:54 Dose: Not Given Documented by: [id number] Admin: 06/07/18 02:42 Dose: Not Given Documented by: [id number] Miscellaneous (Order Awaiting Action) 1 ea N/A QS SAMANTHA Stop: 07/07/18 00:00 Last Admin: 06/07/18 16:41 Dose: Not Given Documented by: [id number] Admin: 06/07/18 08:54 Dose: Not Given Documented by: [id number] Admin: 06/07/18 02:43 Dose: Not Given Documented by: [id number] Multivitamins/Minerals (Multivitamin W/ Minerals Tab) 1 tab PO QAM SAMANTHA Stop: 07/07/18 08:59 Last Admin: 06/07/18 08:52 Dose: 1 tab Documented by: [id number] Etodolac~Non- Formulary Patient's Own Med 1 ea PO BID SAMANTHA Stop: 07/07/18 12:29 Last Admin: 06/07/18 12:53 Dose: 500 mg Documented by: [id number] Ranitidine HCl (Zantac) 150 mg PO BID SAMANTHA Stop: 07/06/18 20:59 Last Admin: 06/07/18 08:52 Dose: 150 mg Documented by: [id number] Admin: 06/06/18 21:43 Dose: 150 mg Documented by: [id number] Sodium Chloride (Sodium Chloride) 2 gm PO TID SAMANTHA Stop: 07/06/18 20:59 Last Admin: 06/07/18 12:57 Dose: 2 gm Documented by: [id number] Admin: 06/07/18 08:53 Dose: 2 gm Documented by: [id number] Admin: 06/06/18 22:22 Dose: 2 gm Documented by: [id number] Admin: 06/06/18 21:50 Dose: Not Given Documented by: [id number] Sulfadiazine (Azulfidine) 1,000 mg PO BID [facility] Stop: 07/06/18 20:59 Last Admin: 06/07/18 08:53 Dose: 1,000 mg Documented by: [id number] Admin: 06/06/18 22:22 Dose: 1,000 mg Documented by: [id number] Admin: 06/06/18 21:50 Dose: Not Given Documented by: [id number] Sumatriptan Succinate (Imitrex) 50 - 100 mg PO DAILY PRN PRN Reason: Migraine Headache Stop: 07/06/18 20:08 Last Admin: 06/07/18 10:39 Dose: 100 mg Documented by: [id number] Admin: 06/07/18 08:08 Dose: 100 mg Documented by: [id number] Admin: 06/06/18 22:23 Dose: 100 mg Documented by: [id number] Tizanidine HCl (Zanaflex) 2 mg PO TID PRN PRN Reason: Other Stop: 07/06/18 20:08 Last Admin: 06/06/18 21:43 Dose: 2 mg Documented by: [id number] Topiramate (Topamax) 100 mg PO BID SAMANTHA Stop: 07/06/18 20:59 Last Admin: 06/07/18 08:09 Dose: 100 mg Documented by: [id number] Admin: 06/06/18 21:43 Dose: 100 mg Documented by: [id number] Trazodone HCl (Desyrel) 100 mg PO HS [facility] Stop: 07/06/18 20:59 Last Admin: 06/06/18 21:44 Dose: 100 mg Documented by: [id number] Valacyclovir HCl (Valtrex) 500 mg PO BID SAMANTHA Stop: 06/17/18 12:29 Last Admin: 06/07/18 12:53 Dose: 500 mg Documented by: [id number] Venlafaxine HCl (Effexor Extended Release) 300 mg PO DAILY SAMANTHA Stop: 07/07/18 08:59 Last Admin: 06/07/18 08:53 Dose: 300 mg Documented by: [id number] Discontinued Medications Dexamethasone Sodium Phosphate (Decadron Pf) 10 mg IV NOW ONE Stop: 06/06/18 14:19 Last Admin: 06/06/18 14:41 Dose: 10 mg Documented by: [id number] Diphenhydramine HCl (Benadryl) 50 mg IV NOW STA Stop: 06/06/18 12:24 Last Admin: 06/06/18 12:51 Dose: 50 mg Documented by: [id number] Prochlorperazine (Compazine) 2 mls @ 1 mls/min IV ONE ONE Stop: 06/06/18 12:24 Last Admin: 06/06/18 12:51 Dose: 1 mls/min Documented by: [id number] Sodium Chloride (Nss 1000ml) 1,000 mls @ 999 mls/hr IV .Q1H1M ONE Stop: 06/06/18 13:23 Last Infusion: 06/06/18 14:00 Dose: 0 mls/hr Documented by: [id number] Admin: 06/06/18 12:53 Dose: 999 mls/hr Documented by: [id number] Sodium Chloride (Nss 1000ml) 1,000 mls @ 999 mls/hr IV .Q1H1M SAMANTHA Stop: 06/06/18 13:30 Last Infusion: 06/06/18 16:27 Dose: 0 mls/hr Documented by: [id number] Admin: 06/06/18 14:40 Dose: 999 mls/hr Documented by: [id number] Magnesium Sulfate/Dextrose (Magnesium Sulfate / D5w) 1 gm in 100 mls @ 100 mls/hr IV ONE ONE Stop: 06/06/18 13:22 Last Infusion: 06/06/18 14:00 Dose: 0 mls/hr Documented by: [id number] Admin: 06/06/18 12:52 Dose: 100 mls/hr Documented by: [id number] Acetaminophen (Ofirmev) 1,000 mg in 100 mls @ 400 mls/hr IV NOW STA Stop: 06/06/18 14:32 Last Infusion: 06/06/18 15:26 Dose: 0 mls/hr Documented by: [id number] Admin: 06/06/18 14:40 Dose: 400 mls/hr Documented by: [id number] Valproic Acid 500 mg/ Dextrose 55 mls @ 55 mls/hr IV NOW STA Stop: 06/06/18 15:17 Last Infusion: 06/06/18 16:27 Dose: 0 mls/hr Documented by: [id number] Admin: 06/06/18 15:24 Dose: 55 mls/hr Documented by: [id number] Ceftriaxone Sodium (Rocephin) 1,000 mg in 50 mls @ 100 mls/hr IV NOW STA Stop: 06/06/18 16:02 Last Infusion: 06/06/18 16:57 Dose: 0 mls/hr Documented by: [id number] Admin: 06/06/18 16:26 Dose: 100 mls/hr Documented by: [id number] Sodium Chloride (Nss 1000ml) 1,000 mls @ 100 mls/hr IV .Q10H SAMANTHA Stop: 06/07/18 06:08 Last Infusion: 06/07/18 07:39 Dose: 0 mls/hr Documented by: [id number] Admin: 06/06/18 21:39 Dose: 100 mls/hr Documented by: [id number] Ioversol (Optiray 320 100ml) 95 ml IV ONCE PRN PRN Reason: Interaction Checking Stop: 06/10/18 15:17 Last Admin: 06/06/18 15:19 Dose: 95 ml Documented by: [id number] Ketorolac Tromethamine (Toradol) 30 mg IV NOW STA Stop: 06/06/18 12:24 Last Admin: 06/06/18 12:50 Dose: 30 mg Documented by: [id number] Ondansetron HCl (Zofran) 4 mg IV NOW STA Stop: 06/06/18 14:20 Last Admin: 06/06/18 14:40 Dose: 4 mg Documented by: [id number] Medical Decision Making Differential Diagnosis Differential diagnosis: Etiologies such as acute intracranial bleed, trauma, meningitis, encephalitis, increased intracranial pressure, mass or mass effect, facial or dental infection, temporal arteritis, CVA, TIA, acute hypertensive emergency, sinusitis, carbon monoxide exposure. Medical Records Attestation: I reviewed the patient's medical records. Home Medications Current Medication List: was personally reviewed by me Laboratory Data Attestation: I reviewed the patient's lab results. Result diagrams: 06/07/18 07:24 06/07/18 07:24 Lab Results 06/06/18 06/06/18 06/06/18 Range/Units 12:02 12:02 12:02 WBC 9.67 (4.8-10.8) K/uL RBC 4.15 L (4.2-5.4) M/uL Hgb 12.8 (12.0-16.0) g/dL POC Hgb (12.0-16.0) g/dl Hct 38.1 (37-47) % POC Hct (37-47) % MCV 91.8 (80-100) fL MCH 30.8 (25-34) pg MCHC 33.6 (32-36) g/dL RDW Std Deviation 44.1 (36.4-46.3) fL RDW Coeff of Yandel 13.1 (11.5-14.5) % Plt Count 164 (130-400) K/uL MPV 10.2 (7.4-10.4) fL Immature Gran % (Auto) 0.2 % Neut % (Auto) 75.2 % Lymph % (Auto) 18.9 % [place] % (Auto) 5.5 % Eos % (Auto) 0.1 % Baso % (Auto) 0.1 % Immature Gran # (Auto) 0.02 (0.00-0.02) K/uL Neut # (Auto) 7.27 H (1.4-6.5) K/uL Lymph # (Auto) 1.83 (1.2-3.4) K/uL [place] # (Auto) 0.53 (0.11-0.59) K/uL Eos # (Auto) 0.01 (0-0.5) K/uL Baso # (Auto) 0.01 (0-0.2) K/uL ESR 6 (0-21) mm/hr POC Sodium (135-144) mEq/L Sodium 140 (136-145) mmol/L POC Potassium (3.3-5.0) mEq/L Potassium 3.9 (3.5-5.1) mmol/L POC Chloride (101-112) mEq/L Chloride 112 H (98-107) mmol/L Carbon Dioxide 22 (21-32) mmol/L POC Total CO2 (24-31) mEq/l Anion Gap 6.0 (3-11) POC Anion Gap (16-25) mmol/L POC BUN (7-18) mg/dl BUN 10 (7-18) mg/dl Creatinine 0.86 (0.6-1.2) mg/dl POC Creatinine (0.6-1.3) mg/dl Est Cr Clr Drug Dosing 100.8 ml/min Est GFR ( Amer) 101.4 Est GFR (Non-Af Amer) 87.5 BUN/Creatinine Ratio 12.1 (10-20) Glucose 87 (70-99) mg/dl POC Glucose (other) (70-99) mg/dl Calcium 8.4 L (8.5-10.1) mg/dl POC Ioniz Calcium Ginger (1.12-1.32) mmol/l Total Bilirubin 0.3 (0.2-1) mg/dl AST 12 L (15-37) U/L ALT 14 (12-78) U/L Alkaline Phosphatase 68 (45-117) U/L Total Creatine Kinase 64 (26-192) U/L Troponin I < 0.015 (0-0.045) ng/ml C-Reactive Protein 6.02 H (0-0.29) mg/dl Total Protein 6.8 (6.4-8.2) gm/dl Albumin 3.3 L (3.4-5.0) gm/dl Globulin 3.5 (2.5-4.0) gm/dl Albumin/Globulin Ratio 1.0 (0.9-2) TSH 2.200 (0.300-4.500) uIu/ml Urine Color Urine Appearance (Clear) Urine pH (4.5-7.5) Ur Specific [place] (1.000-1.030) Urine Protein (Negative) Urine Glucose (UA) (Negative) Urine Ketones (Negative) Urine Blood (Negative) Urine Nitrite (Negative) Urine Bilirubin (Negative) Urine Urobilinogen (Negative) Ur Leukocyte Esterase (Negative) Urine WBC (Auto) (0-5) /hpf Urine RBC (Auto) (0-4) /hpf U Hyaline Cast (Auto) (0-5) /lpf U Epithel Cells (Auto) (0-5) /lpf Urine Bacteria (Auto) (Negative) Urine Test (Negative) RPR (Nonreactive) Influenza Type A (PCR) (Neg) Influenza Type B (PCR) (Neg) 06/06/18 06/06/18 06/06/18 Range/Units 12:02 12:36 12:48 WBC (4.8-10.8) K/uL RBC (4.2-5.4) M/uL Hgb (12.0-16.0) g/dL POC Hgb 13.9 (12.0-16.0) g/dl Hct (37-47) % POC Hct 41 (37-47) % MCV (80-100) fL MCH (25-34) pg MCHC (32-36) g/dL RDW Std Deviation (36.4-46.3) fL RDW Coeff of Yandel (11.5-14.5) % Plt Count (130-400) K/uL MPV (7.4-10.4) fL Immature Gran % (Auto) % Neut % (Auto) % Lymph % (Auto) % Sand[place] % (Auto) % Eos % (Auto) % Baso % (Auto) % Immature Gran # (Auto) (0.00-0.02) K/uL Neut # (Auto) (1.4-6.5) K/uL Lymph # (Auto) (1.2-3.4) K/uL [place] # (Auto) (0.11-0.59) K/uL Eos # (Auto) (0-0.5) K/uL Baso # (Auto) (0-0.2) K/uL ESR (0-21) mm/hr POC Sodium 141 (135-144) mEq/L Sodium (136-145) mmol/L POC Potassium 3.7 (3.3-5.0) mEq/L Potassium (3.5-5.1) mmol/L POC Chloride 107 (101-112) mEq/L Chloride (98-107) mmol/L Carbon Dioxide (21-32) mmol/L POC Total CO2 21 L (24-31) mEq/l Anion Gap (3-11) POC Anion Gap 17.0 (16-25) mmol/L POC BUN 9 (7-18) mg/dl BUN (7-18) mg/dl Creatinine (0.6-1.2) mg/dl POC Creatinine 0.8 (0.6-1.3) mg/dl Est Cr Clr Drug Dosing ml/min Est GFR ( Amer) Est GFR (Non-Af Amer) BUN/Creatinine Ratio (10-20) Glucose (70-99) mg/dl POC Glucose (other) 88 (70-99) mg/dl Calcium (8.5-10.1) mg/dl POC Ioniz Calcium Ginger 1.18 (1.12-1.32) mmol/l Total Bilirubin (0.2-1) mg/dl AST (15-37) U/L ALT (12-78) U/L Alkaline Phosphatase (45-117) U/L Total Creatine Kinase (26-192) U/L Troponin I (0-0.045) ng/ml C-Reactive Protein (0-0.29) mg/dl Total Protein (6.4-8.2) gm/dl Albumin (3.4-5.0) gm/dl Globulin (2.5-4.0) gm/dl Albumin/Globulin Ratio (0.9-2) TSH (0.300-4.500) uIu/ml Urine Color Urine Appearance (Clear) Urine pH (4.5-7.5) Ur Specific [place] (1.000-1.030) Urine Protein (Negative) Urine Glucose (UA) (Negative) Urine Ketones (Negative) Urine Blood (Negative) Urine Nitrite (Negative) Urine Bilirubin (Negative) Urine Urobilinogen (Negative) Ur Leukocyte Esterase (Negative) Urine WBC (Auto) (0-5) /hpf Urine RBC (Auto) (0-4) /hpf U Hyaline Cast (Auto) (0-5) /lpf U Epithel Cells (Auto) (0-5) /lpf Urine Bacteria (Auto) (Negative) Urine Test (Negative) RPR Nonreactive (Nonreactive) Influenza Type A (PCR) Neg for Influ A (Neg) Influenza Type B (PCR) Neg for Influ B (Neg) 06/06/18 06/06/18 06/06/18 Range/Units 15:04 15:05 15:10 WBC (4.8-10.8) K/uL RBC (4.2-5.4) M/uL Hgb (12.0-16.0) g/dL POC Hgb (12.0-16.0) g/dl Hct (37-47) % POC Hct (37-47) % MCV (80-100) fL MCH (25-34) pg MCHC (32-36) g/dL RDW Std Deviation (36.4-46.3) fL RDW Coeff of Yandel (11.5-14.5) % Plt Count (130-400) K/uL MPV (7.4-10.4) fL Immature Gran % (Auto) % Neut % (Auto) % Lymph % (Auto) % [place] % (Auto) % Eos % (Auto) % Baso % (Auto) % Immature Gran # (Auto) (0.00-0.02) K/uL Neut # (Auto) (1.4-6.5) K/uL Lymph # (Auto) (1.2-3.4) K/uL [place] # (Auto) (0.11-0.59) K/uL Eos # (Auto) (0-0.5) K/uL Baso # (Auto) (0-0.2) K/uL ESR (0-21) mm/hr POC Sodium (135-144) mEq/L Sodium (136-145) mmol/L POC Potassium (3.3-5.0) mEq/L Potassium (3.5-5.1) mmol/L POC Chloride (101-112) mEq/L Chloride (98-107) mmol/L Carbon Dioxide (21-32) mmol/L POC Total CO2 (24-31) mEq/l Anion Gap (3-11) POC Anion Gap (16-25) mmol/L POC BUN (7-18) mg/dl BUN (7-18) mg/dl Creatinine (0.6-1.2) mg/dl POC Creatinine (0.6-1.3) mg/dl Est Cr Clr Drug Dosing ml/min Est GFR ( Amer) Est GFR (Non-Af Amer) BUN/Creatinine Ratio (10-20) Glucose (70-99) mg/dl POC Glucose (other) (70-99) mg/dl Calcium (8.5-10.1) mg/dl POC Ioniz Calcium Ginger (1.12-1.32) mmol/l Total Bilirubin (0.2-1) mg/dl AST (15-37) U/L ALT (12-78) U/L Alkaline Phosphatase (45-117) U/L Total Creatine Kinase 48 (26-192) U/L Troponin I (0-0.045) ng/ml C-Reactive Protein (0-0.29) mg/dl Total Protein (6.4-8.2) gm/dl Albumin (3.4-5.0) gm/dl Globulin (2.5-4.0) gm/dl Albumin/Globulin Ratio (0.9-2) TSH (0.300-4.500) uIu/ml Urine Color Yellow Urine Appearance Clear (Clear) Urine pH 6.5 (4.5-7.5) Ur Specific [place] 1.008 (1.000-1.030) Urine Protein Negative (Negative) Urine Glucose (UA) Negative (Negative) Urine Ketones Negative (Negative) Urine Blood Negative (Negative) Urine Nitrite Negative (Negative) Urine Bilirubin Negative (Negative) Urine Urobilinogen Negative (Negative) Ur Leukocyte Esterase 2+ H (Negative) Urine WBC (Auto) 10-30 H (0-5) /hpf Urine RBC (Auto) 0-4 (0-4) /hpf U Hyaline Cast (Auto) 0 (0-5) /lpf U Epithel Cells (Auto) 20-30 H (0-5) /lpf Urine Bacteria (Auto) Negative (Negative) Urine Test Negative (Negative) RPR (Nonreactive) Influenza Type A (PCR) (Neg) Influenza Type B (PCR) (Neg) 06/07/18 06/07/18 Range/Units 07:24 07:24 WBC 8.89 (4.8-10.8) K/uL RBC 3.91 L (4.2-5.4) M/uL Hgb 12.0 (12.0-16.0) g/dL POC Hgb (12.0-16.0) g/dl Hct 35.6 L (37-47) % POC Hct (37-47) % MCV 91.0 (80-100) fL MCH 30.7 (25-34) pg MCHC 33.7 (32-36) g/dL RDW Std Deviation 43.8 (36.4-46.3) fL RDW Coeff of Yandel 13.2 (11.5-14.5) % Plt Count 155 (130-400) K/uL MPV 10.3 (7.4-10.4) fL Immature Gran % (Auto) % Neut % (Auto) % Lymph % (Auto) % [place] % (Auto) % Eos % (Auto) % Baso % (Auto) % Immature Gran # (Auto) (0.00-0.02) K/uL Neut # (Auto) (1.4-6.5) K/uL Lymph # (Auto) (1.2-3.4) K/uL [place] # (Auto) (0.11-0.59) K/uL Eos # (Auto) (0-0.5) K/uL Baso # (Auto) (0-0.2) K/uL ESR (0-21) mm/hr POC Sodium (135-144) mEq/L Sodium 140 (136-145) mmol/L POC Potassium (3.3-5.0) mEq/L Potassium 4.2 (3.5-5.1) mmol/L POC Chloride (101-112) mEq/L Chloride 115 H (98-107) mmol/L Carbon Dioxide 16 L (21-32) mmol/L POC Total CO2 (24-31) mEq/l Anion Gap 10.0 (3-11) POC Anion Gap (16-25) mmol/L POC BUN (7-18) mg/dl BUN 10 (7-18) mg/dl Creatinine 0.63 (0.6-1.2) mg/dl POC Creatinine (0.6-1.3) mg/dl Est Cr Clr Drug Dosing 136.4 ml/min Est GFR ( Amer) 134.7 Est GFR (Non-Af Amer) 116.2 BUN/Creatinine Ratio 15.3 (10-20) Glucose 115 H (70-99) mg/dl POC Glucose (other) (70-99) mg/dl Calcium 8.3 L (8.5-10.1) mg/dl POC Ioniz Calcium Ginger (1.12-1.32) mmol/l Total Bilirubin (0.2-1) mg/dl AST (15-37) U/L ALT (12-78) U/L Alkaline Phosphatase (45-117) U/L Total Creatine Kinase (26-192) U/L Troponin I (0-0.045) ng/ml C-Reactive Protein (0-0.29) mg/dl Total Protein (6.4-8.2) gm/dl Albumin (3.4-5.0) gm/dl Globulin (2.5-4.0) gm/dl Albumin/Globulin Ratio (0.9-2) TSH (0.300-4.500) uIu/ml Urine Color Urine Appearance (Clear) Urine pH (4.5-7.5) Ur Specific [place] (1.000-1.030) Urine Protein (Negative) Urine Glucose (UA) (Negative) Urine Ketones (Negative) Urine Blood (Negative) Urine Nitrite (Negative) Urine Bilirubin (Negative) Urine Urobilinogen (Negative) Ur Leukocyte Esterase (Negative) Urine WBC (Auto) (0-5) /hpf Urine RBC (Auto) (0-4) /hpf U Hyaline Cast (Auto) (0-5) /lpf U Epithel Cells (Auto) (0-5) /lpf Urine Bacteria (Auto) (Negative) Urine Test (Negative) RPR (Nonreactive) Influenza Type A (PCR) (Neg) Influenza Type B (PCR) (Neg) Imaging Data Radiologist's Impression: XR chest 1V portable CLINICAL HISTORY: weakness mental status change COMPARISON STUDY: 04/11/2018 FINDINGS: The bones soft tissues and hemidiaphragms are normal. The cardiomediastinal silhouette is normal. The lungs are clear. The pulmonary vasculature is normal. IMPRESSION: Negative chest. The above report was generated using voice recognition software. It may contain grammatical, syntax or spelling errors. Electronically signed by: Isra Gray M.D. 06/06/2018 12:[address] head venogram w con CLINICAL HISTORY: 37 years-old Female presenting with severe headache and migraine. TECHNIQUE: Multidetector CT venography of the head was performed after the administration of intravenous contrast. 3-D volumetric and/or maximum intensity projection (MIP) images were subsequently reconstructed for review. IV contrast: 95 mL of Optiray 320. One or more dose lowering techniques were used consistent with the principles of ALARA (as low as reasonably achievable), including automatic exposure control, mA or kV adjustment to individual patient size, and/or use of iterative reconstruction. COMPARISON: None. CT DOSE (mGy.cm): The estimated cumulative dose is 635.73 mGy.cm. FINDINGS: Jerker topogram: Unremarkable. Dural venous sinuses: Patent. Prominent pacchionian granulation in the right transverse sinus. Internal cerebral veins as well as cortical veins patent. Anterior circulation: Grossly patent. Posterior circulation: Grossly patent. Other: Allowing for the phase of contrast, brain parenchyma within normal limits. Calvarium intact. IMPRESSION: 1. No evidence of dural venous sinus thrombosis. Electronically signed by: Juan Gerard M.D. 06/06/2018 3:[address] head/brain wo con CLINICAL HISTORY: 37 years-old Female with Pt c/o severe migraine. Acute severe migraine headache TECHNIQUE: Multiple axial CT images of the head were obtained without contrast. A dose lowering technique was utilized adhering to the principles of ALARA. COMPARISON: CT venogram of same day, CT head 03/31/2018. FINDINGS: No acute intracranial hemorrhage, midline shift, intracranial mass, hydrocephalus, territorial ischemia or abnormal extra-axial collection. The calvarium is intact. The paranasal sinuses, mastoid air cells, and middle ear cavities are clear. IMPRESSION: No acute intracranial abnormality. The above report was generated using voice recognition software. It may contain grammatical, syntax or spelling errors. Electronically signed by: Chauncey Gardiner M.D. 06/06/2018 3:31 PM MDM Narrative This is a 37-year-old female who presents emergency department complaining of bilateral knee pain as well as a severe headache. Using shared medical decision-making the decision was made to send the patient for a CAT scan of the head. This does not show any evidence of acute process or sinusitis. In addition the patient does not have an elevation in her white blood cell count has a normal renal profile. She was given a normal saline bolus as well as Toradol Compazine Benadryl magnesium. Repeat examination revealed no improvement in the patient's symptoms. At this point the patient was given Decadron valproate as well as Tylenol. at this point the patient feels she cannot walk due to severe knee pain which she feels is a flare of her rheumatoid arthritis. Based on this I did discuss the case with the hospitalist service who agreed to admit the patient. The patient was treated for urinary tract here in the emergency department. Patient family were in agreement with the treatment plan. Impression & Plan Headache Discharge Plan Visit Data *Final* Discharge Date/Time: 06/06/18 19:48 Chief Complaint: Headache Stated Complaint: SEVERE HEADACHE,PAIN IN BILAT KNEES,MOUTH SORES ED Provider: Ascencion Padilla Discharge Problem: Headache Patient Disposition: Admitted As Inpatient Discharge Instructions Interventions: ED Discharge Assessment Last Done: 06/06/18 19:48 Discharge Problem: Headache Qualifiers: Headache type: unspecified Headache chronicity pattern: unspecified pattern Intractability: not intractable Qualified Code(s): R51 - Headache The scribe's documentation has been prepared under my direction and personally reviewed by me in its entirety. I confirm that the note above accurately reflects all work, treatment, procedures, and medical decision making performed by me.
--- NOTE | 2018-06-07 20:23 | Hospitalist Progress Note ---
Date of Service June 07, 2018 Assessment & Plan (1) Migraine: Patient presents with diffuse headache with associated photophobia, phonophobia, nausea H/O recurrent Migraine CT head and CT venogram: negative Continue Imitrex prn Also on Toradol Continue Topamax Also on Magnesium, Vitamin B2 If no improvement, consider Neurology (2) Rheumatoid arthritis: Complains of B/L Knee pain ESR: 6, CRP: 6 Possible rheumatoid arthritis flare Continue Solumedrol 40mg Q8H Continue etodolac, sulfasalazine Consider rheumatology consult if no improvement Follows with (3) Oral ulcer: DDX: herpes/Aphthous RPR: Non reactive Magic swizzle PRN (4) Possible urinary tract infection: negative urine test Continue Rocephin Day#2 Urine culture: Pending (5) Anxiety and depression: Continue Effexor, Klonopin , Trazadone (6) Fibromyalgia: Continue home meds (7) Orthostatic hypotension: Continue midodrine, sodium tabs DVT Px SCDs Encourage to ambulate Subjective Patient is seen and examined at bedside Complains of B/L Knee pain Headache better Reports genital herpes flare Denies chest pain, SOB, dizziness Review of Systems Review of Systems: All systems reviewed & are unremarkable except as noted in HPI & below Physical Exam Physical Exam: Physical Exam: Vitals signs as noted above General Appearance:Moderately built and nourished, no apparent distress Head: normocephalic, Atraumatic Eyes: normal inspection, EOMI Neck: supple, Trachea midline Respiratory/Chest: Normal breath sounds, CTA Cardiovascular: S1, S2, No murmur Abdomen/GI:Soft, Non tender, Bowel sounds present Extremities/Musculoskelatal:normal inspection, no edema Neurologic/Psych:AAOX3, grossly no focal neurological deficits Skin: normal color, warm Results & Data Vital Signs (Past 12 Hours) Vital Signs Temp Pulse Resp BP Pulse Ox 06/07/18 15:35 36.7 C 49 L 18 104/64 99 Laboratory Results Short CBC 06/07/18 Range/Units 07:24 WBC 8.89 (4.8-10.8) K/uL Hgb 12.0 (12.0-16.0) g/dL Hct 35.6 L (37-47) % Plt Count 155 (130-400) K/uL BMP 06/07/18 07:24 Sodium 140 Potassium 4.2 Chloride 115 H Carbon Dioxide 16 L BUN 10 Creatinine 0.63 Glucose 115 H Calcium 8.3 L
[2018-06-07] MEDS: TRAZODONE HCL 100 MG TAB PO SCH (20:32)
[2018-06-07] MEDS ORDERED: clonazePAM 0.5 MG TAB PO STA (22:04)
[2018-06-07] MEDS ORDERED: MELATONIN 3 MG PO PRN (22:15)
[2018-06-07] MEDS: TIZANIDINE HCL 4 MG TABLET PO PRN (22:25)
[2018-06-07] MEDS: MELATONIN: ORDER AWAITING ACTION SCH (22:50)
[2018-06-08] MEDS: methylPREDNISolone 40 MG in SYRINGE 0 ML IV SCH ×3 (04:46→21:01)
[2018-06-08] MEDS: KETOROLAC TROMETHAMINE 15 MG/ML VIAL IV PRN ×2 (05:57→21:12)
[2018-06-08 07:07] LABS: Hematocrit (blood only) 33.7 % (37-47); Hemoglobin 11.5 g/dL (12.0-16.0); Mean Corpuscular Hgb Conc 34.1 g/dL (32-36); Mean Corpuscular Volume 91.1 fL (80-100); Mean Platelet Volume 10.5 fL (7.4-10.4); Platelet Count 166 K/uL (130-400); RDW Coefficient of Variation 13.2 % (11.5-14.5); White Blood Count 8.91 K/uL (4.8-10.8)
[2018-06-08 07:35] LABS: BUN Creatinine Ratio 20.9 (10-20); Calcium 8.3 mg/dl (8.5-10.1); Creatinine Clr Calc Pharmacy 117.7 ml/min; Est GFR (African American) 123.7; Est GFR (Non-African American) 106.7; Potassium 4.2 mmol/L (3.5-5.1)
[2018-06-08] MEDS: MELATONIN: ORDER AWAITING ACTION SCH ×2 (08:34→16:24)
[2018-06-08] MEDS: TIZANIDINE HCL 4 MG TABLET PO PRN ×2 (08:44→21:39)
[2018-06-08] MEDS: DICLOFENAC SOD 1% GEL 100 GM TUBE EXT PRN (08:45)
[2018-06-08] MEDS: MIDODRINE HCL 10 MG TAB PO SCH ×3 (09:16→18:28)
[2018-06-08] MEDS: sulfaSALAzine 500 MG TABLET PO SCH ×2 (09:17→21:00)
[2018-06-08] MEDS: ETODOLAC PO SCH ×2 (09:19→21:03)
[2018-06-08] MEDS: MAGNESIUM OXIDE 400 MG TAB PO SCH (09:19)
[2018-06-08] MEDS: SODIUM CHLORIDE 1 GM TABLET PO SCH ×3 (09:20→21:04)
[2018-06-08] MEDS: VALACYCLOVIR HCL 500 MG TABLET PO SCH ×2 (09:21→21:00)
[2018-06-08] MEDS: TOPIRAMATE 100 MG TAB PO SCH ×2 (09:21→21:01)
[2018-06-08] MEDS: CEROVITE ADV FORMULA TAB PO SCH (10:31)
[2018-06-08] MEDS: VENLAFAXINE HCL XR 150 MG CAPXR PO SCH (10:31)
[2018-06-08] MEDS: DOCUSATE SODIUM 100 MG CAP PO SCH ×2 (10:34→21:00)
[2018-06-08] MEDS: LACTOBACILLUS ACIDOPHILUS (FLORANEX) TAB PO SCH (11:09)
--- NOTE | 2018-06-08 14:39 | XRay Report ---
XR knee LT 3V, XR knee RT 3V CLINICAL HISTORY: Bilateral knee pain. COMPARISON STUDY: None. FINDINGS: No fracture or dislocation within the right or left knee. Soft tissues are unremarkable. No joint effusions. No radiopaque foreign bodies. No erosive changes. Bone mineralization is intact. Ca rtilage spaces are maintained. IMPRESSION: No significant abnormality within the right or left knee by conventional radiographic te chnique. Electronically signed by: Sameer Patino M.D. 06/08/2018 2:38 PM
[2018-06-08] MEDS: POLYETHYLENE (MIRALAX) 17 GM PACK PO PRN (16:23)
[2018-06-08] MEDS: cefTRIAXone SODIUM 1,000 MG in DEXTROSE 5% 50 ML IV SCH (16:25)
--- NOTE | 2018-06-08 20:06 | Hospitalist Progress Note ---
Date of Service June 08, 2018 Assessment & Plan (1) Migraine: Patient presents with diffuse headache with associated photophobia, phonophobia, nausea H/O recurrent Migraine CT head and CT venogram: negative Continue Imitrex prn Also on Toradol Continue Topamax Also on Magnesium, Vitamin B2 Headache improved (2) Rheumatoid arthritis: Ongoing since many years. Has recurrent multiple joint pains Complains of B/L Knee pain ESR: 6, CRP: 6 Possible rheumatoid arthritis flare Continue Solumedrol 40mg Q8H Continue etodolac, sulfasalazine Follows with Discussed with 06/08/18-- Advised no additional treatment, Suggested PT/OT B/L Knee X ray:no acute findings Needs FU with Rheumatology as outpatient (3) Oral ulcer: DDX: herpes/Aphthous RPR: Non reactive Magic swizzle PRN (4) Possible urinary tract infection: negative urine test Continue Rocephin Day#3/3 Urine culture: contaminated (5) Anxiety and depression: Continue Effexor, Klonopin , Trazadone (6) Fibromyalgia: Continue home meds (7) Orthostatic hypotension: Continue midodrine, sodium tabs DVT Px SCDs Encourage to ambulate Subjective Patient is seen and examined at bedside Headache much improved Continues to complain of B/L Knee pain Discussed with today Denies chest pain, SOB, dizziness No other complaints Review of Systems Review of Systems: All systems reviewed & are unremarkable except as noted in HPI & below Physical Exam Physical Exam: Physical Exam: Vitals signs as noted above General Appearance:Moderately built and nourished, no apparent distress Head: normocephalic, Atraumatic Eyes: normal inspection, EOMI Neck: supple, Trachea midline Respiratory/Chest: Normal breath sounds, CTA Cardiovascular: S1, S2, No murmur Abdomen/GI:Soft, Non tender, Bowel sounds present Extremities/Musculoskelatal:normal inspection, no edema Neurologic/Psych:AAOX3, grossly no focal neurological deficits Skin: normal color, warm Results & Data Vital Signs (Past 12 Hours) Vital Signs Temp Pulse Resp BP Pulse Ox 06/08/18 15:09 36.3 C L 47 L 16 125/83 96 Laboratory Results Short CBC 06/08/18 Range/Units 06:46 WBC 8.91 (4.8-10.8) K/uL Hgb 11.5 L (12.0-16.0) g/dL Hct 33.7 L (37-47) % Plt Count 166 (130-400) K/uL [facility] 06/08/18 06:46 Sodium 144 Potassium 4.2 Chloride 119 H Carbon Dioxide 19 L BUN 15 Creatinine 0.73 Glucose 118 H Calcium 8.3 L
[2018-06-08] MEDS: TRAZODONE HCL 100 MG TAB PO SCH (21:04)
[2018-06-08] MEDS: clonazePAM 0.5 MG TAB PO SCH (21:11)
[2018-06-09] MEDS: MELATONIN: ORDER AWAITING ACTION SCH ×3 (00:50→14:49)
[2018-06-09] MEDS: KETOROLAC TROMETHAMINE 15 MG/ML VIAL IV PRN ×2 (02:51→14:48)
[2018-06-09] MEDS: DICLOFENAC SOD 1% GEL 100 GM TUBE EXT PRN (04:42)
[2018-06-09] MEDS: methylPREDNISolone 40 MG in SYRINGE 0 ML IV SCH ×3 (04:42→20:47)
[2018-06-09 05:47] LABS: Hematocrit (blood only) 36.2 % (37-47); Hemoglobin 12.1 g/dL (12.0-16.0); Mean Corpuscular Hgb Conc 33.4 g/dL (32-36); Mean Corpuscular Volume 91.4 fL (80-100); Mean Platelet Volume 10.4 fL (7.4-10.4); Platelet Count 186 K/uL (130-400); RDW Coefficient of Variation 13.3 % (11.5-14.5); RDW Standard Deviation 43.9 fL (36.4-46.3); Red Blood Count 3.96 M/uL (4.2-5.4); White Blood Count 8.86 K/uL (4.8-10.8)
[2018-06-09 06:18] LABS: Calcium 8.4 mg/dl (8.5-10.1); Est GFR (African American) 127.9; Est GFR (Non-African American) 110.4; Potassium 4.2 mmol/L (3.5-5.1)
[2018-06-09] MEDS: DOCUSATE SODIUM 100 MG CAP PO SCH ×2 (09:22→20:43)
[2018-06-09] MEDS: POLYETHYLENE (MIRALAX) 17 GM PACK PO PRN (09:22)
[2018-06-09] MEDS: MIDODRINE HCL 10 MG TAB PO SCH ×3 (09:25→17:55)
[2018-06-09] MEDS: sulfaSALAzine 500 MG TABLET PO SCH ×2 (09:26→20:43)
[2018-06-09] MEDS: VENLAFAXINE HCL XR 150 MG CAPXR PO SCH (09:26)
[2018-06-09] MEDS: LACTOBACILLUS ACIDOPHILUS (FLORANEX) TAB PO SCH (09:27)
[2018-06-09] MEDS: MAGNESIUM OXIDE 400 MG TAB PO SCH (09:28)
[2018-06-09] MEDS: CEROVITE ADV FORMULA TAB PO SCH (09:29)
[2018-06-09] MEDS: ETODOLAC PO SCH ×2 (09:29→20:44)
[2018-06-09] MEDS: SODIUM CHLORIDE 1 GM TABLET PO SCH ×3 (09:30→20:42)
[2018-06-09] MEDS: TOPIRAMATE 100 MG TAB PO SCH ×2 (09:31→20:42)
[2018-06-09] MEDS: VALACYCLOVIR HCL 500 MG TABLET PO SCH ×2 (09:31→20:42)
[2018-06-09] MEDS ORDERED: BENZOCAINE 20% (ORAJEL) 11.9 GM TUBE MT PRN (11:40)
[2018-06-09] MEDS: OXYCODONE/ACETAMINOPHEN 5mg/325mg TAB PO PRN ×2 (12:21→20:41)
[2018-06-09] MEDS: LIDOCAINE HCL 2% VISCOUS 60 ML, DiphenhydrAMINE Syrup 150 MG, ALUMINUM/MAGNESIUM SUSP 6... PO PRN ×2 (14:49→20:56)
--- NOTE | 2018-06-09 18:34 | Hospitalist Progress Note ---
Date of Service June 09, 2018 Assessment & Plan (1) Migraine: Patient presents with diffuse headache with associated photophobia, phonophobia, nausea H/O recurrent Migraine CT head and CT venogram: negative Continue Imitrex prn Also on Toradol Continue Topamax Also on Magnesium, Vitamin B2 Headache resolving (2) Rheumatoid arthritis: Ongoing since many years. Has recurrent multiple joint pains Complains of B/L Knee pain ESR: 6, CRP: 6 Possible rheumatoid arthritis flare Continue Solumedrol 40mg Q8H Continue etodolac, sulfasalazine Follows with Discussed with 06/08/18-- Advised no additional treatment, Suggested PT/OT B/L Knee X ray:no acute findings Needs FU with Rheumatology as outpatient PT/OT prior to discharge Pain control Try to minimize Narcotic use as able (3) Oral ulcer: DDX: herpes/Aphthous RPR: Non reactive Magic swizzle PRN (4) Possible urinary tract infection: negative urine test Continue Rocephin Day#3/3 Urine culture: contaminated (5) Anxiety and depression: Continue Effexor, Klonopin , Trazadone (6) Fibromyalgia: Continue home meds (7) Orthostatic hypotension: Continue midodrine, sodium tabs DVT Px SCDs Encourage to ambulate Subjective Patient is seen and examined at bedside Continue to complain of significant B/L knee pain Could not get PT/OT due to pain today Headache resolving Denies chest pain, SOB, dizziness No other complaints Review of Systems Review of Systems: All systems reviewed & are unremarkable except as noted in HPI & below Physical Exam Physical Exam: Physical Exam: Vitals signs as noted above General Appearance:Moderately built and nourished, no apparent distress Head: normocephalic, Atraumatic Eyes: normal inspection, EOMI Neck: supple, Trachea midline Respiratory/Chest: Normal breath sounds, CTA Cardiovascular: S1, S2, No murmur Abdomen/GI:Soft, Non tender, Bowel sounds present Extremities/Musculoskelatal:normal inspection, no edema Neurologic/Psych:AAOX3, grossly no focal neurological deficits Skin: normal color, warm Results & Data Vital Signs (Past 12 Hours) Vital Signs Temp Pulse Resp BP Pulse Ox 06/09/18 15:31 37.1 C 54 L 18 133/80 95 06/09/18 06:54 36.8 C 53 L 18 122/78 97 Laboratory Results Short CBC 06/09/18 Range/Units 05:38 WBC 8.86 (4.8-10.8) K/uL Hgb 12.1 (12.0-16.0) g/dL Hct 36.2 L (37-47) % Plt Count 186 (130-400) K/uL BMP 06/09/18 05:38 Sodium 140 Potassium 4.2 Chloride 114 H Carbon Dioxide 22 BUN 15 Creatinine 0.71 Glucose 110 H Calcium 8.4 L
[2018-06-09] MEDS: clonazePAM 0.5 MG TAB PO SCH (20:43)
[2018-06-09] MEDS: TRAZODONE HCL 100 MG TAB PO SCH (20:43)
[2018-06-09] MEDS: TIZANIDINE HCL 4 MG TABLET PO PRN (20:46)
[2018-06-10] MEDS: MELATONIN: ORDER AWAITING ACTION SCH ×2 (00:10→09:06)
[2018-06-10] MEDS: OXYCODONE/ACETAMINOPHEN 5mg/325mg TAB PO PRN (02:12)
[2018-06-10] MEDS: methylPREDNISolone 40 MG in SYRINGE 0 ML IV SCH (05:03)
[2018-06-10] MEDS: KETOROLAC TROMETHAMINE 15 MG/ML VIAL IV PRN ×2 (05:09→09:27)
[2018-06-10 06:44] LABS: BUN Creatinine Ratio 18.5 (10-20); Calcium 8.7 mg/dl (8.5-10.1); Creatinine Clr Calc Pharmacy 106.1 ml/min; Est GFR (African American) 109.1; Est GFR (Non-African American) 94.1
[2018-06-10] MEDS: MIDODRINE HCL 10 MG TAB PO SCH (09:10)
[2018-06-10] MEDS: DOCUSATE SODIUM 100 MG CAP PO SCH (09:12)
[2018-06-10] MEDS: sulfaSALAzine 500 MG TABLET PO SCH (09:12)
[2018-06-10] MEDS: LACTOBACILLUS ACIDOPHILUS (FLORANEX) TAB PO SCH (09:13)
[2018-06-10] MEDS: VENLAFAXINE HCL XR 150 MG CAPXR PO SCH (09:13)
[2018-06-10] MEDS: MAGNESIUM OXIDE 400 MG TAB PO SCH (09:14)
[2018-06-10] MEDS: ETODOLAC PO SCH (09:14)
[2018-06-10] MEDS: CEROVITE ADV FORMULA TAB PO SCH (09:14)
[2018-06-10] MEDS: TOPIRAMATE 100 MG TAB PO SCH (09:16)
[2018-06-10] MEDS: SODIUM CHLORIDE 1 GM TABLET PO SCH (09:16)
--- NOTE | 2018-06-10 10:01 | Hospitalist Progress Note ---
Date of Service June 10, 2018 Assessment & Plan (1) Migraine: Patient presents with diffuse headache with associated photophobia, phonophobia, nausea H/O recurrent Migraine CT head and CT venogram: negative Continue Imitrex prn Continue Topamax Also on Magnesium, Vitamin B2 Headache resolved (2) Rheumatoid arthritis: Ongoing since many years. Has recurrent multiple joint pains Complains of B/L Knee pain ESR: 6, CRP: 6 Possible rheumatoid arthritis flare Continue Solumedrol 40mg Q8H Continue etodolac, sulfasalazine Follows with Discussed with 06/08/18-- Advised no additional treatment, Suggested PT/OT, No plan for prednisone taper B/L Knee X ray:no acute findings PT/OT eval done Try to minimize Narcotic use as able Knee pain better Needs FU with Rheumatology as outpatient (3) Oral ulcer: DDX: herpes/Aphthous RPR: Non reactive Magic swizzle PRN Received Valtrex for genital herpes flare (4) Possible urinary tract infection: negative urine test Continue Rocephin Day#3/3 Urine culture: contaminated (5) Anxiety and depression: Continue Effexor, Klonopin , Trazadone (6) Fibromyalgia: Continue home meds (7) Orthostatic hypotension: Continue midodrine, sodium tabs DVT Px SCDs Encourage to ambulate Disposition: Plan to discharge home with Home Health Subjective Patient is seen and examined at bedside Knee pain is better Evaluated by PT today Patient prefers to be discharged home Headache resolved No new complaints Denies chest pain, SOB, dizziness Review of Systems Review of Systems: All systems reviewed & are unremarkable except as noted in HPI & below Physical Exam Physical Exam: Physical Exam: Vitals signs as noted above General Appearance:Moderately built and nourished, no apparent distress Head: normocephalic, Atraumatic Eyes: normal inspection, EOMI Neck: supple, Trachea midline Respiratory/Chest: Normal breath sounds, CTA Cardiovascular: S1, S2, No murmur Abdomen/GI:Soft, Non tender, Bowel sounds present Extremities/Musculoskelatal:normal inspection, no edema Neurologic/Psych:AAOX3, grossly no focal neurological deficits Skin: normal color, warm Results & Data Vital Signs (Past 12 Hours) Vital Signs Temp Pulse Resp BP Pulse Ox 06/10/18 07:00 36.8 C 54 L 18 118/53 L 97 06/10/18 00:10 36.8 C 63 18 108/66 97 Laboratory Results [facility] 06/10/18 05:46 Sodium 138 Potassium 4.0 Chloride 109 H Carbon Dioxide 25 BUN 15 Creatinine 0.81 Glucose 86 Calcium 8.7
--- NOTE | 2018-06-10 11:04 | Discharge Summary ---
Date of Service June 10, 2018 Admission HPI Per Admitting Provider Pt is 37 y/o F with PMH Rheumatoid arthritis, depression, anxiety, migraine, IBS, fibromyalgia, orthostatic hypotension presented to ER with complaint of headache. Patient was seen in ER 06/04/18 for severe headache and photophobia and was treated for migraine with reported improvement. Patient states slept most of the day yesterday and was feeling okay. She reports last night started with diffuse headache and headache behind bilateral eyes with associated photophobia, phonophobia, nausea. Patient states this feels like her migraine headaches but is more intense. She denies any paresthesias, vision changes, syncope, speech changes. Patient states his been having some neck stiffness and has been using her home TENS unit. She denies any fevers or chills. Patient states the past couple of days has had some mild aching to bilateral anterior knees. States yesterday with increased pain and noticed warmth to bilateral knees. Did not notice any skin erythema. She thought knees looked a little bit swollen. She reports knees have becoming increasingly painful and is unable to bend without significant pain and unable to stand secondary to pain. Patient reports has crutches and wheelchair at home that she has had to use intermittently over the years secondary to extremity pain. Patient denies any recent injury or trauma. She reports that his been several years since her last RA flare. In the past she has received IV steroids with some relief. She follows with Dr. Mercado-rheumatology. Follows with Dr. Carlos Rubio-neurology [facility]. Patient also reports this morning she woke up with oral ulcers that are tender. Reports hx genital herpes but has never had any oral lesions. Reported only sexual partner. Denies any ill contacts or others with similar symptoms. Denies rashes. Denies recent travel, insect bite, prolonged immobilization. Denies diaphoresis, V/D/C, CP, SOB, orthopnea, palpitations, cough, sore throat, choking, otalgia, rhinorrhea, abdominal pain, paresthesias, urinary symptoms. Denies other STD history. Admission Exam Per Admitting Provider General: no acute distress at this time. Is wearing sunglasses for photophobia, however reports improvement, WDWN, non-toxic appearance. Head: normocephalic, atraumatic Eyes: PERRL, EOM's intact, conjunctiva non-injected, anicteric ENT: normal inspection external ears, nose, mucous membranes moist, +oral ulcers noted to inside of upper and lower lips, one noted to right lower lateral gingiva near posterior molar, no lesions noted to external lips or tongue or pharynx Neck: supple, trachea midline, non-tender, ROM intact, no rigidity Lungs: clear, no respiratory distress, no wheezing/rhonchi/rales CV: RRR, no murmur, no JVD, no pretibial edema Abd: normal BS, soft, non-tender Ext: no cyanosis, no calf tenderness, Bilateral anterior knees without significant edema, no erythema, +warmth with L knee greater than R knee, + moderate tenderness to light palpation of anterior knees only. Remaining legs, hips, ankles, feet without edema/erythema and non-tender. Limited active ROM of knees to flexion secondary to discomfort. ROM upper extremities intact and non- tender with normal appearance. Distal pulses intact, brisk capillary refill, sensation to light touch intact. Neuro: A&O x 3, no focal deficits noted, normal affect, negative kernigs and brudzinski Skin: warm, dry Principal Diagnosis Discharge Information Discharge Diagnosis Migraine Rheumatoid Arthritis Fibromyalgia Discharge Goals Decrease discomfort,Improve function,Improve disease control Discharge Activity Limitations Per instructions/follow-up Discharge Data Allergies Allergy/AdvReac Type Severity Reaction Status Date / Time bupropion Allergy Mild Verified 06/06/18 14:03 metoclopramide Allergy Mild Verified 06/06/18 14:03 adhesive Allergy Unknown RASH Verified 06/06/18 14:03 gabapentin Allergy Unknown SHORTNESS Verified 06/06/18 14:03 OF BREATH hyoscyamine Allergy Unknown SHORTNESS Verified 06/06/18 14:03 OF BREATH/HYPOTENSION infliximab Allergy Unknown HYPOTENSION Verified 06/06/18 14:03 latex Allergy Unknown Verified 06/06/18 14:03 propoxyphene Allergy Unknown Verified 06/06/18 14:03 Consultations 06/06/18 17:30 ED Decision to Admit Stat Procedures Performed CT head: No acute intracranial abnormality. CXR: Negative chest. CT Head Venogram: No evidence of dural venous sinus thrombosis. Knee X ray: No significant abnormality within the right or left knee by conventional radiographic technique. No significant abnormality within the right or left knee by conventional radiographic technique. Ordered Studies 06/06/18 12:23 CT head/brain wo con Stat 06/06/18 12:25 CT head venogram w con Stat Hospital Course (1) Migraine: Patient presents with diffuse headache with associated photophobia, phonophobia, nausea H/O recurrent Migraine CT head and CT venogram: negative Continue Imitrex prn Continue Topamax Also on Magnesium, Vitamin B2 Headache resolved (2) Rheumatoid arthritis: Ongoing since many years. Has recurrent multiple joint pains Complains of B/L Knee pain ESR: 6, CRP: 6 Possible rheumatoid arthritis flare Continue Solumedrol 40mg Q8H Continue etodolac, sulfasalazine Follows with Discussed with 06/08/18-- Advised no additional treatment, Suggested PT/OT, No plan for prednisone taper B/L Knee X ray:no acute findings PT/OT eval done Try to minimize Narcotic use as able Knee pain better Needs FU with Rheumatology as outpatient (3) Oral ulcer: DDX: herpes/Aphthous RPR: Non reactive Magic swizzle PRN Received Valtrex for genital herpes flare (4) Possible urinary tract infection: negative urine test Continue Rocephin Day#3/3 Urine culture: contaminated (5) Anxiety and depression: Continue Effexor, Klonopin , Trazadone (6) Fibromyalgia: Continue home meds (7) Orthostatic hypotension: Continue midodrine, sodium tabs DVT Px SCDs Encourage to ambulate Disposition: Plan to discharge home with Home Health Total Time Total Time Spent Total Time Spent (In Minutes): 37 minutes Discharge Plan Discharge Items Patient Disposition: Home - Home Health Services Reason For Visit: HERNADEZ,KNEE PAIN Discharge Diagnosis: Migraine Rheumatoid Arthritis Fibromyalgia Discharge Goals: Decrease discomfort, Improve disease control and Improve function Activity: Per 'Additional Instructions' section Exercise/Sports: Gradually increase as tolerated Non-emergency contact: Primary Care Provider and Specialist Call non-emergency contact if: you have any medication questions, your symptoms worsen, your pain is not controlled, your pain is worsening, your pain is unusual for you, your pain is concerning for you and you have a fever Follow-up/Referrals: Cinda Kirby MD [Primary Care Provider] - Diet: Regular Addtl Provider Instructions: Follow up with your PCP Dr. Kirby in 1 week Follow with with your Pathology Collector in 1 week as scheduled Seek immediate medical attention if your symptoms reoccur or worsen Get Outpatient physical Therapy as advised Prescriptions: New oxycodone-acetaminophen [Percocet] 5-325 mg Tablet 1 tab PO Q8H PRN (Reason: pain) Qty: 4 RF: 0 Continued sulfasalazine 500 mg Tablet 1,000 mg PO BID RF: 0 clonazepam 0.5 mg tablet 0.5 mg PO HS RF: 0 midodrine 5 mg tablet 10 mg PO TID RF: 0 valacyclovir 500 mg Tablet 500 mg PO BID PRN (Reason: Other) RF: 0 ketorolac 10 mg tablet 10 mg PO Q6H PRN (Reason: Pain) RF: 0 ranitidine HCl 150 mg Tablet 150 mg PO BID RF: 0 magnesium oxide 500 mg Tablet 500 mg PO QAM RF: 0 docusate sodium [Colace] 100 mg Capsule 200 mg PO BID RF: 0 etodolac 500 mg Tablet 500 mg PO BID RF: 0 Alyacen 1/35 (28) 1-35 mg-mcg Tablet 1 tab PO HS RF: 0 tizanidine [Zanaflex] 2 mg Capsule 2 mg PO TID PRN (Reason: Other) RF: 0 sodium chloride 1,000 mg Tablet,Soluble 2,000 mg PO TID RF: 0 diclofenac sodium 1 % gel 1 applic topical QID PRN (Reason: Pain) RF: 0 Centrum 18-400 mg-mcg Tablet 1 tab PO QAM RF: 0 L.acidophilus-Bifido.longum [Probiotic Pearls] 15 mg (1 billion cell) Capsule,Delayed Release(Dr/Ec) 1 cap PO QAM RF: 0 riboflavin (vitamin B2) 400 mg tablet 400 mg PO QAM RF: 0 sumatriptan succinate 100 mg tablet 100 mg PO DIRECTED PRN (Reason: Migraine Headache) RF: 0 topiramate 25 mg tablet 100 mg PO BID RF: 0 melatonin 3 mg tablet 0.5 tab PO HS RF: 0 trazodone 50 mg Tablet 100 mg PO HS RF: 0 venlafaxine 150 mg Capsule,Extended Release 24hr 300 mg PO DAILY RF: 0 Stand-Alone Forms: [facility] Discharge Orders: Discharge Order (Routine); Ordered 06/10/18 Ordered By: Ariel Petersen Admission Data Admit Date/Time: 06/09/18 14:52 Attending Provider: Ariel Petersen Admit Provider: [place] Primary Care Provider: Cinda Kirby Other Providers: [place] Service: Medical Other Interventions: Discharge Summary Assessment (RN) Last Done: 06/10/18 11:12 Pending Studies at Discharge: No DC Date/Time DO NOT enter until pt leaves facility: 06/10/18 12:00
[2018-06-10] MEDS: VALACYCLOVIR HCL 500 MG TABLET PO SCH (11:05)
--- OUTSIDE RECORDS SUMMARY | 2018-06-12 16:30 | External Medical Summary | Continuity of Care Document ---
:1980 Author Name Terri Cook, Provider Address Unavailable Unavailable , Care Team Providers Name Role Phone Kaelyn Bee [email or web address] NAYELI JOSÉ MIGUEL N Unavailable Unavailable Unavailable Unavailable Unavailable Assessments Assessed Problems:Encounter for routine gynecological examination with Papanicolaou smear of cervixNon-smoker Problems Herpes simplex (054.9) (B00.9) Encounter for routine gynecological exam ination with Papanicolaou smear of cervix (V72.31) (Z01.419) Non-smoker (V49.89) (Z78.9) History of Cervical Conization Loop Electrode Excision Status: Resolved Genital herpes simplex (054.10) (A60.00) Dyspareunia (625.0) History of Severe cervical dysplasia (233.1) (D06.9) Status: Resolved Ill-defined cause of morbidity/mortality (799.89) (R69) Postural hypotension (458.0) (I95.1) Juvenile rheumatoid arthritis (714.30) (M08.00) Depression (311) (F32.9) Pelvic inflammatory disease (614.9) (N73.9) Allergies and Adverse Reactions Codeine Derivatives (Allergy) Status: De nied Darvocet-N 100 TABS (Allergy) Gabapentin TABS (Allergy) Levbid TB12 (Allergy) Metoclopramide HCl TABS (Allergy) Morphine Derivatives (Allergy) Status: D enied Reglan TABS (Allergy) Wellbutrin TABS (Allergy) Adhesive Tape (Allergy) Latex (Allergy) Medications oxyCODONE HCl TABS Refills: 0 valACYclovir HCl - 500 MG Oral Tablet; take 1 tablet b y mouth twice a day Joey Bee Start: 20-Nov-2014 Quantity: 6 Refills: 2 Colace CAPS; TAKE 2 CAPSULES DAILY. Refills: 0 Multi Vitamin/Minerals TABS; TAKE 1 TABLET DAILY.- Centrum S ilver) Refills: 0 Biofreeze 0.2-3.5 % GEL Refills: 0 Tylenol 500 MG CAPS; 2 prn Refills: 0 Etodolac 500 MG Oral Tablet; TAKE 1 TABLET TWICE DAILY. Refills: 0 traZODone HCl - 50 MG Oral Tablet; 3 at HS Refills: 0 Effexor XR 150 MG Oral Capsule Extended Release 24 Timothy r; TAKE 2 CAPSULES DAILY. Refills: 0 sulfaSALAzine 500 MG Oral Tablet; 3 tablets bid Refills: 0 Topamax 25 MG Oral Tablet; TAKE 1 TABLET TWICE DAILY. Refills: 0 Sodium Chloride 1 GM Oral Tablet; TAKE 8 GM Every morning Refills: 0 Toradol Oral 10 MG TABS; prn Refills: 0 Riboflavin TABS; 4 tablets @breakfast Refills: 0 Mag-Ox TABS; 500 mg daily Refills: 0 Midodrine HCl - 5 MG Oral Tablet Refills: 0 Effexor XR 75 MG Oral Capsule Extended Release 24 Hour Refills: 0 Lidocaine 5 % External Ointment; APPLY TO AFFECTED ARE DIRECTED. Joey Miles Start: 18-Aug-2016 Quantity: 1 35.44 GM Tube Refills: 4 Nortrel (28) 1-35 MG-MCG Oral Table t; TAKE ONE TABLET BY MOUTH EVERY DAY, SKIP PLACEBO PILLS. Joey Bee Start: 14-Apr-2017 Quantity: 1 28 Tablet Pack Refills: 11 Zantac 150 MG CAPS Refills: 0 Probiotic CAPS Refills: 0 tiZANidine HCl - 4 MG Oral Tablet Refills: 0 Procedures History of Colposcopy Status: Completed History of Oral Surgery Tooth Extraction Status: Completed History of Appendectomy Status: Complete d History of Knee Arthroscopy (Therapeutic) Status: Completed History of Cervical Conization Loop Electrode Excision Status: Completed Immunizations Immunizations not documented Family History Father Family history of Non-Hodgkin's Lymphoma Status: Active Interventions Labs/Procedures/ImagingTobacco Use Screening; Done: 04 May 2018InstructionsBMI is within normal parameters and no follow up plan is required.; Done: 04 May 2018Follow-ups/ReferralsFollow-up visit in 1 year; Done: 04 May 2018 Plan of Treatment Planned Observations Planned Goals not documented Results No Known Results Results not documented Encounters Appointment; Kaelyn Bee M.D. 02-Jun-2017 15:30 Encounter Diagnosis: Problem not documented Appointment; Kaelyn Bee M.D. 02-May-2017 8:45 Encounter Diagnosis: Problem not documented Appointment; Kaelyn Bee M.D. 04-May-2018 14:15 Encounter Diagnosis: Problem not documented
== END 2018-06-10 12:00 | disposition home or self-care (01) | DRG 103 ==
LOC: ED 11:17 → 4W 11:17 → SUATTDRO 18:41 → 4W 19:48

== ENCOUNTER 2018-06-24 10:38 | Inpatient (IN) ==
[2018-06-24] MEDS ORDERED: HYDROmorphone INJ 1 MG/ML SYRINGE IM STA (11:35)
[2018-06-24] MEDS ORDERED: ONDANSETRON 4 MG OD TAB PO STA (11:35)
--- NOTE | 2018-06-24 12:07 | Ultrasound Report ---
US venous doppler LE RT CLINICAL HISTORY: right DVT PAIN. EDEMA. COMPARISON STUDY: 07/14/2013 FINDINGS: Findings consistent with acute deep venous embolus is of the right proximal to distal super ficial femoral vein. All remaining venous structures are intact. IMPRESSION: Acute deep venous thrombosis involving the right superficial femoral vein. The above report was generated using voice recognition software. It may contain grammatical, syntax or spelling errors. Electronically signed by: Isra Gray M.D. 06/24/2018 12:06 PM
[2018-06-24] MEDS ORDERED: SODIUM CHLORIDE 0.9% 1000ML 1,000 ML IV SCH (12:15)
--- NOTE | 2018-06-24 12:17 | Ultrasound Report ---
US venous doppler LE LT CLINICAL HISTORY: DVT PAIN. EDEMA. COMPARISON STUDY: No previous studies for comparison. FINDINGS: Real-time and color flow Doppler imaging were performed. Flow was seen within the femoral, popliteal and calf veins with no intraluminal thrombus demonstrated. The saphenous vein is patent. IMPRESSION: No evidence of deep venous thrombosis. The above report was generated using voice recognition software. It may contain grammatical, syntax or spelling errors. Electronically signed by: Isra Gray M.D. 06/24/2018 12:15 PM
[2018-06-24 12:53] LABS: Basophils # (auto) 0.01 K/uL (0-0.2); Basophils % (auto) 0.2 %; Eosinophils # (auto) 0.06 K/uL (0-0.5); Hematocrit (blood only) 39.1 % (37-47); Hemoglobin 13.4 g/dL (12.0-16.0); Immature Granulocytes # (auto) 0.01 K/uL (0.00-0.02); Immature Granulocytes % (auto) 0.2 %; Lymphocytes # (auto) 1.84 K/uL (1.2-3.4); Lymphocytes % (auto) 29.2 %; Mean Corpuscular Hgb Conc 34.3 g/dL (32-36); Mean Corpuscular Volume 91.4 fL (80-100); Mean Platelet Volume 9.4 fL (7.4-10.4); Monocytes # (auto) 0.45 K/uL (0.11-0.59); Monocytes % (auto) 7.1 %; Neutrophils # (auto) 3.93 K/uL (1.4-6.5); Neutrophils % (auto) 62.3 %; Platelet Count 179 K/uL (130-400); RDW Standard Deviation 43.3 fL (36.4-46.3); Red Blood Count 4.28 M/uL (4.2-5.4)
[2018-06-24 13:14] LABS: Albumin Level 3.2 gm/dl (3.4-5.0); BUN Creatinine Ratio 15.7 (10-20); Calcium 8.6 mg/dl (8.5-10.1); Est GFR (African American) 98.7; Est GFR (Non-African American) 85.1; Magnesium 2.2 mg/dl (1.8-2.4)
[2018-06-24 13:16] LABS: Partial Thromboplastin Time 27.9 Seconds (21.0-31.0); Prothrombin Time 10.3 Seconds (9.0-12.0)
[2018-06-24 13:24] LABS: Albumin Globulin Ratio 0.9 (0.9-2); Bilirubin,Total 0.4 mg/dl (0.2-1); Globulin 3.7 gm/dl (2.5-4.0); Total Protein 6.9 gm/dl (6.4-8.2)
[2018-06-24] MEDS ORDERED: OPTIRAY 320 125ml IV PRN (13:45)
--- NOTE | 2018-06-24 14:02 | CT Scan Report ---
CT angio chest PE protocol CT DOSE: 262.92 mGy.cm HISTORY: Chest pain PE TECHNIQUE: Multiaxial CT images of the chest were performed following the intravenous administration of contrast to evaluate the pulmonary arteries. Maximal intensity projection images were also obtaine d. A dose lowering technique was utilized adhering to the principles of ALARA. COMPARISON STUDY: None. FINDINGS: The thoracic aorta is normal in course and caliber. Evaluation of pulmonary arterial vasculature demonstrates a large filling defect within the distal ri ght main pulmonary artery. This extends to the right upper as well as right lower lobe pulmonary deann rial distributions. Pulmonary vasculature of the left hemithorax appears to be in general intact. Very small second and t hird order filling defects of the left lower lobe are present. There is no evidence for a saddle embolus. There is no evidence for right heart strain at this time. The lungs specifically are considered clear with no focal infiltrative change. IMPRESSION: 1. Extensive pulmonary emboli involving the right hemithoracic pulmonary arterial vasculature. 2. Smaller emboli involving the left lower lobe pulmonary arterial vasculature. 3. The lungs specifically are clear. The above report was generated using voice recognition software. It may contain grammatical, syntax or spelling errors. Electronically signed by: Isra Gray M.D. 06/24/2018 2:00 PM
[2018-06-24] MEDS ORDERED: HEPARIN 25000 UNIT/500 ML D5W IV ONE (14:16)
[2018-06-24] MEDS ORDERED: HEPARIN SOD (PORCINE) 1000 UNIT/ML 10 ML VIAL ONE (14:16)
[2018-06-24 15:04] LABS: Pregnancy Test, Serum Negative (Negative)
--- NOTE | 2018-06-24 15:30 | History & Physical Report ---
Date of Service June 24, 2018 Assessment & Plan (1) Deep vein thrombosis (DVT) of right lower extremity: (2) Bilateral pulmonary embolism: -Admit to [facility] with telemetry -Patient presenting by referral of outpatient forest fire fighter for evaluation of possible DVT after right knee MRI demonstrated possible filling defect -In the ED, patient found to have RLE DVT and bilateral PE -Noted risk factors: Currently taking OCPs, sedentary state secondary to chronic pain -Check bHCG -Started on heparin in the ED, will continue with transition to Coumadin vs. NOAC -Hold OCP -patient requesting consultation from gynecology as she reports her OCP provides mood stabilization and control of her JRA -Hold NSAIDs given bleeding risk with anticoagulation -No right heart strain shown on CTA chest -Hemodynamically stable, saturating well on room air (3) Pauciarticular juvenile rheumatoid arthritis: (4) Fibromyalgia: -Continue sulfasalazine -Holding NSAIDs as above -Continue home prescribed dose of Percocet, low-dose PRN IV morphine as needed (5) Anxiety and depression: (6) Migraine: -Continue topiramate, trazodone, venlafaxine (7) Orthostatic hypotension: -BP controlled, continue midodrine and sodium chloride tabs (8) DVT prophylaxis: -On IV heparin History of Present Illness Chief Complaint: Right leg pain Primary Care Provider: Cinda Kirby MD 37-year-old female who presents the ED for evaluation of right leg pain. Patient was recently admitted to [facility] 06/06 through 06/10 for migraine and possible rheumatoid arthritis flare. Patient has history of chronic, intermittent bilateral knee pain. Patient follows closely with rheumatology and was evaluated recently for bilateral knee pain and inability to bear weight. Patient underwent MRIs of both knees on 06/23. The MRI of the right knee question possible filling defect and patient was referred to the ER for further evaluation for DVT. Patient reports the left knee pain has been improving how ever the right knee pain has persisted and she continues to be able unable to bear weight. She also reports associated calf pain. Patient is rather sedentary secondary to her chronic pain and sometimes utilizes a wheelchair. Patient also is on OCPs. She denies chest pain shortness of breath. No lightheadedness, dizziness, diaphoresis, syncopal events. She denies abdominal pain, nausea, vomiting, diarrhea. She denies any urinary symptoms. In the ED, patient found found to have RLE DVT and bilateral PE. She is remained hemodynamically stable on the ER and is saturating well on room air. She was started on IV heparin. She was also given IVF, IV Zofran, IM Dilaudid. Allergies Allergy/AdvReac Type Severity Reaction Status Date / Time bupropion Allergy Mild Verified 06/24/18 13:46 metoclopramide Allergy Mild Verified 06/24/18 13:46 adhesive Allergy Unknown RASH Verified 06/24/18 13:46 gabapentin Allergy Unknown SHORTNESS Verified 06/24/18 13:46 OF BREATH hyoscyamine Allergy Unknown SHORTNESS Verified 06/24/18 13:46 OF BREATH/HYPOTENSION infliximab Allergy Unknown HYPOTENSION Verified 06/24/18 13:46 latex Allergy Unknown Verified 06/24/18 13:46 propoxyphene Allergy Unknown Verified 06/24/18 13:46 Home Medications Home Medications Medication Instructions Recorded Confirmed Type Alyacen (28) 1 tab PO HS 03/31/18 06/24/18 History Centrum 1 tab PO QAM 03/31/18 06/24/18 History L.acidophilus-Bifido.longum 1 cap PO QAM 03/31/18 06/24/18 History [Probiotic Pearls] clonazepam 0.5 mg PO HS 03/31/18 06/24/18 History diclofenac sodium 1 applic TOPICAL QID PRN 03/31/18 06/24/18 History docusate sodium [Colace] 200 mg PO BID 03/31/18 06/24/18 History etodolac 500 mg PO BID 03/31/18 06/24/18 History ketorolac 10 mg PO Q6H PRN 03/31/18 06/24/18 History magnesium oxide 500 mg PO QAM 03/31/18 06/24/18 History midodrine 10 mg PO TID 03/31/18 06/24/18 History ranitidine HCl 150 mg PO BID 03/31/18 06/24/18 History riboflavin (vitamin B2) 400 mg PO QAM 03/31/18 06/24/18 History sodium chloride 2,000 mg PO TID 03/31/18 06/24/18 History sulfasalazine 1,000 mg PO BID 03/31/18 06/24/18 History tizanidine [Zanaflex] 2 mg PO TID PRN 03/31/18 06/24/18 History valacyclovir 500 mg PO BID PRN 03/31/18 06/24/18 History sumatriptan succinate 100 mg PO DIRECTED PRN 06/04/18 06/24/18 History melatonin 0.5 tab PO HS 06/06/18 06/24/18 History topiramate 100 mg PO BID 06/06/18 06/24/18 History trazodone 100 mg PO HS 06/06/18 06/24/18 History venlafaxine 300 mg PO DAILY 06/06/18 06/24/18 History oxycodone-acetaminophen [Percocet] 1 tab PO Q6H PRN 06/24/18 06/24/18 History Past Med/Surg History Medical History RSD (reflex sympathetic dystrophy) (Chronic) Pauciarticular juvenile rheumatoid arthritis (Chronic) IBS (irritable bowel syndrome) (Chronic) Fibromyalgia (Chronic) Anxiety and depression (Chronic) Migraine (Chronic) Orthostatic hypotension (Chronic) Surgical History History of appendectomy (Chronic) Family History Father Lymphoma Brother Juvenile rheumatoid arthritis Social History Preferred Language: Cuban Communication Ability: Effective 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 Petersen's addendum for physical exam Results & Data Vital Signs (Past 12 Hours) Vital Signs Temp Pulse Pulse Resp BP BP Pulse Ox 06/24/18 15:15 80 16 125/81 99 06/24/18 14:23 79 18 111/75 100 06/24/18 13:29 67 16 104/67 97 06/24/18 12:49 74 18 111/71 97 06/24/18 10:52 36.9 C 89 18 112/75 97 Laboratory Results Laboratory Last Values WBC 6.30 K/uL (4.8-10.8) 06/24/18 12:37 RBC 4.28 M/uL (4.2-5.4) 06/24/18 12:37 Hgb 13.4 g/dL (12.0-16.0) 06/24/18 12:37 Hct 39.1 % (37-47) 06/24/18 12:37 MCV 91.4 fL (80-100) 06/24/18 12:37 MCH 31.3 pg (25-34) 06/24/18 12:37 MCHC 34.3 g/dL (32-36) 06/24/18 12:37 RDW Std Deviation 43.3 fL (36.4-46.3) 06/24/18 12:37 RDW Coeff of Yandel 13.0 % (11.5-14.5) 06/24/18 12:37 Plt Count 179 K/uL (130-400) 06/24/18 12:37 MPV 9.4 fL (7.4-10.4) 06/24/18 12:37 Immature Gran % (Auto) 0.2 % 06/24/18 12:37 Neut % (Auto) 62.3 % 06/24/18 12:37 Lymph % (Auto) 29.2 % 06/24/18 12:37 Forrest % (Auto) 7.1 % 06/24/18 12:37 Eos % (Auto) 1.0 % 06/24/18 12:37 Baso % (Auto) 0.2 % 06/24/18 12:37 Immature Gran # (Auto) 0.01 K/uL (0.00-0.02) 06/24/18 12:37 Neut # (Auto) 3.93 K/uL (1.4-6.5) 06/24/18 12:37 Lymph # (Auto) 1.84 K/uL (1.2-3.4) 06/24/18 12:37 Forrest # (Auto) 0.45 K/uL (0.11-0.59) 06/24/18 12:37 Eos # (Auto) 0.06 K/uL (0-0.5) 06/24/18 12:37 Baso # (Auto) 0.01 K/uL (0-0.2) 06/24/18 12:37 PT 10.3 Seconds (9.0-12.0) 06/24/18 12:37 INR 1.0 (0.9-1.1) 06/24/18 12:37 APTT 27.9 Seconds (21.0-31.0) 06/24/18 12:37 PTT Ratio 1.0 06/24/18 12:37 Sodium 142 mmol/L (136-145) 06/24/18 12:37 Potassium 4.0 mmol/L (3.5-5.1) 06/24/18 12:37 Chloride 113 mmol/L (98-107) H 06/24/18 12:37 Carbon Dioxide 24 mmol/L (21-32) 06/24/18 12:37 Anion Gap 5.0 (3-11) 06/24/18 12:37 BUN 14 mg/dl (7-18) 06/24/18 12:37 Creatinine 0.88 mg/dl (0.6-1.2) 06/24/18 12:37 Est Cr Clr Drug Dosing 90.0 ml/min 06/24/18 12:37 Est GFR ( Amer) 98.7 06/24/18 12:37 Est GFR (Non-Af Amer) 85.1 06/24/18 12:37 BUN/Creatinine Ratio 15.7 (10-20) 06/24/18 12:37 Glucose 80 mg/dl (70-99) 06/24/18 12:37 Calcium 8.6 mg/dl (8.5-10.1) 06/24/18 12:37 Magnesium 2.2 mg/dl (1.8-2.4) 06/24/18 12:37 Total Bilirubin 0.4 mg/dl (0.2-1) 06/24/18 12:37 AST 8 U/L (15-37) L 06/24/18 12:37 ALT 13 U/L (12-78) 06/24/18 12:37 Alkaline Phosphatase 75 U/L (45-117) 06/24/18 12:37 Total Protein 6.9 gm/dl (6.4-8.2) 06/24/18 12:37 Albumin 3.2 gm/dl (3.4-5.0) L 06/24/18 12:37 Globulin 3.7 gm/dl (2.5-4.0) 06/24/18 12:37 Albumin/Globulin Ratio 0.9 (0.9-2) 06/24/18 12:37 TSH 2.060 uIu/ml (0.300-4.500) 06/24/18 12:37 HCG, Qual Negative (Negative) 06/24/18 12:37 Diagnostic Findings RLE VENOUS DOPPLER IMPRESSION: Acute deep venous thrombosis involving the right superficial femoral vein. LLE VENOUS DOPPLER IMPRESSION: No evidence of deep venous thrombosis. CHEST CTA IMPRESSION: 1. Extensive pulmonary emboli involving the right hemithoracic pulmonary arterial vasculature. 2. Smaller emboli involving the left lower lobe pulmonary arterial vasculature. 3. The lungs specifically are clear. Code Status & VTE Plan VTE Prophylaxis Plan VTE Prophylaxis will be ordered: Yes Supervising Physician Co-Signing Physician Notes Patient is a 37-year-old female with history of rheumatoid arthritis, fibromyalgia, orthostatic hypotension and other problems presents for evaluation of right leg pain. Patient was found to have acute right lower extremity DVT and bilateral PE. Patient is on OCPs and is mostly sedentary due to chronic pain. She currently uses wheelchair for ambulation secondary to inability to be ar weight on her knees. Please review HPI for complete details of presentation. Physical Exam: Vitals signs as noted above General Appearance:Moderately built and nourished, no apparent distress Head: normocephalic, Atraumatic Eyes: normal inspection, EOMI Neck: supple, Trachea midline Respiratory/Chest: Normal breath sounds, CTA Cardiovascular: S1, S2, No murmur Abdomen/GI:Soft, Non tender, Bowel sounds present Extremities/Musculoskelatal:normal inspection, no edema, Right knee decreased ROM, Right calf swelling, mild tender, warm Neurologic/Psych:AAOX3, grossly no focal neurological deficits Skin: normal color, warm Acute DVT/PE: Discontinue OCPs Started on IV Heparin Monitor for bleeding given H/O Internal hemorrhoids Hold NSAIDs due to risk for bleeding No right heart strain on CT Saturating well on room air Screen: Negative Plan to transition to PO Anticoagulation based on Patient's preference Likely will need atleast 6 months of anticoagulation Hypercoagulable work up as outpatient Consulted OBGYN per patient's request Pauciarticular juvenile rheumatoid arthritis Discussed with her Wire Stitcher Machine Will consider pain management consult if knee pain is uncontrolled I personally reviewed the record. Patient is interviewed and examined at bedside. Patient's care is coordinated with Clover Alfredo CLAMP OPERATOR. Please refer to the documentation above for details of patient's presentation and for discussion of other issues. (1) Deep vein thrombosis (DVT) of right lower extremity Affected thrombotic vein of extremity: femoral Chronicity: acute Qualified Code(s): I82.411 - Acute embolism and thrombosis of right femoral vein
[2018-06-24] MEDS ORDERED: Heparin IV Standard *NO* Bolus IV ONE (15:51)
[2018-06-24] MEDS ORDERED: ACETAMINOPHEN 325 MG TAB PO PRN (15:51)
[2018-06-24] MEDS ORDERED: TIZANIDINE 1 MG TABLET PO PRN (15:51)
[2018-06-24] MEDS: Heparin Adult STANDARD Wt-Based Dextrose 5% 25,000 units/500 mL IV SCH (16:13)
[2018-06-24] MEDS: MoRPHine SULFATE 2 MG/ML CARP IV PRN (16:26)
--- NOTE | 2018-06-24 17:12 | Emergency Department Note ---
Entered by Kristel Rolon acting as a scribe for Ilene Lentz MD History of Present Illness General Chief complaint: Leg Injury/Pain Stated complaint: POSSIBLE BLOOD CLOT Source: patient History of Present Illness Onset (ago): day(s) () Location: left (knee) and right (knee) Severity: similar to prior episodes Pain Consistency: + other (Persistent) Maximum Pain Intensity: 10 Current Pain Intensity: 10 Quality: + other (Knee pain) Exacerbated By: + movement Associated symptoms: + other (Positive right knee pain. Negative abdominal pain. ); no chest pain, no nausea/vomiting and no shortness of breath Treatments prior to arrival: other (Percocet) The patient is a 37 year old female presenting to the Emergency Room complaining of persistent knee pain starting 19 days ago. The patient reports that her knees are painful with right knee pain that is worse than her left knee pain. She rates her right knee pain 10/10. She states that she is not able to bear weight on her knees and moving her knees worsens her pain. She notes that she was admit ida to the hospital for these symptoms recently. She adds that she took Percocet this morning that relieved some of pain enough for her to get into the hospital. The patient reports that she had an MRI done of both of her bilateral knees 1 day ago. She states that she was told there is a possible blood clot behind her right knee and that she needed to come to the hospital. The patient denies shortness of breath, chest pain, nausea, vomiting and abdominal pain. Home Medications Home Medications Medication Instructions Recorded Confirmed Type Magalie (28) 1 tab PO HS 03/31/18 06/24/18 History Centrum 1 tab PO QAM 03/31/18 06/24/18 History L.acidophilus-Bifido.longum 1 cap PO QAM 03/31/18 06/24/18 History [Probiotic Pearls] clonazepam 0.5 mg PO HS 03/31/18 06/24/18 History diclofenac sodium 1 applic TOPICAL QID PRN 03/31/18 06/24/18 History docusate sodium [Colace] 200 mg PO BID 03/31/18 06/24/18 History etodolac 500 mg PO BID 03/31/18 06/24/18 History ketorolac 10 mg PO Q6H PRN 03/31/18 06/24/18 History magnesium oxide 500 mg PO QAM 03/31/18 06/24/18 History midodrine 10 mg PO TID 03/31/18 06/24/18 History ranitidine HCl 150 mg PO BID 03/31/18 06/24/18 History riboflavin (vitamin B2) 400 mg PO QAM 03/31/18 06/24/18 History sodium chloride 2,000 mg PO TID 03/31/18 06/24/18 History sulfasalazine 1,000 mg PO BID 03/31/18 06/24/18 History tizanidine [Zanaflex] 2 mg PO TID PRN 03/31/18 06/24/18 History valacyclovir 500 mg PO BID PRN 03/31/18 06/24/18 History sumatriptan succinate 100 mg PO DIRECTED PRN 06/04/18 06/24/18 History melatonin 0.5 tab PO HS 06/06/18 06/24/18 History topiramate 100 mg PO BID 06/06/18 06/24/18 History trazodone 100 mg PO HS 06/06/18 06/24/18 History venlafaxine 300 mg PO DAILY 06/06/18 06/24/18 History oxycodone-acetaminophen [Percocet] 1 tab PO Q6H PRN 06/24/18 06/24/18 History Allergies Allergy/AdvReac Type Severity Reaction Status Date / Time bupropion Allergy Mild Verified 06/24/18 13:46 metoclopramide Allergy Mild Verified 06/24/18 13:46 adhesive Allergy Unknown RASH Verified 06/24/18 13:46 gabapentin Allergy Unknown SHORTNESS Verified 06/24/18 13:46 OF BREATH hyoscyamine Allergy Unknown SHORTNESS Verified 06/24/18 13:46 OF BREATH/HYPOTENSION infliximab Allergy Unknown HYPOTENSION Verified 06/24/18 13:46 latex Allergy Unknown Verified 06/24/18 13:46 propoxyphene Allergy Unknown Verified 06/24/18 13:46 Past Med/Surg History Medical History RSD (reflex sympathetic dystrophy) (Chronic) Pauciarticular juvenile rheumatoid arthritis (Chronic) IBS (irritable bowel syndrome) (Chronic) Fibromyalgia (Chronic) Anxiety and depression (Chronic) Migraine (Chronic) Orthostatic hypotension (Chronic) Surgical History History of appendectomy (Chronic) Family History Father Lymphoma Brother Juvenile rheumatoid arthritis Social History Preferred Language: Tongan Communication Ability: Effective Bath Steward/Stewardess Required: No Beliefs That Will Affect Care: None Current Living Situation: Spouse and Family Other Information That Helps Us Care for You: No Feels Safe at Home: Yes Safety Concerns: Feels Safe At This Time Smoking Status: Never smoker Do You Dip or Chew Tobacco: No Second Hand Exposure: No Tobacco Cessation Education Requested by Patient: No Hx Alcohol Use: Yes Alcohol type: wine Hx Substance Use: No Review of Systems See HPI for pertinent positives & negatives. and A total of 10 systems reviewed and were otherwise negative Physical Exam Vital Signs Vital Signs - 24 hr 06/24/18 19:00 06/24/18 23:11 06/24/18 23:25 Temperature 36.9 C 36.9 C Temperature Source Oral Oral Pulse Rate 80 Pulse Rate [Right Finger] 73 70 Pulse Strength [Right Finger] Normal Respiratory Rate 18 18 Respiratory Depth Normal Blood Pressure [Right Arm] 101/70 89/53 L Blood Pressure Mean [Right Arm] 80 65 Blood Pressure Position [Right Arm] Sitting Pulse Oximetry 96 94 Oxygen Delivery Method Room Air 06/24/18 23:45 06/25/18 03:59 06/25/18 07:00 Temperature 36.4 C L Temperature Source Oral Pulse Rate 55 L Pulse Rate [Right Finger] 63 Pulse Strength [Right Finger] Respiratory Rate 16 Respiratory Depth Blood Pressure [Right Arm] 94/55 L 93/60 L Blood Pressure Mean [Right Arm] 68 71 Blood Pressure Position [Right Arm] Lying Pulse Oximetry 96 Oxygen Delivery Method 06/25/18 08:02 06/25/18 12:00 06/25/18 15:00 Temperature 36.7 C 36.8 C Temperature Source Oral Oral Pulse Rate 77 Pulse Rate [Right Finger] 62 60 Pulse Strength [Right Finger] Respiratory Rate 18 18 Respiratory Depth Blood Pressure [Right Arm] 93/58 L 95/63 L Blood Pressure Mean [Right Arm] 69 73 Blood Pressure Position [Right Arm] Lying Pulse Oximetry 96 94 Oxygen Delivery Method Room Air 06/25/18 16:00 Temperature 37.0 C Temperature Source Oral Pulse Rate Pulse Rate [Right Finger] 79 Pulse Strength [Right Finger] Respiratory Rate 18 Respiratory Depth Blood Pressure [Right Arm] 103/64 Blood Pressure Mean [Right Arm] 77 Blood Pressure Position [Right Arm] Left Lateral Pulse Oximetry 97 Oxygen Delivery Method Room Air Vital signs reviewed. General: Well-appearing 37 year old female, in no significant distress. Pain is out of proportion to exam. HEENT: No scleral icterus, PERRLA, neck supple. Atraumatic. Cardiovascular: Regular rate and rhythm, no extra sounds. Pulmonary: Clear to auscultation bilaterally, normal work of breathing. Abdomen: Soft, nontender, nondistended, positive bowel sounds. Musculoskeletal: Atraumatic, no peripheral edema. Unable to range the right knee due to pain. No swelling or erythema. Neurologic: Patient awake alert and oriented x 3. Skin: Warm, dry, no rash Course 1114: The patient was evaluated in room C3, and a complete history and physical examination were performed. 1238: I updated the patient at this time. 1405: I discussed the patient case with Clover Alfredo PA-C. Dr. Griselda [facility] will evaluate the patient for further management. 1417: I updated the patient at this time about her disposition. Consultations Consultation #1: I discussed the patient case with Clover Alfredo PA-C. Dr[facility] management. Time: 14:05 Administered Medications Clonazepam (Klonopin) 0.5 mg PO HS [facility] Stop: 07/24/18 20:59 Last Admin: 06/24/18 20:42 Dose: 0.5 mg Documented by: [id number] Docusate Sodium (Colace) 200 mg PO BID SAMANTHA Stop: 07/24/18 20:59 Last Admin: 06/25/18 08:28 Dose: 200 mg Documented by: [id number] Admin: 06/24/18 20:38 Dose: 200 mg Documented by: [id number] Enoxaparin Sodium (Lovenox) 80 mg SQ Q12 SAMANTHA Stop: 07/25/18 10:14 Last Admin: 06/25/18 11:53 Dose: 80 mg Documented by: [id number] Lactobacillus Acidophilus (Floranex) 4 tab PO QAM SAMANTHA Stop: 07/25/18 08:59 Last Admin: 06/25/18 08:27 Dose: 4 tab Documented by: [id number] Magnesium Oxide (Mag-Ox) 400 mg PO QAM [facility] Stop: 07/25/18 08:59 Last Admin: 06/25/18 08:28 Dose: 400 mg Documented by: [id number] Midodrine (Proamatine) 10 mg PO TID@0800,1300,1800 [facility] Stop: 07/24/18 17:59 Last Admin: 06/25/18 11:54 Dose: 10 mg Documented by: [id number] Admin: 06/25/18 08:27 Dose: 10 mg Documented by: [id number] Admin: 06/24/18 20:01 Dose: 10 mg Documented by: [id number] Morphine Sulfate (Morphine Sulfate) 2 mg IV Q4H PRN PRN Reason: Pain Stop: 07/08/18 15:50 Last Admin: 06/25/18 11:53 Dose: 2 mg Documented by: [id number] Admin: 06/25/18 03:41 Dose: 2 mg Documented by: [id number] Admin: 06/24/18 16:26 Dose: 2 mg Documented by: [id number] Multivitamins/Minerals (Multivitamin W/ Minerals Tab) 1 tab PO QAM [facility] Stop: 07/25/18 08:59 Last Admin: 06/25/18 08:26 Dose: 1 tab Documented by: [id number] Melatonin 12mg - (Patient's Own Med) 0.5 ea PO HS [facility] Stop: 07/24/18 20:59 Last Admin: 06/24/18 21:16 Dose: 6 mg Documented by: [id number] Oxycodone/Acetaminophen (Percocet 5mg/325mg) 1 tab PO Q6H PRN PRN Reason: pain Stop: 07/08/18 15:50 Last Admin: 06/25/18 08:22 Dose: 1 tab Documented by: [id number] Admin: 06/24/18 20:35 Dose: 1 tab Documented by: [id number] Ranitidine HCl (Zantac) 150 mg PO BID [facility] Stop: 07/24/18 20:59 Last Admin: 06/25/18 08:28 Dose: 150 mg Documented by: [id number] Admin: 06/24/18 20:37 Dose: 150 mg Documented by: [id number] Sodium Chloride (Sodium Chloride) 2 gm PO TID [facility] Stop: 07/24/18 20:59 Last Admin: 06/25/18 11:54 Dose: 2 gm Documented by: [id number] Admin: 06/25/18 08:28 Dose: 2 gm Documented by: [id number] Admin: 06/24/18 20:39 Dose: 2 gm Documented by: [id number] Sulfadiazine (Azulfidine) 1,000 mg PO BID [facility] Stop: 07/24/18 20:59 Last Admin: 06/25/18 08:26 Dose: 1,000 mg Documented by: [id number] Admin: 06/24/18 20:38 Dose: 1,000 mg Documented by: [id number] Tizanidine HCl (Zanaflex) 2 mg PO TID PRN PRN Reason: MUSCLE SPASM Stop: 07/24/18 16:22 Last Admin: 06/25/18 08:26 Dose: 2 mg Documented by: [id number] Admin: 06/24/18 20:42 Dose: 2 mg Documented by: [id number] Topiramate (Topamax) 100 mg PO BID [facility] Stop: 07/24/18 20:59 Last Admin: 06/25/18 08:28 Dose: 100 mg Documented by: [id number] Admin: 06/24/18 20:46 Dose: 100 mg Documented by: [id number] Trazodone HCl (Desyrel) 100 mg PO HS [facility] Stop: 07/24/18 20:59 Last Admin: 06/24/18 20:37 Dose: 100 mg Documented by: [id number] Venlafaxine HCl (Effexor Extended Release) 300 mg PO DAILY [facility] Stop: 07/25/18 08:59 Last Admin: 06/25/18 08:28 Dose: 300 mg Documented by: [id number] Discontinued Medications Heparin Sodium (Porcine) (Heparin Iv Bolus) Confirm Administered Dose 10,000 units .ROUTE .STK-MED ONE Stop: 06/24/18 14:17 Last Admin: 06/24/18 14:21 Dose: 10,000 units Documented by: [id number] Cosigned by: [id number] Heparin Sodium/Dextrose () 1 ea IV NOW STA; Protocol Stop: 06/24/18 14:08 Last Admin: 06/24/18 14:21 Dose: Not Given Documented by: [id number] Heparin Sodium/Dextrose (Heparin Sodium/Dextrose) Confirm Administered Dose 25,000 units IV .STK-MED ONE Stop: 06/24/18 14:17 Last Admin: 06/24/18 14:20 Dose: 25 ml Documented by: [id number] Cosigned by: [id number] Heparin Sodium/Dextrose () 1 ea IV ONE ONE; Protocol Stop: 06/24/18 15:52 Last Admin: 06/24/18 16:13 Dose: 1 ea Documented by: [id number] Hydromorphone HCl (Dilaudid) 1 mg IM NOW STA Stop: 06/24/18 11:36 Last Admin: 06/24/18 11:42 Dose: 1 mg Documented by: [id number] Sodium Chloride (Nss 1000ml) 1,000 mls @ 125 mls/hr IV .Q8H SAMANTHA Stop: 06/24/18 20:14 Last Infusion: 06/24/18 19:55 Dose: 0 mls/hr Documented by: [id number] Admin: 06/24/18 12:48 Dose: 125 mls/hr Documented by: [id number] Heparin Sodium/Dextrose (Heparin Sodium/Dextrose) 25,000 units in 500 mls @ 24 mls/hr IV .[id number] SAMANTHA; Protocol Stop: 07/24/18 15:59 Last Titration: 06/25/18 12:25 Dose: 0 units/hr, 0 mls/hr Documented by: [id number] Cosigned by: [id number] Admin: 06/25/18 08:23 Dose: 1,200 units/hr, 24 mls/hr Documented by: [id number] Cosigned by: [id number] Titration: 06/25/18 08:23 Dose: 1,200 units/hr, 24 mls/hr Documented by: [id number] Cosigned by: [id number] Titration: 06/25/18 07:01 Dose: 1,250 units/hr, 25 mls/hr Documented by: [id number] Cosigned by: [id number] Titration: 06/24/18 22:51 Dose: 1,250 units/hr, 25 mls/hr Documented by: [id number] Cosigned by: [id number] Admin: 06/24/18 16:13 Dose: 1,250 units/hr, 25 mls/hr Documented by: [id number] Cosigned by: [id number] Ioversol (Optiray 320 125ml) 119 ml IV ONCE PRN PRN Reason: Interaction Checking Stop: 06/28/18 13:44 Last Admin: 06/24/18 13:45 Dose: 119 ml Documented by: [id number] Ondansetron HCl (Zofran Odt) 4 mg PO NOW STA Stop: 06/24/18 11:36 Last Admin: 06/24/18 11:42 Dose: 4 mg Documented by: [id number] Medical Decision Making Differential Diagnosis Differential diagnosis: Etiologies such as DVT, vascular ischemia, radiculopathy, fracture, hematoma/contusion, myositis, abscess, septic arthritis cellulitis, joint effusion, trauma, lymphedema, idiopathic, CHF, as well as others were entertained. Medical Records Attestation: I reviewed the patient's medical records. Home Medications Current Medication List: was personally reviewed by me Laboratory Data Attestation: I reviewed the patient's lab results. Result diagrams: 06/25/18 06:53 06/25/18 06:53 Lab Results 06/24/18 06/24/18 06/24/18 Range/Units 12:37 12:37 12:37 WBC 6.30 (4.8-10.8) K/uL RBC 4.28 (4.2-5.4) M/uL Hgb 13.4 (12.0-16.0) g/dL Hct 39.1 (37-47) % MCV 91.4 (80-100) fL MCH 31.3 (25-34) pg MCHC 34.3 (32-36) g/dL RDW Std Deviation 43.3 (36.4-46.3) fL RDW Coeff of Yandel 13.0 (11.5-14.5) % Plt Count 179 (130-400) K/uL MPV 9.4 (7.4-10.4) fL Immature Gran % (Auto) 0.2 % Neut % (Auto) 62.3 % Lymph % (Auto) 29.2 % Butler % (Auto) 7.1 % Eos % (Auto) 1.0 % Baso % (Auto) 0.2 % Immature Gran # (Auto) 0.01 (0.00-0.02) K/uL Neut # (Auto) 3.93 (1.4-6.5) K/uL Lymph # (Auto) 1.84 (1.2-3.4) K/uL Butler # (Auto) 0.45 (0.11-0.59) K/uL Eos # (Auto) 0.06 (0-0.5) K/uL Baso # (Auto) 0.01 (0-0.2) K/uL PT 10.3 (9.0-12.0) Seconds INR 1.0 (0.9-1.1) APTT 27.9 (21.0-31.0) Seconds PTT Ratio 1.0 Sodium 142 (136-145) mmol/L Potassium 4.0 (3.5-5.1) mmol/L Chloride 113 H (98-107) mmol/L Carbon Dioxide 24 (21-32) mmol/L Anion Gap 5.0 (3-11) BUN 14 (7-18) mg/dl Creatinine 0.88 (0.6-1.2) mg/dl Est Cr Clr Drug Dosing 90.0 ml/min Est GFR ( Amer) 98.7 Est GFR (Non-Af Amer) 85.1 BUN/Creatinine Ratio 15.7 (10-20) Glucose 80 (70-99) mg/dl Calcium 8.6 (8.5-10.1) mg/dl Magnesium 2.2 (1.8-2.4) mg/dl Total Bilirubin 0.4 (0.2-1) mg/dl AST 8 L (15-37) U/L ALT 13 (12-78) U/L Alkaline Phosphatase 75 (45-117) U/L Total Protein 6.9 (6.4-8.2) gm/dl Albumin 3.2 L (3.4-5.0) gm/dl Globulin 3.7 (2.5-4.0) gm/dl Albumin/Globulin Ratio 0.9 (0.9-2) TSH 2.060 (0.300-4.500) uIu/ml HCG, Qual (Negative) Urine Color Urine Appearance (Clear) Urine pH (4.5-7.5) Ur Specific [place] (1.000-1.030) Urine Protein (Negative) Urine Glucose (UA) (Negative) Urine Ketones (Negative) Urine Blood (Negative) Urine Nitrite (Negative) Urine Bilirubin (Negative) Urine Urobilinogen (Negative) Ur Leukocyte Esterase (Negative) Urine RBC (0-4) /hpf Urine WBC (0-5) /hpf Ur Epithelial Cells (0-5) /lpf Urine Bacteria (Negative) Urine Yeast (None Prsent) 06/24/18 06/24/18 06/24/18 Range/Units 12:37 21:47 Unknown WBC (4.8-10.8) K/uL RBC (4.2-5.4) M/uL Hgb (12.0-16.0) g/dL Hct (37-47) % MCV (80-100) fL MCH (25-34) pg MCHC (32-36) g/dL RDW Std Deviation (36.4-46.3) fL RDW Coeff of Yandel (11.5-14.5) % Plt Count (130-400) K/uL MPV (7.4-10.4) fL Immature Gran % (Auto) % Neut % (Auto) % Lymph % (Auto) % [place] % (Auto) % Eos % (Auto) % Baso % (Auto) % Immature Gran # (Auto) (0.00-0.02) K/uL Neut # (Auto) (1.4-6.5) K/uL Lymph # (Auto) (1.2-3.4) K/uL Butler # (Auto) (0.11-0.59) K/uL Eos # (Auto) (0-0.5) K/uL Baso # (Auto) (0-0.2) K/uL PT (9.0-12.0) Seconds INR (0.9-1.1) APTT 49.7 H* (21.0-31.0) Seconds PTT Ratio 1.8 Sodium (136-145) mmol/L Potassium (3.5-5.1) mmol/L Chloride (98-107) mmol/L Carbon Dioxide (21-32) mmol/L Anion Gap (3-11) BUN (7-18) mg/dl Creatinine (0.6-1.2) mg/dl Est Cr Clr Drug Dosing ml/min Est GFR ( Amer) Est GFR (Non-Af Amer) BUN/Creatinine Ratio (10-20) Glucose (70-99) mg/dl Calcium (8.5-10.1) mg/dl Magnesium (1.8-2.4) mg/dl Total Bilirubin (0.2-1) mg/dl AST (15-37) U/L ALT (12-78) U/L Alkaline Phosphatase (45-117) U/L Total Protein (6.4-8.2) gm/dl Albumin (3.4-5.0) gm/dl Globulin (2.5-4.0) gm/dl Albumin/Globulin Ratio (0.9-2) TSH (0.300-4.500) uIu/ml HCG, Qual Negative (Negative) Urine Color Yellow Urine Appearance Clear (Clear) Urine pH 7.0 (4.5-7.5) Ur Specific [place] 1.010 (1.000-1.030) Urine Protein Negative (Negative) Urine Glucose (UA) Negative (Negative) Urine Ketones Negative (Negative) Urine Blood Negative (Negative) Urine Nitrite Negative (Negative) Urine Bilirubin Negative (Negative) Urine Urobilinogen Negative (Negative) Ur Leukocyte Esterase 1+ H (Negative) Urine RBC 0-4 (0-4) /hpf Urine WBC 10-30 H (0-5) /hpf Ur Epithelial Cells >30 H (0-5) /lpf Urine Bacteria Negative (Negative) Urine Yeast Present A (None Prsent) 06/25/18 06/25/18 06/25/18 Range/Units 06:53 06:53 06:53 WBC 5.92 (4.8-10.8) K/uL RBC 3.75 L (4.2-5.4) M/uL Hgb 11.7 L (12.0-16.0) g/dL Hct 34.4 L (37-47) % MCV 91.7 (80-100) fL MCH 31.2 (25-34) pg MCHC 34.0 (32-36) g/dL RDW Std Deviation 43.4 (36.4-46.3) fL RDW Coeff of Yandel 13.0 (11.5-14.5) % Plt Count 162 (130-400) K/uL MPV 9.5 (7.4-10.4) fL Immature Gran % (Auto) % Neut % (Auto) % Lymph % (Auto) % [place] % (Auto) % Eos % (Auto) % Baso % (Auto) % Immature Gran # (Auto) (0.00-0.02) K/uL Neut # (Auto) (1.4-6.5) K/uL Lymph # (Auto) (1.2-3.4) K/uL [place] # (Auto) (0.11-0.59) K/uL Eos # (Auto) (0-0.5) K/uL Baso # (Auto) (0-0.2) K/uL PT (9.0-12.0) Seconds INR (0.9-1.1) APTT 69.2 H* (21.0-31.0) Seconds PTT Ratio 2.6 Sodium 141 (136-145) mmol/L Potassium 4.0 (3.5-5.1) mmol/L Chloride 111 H (98-107) mmol/L Carbon Dioxide 24 (21-32) mmol/L Anion Gap 5.0 (3-11) BUN 12 (7-18) mg/dl Creatinine 0.91 (0.6-1.2) mg/dl Est Cr Clr Drug Dosing 87.0 ml/min Est GFR ( Amer) 94.7 Est GFR (Non-Af Amer) 81.7 BUN/Creatinine Ratio 13.3 (10-20) Glucose 91 (70-99) mg/dl Calcium 8.5 (8.5-10.1) mg/dl Magnesium (1.8-2.4) mg/dl Total Bilirubin (0.2-1) mg/dl AST (15-37) U/L ALT (12-78) U/L Alkaline Phosphatase (45-117) U/L Total Protein (6.4-8.2) gm/dl Albumin (3.4-5.0) gm/dl Globulin (2.5-4.0) gm/dl Albumin/Globulin Ratio (0.9-2) TSH (0.300-4.500) uIu/ml HCG, Qual (Negative) Urine Color Urine Appearance (Clear) Urine pH (4.5-7.5) Ur Specific [place] (1.000-1.030) Urine Protein (Negative) Urine Glucose (UA) (Negative) Urine Ketones (Negative) Urine Blood (Negative) Urine Nitrite (Negative) Urine Bilirubin (Negative) Urine Urobilinogen (Negative) Ur Leukocyte Esterase (Negative) Urine RBC (0-4) /hpf Urine WBC (0-5) /hpf Ur Epithelial Cells (0-5) /lpf Urine Bacteria (Negative) Urine Yeast (None Prsent) Imaging Data Radiologist's Impression: Radiology results as stated below per my review and the radiologist's interpretation: US venous doppler LE RT CLINICAL HISTORY: right DVT PAIN. EDEMA. COMPARISON STUDY: 07/14/2013 FINDINGS: Findings consistent with acute deep venous embolus is of the right proximal to distal superficial femoral vein. All remaining venous structures are intact. IMPRESSION: Acute deep venous thrombosis involving the right superficial femoral vein. The above report was generated using voice recognition software. It may contain grammatical, syntax or spelling errors. Electronically signed by: Isra Gray M.D. 06/24/2018 12:06 PM US venous doppler LE LT CLINICAL HISTORY: DVT PAIN. EDEMA. COMPARISON STUDY: No previous studies for comparison. FINDINGS: Real-time and color flow Doppler imaging were performed. Flow was seen within the femoral, popliteal and calf veins with no intraluminal thrombus demonstrated. The saphenous vein is patent. IMPRESSION: No evidence of deep venous thrombosis. The above report was generated using voice recognition software. It may contain grammatical, syntax or spelling errors. Electronically signed by: Isra Gray M.D. 06/24/2018 12:[address] angio chest PE protocol CT DOSE: 262.92 mGy.cm HISTORY: Chest pain PE TECHNIQUE: Multiaxial CT images of the chest were performed following the intravenous administration of contrast to evaluate the pulmonary arteries. Maximal intensity projection images were also obtained. A dose lowering tech nique was utilized adhering to the principles of ALARA. COMPARISON STUDY: None. FINDINGS: The thoracic aorta is normal in course and caliber. Evaluation of pulmonary arterial vasculature demonstrates a large filling defect within the distal right main pulmonary artery. This extends to the right upper as well as right lower lobe pulmonary arterial distributions. Pulmonary vasculature of the left hemithorax appears to be in general intact. Very small second and third order filling defects of the left lower lobe are present. There is no evidence for a saddle embolus. There is no evidence for right heart strain at this time. The lungs specifically are considered clear with no focal infiltrative change. IMPRESSION: 1. Extensive pulmonary emboli involving the right hemithoracic pulmonary arterial vasculature. 2. Smaller emboli involving the left lower lobe pulmonary arterial vasculature. 3. The lungs specifically are clear. The above report was generated using voice recognition software. It may contain grammatical, syntax or spelling errors. Electronically signed by: Isra Gray M.D. 06/24/2018 2:00 PM ECG Data Attestation: I personally reviewed and interpreted this ECG as follows: Indication: other (Possible DVT) Rate (beats per minute): 67 Rhythm: normal sinus Findings: + other (Previous anterior infarct.); no acute ischemic change and no ectopy Blood Pressure Blood Pressure Findings: Normal blood pressure Blood Pressure Disposition: further management by hospitalist MDM Narrative This patient was evaluated and appeared to be in no significant distress. Physical examination reveals tenderness to the right knee diffusely. There is no swelling, no bruising no evidence of trauma. The patient's pain seems markedly out of proportion to the exam. Radiology studies from the [facility] system were obtained and the right knee MRI does recommend follow-up regarding possible DVT of the right lower extremity. This study was performed, the patient was medicated with IM Dilaudid and p.o. Zofran. Studies positive for a large superficial femoral vein DVT. The etiology of this DVT is likely coming from the patient's perception that she is unable to bear weight. She has been in a wheelchair. CT scan of the chest was performed and reveals extensive bilateral pulmonary emboli despite the patient's normal vital signs. Laboratory work is fairly reassuring. The patient was started on heparin drip. She was discussed with the hospitalist service for admission and further management. Patient and her are aware of the plan and agree. Impression & Plan Bilateral pulmonary embolism, Deep vein thrombosis (DVT) of right lower extremity Critical Care Time I have personally spent greater than 30 minutes of critical care time in the direct management of this patient. This includes bedside care, interpretation of diagnostic studies, and testing, discussion with consultants, patient, and family members, and other required patient management activities. This 30 minutes is in excess of all separately billable procedures. Critical Care Time: Yes Total Critical Care Time: 30 Discharge Plan Visit Data *Final* Discharge Date/Time: 06/24/18 15:15 Chief Complaint: Leg Injury/Pain Stated Complaint: POSSIBLE BLOOD CLOT ED Provider: Ilene Lentz Discharge Problem: Bilateral pulmonary embolism, Deep vein thrombosis (DVT) of right lower extremity Patient Disposition: Admitted As Inpatient Discharge Instructions Interventions: ED Discharge Assessment Last Done: 06/24/18 15:15 Discharge Problem: Deep vein thrombosis (DVT) of right lower extremity Qualifiers: Affected thrombotic vein of extremity: femoral Chronicity: acute Qualified Code(s): I82.411 - Acute embolism and thrombosis of right femoral vein The scribe's documentation has been prepared under my direction and personally reviewed by me in its entirety. I confirm that the note above accurately reflects all work, treatment, procedures, and medical decision making performed by me.
[2018-06-24] MEDS: MIDODRINE HCL 10 MG TAB PO SCH (20:01)
[2018-06-24] MEDS: OXYCODONE/ACETAMINOPHEN 5mg/325mg TAB PO PRN (20:35)
[2018-06-24] MEDS: TRAZODONE HCL 100 MG TAB PO SCH (20:37)
[2018-06-24] MEDS: DOCUSATE SODIUM 100 MG CAP PO SCH (20:38)
[2018-06-24] MEDS: sulfaSALAzine 500 MG TABLET PO SCH (20:38)
[2018-06-24] MEDS: SODIUM CHLORIDE 1 GM TABLET PO SCH (20:39)
[2018-06-24] MEDS: TIZANIDINE HCL 4 MG TABLET PO PRN (20:42)
[2018-06-24] MEDS: clonazePAM 0.5 MG TAB PO SCH (20:42)
[2018-06-24] MEDS: TOPIRAMATE 100 MG TAB PO SCH (20:46)
[2018-06-24] MEDS: MELATONIN 12 MG PO SCH (21:16)
[2018-06-24 21:30] LABS: Appearance Urine Clear (Clear); Blood Urine Negative (Negative); Color Urine Yellow; Glucose Urine UA Negative (Negative); Ketones Urine Negative (Negative); Leukocyte Esterase Urine 1+ (Negative); Nitrite Urine Negative (Negative); Protein Urine Negative (Negative); Urobilinogen Urine Negative (Negative)
[2018-06-24 22:18] LABS: Bilirubin Urine Negative (Negative); Ictotest Urine Negative (Negative)
[2018-06-24 22:19] LABS: Epithelial Cell Urine >30 /lpf (0-5); RBC Urine 0-4 /hpf (0-4)
[2018-06-24 22:20] LABS: Bacteria Urine Negative (Negative)
[2018-06-24 22:29] LABS: Partial Thromboplastin Ratio 1.8
[2018-06-24 22:33] LABS: Partial Thromboplastin Time 49.7 Seconds (21.0-31.0)
[2018-06-25] MEDS ORDERED: MELATONIN - ORDER AWAITING ACTION SCH
[2018-06-25] MEDS: MoRPHine SULFATE 2 MG/ML CARP IV PRN ×3 (03:41→20:02)
[2018-06-25 07:19] LABS: Hematocrit (blood only) 34.4 % (37-47); Hemoglobin 11.7 g/dL (12.0-16.0); Mean Corpuscular Volume 91.7 fL (80-100); Mean Platelet Volume 9.5 fL (7.4-10.4); Platelet Count 162 K/uL (130-400); RDW Standard Deviation 43.4 fL (36.4-46.3); Red Blood Count 3.75 M/uL (4.2-5.4); White Blood Count 5.92 K/uL (4.8-10.8)
[2018-06-25 07:38] LABS: Partial Thromboplastin Ratio 2.6
[2018-06-25 07:46] LABS: BUN Creatinine Ratio 13.3 (10-20); Calcium 8.5 mg/dl (8.5-10.1); Est GFR (African American) 94.7; Est GFR (Non-African American) 81.7
[2018-06-25 07:50] LABS: Partial Thromboplastin Time 69.2 Seconds (21.0-31.0)
[2018-06-25] MEDS: OXYCODONE/ACETAMINOPHEN 5mg/325mg TAB PO PRN (08:22)
[2018-06-25] MEDS: Heparin Adult STANDARD Wt-Based Dextrose 5% 25,000 units/500 mL IV SCH (08:23)
[2018-06-25] MEDS: TIZANIDINE HCL 4 MG TABLET PO PRN ×2 (08:26→20:41)
[2018-06-25] MEDS: CEROVITE ADV FORMULA TAB PO SCH (08:26)
[2018-06-25] MEDS: sulfaSALAzine 500 MG TABLET PO SCH ×2 (08:26→20:40)
[2018-06-25] MEDS: LACTOBACILLUS ACIDOPHILUS (FLORANEX) TAB PO SCH (08:27)
[2018-06-25] MEDS: MIDODRINE HCL 10 MG TAB PO SCH ×3 (08:27→17:03)
[2018-06-25] MEDS: SODIUM CHLORIDE 1 GM TABLET PO SCH ×3 (08:28→20:39)
[2018-06-25] MEDS: VENLAFAXINE HCL XR 150 MG CAPXR PO SCH (08:28)
[2018-06-25] MEDS: MAGNESIUM OXIDE 400 MG TAB PO SCH (08:28)
[2018-06-25] MEDS: TOPIRAMATE 100 MG TAB PO SCH ×2 (08:28→20:42)
[2018-06-25] MEDS: DOCUSATE SODIUM 100 MG CAP PO SCH ×2 (08:28→20:42)
[2018-06-25] MEDS ORDERED: NON-FORMULARY MEDICATION (Riboflavin (Vitamin B2) 400 MG) PO SCH (09:00)
--- NOTE | 2018-06-25 11:42 | Consultation Report ---
DATE OF CONSULTATION: 06/25/2018 REASON FOR CONSULTATION: To discuss control options. BRIEF HISTORY: Karina is a 37-year-old G0 who presented to the ED and was noted to have a significant DVT and PE in the setting of current continuous OCP use. The patient reports that she has been using OCPs since she was in her teens secondary to for both control as well as to help stabilize mood and prevent her from having cycles secondary to significant mood issues during her menstrual cycles. The patient has had no prior issues with her OCPs and denies any significant side effects prior to this visit. In discussion with Karina today, we did discuss that OCPs are a risk factor for developing blood clots and that once a blood clot has been formed, they become contraindicated and can no longer be used for control or preventing periods. We discussed various other forms of hormone regulation for her menstrual cycles, which would be progesterone-only in formulation. ACTIVE PROBLEMS: 1. Current admission for DVT, PE. 2. History of depression and anxiety. 3. Juvenile rheumatoid arthritis. 4. Fibromyalgia. 5. Chronic pelvic pain and dyspareunia. PAST SURGICAL HISTORY: 1. Appendectomy. 2. Cervical LEEP procedure. 3. Colposcopy. 4. Knee arthroscopy. 5. Oral tooth extraction. FAMILY HISTORY: Noncontributory to current admission. SOCIAL HISTORY: The patient denies tobacco use. MEDICATIONS: See EMR as the list is extensive. ALLERGIES: See EMR as the list is extensive. PHYSICAL EXAMINATION: VITAL SIGNS: Blood pressure 93/58, pulse 62, respiratory rate 18, temperature 98.1, O2 96% on room air. Remainder of exam was deferred by the patient today. ASSESSMENT AND PLAN: Mr. Moreno is a 37-year-old 0 who is admitted for an acute deep venous thrombosis/pulmonary embolism. The patient has been on continuous oral contraceptive pills since she was a teenager and has taken for both control as well as mood stabilization and prevention of cycles. We did discuss that combined pills containing estrogen were contraindicated with current history of blood clot formation. We discussed further management options for prevention of her menstrual cycle, which would also hopefully work as a mood stabilizer for her as well. We discussed that progesterone-only formulations would be available to her and are safe in the setting of acute pulmonary embolism or deep venous thrombosis as well as long-term use with history of deep venous thrombosis/pulmonary embolism. The various forms of progesterone-only contraception were discussed including the minipill versus the higher dose norethindrone. We did discuss that higher dose norethindrones of 5 or 10 mg daily typically do a better job of preventing periods, but can cause mood issues as well as weight gain and acne at higher rates than the mini pill. We also discussed Depo-Provera as well as progesterone-containing intrauterine devices. In the acute setting that since she is in house, the intrauterine devices are unavailable at present; however, a progesterone-only pill as well as Depo-Provera would be available options. We discussed that in the acute setting that starting with the pill would probably be the easiest way to proceed as she could start this today. A prescription for norethindrone 0.35 was sent to the pharmacy of patient's choice. She will have a family member fish bait picker the prescription for her and bring it to the hospital. I recommended that she take 2 tablets today and then 1 tablet daily thereafter. I recommend that she call clinic to schedule to discuss control options available to her in more detail as well as scheduling for intrauterine device if she preferred. The patient was agreeable to plan. Prescription was sent to the pharmacy. JOHNNY
[2018-06-25] MEDS: ENOXAPARIN 80 MG/0.8 ML SYR SQ SCH ×2 (11:53→20:39)
--- NOTE | 2018-06-25 12:31 | Hospitalist Progress Note ---
Date of Service June 25, 2018 Assessment & Plan (1) Deep vein thrombosis (DVT) of right lower extremity: (2) Bilateral pulmonary embolism: Acute RLE DVT Acute B/L PE CTA:Extensive pulmonary emboli involving the right hemithoracic pulmonary arterial vasculature. Smaller emboli involving the left lower lobe pulmonary arterial vasculature. The lungs specifically are clear. Venous Doppler:Acute deep venous thrombosis involving the right superficial femoral vein. Screen: Negative No right heart strain on CT IV heparin>>> transitioned to Lovenox SQ and Coumadin Denies any bleeding issues currently Monitor for bleeding given H/O Internal hemorrhoids Estrogen containing OCPs; Etodolac, Ketorolac held Avoid NSAIDs Saturating well on room air Hypercoagulable work up as outpatient Monitor PT/INR Needs follow up with Coumadin clinic upon discharge (3) Pauciarticular juvenile rheumatoid arthritis: Etodolac, Ketorolac held due to increased risk for bleeding Continue Sulfasalazine Tizanidine PRN Percocet PRN (4) Fibromyalgia: Continue sulfasalazine Holding NSAIDs due to high risk for bleeding Continue Percocet IV morphine PRN (5) Anxiety and depression: (6) Migraine: Continue topiramate, trazodone, venlafaxine (7) Orthostatic hypotension: Continue midodrine and sodium chloride tabs Contraception: DC Estrogen containing OCPs Appreciate OBGYN Input Plan to be started on norethindrone 0.35--to take 2 tablets today, then 1 daily starting tmw Needs FU with OBGYN upon discharge (8) DVT prophylaxis: Lovenox, coumadin Subjective Patient is seen and examined at bedside Complains of right knee pain Denies any chest pain, SOB, dizziness Offers no other complaints Agrees to be transitioned to lovenox and coumadin Review of Systems Review of Systems: All systems reviewed & are unremarkable except as noted in HPI & below Physical Exam Physical Exam: Physical Exam: Vitals signs as noted above General Appearance:Moderately built and nourished, no apparent distress Head: normocephalic, Atraumatic Eyes: normal inspection, EOMI Neck: supple, Trachea midline Respiratory/Chest: Normal breath sounds, CTA Cardiovascular: S1, S2, No murmur Abdomen/GI:Soft, Non tender, Bowel sounds present Extremities/Musculoskelatal:normal inspection, no edema, Right knee decreased ROM, Right calf swelling, mild tender, warm Neurologic/Psych:AAOX3, grossly no focal neurological deficits Skin: normal color, warm Results & Data Vital Signs (Past 12 Hours) Vital Signs Temp Pulse Resp BP Pulse Ox 06/25/18 08:02 36.7 C 62 18 93/58 L 96 06/25/18 03:59 36.4 C L 63 16 93/60 L 96 Laboratory Results Short CBC 06/24/18 06/25/18 Range/Units 12:37 06:53 WBC 6.30 5.92 (4.8-10.8) K/uL Hgb 13.4 11.7 L (12.0-16.0) g/dL Hct 39.1 34.4 L (37-47) % Plt Count 179 162 (130-400) K/uL BMP 06/24/18 06/25/18 12:37 06:53 Sodium 142 141 Potassium 4.0 4.0 Chloride 113 H 111 H Carbon Dioxide 24 24 BUN 14 12 Creatinine 0.88 0.91 Glucose 80 91 Calcium 8.6 8.5 Liver Function 06/24/18 Range/Units 12:37 Total Bilirubin 0.4 (0.2-1) mg/dl AST 8 L (15-37) U/L ALT 13 (12-78) U/L Alkaline Phosphatase 75 (45-117) U/L Albumin 3.2 L (3.4-5.0) gm/dl Urine 06/24/18 Range/Units Unknown Urine Color Yellow Urine Appearance Clear (Clear) Urine pH 7.0 (4.5-7.5) Ur Specific [place] 1.010 (1.000-1.030) Urine Protein Negative (Negative) Urine Glucose (UA) Negative (Negative) (1) Deep vein thrombosis (DVT) of right lower extremity Affected thrombotic vein of extremity: femoral Chronicity: acute Qualified Code(s): I82.411 - Acute embolism and thrombosis of right femoral vein
[2018-06-25] MEDS ORDERED: WARFARIN SOD 5 MG TAB PO SCH (16:00)
[2018-06-25] MEDS ORDERED: Nursing to Pharmacy Communication ONE (16:33)
[2018-06-25] MEDS ORDERED: NORETHINDRONE 0.35 MG PO SCH (17:15)
[2018-06-25] MEDS ORDERED: CONTRACEPTIVE PO SCH (17:15)
[2018-06-25] MEDS: RIBOFLAVIN 400 MG PO SCH (18:29)
[2018-06-25] MEDS: clonazePAM 0.5 MG TAB PO SCH (20:38)
[2018-06-25] MEDS: TRAZODONE HCL 100 MG TAB PO SCH (20:42)
[2018-06-25] MEDS: MELATONIN 12 MG PO SCH (20:43)
[2018-06-26] MEDS: MoRPHine SULFATE 2 MG/ML CARP IV PRN ×2 (01:44→12:04)
[2018-06-26 06:58] LABS: Hematocrit (blood only) 36.5 % (37-47); Mean Corpuscular Hgb Conc 32.9 g/dL (32-36); Mean Corpuscular Volume 91.5 fL (80-100); Mean Platelet Volume 9.6 fL (7.4-10.4); Platelet Count 172 K/uL (130-400); RDW Coefficient of Variation 13.1 % (11.5-14.5); RDW Standard Deviation 43.6 fL (36.4-46.3); Red Blood Count 3.99 M/uL (4.2-5.4); White Blood Count 5.08 K/uL (4.8-10.8)
[2018-06-26 07:18] LABS: Prothrombin Time 10.2 Seconds (9.0-12.0)
[2018-06-26 07:26] LABS: Creatinine Clr Calc Pharmacy 103.4 ml/min; Est GFR (African American) 104.4
[2018-06-26 07:37] VITALS: O2SAT 97
[2018-06-26] MEDS: VENLAFAXINE HCL XR 150 MG CAPXR PO SCH (07:58)
[2018-06-26] MEDS: LACTOBACILLUS ACIDOPHILUS (FLORANEX) TAB PO SCH (07:59)
[2018-06-26] MEDS: DOCUSATE SODIUM 100 MG CAP PO SCH (07:59)
[2018-06-26] MEDS: ENOXAPARIN 80 MG/0.8 ML SYR SQ SCH (08:01)
[2018-06-26] MEDS: MIDODRINE HCL 10 MG TAB PO SCH (08:01)
[2018-06-26] MEDS: sulfaSALAzine 500 MG TABLET PO SCH (08:02)
[2018-06-26] MEDS: TOPIRAMATE 100 MG TAB PO SCH (08:02)
[2018-06-26] MEDS: SODIUM CHLORIDE 1 GM TABLET PO SCH (08:03)
[2018-06-26] MEDS: MAGNESIUM OXIDE 400 MG TAB PO SCH (08:03)
[2018-06-26] MEDS: CEROVITE ADV FORMULA TAB PO SCH (08:04)
[2018-06-26] MEDS: RIBOFLAVIN 400 MG PO SCH (08:04)
[2018-06-26] MEDS ORDERED: Nursing to Pharmacy Communication ONE (08:06)
[2018-06-26] MEDS ORDERED: CONTRACEPTIVE PO SCH ×2 (09:00→21:00)
[2018-06-26] MEDS ORDERED: NORETHINDRONE 0.35 MG PO SCH ×2 (09:00→21:00)
[2018-06-26 11:35] VITALS: BP 116/72; TEMP 98.6
--- NOTE | 2018-06-26 12:02 | Hospitalist Progress Note ---
Date of Service June 26, 2018 Assessment & Plan (1) Deep vein thrombosis (DVT) of right lower extremity: (2) Bilateral pulmonary embolism: Acute RLE DVT Acute B/L PE CTA:Extensive pulmonary emboli involving the right hemithoracic pulmonary arterial vasculature. Smaller emboli involving the left lower lobe pulmonary arterial vasculature. The lungs specifically are clear. Venous Doppler:Acute deep venous thrombosis involving the right superficial femoral vein. Screen: Negative No right heart strain on CT IV heparin>>> transitioned to Lovenox SQ and Coumadin Denies any bleeding issues currently Monitor for bleeding given H/O Internal hemorrhoids Estrogen containing OCPs; Etodolac, Ketorolac discontinued Avoid NSAIDs Saturating well on room air Hypercoagulable work up as outpatient Monitor PT/INR:1.0 today Will give Coumadin 5mg today Needs follow up with Coumadin clinic upon discharge (3) Pauciarticular juvenile rheumatoid arthritis: Etodolac, Ketorolac held due to increased risk for bleeding Continue Sulfasalazine Tizanidine PRN Percocet PRN (4) Fibromyalgia: Continue sulfasalazine Holding NSAIDs due to high risk for bleeding Continue Percocet IV morphine PRN (5) Anxiety and depression: (6) Migraine: Continue topiramate, trazodone, venlafaxine (7) Orthostatic hypotension: Continue midodrine and sodium chloride tabs Contraception: DC Estrogen containing OCPs Appreciate OBGYN Input Continue norethindrone 0.35 daily Needs FU with OBGYN upon discharge (8) DVT prophylaxis: Lovenox, coumadin Subjective Patient is seen and examined at bedside Denies any bleeding issues Right leg swelling improved Complains of chronic right knee pain Denies any chest pain, SOB, dizziness Offers no other complaints Family at bedside Review of Systems Review of Systems: All systems reviewed & are unremarkable except as noted in HPI & below Physical Exam Physical Exam: Physical Exam: Vitals signs as noted above General Appearance:Moderately built and nourished, no apparent distress Head: normocephalic, Atraumatic Eyes: normal inspection, EOMI Neck: supple, Trachea midline Respiratory/Chest: Normal breath sounds, CTA Cardiovascular: S1, S2, No murmur Abdomen/GI:Soft, Non tender, Bowel sounds present Extremities/Musculoskelatal:normal inspection, no edema, Right knee decreased ROM due to pain, Right calf swelling improved Neurologic/Psych:AAOX3, grossly no focal neurological deficits Skin: normal color, warm Results & Data Vital Signs (Past 12 Hours) Vital Signs Temp Pulse Pulse Resp BP Pulse Ox 06/26/18 11:34 37 C 63 16 116/72 97 06/26/18 07:36 36.9 C 60 16 97/58 L 97 06/26/18 07:00 60 06/26/18 04:59 36.3 C L 62 18 94/61 L 96 Laboratory Results Short CBC 06/26/18 Range/Units 06:30 WBC 5.08 (4.8-10.8) K/uL Hgb 12.0 (12.0-16.0) g/dL Hct 36.5 L (37-47) % Plt Count 172 (130-400) K/uL BMP 06/26/18 06:30 Creatinine 0.84 (1) Deep vein thrombosis (DVT) of right lower extremity Affected thrombotic vein of extremity: femoral Chronicity: acute Qualified Code(s): I82.411 - Acute embolism and thrombosis of right femoral vein
--- NOTE | 2018-06-26 12:21 | Discharge Summary ---
Date of Service June 26, 2018 Admission HPI Per Admitting Provider 37-year-old female who presents the ED for evaluation of right leg pain. Patient was recently admitted to [facility] 06/06 through 06/10 for migraine and possible rheumatoid arthritis flare. Patient has history of chronic, inte rmittent bilateral knee pain. Patient follows closely with rheumatology and was evaluated recently for bilateral knee pain and inability to bear weight. Patient underwent MRIs of both knees on 06/23. The MRI of the right knee question possible filling defect and patient was referred to the ER for further evaluation for DVT. Patient reports the left knee pain has been improving however the right knee pain has persisted and she continues to be able unable to bear weight. She also reports associated calf pain. Patient is rather sedentary secondary to her chronic pain and sometimes utilizes a wheelchair. Patient also is on OCPs. She denies chest pain shortness of breath. No lightheadedness, dizziness, diaphoresis, syncopal events. She denies abdominal pain, nausea, vomiting, diarrhea. She denies any urinary symptoms. In the ED, patient found found to have RLE DVT and bilateral PE. She is remained hemodynamically stable on the ER and is saturating well on room air. She was started on IV heparin. She was also given IVF, IV Zofran, IM Dilaudid. Admission Exam Per Admitting Provider Physical Exam: Vitals signs as noted above General Appearance:Moderately built and nourished, no apparent distress Head: normocephalic, Atraumatic Eyes: normal inspection, EOMI Neck: supple, Trachea midline Respiratory/Chest: Normal breath sounds, CTA Cardiovascular: S1, S2, No murmur Abdomen/GI:Soft, Non tender, Bowel sounds present Extremities/Musculoskelatal:normal inspection, no edema, Right knee decreased ROM, Right calf swelling, mild tender, warm Neurologic/Psych:AAOX3, grossly no focal neurological deficits Skin: normal color, warm Principal Diagnosis Discharge Information Discharge Diagnosis Acute Right Lower Extremity Deep Vein Thrombosis Acute Pulmonary Embolism Discharge Goals Decrease discomfort Discharge Activity Limitations Per instructions/follow-up Discharge Data Allergies Allergy/AdvReac Type Severity Reaction Status Date / Time bupropion Allergy Mild Verified 06/24/18 13:46 metoclopramide Allergy Mild Verified 06/24/18 13:46 adhesive Allergy Unknown RASH Verified 06/24/18 13:46 gabapentin Allergy Unknown SHORTNESS Verified 06/24/18 13:46 OF BREATH hyoscyamine Allergy Unknown SHORTNESS Verified 06/24/18 13:46 OF BREATH/HYPOTENSION infliximab Allergy Unknown HYPOTENSION Verified 06/24/18 13:46 latex Allergy Unknown Verified 06/24/18 13:46 propoxyphene Allergy Unknown Verified 06/24/18 13:46 Consultations 06/24/18 14:09 ED Decision to Admit Stat 06/24/18 15:51 Consult Case Management - Discharge Planning Routine Consult Gynecology Routine Procedures Performed CTA: 1. Extensive pulmonary emboli involving the right hemithoracic pulmonary arterial vasculature. 2. Smaller emboli involving the left lower lobe pulmonary arterial vasculature. 3. The lungs specifically are clear. Right Leg Doppler: Acute deep venous thrombosis involving the right superficial femoral vein. Left leg Doppler: No evidence of deep venous thrombosis. Ordered Studies 06/24/18 11:39 US venous doppler LE RT Stat 06/24/18 12:01 US venous doppler LE LT Stat 06/24/18 12:02 CT angio chest PE protocol Stat Hospital Course (1) Deep vein thrombosis (DVT) of right lower extremity: (2) Bilateral pulmonary embolism: Acute RLE DVT Acute B/L PE CTA:Extensive pulmonary emboli involving the right hemithoracic pulmonary arterial vasculature. Smaller emboli involving the left lower lobe pulmonary arterial vasculature. The lungs specifically are clear. Venous Doppler:Acute deep venous thrombosis involving the right superficial femoral vein. Screen: Negative No right heart strain on CT IV heparin>>> transitioned to Lovenox SQ and Coumadin Denies any bleeding issues currently Monitor for bleeding given H/O Internal hemorrhoids Estrogen containing OCPs; Etodolac, Ketorolac discontinued Avoid NSAIDs Saturating well on room air Hypercoagulable work up as outpatient Monitor PT/INR:1.0 today Will give Coumadin 5mg today Needs follow up with Coumadin clinic upon discharge (3) Pauciarticular juvenile rheumatoid arthritis: Etodolac, Ketorolac held due to increased risk for bleeding Continue Sulfasalazine Tizanidine PRN Percocet PRN (4) Fibromyalgia: Continue sulfasalazine Holding NSAIDs due to high risk for bleeding Continue Percocet IV morphine PRN (5) Anxiety and depression: (6) Migraine: Continue topiramate, trazodone, venlafaxine (7) Orthostatic hypotension: Continue midodrine and sodium chloride tabs Contraception: DC Estrogen containing OCPs Appreciate OBGYN Input Continue norethindrone 0.35 daily Needs FU with OBGYN upon discharge (8) DVT prophylaxis: Lovenox, coumadin Total Time Total Time Spent Total Time Spent (In Minutes): 36 minutes Total Time Includes: Examination of the Patient, Discharge Planning, Medication Reconciliation, Communication With Other Providers and Other Discharge Plan Discharge Items Patient Disposition: Home - Home Health Services Reason For Visit: DVT/PE Discharge Diagnosis: Acute Right Lower Extremity Deep Vein Thrombosis Acute Pulmonary Embolism Discharge Goals: Decrease discomfort Activity: Per 'Additional Instructions' section Exercise/Sports: Wait until after follow-up appointment Non-emergency contact: Primary Care Provider, Specialist and Boat Rigger Call non-emergency contact if: you have any medication questions, your symptoms worsen, your pain is not controlled, your pain is worsening, your pain is unusual for you, your pain is concerning for you and you have a fever Follow-up/Referrals: Cinda Kirby MD [Primary Care Provider] - Diet: Regular Other Ambulatory Orders: Prothrombin Time INR (Routine) Timeframe: 1 Day Location: Determined by Patient Ordered By: Ariel Samuel Provider Instructions: Follow up with your PCP on June 29, 2018 at 2:20pm Follow up with your Environmental Studies Professor in 1-2 weeks Follow up with your OBGYN in 4 weeks Follow up with Coumadin clinic for further dosing of Coumadin as advised Get Blood test(PT/INR) on 06/27/18 and follow up with coumadin clinic/Primary Care Physician Your Target PT/INR is 2.0 to 3.0 Your PT/INR today (06/26/18) is 1.0.... Take 5 mg coumadin today Seek immediate medical attention if your symptoms reoccur or worsen Your Etodolac, Ketorolac were discontinued due to increased risk for bleeding while being on Coumadin/Lovenox Avoid NSAIDs as advised Your Lovenox is to be discontinued as per recommendations from Coumadin clinic/Primary Care physician once your PT/INR is in therapeutic range between 2.0 to 3.0 Prescriptions: New enoxaparin [Lovenox] 80 mg/0.8 mL Syringe 80 mg subcut Q12 5 Days Qty: 8 RF: 0 warfarin [Coumadin] 1 mg tablet 1 mg PO UD Qty: 60 RF: 0 warfarin [Coumadin] 2.5 mg tablet 2.5 mg PO UD Qty: 60 RF: 0 warfarin [Coumadin] 5 mg tablet 5 mg PO UD Qty: 60 RF: 0 Continued sulfasalazine 500 mg Tablet 1,000 mg PO BID RF: 0 clonazepam 0.5 mg tablet 0.5 mg PO HS RF: 0 midodrine 5 mg tablet 10 mg PO TID RF: 0 valacyclovir 500 mg Tablet 500 mg PO BID PRN (Reason: Other) RF: 0 ranitidine HCl 150 mg Tablet 150 mg PO BID RF: 0 magnesium oxide 500 mg Tablet 500 mg PO QAM RF: 0 docusate sodium [Colace] 100 mg Capsule 200 mg PO BID RF: 0 Alyacen 1/35 (28) 1-35 mg-mcg Tablet 1 tab PO HS RF: 0 tizanidine [Zanaflex] 2 mg Capsule 2 mg PO TID PRN (Reason: Other) RF: 0 sodium chloride 1,000 mg Tablet,Soluble 2,000 mg PO TID RF: 0 diclofenac sodium 1 % gel 1 applic topical QID PRN (Reason: Pain) RF: 0 Centrum 18-400 mg-mcg Tablet 1 tab PO QAM RF: 0 L.acidophilus-Bifido.longum [Probiotic Pearls] 15 mg (1 billion cell) Capsule,Delayed Release(Dr/Ec) 1 cap PO QAM RF: 0 riboflavin (vitamin B2) 400 mg tablet 400 mg PO QAM RF: 0 sumatriptan succinate 100 mg tablet 100 mg PO DIRECTED PRN (Reason: Migraine Headache) RF: 0 topiramate 25 mg tablet 100 mg PO BID RF: 0 melatonin 3 mg tablet 0.5 tab PO HS RF: 0 trazodone 50 mg Tablet 100 mg PO HS RF: 0 venlafaxine 150 mg Capsule,Extended Release 24hr 300 mg PO DAILY RF: 0 oxycodone-acetaminophen [Percocet] 5-325 mg tablet 1 tab PO Q6H PRN (Reason: pain) RF: 0 Discontinued ketorolac 10 mg tablet 10 mg PO Q6H PRN (Reason: Pain) RF: 0 etodolac 500 mg Tablet 500 mg PO BID RF: 0 Stand-Alone Forms: [facility] Discharge Orders: Discharge Order (Routine); Ordered 06/26/18 Ordered By: Ariel Petersen Admission Data Admit Date/Time: 06/24/18 14:31 Attending Provider: Ariel Petersen Admit Provider: Ariel Petersen Primary Care Provider: Cinda Kirby Other Providers: Leida Villalobos ; Shaquille Lee Service: Telemetry Other Interventions: Discharge Summary Assessment (RN) Last Done: 06/26/18 13:27 Pending Studies at Discharge: No DC Date/Time DO NOT enter until pt leaves facility: 06/26/18 14:24
[2018-06-26 13:33] VITALS: PULSE 87
== END 2018-06-26 14:24 | disposition home health service (06) | DRG 299 ==
LOC: ED 10:38 → 2N 14:31

== ENCOUNTER 2018-07-18 08:32 | Inpatient (IN) ==
[2018-07-18] MEDS ORDERED: SODIUM CHLORIDE 0.9% 1000ML 1,000 ML IV ONE (09:18)
[2018-07-18] MEDS ORDERED: ONDANSETRON INJ 2 MG/ML 2 ML VIAL IV STA ×2 (09:18→10:21)
[2018-07-18] MEDS ORDERED: PANTOprazole 80 MG in DEXTROSE 5% 100 ML IV ONE (09:30)
[2018-07-18 09:37] LABS: Basophils # (auto) 0.01 K/uL (0-0.2); Basophils % (auto) 0.2 %; Eosinophils # (auto) 0.04 K/uL (0-0.5); Eosinophils % (auto) 0.7 %; Hematocrit (blood only) 42.1 % (37-47); Hemoglobin 14.6 g/dL (12.0-16.0); Immature Granulocytes # (auto) 0.01 K/uL (0.00-0.02); Immature Granulocytes % (auto) 0.2 %; Lymphocytes # (auto) 1.91 K/uL (1.2-3.4); Lymphocytes % (auto) 32.6 %; Mean Corpuscular Hgb Conc 34.7 g/dL (32-36); Monocytes # (auto) 0.53 K/uL (0.11-0.59); Neutrophils # (auto) 3.36 K/uL (1.4-6.5); Neutrophils % (auto) 57.3 %; Platelet Count 184 K/uL (130-400); RDW Coefficient of Variation 12.9 % (11.5-14.5); RDW Standard Deviation 42.2 fL (36.4-46.3); Red Blood Count 4.68 M/uL (4.2-5.4); White Blood Count 5.86 K/uL (4.8-10.8)
[2018-07-18 09:46] LABS: Alanine Aminotransferase 19 U/L (12-78); Albumin Level 3.8 gm/dl (3.4-5.0); Aspartate Aminotransferase 13 U/L (15-37); BUN Creatinine Ratio 13.6 (10-20); Blood Urea Nitrogen 15 mg/dl (7-18); Calcium 9.2 mg/dl (8.5-10.1); Carbon Dioxide 25 mmol/L (21-32); Chloride 111 mmol/L (98-107); Creatinine Clr Calc Pharmacy 71.4 ml/min; Est GFR (African American) 74.5; Est GFR (Non-African American) 64.3; Glucose 83 mg/dl (70-99); Potassium 3.6 mmol/L (3.5-5.1); Sodium 143 mmol/L (136-145)
--- NOTE | 2018-07-18 09:46 | XRay Report ---
SINGLE VIEW CHEST CLINICAL HISTORY: Hematemesis. GI bleeding. FINDINGS: An AP, portable, upright chest radiograph is compared to study dated 06/06/2018 and correlat ed with chest CT dated 06/24/2018. The cardiomediastinal silhouette is unremarkable. The lungs and ple ural spaces are clear. No pneumothorax is seen. The bony thorax is grossly intact. IMPRESSION: No active disease in the chest. Electronically signed by: Wilbur Steele M.D. 07/18/2018 9:45 AM
[2018-07-18 09:49] LABS: INR 2.1 (0.9-1.1); Partial Thromboplastin Ratio 1.4; Partial Thromboplastin Time 38.1 Seconds (21.0-31.0); Prothrombin Time 20.4 Seconds (9.0-12.0)
[2018-07-18 09:50] LABS: Albumin Globulin Ratio 1.1 (0.9-2); Alkaline Phosphatase 92 U/L (45-117); Bilirubin,Total 0.3 mg/dl (0.2-1); Globulin 3.6 gm/dl (2.5-4.0); Total Protein 7.4 gm/dl (6.4-8.2); Troponin I < 0.015 ng/ml (0-0.045)
[2018-07-18] MEDS ORDERED: MoRPHine SULFATE 4 MG/ML 1 ML CARP\\VIAL IV STA ×2 (09:56→11:11)
--- NOTE | 2018-07-18 10:15 | Emergency Department Note ---
History of Present Illness General Chief complaint: GI Assessment Stated complaint: THROUGHING UP BLOOD, HAVE BLOOD CLOTS Time Seen by Provider: 07/18/18 08:57 History of Present Illness Maximum Pain Intensity: 9 37-year-old female who presents the emergency department for evaluation of g eneralized abdominal pain and bright red vomitus this morning. The patient reports that she was started on Coumadin approximately 3 weeks ago for a DVT and pulmonary emboli. She was admitted here for those symptoms. The patient completed a Lovenox bridge in 5 days, and has been on Coumadin since that time. She reports that her INR levels have been wildly sporadic. She is due for another INR check tomorrow. The patient reports generalized abdominal discomfort over the past few days. She denies any coffee-ground emesis in her vomitus this morning. She reports nausea. She has had no recent fever or chills. The patient reports that she was started on methotrexate as well for history of juvenile rheumatoid arthritis. She was also switched to a progesterone oral contraceptive, and after doing so, had menstrual bleeding that stopped approximately 2 weeks ago. Just any blood in her stools, melena or hematuria. She denies any other ecchymosis. She rates her abdominal discomfort a 9 out of 10. She has no alleviating or aggravating factors for the pain. She also currently denies any chest pain, shortness of breath, cough, headache or back pain. Home Medications Home Medications Medication Instructions Recorded Confirmed Type Centrum 1 tab PO QAM 03/31/18 07/18/18 History L.acidophilus-Bifido.longum 1 cap PO QAM 03/31/18 07/18/18 History [Probiotic Pearls] clonazepam 0.5 mg PO BID 03/31/18 07/18/18 History diclofenac sodium 1 applic TOPICAL QID PRN 03/31/18 07/18/18 History docusate sodium [Colace] 200 mg PO BID 03/31/18 07/18/18 History magnesium oxide 500 mg PO QAM 03/31/18 07/18/18 History midodrine 10 mg PO TID 03/31/18 07/18/18 History ranitidine HCl 150 mg PO BID 03/31/18 07/18/18 History riboflavin (vitamin B2) 400 mg PO QAM 03/31/18 07/18/18 History sodium chloride 2,000 mg PO TID 03/31/18 07/18/18 History sulfasalazine 1,000 mg PO BID 03/31/18 07/18/18 History tizanidine [Zanaflex] 2 mg PO TID PRN 03/31/18 07/18/18 History valacyclovir 500 mg PO BID PRN 03/31/18 07/18/18 History sumatriptan succinate 100 mg PO DIRECTED PRN 06/04/18 07/18/18 History melatonin 0.5 tab PO HS 06/06/18 07/18/18 History topiramate 100 mg PO BID 06/06/18 07/18/18 History trazodone 50 - 150 mg PO HS 06/06/18 07/18/18 History venlafaxine 300 mg PO DAILY 06/06/18 07/18/18 History oxycodone-acetaminophen [Percocet] 1 tab PO Q6H PRN 06/24/18 07/18/18 History clonazepam 1 mg PO HS 07/18/18 07/18/18 History folic acid 1 mg PO [id number] 07/18/18 07/18/18 History meclizine 25 mg PO TID PRN 07/18/18 07/18/18 History menthol [Biofreeze (menthol)] 4 % TOPICAL UD PRN 07/18/18 07/18/18 History methotrexate sodium 10 mg PO WK 07/18/18 07/18/18 History norethindrone (contraceptive) 0.35 mg PO DAILY 07/18/18 07/18/18 History warfarin [Coumadin] 7.5 mg PO SUTUTHFR 07/18/18 07/18/18 History warfarin [Coumadin] 10 mg PO MOWEFR 07/18/18 07/18/18 History Allergies Allergy/AdvReac Type Severity Reaction Status Date / Time bupropion Allergy Mild Verified 07/18/18 09:55 metoclopramide Allergy Mild Verified 07/18/18 09:55 adhesive Allergy Unknown RASH Verified 07/18/18 09:55 gabapentin Allergy Unknown SHORTNESS Verified 07/18/18 09:55 OF BREATH hyoscyamine Allergy Unknown SHORTNESS Verified 07/18/18 09:55 OF BREATH/HYPOTENSION infliximab Allergy Unknown HYPOTENSION Verified 07/18/18 09:55 latex Allergy Unknown Verified 07/18/18 09:55 propoxyphene Allergy Unknown Verified 07/18/18 09:55 Past Med/Surg History Medical History RSD (reflex sympathetic dystrophy) (Chronic) Pauciarticular juvenile rheumatoid arthritis (Chronic) IBS (irritable bowel syndrome) (Chronic) Bilateral pulmonary embolism (Chronic) Deep vein thrombosis (DVT) of right lower extremity (Chronic) Fibromyalgia (Chronic) Anxiety and depression (Chronic) Migraine (Chronic) Orthostatic hypotension (Chronic) Surgical History History of appendectomy (Chronic) Family History Father Lymphoma Brother Juvenile rheumatoid arthritis Social History Preferred Language: Belarusian Communication Ability: Effective Windows Systems Architect Required: No Beliefs That Will Affect Care: None Current Living Situation: Spouse and Family Other Information That Helps Us Care for You: No Feels Safe at Home: Yes Safety Concerns: Feels Safe At This Time Smoking Status: Never smoker Second Hand Exposure: No Hx Alcohol Use: Yes Alcohol type: wine Hx Substance Use: No Review of Systems 10 system review was performed and was negative except for pertinent positives and negatives as indicated in history of present illness Physical Exam Vital Signs Vital Signs - 24 hr 07/18/18 08:33 07/18/18 09:42 07/18/18 10:26 Temperature 36.4 C L Temperature Source Oral Sepsis Recent Fever Within 48 Hours No Sepsis New/Unexplained Change in Mental Status No Sepsis Action Taken by Nursing No Action Required Pulse Rate 91 H 65 Respiratory Rate 16 20 Respiratory Effort / Characteristics Non-Labored Spontaneous Respiratory Depth Normal Respiratory Pattern Regular Blood Pressure 95/69 L 97/61 L Blood Pressure Mean 77 73 Blood Pressure Position Sitting Pulse Oximetry 97 Oxygen Delivery Method Room Air Room Air 07/18/18 10:30 07/18/18 11:00 07/18/18 11:30 Temperature Temperature Source Sepsis Recent Fever Within 48 Hours Sepsis New/Unexplained Change in Mental Status Sepsis Action Taken by Nursing Pulse Rate 64 59 L 60 Respiratory Rate 20 21 21 Respiratory Effort / Characteristics Respiratory Depth Respiratory Pattern Blood Pressure 105/66 Blood Pressure Mean 79 Blood Pressure Position Pulse Oximetry 98 Oxygen Delivery Method Room Air 07/18/18 12:00 07/18/18 12:01 07/18/18 12:30 Temperature Temperature Source Sepsis Recent Fever Within 48 Hours Sepsis New/Unexplained Change in Mental Status Sepsis Action Taken by Nursing Pulse Rate 70 60 79 Respiratory Rate 20 15 19 Respiratory Effort / Characteristics Respiratory Depth Respiratory Pattern Blood Pressure 106/53 L Blood Pressure Mean 70 Blood Pressure Position Pulse Oximetry 98 Oxygen Delivery Method CONSTITUTIONAL: Healthy and well nourished. Alert and oriented X 3. Patient appears in moderately severe discomfort. HEENT: Normocephalic, atraumatic. Pupils equal, round and reactive. No scleral icterus or conjunctival injection/pallor. Mucous membranes are dry. NECK: Full active range of motion without discomfort. No JVD or carotid bruits. LYMPHATICS: No cervical chain adenopathy. RESPIRATORY: Clear to auscultation bilaterally with no wheezing, crackles, rhonchi or stridor. CARDIOVASCULAR: Regular rate and rhythm with no murmurs, rubs or gallops. GASTROINTESTINAL: Bowel sounds present in all quadrants. She has generalized discomfort to palpation to the abdomen, mostly over the epigastric and lower central abdominal region. Negative McBurney's point tenderness. Negative CVA tenderness. No abdominal rigidity, guarding or rebound. MUSCULOSKELETAL: Full range of motion of all joints without discomfort. INTEGUMENTARY: No rash or other significant dermatologic conditions noted. HEMATOLOGIC: No ecchymosis or petechiae. PSYCHIATRIC: Positive affect. NEUROLOGIC: No focal neurologic deficits noted. Course Patient history and physical exam were performed. Nurse's notes were reviewed. Vital signs were reviewed, showing a blood pressure of 95/69. Pulse rate is 91. The patient is afebrile. IV access was established, and labs were drawn. The patient was hydrated with a liter normal saline. The patient was initially administered IV Zofran. After her blood pressure did increase, she was then administered morphine 4 mg IVP. Review of labs shows an INR of 2.1. The patient is not anemic with a hemoglobin and hematocrit of 14.6 and 42.1, respectively. CBC, CMP and urinalysis are otherwise unremarkable. CT of the abdomen and pelvis with IV contrast does not show any acute findings. Upon reevaluation, the patient was still having significant discomfort and nausea. She was administered additional IV morphine and Phenergan. The case was further discussed with Dr. Padilla, ED attending physician, who recommended discussing the case with Fransico KING. I then spoke with LONNIE Adam, who came to the emergency department for further consultation, and recommended hospitalist admission as the patient will likely need to undergo EGD tomorrow. The case was then further discussed with LONNIE Thomas with the [facility] hospitalist service. Please see their dictations for further treatment and final disposition. Administered Medications Sodium Chloride (Nss 1000ml) 1,000 mls @ 100 mls/hr IV .Q10H SAMANTHA Stop: 08/17/18 12:44 Last Admin: 07/18/18 13:18 Dose: 100 mls/hr Documented by: [id number] Pantoprazole Sodium 40 mg/ (Dextrose) 100 mls @ 20 mls/hr IV Q5H SAMANTHA Stop: 08/17/18 12:44 Last Admin: 07/18/18 13:18 Dose: 20 mls/hr Documented by: [id number] Promethazine HCl 12.5 mg/ (Sodium Chloride) 50.5 mls @ 202 mls/hr IV Q6H PRN PRN Reason: Nausea And Vomiting Stop: 08/17/18 14:17 Last Infusion: 07/18/18 15:08 Dose: 0 mls/hr Documented by: [id number] Admin: 07/18/18 14:49 Dose: 202 mls/hr Documented by: [id number] Oxycodone/Acetaminophen (Percocet 5mg/325mg) 1 tab PO Q6H PRN PRN Reason: pain Stop: 08/01/18 13:51 Last Admin: 07/18/18 15:06 Dose: 1 tab Documented by: [id number] Sodium Chloride (Sodium Chloride) 2 gm PO TID SAMANTHA Stop: 08/17/18 14:59 Last Admin: 07/18/18 15:07 Dose: 2 gm Documented by: [id number] Discontinued Medications Pantoprazole Sodium 80 mg/ (Dextrose) 120 mls @ 480 mls/hr IV TODAY@0930 ONE Stop: 07/18/18 09:44 Last Infusion: 07/18/18 10:32 Dose: 0 mls/hr Documented by: [id number] Admin: 07/18/18 09:41 Dose: 480 mls/hr Documented by: [id number] Sodium Chloride (Nss 1000ml) 1,000 mls @ 999 mls/hr IV .Q1H1M ONE Stop: 07/18/18 10:18 Last Infusion: 07/18/18 11:04 Dose: 0 mls/hr Documented by: [id number] Admin: 07/18/18 09:41 Dose: 999 mls/hr Documented by: [id number] Promethazine HCl (Phenergan) 12.5 mg in 50.5 mls @ 202 mls/hr IV NOW STA Stop: 07/18/18 11:25 Last Infusion: 07/18/18 11:37 Dose: 0 mls/hr Documented by: [id number] Admin: 07/18/18 11:19 Dose: 202 mls/hr Documented by: [id number] Ioversol (Optiray 320 100ml) 93 ml IV ONCE PRN PRN Reason: Interaction Checking Stop: 07/22/18 10:16 Last Admin: 07/18/18 10:17 Dose: 93 ml Documented by: [id number] Morphine Sulfate (Morphine Sulfate) 4 mg IV NOW STA Stop: 07/18/18 09:57 Last Admin: 07/18/18 10:05 Dose: 4 mg Documented by: [id number] Morphine Sulfate (Morphine Sulfate) 4 mg IV NOW STA Stop: 07/18/18 11:12 Last Admin: 07/18/18 11:20 Dose: 4 mg Documented by: [id number] Ondansetron HCl (Zofran) 4 mg IV ONE STA Stop: 07/18/18 09:19 Last Admin: 07/18/18 09:41 Dose: 4 mg Documented by: [id number] Ondansetron HCl (Zofran) 4 mg IV NOW STA Stop: 07/18/18 10:22 Last Admin: 07/18/18 10:25 Dose: 4 mg Documented by: [id number] Medical Decision Making Medical Records Attestation: I reviewed the patient's medical records. Home Medications Current Medication List: was personally reviewed by me Laboratory Data Attestation: I reviewed the patient's lab results. Result diagrams: 07/18/18 15:38 07/18/18 09:05 Lab Results 07/18/18 07/18/18 07/18/18 Range/Units 09:05 09:05 09:05 WBC 5.86 (4.8-10.8) K/uL RBC 4.68 (4.2-5.4) M/uL Hgb 14.6 (12.0-16.0) g/dL Hct 42.1 (37-47) % MCV 90.0 (80-100) fL MCH 31.2 (25-34) pg MCHC 34.7 (32-36) g/dL RDW Std Deviation 42.2 (36.4-46.3) fL RDW Coeff of Yandel 12.9 (11.5-14.5) % Plt Count 184 (130-400) K/uL MPV 10.0 (7.4-10.4) fL Immature Gran % (Auto) 0.2 % Neut % (Auto) 57.3 % Lymph % (Auto) 32.6 % [place] % (Auto) 9.0 % Eos % (Auto) 0.7 % Baso % (Auto) 0.2 % Immature Gran # (Auto) 0.01 (0.00-0.02) K/uL Neut # (Auto) 3.36 (1.4-6.5) K/uL Lymph # (Auto) 1.91 (1.2-3.4) K/uL [place] # (Auto) 0.53 (0.11-0.59) K/uL Eos # (Auto) 0.04 (0-0.5) K/uL Baso # (Auto) 0.01 (0-0.2) K/uL PT 20.4 H (9.0-12.0) Seconds INR 2.1 H (0.9-1.1) APTT 38.1 H (21.0-31.0) Seconds PTT Ratio 1.4 Sodium 143 (136-145) mmol/L Potassium 3.6 (3.5-5.1) mmol/L Chloride 111 H (98-107) mmol/L Carbon Dioxide 25 (21-32) mmol/L Anion Gap 8.0 (3-11) BUN 15 (7-18) mg/dl Creatinine 1.11 (0.6-1.2) mg/dl Est Cr Clr Drug Dosing 71.4 ml/min Est GFR ( Amer) 74.5 Est GFR (Non-Af Amer) 64.3 BUN/Creatinine Ratio 13.6 (10-20) Glucose 83 (70-99) mg/dl Calcium 9.2 (8.5-10.1) mg/dl Total Bilirubin 0.3 (0.2-1) mg/dl AST 13 L (15-37) U/L ALT 19 (12-78) U/L Alkaline Phosphatase 92 (45-117) U/L Troponin I < 0.015 (0-0.045) ng/ml Total Protein 7.4 (6.4-8.2) gm/dl Albumin 3.8 (3.4-5.0) gm/dl Globulin 3.6 (2.5-4.0) gm/dl Albumin/Globulin Ratio 1.1 (0.9-2) Blood Type Antibody Screen 07/18/18 Range/Units 09:34 WBC (4.8-10.8) K/uL RBC (4.2-5.4) M/uL Hgb (12.0-16.0) g/dL Hct (37-47) % MCV (80-100) fL MCH (25-34) pg MCHC (32-36) g/dL RDW Std Deviation (36.4-46.3) fL RDW Coeff of Yandel (11.5-14.5) % Plt Count (130-400) K/uL MPV (7.4-10.4) fL Immature Gran % (Auto) % Neut % (Auto) % Lymph % (Auto) % [place] % (Auto) % Eos % (Auto) % Baso % (Auto) % Immature Gran # (Auto) (0.00-0.02) K/uL Neut # (Auto) (1.4-6.5) K/uL Lymph # (Auto) (1.2-3.4) K/uL [place] # (Auto) (0.11-0.59) K/uL Eos # (Auto) (0-0.5) K/uL Baso # (Auto) (0-0.2) K/uL PT (9.0-12.0) Seconds INR (0.9-1.1) APTT (21.0-31.0) Seconds PTT Ratio Sodium (136-145) mmol/L Potassium (3.5-5.1) mmol/L Chloride (98-107) mmol/L Carbon Dioxide (21-32) mmol/L Anion Gap (3-11) BUN (7-18) mg/dl Creatinine (0.6-1.2) mg/dl Est Cr Clr Drug Dosing ml/min Est GFR ( Amer) Est GFR (Non-Af Amer) BUN/Creatinine Ratio (10-20) Glucose (70-99) mg/dl Calcium (8.5-10.1) mg/dl Total Bilirubin (0.2-1) mg/dl AST (15-37) U/L ALT (12-78) U/L Alkaline Phosphatase (45-117) U/L Troponin I (0-0.045) ng/ml Total Protein (6.4-8.2) gm/dl Albumin (3.4-5.0) gm/dl Globulin (2.5-4.0) gm/dl Albumin/Globulin Ratio (0.9-2) Blood Type O Positive Antibody Screen NEGATIVE Imaging Data Attestation: I personally reviewed and interpreted this imaging study as follows: My Impression: My interpretation of a portable chest x-ray does not show any acute consolidations, pneumothorax or subdiaphragmatic air. CT of the abdomen and pelvis with IV contrast does not show any acute intra- abdominal findings. Radiologist reports were reviewed. Radiologist's Impression: SINGLE VIEW CHEST CLINICAL HISTORY: Hematemesis. GI bleeding. FINDINGS: An AP, portable, upright chest radiograph is compared to study dated 06/06/2018 and correlated with chest CT dated 06/24/2018. The cardiomediastinal silhouette is unremarkable. The lungs and pleural spaces are clear. No pneumothorax is seen. The bony thorax is grossly intact. IMPRESSION: No active disease in the chest. CT abd pelvis IV con only CLINICAL HISTORY: 37 years-old Female presenting with GENERALIZED ABDOMINAL PAIN, HEMATEMESIS, ON COUMADIN. TECHNIQUE: Multidetector CT of the abdomen and pelvis was performed after the administration of intravenous contrast. IV contrast: 93 mL of Optiray 320. One or more dose lowering techniques were used consistent with the principles of ALARA (as low as reasonably achievable), including automatic exposure control, mA or kV adjustment to individual patient size, and/or use of iterative reconstruction. COMPARISON: 10/31/2017. CT DOSE (mGy.cm): The estimated cumulative dose is 356.57 mGy.cm. FINDINGS: Planning Analyst topogram: Unremarkable. Lung bases: Normal heart size. No pericardial or pleural effusion. No focal infiltrate or nodule at the lung bases. Liver: Normal morphology. Focal hypodensity along the fissure for the ligament teres likely perfusional variation or focal fat. Mildly hyperenhancing lesions in segment 8 again evident. These are somewhat difficult to measure due to the degree of enhancement. The more peripheral smaller lesion measures approximately 2.3 cm in diameter and the more central peripherally enhancing lesion measures 3.9 cm. Biliary: No intrahepatic or extrahepatic biliary ductal dilatation. Normal gallbladder. Pancreas: Normal. Spleen: Normal. Adrenal glands: Normal. Kidneys and ureters: Normal. No hydronephrosis. Bladder: Incompletely evaluated secondary to underdistention. Pelvic organs: Uterus and ovaries normal. Bowel: The appendix is not visualized. No bowel obstruction. Peritoneal cavity: No free fluid or intraperitoneal gas. Lymph nodes: No enlarged lymph nodes in the abdomen or pelvis. Vasculature: Aorta and IVC patent and normal in caliber. Abdominal wall: Normal. Musculoskeletal: Normal. IMPRESSION: 1. No acute intra-abdominal pathology. 2. Stable hyperenhancing hepatic lesions. These are indeterminate. These are favored to represent hepatic adenomas or less likely atypical hemangiomas. These would be better characterized with contrast-enhanced liver MR with Gadavist. ECG Data Indication: abdominal pain and vomiting (Hematemesis) Rate (beats per minute): 59 Rhythm: sinus bradycardia Findings: + other (Low voltage QRS) Comparison ECG Date: from (06/24/2018) Change: no significant change Blood Pressure Blood Pressure Findings: Low blood pressure (Has a history of hypertension, and blood pressures in the emergency department are the patient's baseline) MDM Narrative Patient presents to emergency department for evaluation of hematemesis this morning that the patient reports was bright red blood. It is noted that the patient is currently on Coumadin for pulmonary emboli and DVT. She has had difficulty maintaining therapeutic INR levels. Her INR today is therapeutic at 2.1. I suspect that the patient will require an EGD study to find the source of the bleed. Additional lab work is not suggestive of any profound anemia, infection, pancreatitis, cholecystitis or hepatitis. Imaging studies are not consistent with GI perforation. She has no peritoneal signs on exam. I also do not suspect pyelonephritis or UTI. Impression & Plan Hematemesis Discharge Plan Visit Data *Final* Discharge Date/Time: 07/18/18 13:29 Chief Complaint: GI Assessment Stated Complaint: THROUGHING UP BLOOD, HAVE BLOOD CLOTS ED Provider: Ascencion Padilla ED Midlevel Provider: Fernando Donnelly Discharge Problem: Hematemesis Patient Disposition: Admitted As Inpatient Discharge Instructions Interventions: ED Discharge Assessment Last Done: 07/18/18 13:29
[2018-07-18] MEDS ORDERED: IOVERSOL 100ml IV PRN (10:17)
--- NOTE | 2018-07-18 10:27 | CT Scan Report ---
CT abd pelvis IV con only CLINICAL HISTORY: 37 years-old Female presenting with GENERALIZED ABDOMINAL PAIN, HEMATEMESIS, ON COU MADIN. TECHNIQUE: Multidetector CT of the abdomen and pelvis was performed after the administration of intra venous contrast. IV contrast: 93 mL of Optiray 320. One or more dose lowering techniques were used co nsistent with the principles of ALARA (as low as reasonably achievable), including automatic exposure control, mA or kV adjustment to individual patient size, and/or use of iterative reconstruction. COMPARISON: 10/31/2017. CT DOSE (mGy.cm): The estimated cumulative dose is 356.57 mGy.cm. FINDINGS: Blown Film Extrusion Operator topogram: Unremarkable. Lung bases: Normal heart size. No pericardial or pleural effusion. No focal infiltrate or nodule at t he lung bases. Liver: Normal morphology. Focal hypodensity along the fissure for the ligament teres likely perfusion al variation or focal fat. Mildly hyperenhancing lesions in segment 8 again evident. These are somewh at difficult to measure due to the degree of enhancement. The more peripheral smaller lesion measures approximately 2.3 cm in diameter and the more central peripherally enhancing lesion measures 3.9 cm. Biliary: No intrahepatic or extrahepatic biliary ductal dilatation. Normal gallbladder. Pancreas: Normal. Spleen: Normal. Adrenal glands: Normal. Kidneys and ureters: Normal. No hydronephrosis. Bladder: Incompletely evaluated secondary to underdistention. Pelvic organs: Uterus and ovaries normal. Bowel: The appendix is not visualized. No bowel obstruction. Peritoneal cavity: No free fluid or intraperitoneal gas. Lymph nodes: No enlarged lymph nodes in the abdomen or pelvis. Vasculature: Aorta and IVC patent and normal in caliber. Abdominal wall: Normal. Musculoskeletal: Normal. IMPRESSION: 1. No acute intra-abdominal pathology. 2. Stable hyperenhancing hepatic lesions. These are indeterminate. These are favored to represent he patic adenomas or less likely atypical hemangiomas. These would be better characterized with contrast -enhanced liver MR with Gadavist. Electronically signed by: Juan Gerard M.D. 07/18/2018 10:26 AM
[2018-07-18] MEDS ORDERED: PROMETHAZINE 12.5 MG/50.5 ML BAG IV STA (11:11)
--- NOTE | 2018-07-18 12:44 | Gastrointestinal Consultation ---
Date of Consultation July 18, 2018 Assessment & Plan (1) Hematemesis: 37 year old female with history of RA previously on NSAIDs, recently diagnosed bilateral PE on coumadin who presented through the ED with upper abdominal pain x 1 week and a reported episode of hematemesis. She is awake, al ert and oriented x 3. She is hemodynamically stable w/ stable BP a HGB 14 w/o BUN elevation. No acute findings on CT - Would hold AC - Start IV PPI bolus and drip - Trend H&H - Monitor and document GI output - Transfuse PRN - GI ok for clear liquids today - Please keep NPO after midnight - Tentative plan for EGD 07/19/18 w/ Dr. Torres Thank you for allowing us to participate in the care of this patient. Please call with any acute changes, questions or concerns. Please see addendum below with additional recommendation from my supervising physician. Present on Admission?: Yes Supervising Physician Co-Signing Physician Notes Late entry: Patient was seen and examined on 07/18 with LONNIE Jacobs whose ntoe reflects our findings and plan. History of Present Illness Reason for Consultation: hematemesis Requesting Physician: Sayda Attending Physician: Sayda History of Present Illness 37 year old female with history of hypotension, fibro, anxiety, RA previously on extensive NSAIDs, bilateral PE on coumadin who presents through the ED with upper abd pain, hematemesis - GI asked to evaluate. Pt was seen and evaluated, chart reviewed. Family at [facility]. Notes over the past week has had upper abd pain. Intermittent. Burning. Severe once occurs. Over the past 24/48 hours this has become persistent and constant. Associated with severe nausea. This AM had emesis x 1. This was lisa blood. No coffee ground appearing prior. No clots. Is having formed stool. No black or bloody stool. Will occasionally have BRB streaking from hemorrhoids. No lightheadedness, dizziness, CP, SOB. CT: No acute intra-abdominal pathology. Stable hyperenhancing hepatic lesions. These are indeterminate. These are favored to represent hepatic adenomas or less likely atypical hemangiomas. These would be better characterized with contrast- enhanced liver MR with Gadavist. EGD 2017: The esophagus was normal.The stomach was normal. The examined duodenum was normal. Colonoscopy 2017: The examined portion of the ileum was normal. Normal mucosa in the entire examined colon. Biopsied. Normal mucosa in the rectum. Biopsied. The distal rectum and anal verge are normal on retroflexion view. Allergies Allergy/AdvReac Type Severity Reaction Status Date / Time bupropion Allergy Mild Verified 07/18/18 09:55 metoclopramide Allergy Mild Verified 07/18/18 09:55 adhesive Allergy Unknown RASH Verified 07/18/18 09:55 gabapentin Allergy Unknown SHORTNESS Verified 07/18/18 09:55 OF BREATH hyoscyamine Allergy Unknown SHORTNESS Verified 07/18/18 09:55 OF BREATH/HYPOTENSION infliximab Allergy Unknown HYPOTENSION Verified 07/18/18 09:55 latex Allergy Unknown Verified 07/18/18 09:55 propoxyphene Allergy Unknown Verified 07/18/18 09:55 Home Medications Home Medications Medication Instructions Recorded Confirmed Type Centrum 1 tab PO QAM 03/31/18 07/18/18 History L.acidophilus-Bifido.longum 1 cap PO QAM 03/31/18 07/18/18 History [Probiotic Pearls] clonazepam 0.5 mg PO BID 03/31/18 07/18/18 History diclofenac sodium 1 applic TOPICAL QID PRN 03/31/18 07/18/18 History docusate sodium [Colace] 200 mg PO BID 03/31/18 07/18/18 History magnesium oxide 500 mg PO QAM 03/31/18 07/18/18 History midodrine 10 mg PO TID 03/31/18 07/18/18 History ranitidine HCl 150 mg PO BID 03/31/18 07/18/18 History riboflavin (vitamin B2) 400 mg PO QAM 03/31/18 07/18/18 History sodium chloride 2,000 mg PO TID 03/31/18 07/18/18 History sulfasalazine 1,000 mg PO BID 03/31/18 07/18/18 History tizanidine [Zanaflex] 2 mg PO TID PRN 03/31/18 07/18/18 History valacyclovir 500 mg PO BID PRN 03/31/18 07/18/18 History sumatriptan succinate 100 mg PO DIRECTED PRN 06/04/18 07/18/18 History melatonin 0.5 tab PO HS 06/06/18 07/18/18 History topiramate 100 mg PO BID 06/06/18 07/18/18 History trazodone 100 mg PO HS 06/06/18 07/18/18 History venlafaxine 300 mg PO DAILY 06/06/18 07/18/18 History oxycodone-acetaminophen [Percocet] 1 tab PO Q6H PRN 06/24/18 07/18/18 History clonazepam 1 mg PO HS 07/18/18 07/18/18 History docusate sodium [Colace] 100 mg PO BID 07/18/18 07/18/18 History folic acid 1 mg PO 6XWK 07/18/18 07/18/18 History meclizine 25 mg PO TID PRN 07/18/18 07/18/18 History menthol [Biofreeze (menthol)] 4 % TOPICAL UD PRN 07/18/18 07/18/18 History methotrexate sodium 10 mg PO WK 07/18/18 07/18/18 History norethindrone (contraceptive) 0.35 mg PO DAILY 07/18/18 07/18/18 History tizanidine [Zanaflex] 2 mg PO Q8H PRN 07/18/18 07/18/18 History warfarin [Coumadin] 7.5 mg PO SUTUTHFR 07/18/18 07/18/18 History warfarin [Coumadin] 10 mg PO MOWEFR 07/18/18 07/18/18 History Patient History Medical History RSD (reflex sympathetic dystrophy) (Chronic) Pauciarticular juvenile rheumatoid arthritis (Chronic) IBS (irritable bowel syndrome) (Chronic) Bilateral pulmonary embolism (Chronic) Deep vein thrombosis (DVT) of right lower extremity (Chronic) Fibromyalgia (Chronic) Anxiety and depression (Chronic) Migraine (Chronic) Orthostatic hypotension (Chronic) Surgical History History of appendectomy (Chronic) Family History Father Lymphoma Brother Juvenile rheumatoid arthritis Social History Preferred Language: Azeri Communication Ability: Effective Etl Lead Required: No Beliefs That Will Affect Care: None Current Living Situation: Spouse and Family Other Information That Helps Us Care for You: No Feels Safe at Home: Yes Safety Concerns: Feels Safe At This Time Smoking Status: Never smoker Second Hand Exposure: No Hx Alcohol Use: Yes Alcohol type: wine Hx Substance Use: No Review of Systems Constitutional: no fever and no chills Respiratory: no cough and no dyspnea Cardiovascular: no chest pain and no radiating jaw, neck or arm pain Gastrointestinal: + abdominal pain, + nausea, + vomiting and + hematemesis; no blood in stools and no melena Physical Exam Constitutional: WD/WN, vitals as above Neck: trachea midline Respiratory: normal respiratory effort Cardiovascular: Rate/Rhythm: regular rate and regular rhythm Gastrointestinal (Abdomen): Inspection/Auscultation: abdomen normal to inspection and normal bowel sounds Percussion/Palpation: + abdomen tender (epigastric region) and abdomen soft; no guarding and abdomen not rigid Skin: no rashes, warm and dry Results & Data Vital Signs (Past 12 Hours) Vital Signs Temp Pulse Resp BP Pulse Ox 07/18/18 11:00 59 L 21 105/66 98 07/18/18 10:30 64 20 07/18/18 10:26 65 20 97/61 L 07/18/18 08:33 36.4 C L 91 H 16 95/69 L 97 Laboratory Results 07/18/18 07/18/18 07/18/18 Range/Units 09:34 09:05 09:05 WBC (4.8-10.8) K/uL RBC (4.2-5.4) M/uL Hgb (12.0-16.0) g/dL Hct (37-47) % MCV (80-100) fL MCH (25-34) pg MCHC (32-36) g/dL RDW Std Deviation (36.4-46.3) fL RDW Coeff of Yandel (11.5-14.5) % Plt Count (130-400) K/uL MPV (7.4-10.4) fL Immature Gran % (Auto) % Neut % (Auto) % Lymph % (Auto) % [place] % (Auto) % Eos % (Auto) % Baso % (Auto) % Immature Gran # (Auto) (0.00-0.02) K/uL Neut # (Auto) (1.4-6.5) K/uL Lymph # (Auto) (1.2-3.4) K/uL [place] # (Auto) (0.11-0.59) K/uL Eos # (Auto) (0-0.5) K/uL Baso # (Auto) (0-0.2) K/uL PT 20.4 H (9.0-12.0) Seconds INR 2.1 H (0.9-1.1) APTT 38.1 H (21.0-31.0) Seconds PTT Ratio 1.4 Sodium 143 (136-145) mmol/L Potassium 3.6 (3.5-5.1) mmol/L Chloride 111 H (98-107) mmol/L Carbon Dioxide 25 (21-32) mmol/L Anion Gap 8.0 (3-11) BUN 15 (7-18) mg/dl Creatinine 1.11 (0.6-1.2) mg/dl Est Cr Clr Drug Dosing 71.4 ml/min Est GFR ( Amer) 74.5 Est GFR (Non-Af Amer) 64.3 BUN/Creatinine Ratio 13.6 (10-20) Glucose 83 (70-99) mg/dl Calcium 9.2 (8.5-10.1) mg/dl Total Bilirubin 0.3 (0.2-1) mg/dl AST 13 L (15-37) U/L ALT 19 (12-78) U/L Alkaline Phosphatase 92 (45-117) U/L Troponin I < 0.015 (0-0.045) ng/ml Total Protein 7.4 (6.4-8.2) gm/dl Albumin 3.8 (3.4-5.0) gm/dl Globulin 3.6 (2.5-4.0) gm/dl Albumin/Globulin Ratio 1.1 (0.9-2) Blood Type O Positive Antibody Screen NEGATIVE 07/18/18 Range/Units 09:05 WBC 5.86 (4.8-10.8) K/uL RBC 4.68 (4.2-5.4) M/uL Hgb 14.6 (12.0-16.0) g/dL Hct 42.1 (37-47) % MCV 90.0 (80-100) fL MCH 31.2 (25-34) pg MCHC 34.7 (32-36) g/dL RDW Std Deviation 42.2 (36.4-46.3) fL RDW Coeff of Yandel 12.9 (11.5-14.5) % Plt Count 184 (130-400) K/uL MPV 10.0 (7.4-10.4) fL Immature Gran % (Auto) 0.2 % Neut % (Auto) 57.3 % Lymph % (Auto) 32.6 % [place] % (Auto) 9.0 % Eos % (Auto) 0.7 % Baso % (Auto) 0.2 % Immature Gran # (Auto) 0.01 (0.00-0.02) K/uL Neut # (Auto) 3.36 (1.4-6.5) K/uL Lymph # (Auto) 1.91 (1.2-3.4) K/uL [place] # (Auto) 0.53 (0.11-0.59) K/uL Eos # (Auto) 0.04 (0-0.5) K/uL Baso # (Auto) 0.01 (0-0.2) K/uL PT (9.0-12.0) Seconds INR (0.9-1.1) APTT (21.0-31.0) Seconds PTT Ratio Sodium (136-145) mmol/L Potassium (3.5-5.1) mmol/L Chloride (98-107) mmol/L Carbon Dioxide (21-32) mmol/L Anion Gap (3-11) BUN (7-18) mg/dl Creatinine (0.6-1.2) mg/dl Est Cr Clr Drug Dosing ml/min Est GFR ( Amer) Est GFR (Non-Af Amer) BUN/Creatinine Ratio (10-20) Glucose (70-99) mg/dl Calcium (8.5-10.1) mg/dl Total Bilirubin (0.2-1) mg/dl AST (15-37) U/L ALT (12-78) U/L Alkaline Phosphatase (45-117) U/L Troponin I (0-0.045) ng/ml Total Protein (6.4-8.2) gm/dl Albumin (3.4-5.0) gm/dl Globulin (2.5-4.0) gm/dl Albumin/Globulin Ratio (0.9-2) Blood Type Antibody Screen
--- NOTE | 2018-07-18 13:14 | History & Physical Report ---
Date of Service July 18, 2018 Assessment & Plan (1) Hematemesis: -Admit to [facility] w/ telemetry -Patient presenting from home with reports of one episode of hematemesis with bright red blood this morning -In the ED, vitals stable, Hgb 14.6 -Recently admitted to [facility] for DVT/PE and was started on Coumadin -Previous heavy use of NSAIDs which were stopped about 1 month ago when patient was started on Coumadin -INR 2.1 today, given stable vitals and hemoglobin will not reverse at this time -serial H/H -Received PPI bolus in the ED, will continue with drip -Case discussed with LONNIE Adam with GI -clear liquids today, n.p.o. after midnight, planning on EGD in a.m. (2) Deep vein thrombosis (DVT) of right lower extremity: (3) Bilateral pulmonary embolism: -Recent diagnosis about 1 month ago -At the time of diagnosis, patient's control was changed to progestin only -Was started on Lovenox bridge/Coumadin -INR 2.1 today -Noted that outpatient RLE venous ultrasound on 07/05 did not show any new clot burden -Holding Coumadin for now due to upper GI bleed (4) Pauciarticular juvenile rheumatoid arthritis: (5) Fibromyalgia: -Continue sulfasalazine and methotrexate, home dose of PRN Percocet -Has been having right hip pain and is scheduled to see [facility] pain management (6) Migraine: (7) Anxiety and depression: -Continue venlafaxine, trazodone, topiramate, clonazepam (8) Orthostatic hypotension: -BP stable, continue midodrine (9) DVT prophylaxis: -SCDs due to upper GI bleed History of Present Illness Chief Complaint: Hematemesis Primary Care Provider: Cinda Kirby MD 37-year-old female who presents the ED with hematemesis. Patient was recently admitted to [facility] 06/24 through 06/26 for RLE DVT and bilateral PE. Initially patient was placed on heparin and then transition to Lovenox bridge/Coumadin. During that admission, patient's control was changed to progestin only and etolodac was stopped. Patient has been having increasing right hip pain and was recently seen by rheumatology who started her on methotrexate. She reports she has been avoiding all NSAIDs. Over the past 1 week, patient has noted her stools have been darker in color however not black or tarry. Yesterday, she reports she developed some nausea with cramping abdominal pain. This persisted until this morning when she had an episode of vomiting. She describes emesis as being a small amount of bright red blood. No bright red bleeding per rectum. She reports lightheadedness and dizziness but denies any syncopal events. No chest pain or shortness of breath. She denies other recent illnesses, fevers, chills. No urinary symptoms. In the ED, patient is hemodynamically stable with Hgb 14.6. INR is 2.1. CT ABD/pelvis is negative for acute findings. Patient was given IVF, IV promethazine, Protonix bolus, IV Zofran, IV morphine. Allergies Allergy/AdvReac Type Severity Reaction Status Date / Time bupropion Allergy Mild Verified 07/18/18 09:55 metoclopramide Allergy Mild Verified 07/18/18 09:55 adhesive Allergy Unknown RASH Verified 07/18/18 09:55 gabapentin Allergy Unknown SHORTNESS Verified 07/18/18 09:55 OF BREATH hyoscyamine Allergy Unknown SHORTNESS Verified 07/18/18 09:55 OF BREATH/HYPOTENSION infliximab Allergy Unknown HYPOTENSION Verified 07/18/18 09:55 latex Allergy Unknown Verified 07/18/18 09:55 propoxyphene Allergy Unknown Verified 07/18/18 09:55 Home Medications Home Medications Medication Instructions Recorded Confirmed Type Centrum 1 tab PO QAM 03/31/18 07/18/18 History L.acidophilus-Bifido.longum 1 cap PO QAM 03/31/18 07/18/18 History [Probiotic Pearls] clonazepam 0.5 mg PO BID 03/31/18 07/18/18 History diclofenac sodium 1 applic TOPICAL QID PRN 03/31/18 07/18/18 History docusate sodium [Colace] 200 mg PO BID 03/31/18 07/18/18 History magnesium oxide 500 mg PO QAM 03/31/18 07/18/18 History midodrine 10 mg PO TID 03/31/18 07/18/18 History ranitidine HCl 150 mg PO BID 03/31/18 07/18/18 History riboflavin (vitamin B2) 400 mg PO QAM 03/31/18 07/18/18 History sodium chloride 2,000 mg PO TID 03/31/18 07/18/18 History sulfasalazine 1,000 mg PO BID 03/31/18 07/18/18 History tizanidine [Zanaflex] 2 mg PO TID PRN 03/31/18 07/18/18 History valacyclovir 500 mg PO BID PRN 03/31/18 07/18/18 History sumatriptan succinate 100 mg PO DIRECTED PRN 06/04/18 07/18/18 History melatonin 0.5 tab PO HS 06/06/18 07/18/18 History topiramate 100 mg PO BID 06/06/18 07/18/18 History trazodone 100 mg PO HS 06/06/18 07/18/18 History venlafaxine 300 mg PO DAILY 06/06/18 07/18/18 History oxycodone-acetaminophen [Percocet] 1 tab PO Q6H PRN 06/24/18 07/18/18 History clonazepam 1 mg PO HS 07/18/18 07/18/18 History docusate sodium [Colace] 100 mg PO BID 07/18/18 07/18/18 History folic acid 1 mg PO 6XWK 07/18/18 07/18/18 History meclizine 25 mg PO TID PRN 07/18/18 07/18/18 History menthol [Biofreeze (menthol)] 4 % TOPICAL UD PRN 07/18/18 07/18/18 History methotrexate sodium 10 mg PO WK 07/18/18 07/18/18 History norethindrone (contraceptive) 0.35 mg PO DAILY 07/18/18 07/18/18 History tizanidine [Zanaflex] 2 mg PO Q8H PRN 07/18/18 07/18/18 History warfarin [Coumadin] 7.5 mg PO SUTUTHFR 07/18/18 07/18/18 History warfarin [Coumadin] 10 mg PO MOWEFR 07/18/18 07/18/18 History Past Med/Surg History Medical History RSD (reflex sympathetic dystrophy) (Chronic) Pauciarticular juvenile rheumatoid arthritis (Chronic) IBS (irritable bowel syndrome) (Chronic) Bilateral pulmonary embolism (Chronic) Deep vein thrombosis (DVT) of right lower extremity (Chronic) Fibromyalgia (Chronic) Anxiety and depression (Chronic) Migraine (Chronic) Orthostatic hypotension (Chronic) Surgical History History of appendectomy (Chronic) Family History Father Lymphoma Brother Juvenile rheumatoid arthritis Social History Preferred Language: Somali Communication Ability: Effective Transmitter Chief Required: No Beliefs That Will Affect Care: None Current Living Situation: Spouse and Family Other Information That Helps Us Care for You: No Feels Safe at Home: Yes Safety Concerns: Feels Safe At This Time Smoking Status: Never smoker Second Hand Exposure: No Hx Alcohol Use: Yes Alcohol type: wine Hx Substance Use: No Review of Systems Review of Systems: ROS per HPI, all other systems reviewed and negative Physical Exam Constitutional: WD/WN, vitals as above Eyes: PERRL, conjunctivae normal, anicteric sclerae ENMT: external ear and nose normal, oropharynx normal Respiratory: normal respiratory effort, lungs clear to auscultation Cardiovascular: Rate/Rhythm: regular rate and regular rhythm Vessels: normal peripheral pulses Extremities: no edema Gastrointestinal (Abdomen): Inspection/Auscultation: normal bowel sounds; abdomen not distended Percussion/Palpation: + abdomen tender (Epigastric, lower abdomen) and abdomen soft; no hepatosplenomegaly Musculoskeletal: no cyanosis or clubbing, extremities motor strength 5/5 Skin: no rashes, warm and dry Neurologic: PERRL, EOMI, accommodation nl, no face palsy, no dysarthria Psychiatric: A+Ox3, euthymic affect Results & Data Vital Signs (Past 12 Hours) Vital Signs Temp Pulse Resp BP Pulse Ox 07/18/18 12:30 79 19 98 07/18/18 12:01 60 15 106/53 L 07/18/18 12:00 70 20 07/18/18 11:30 60 21 07/18/18 11:00 59 L 21 105/66 98 07/18/18 10:30 64 20 07/18/18 10:26 65 20 97/61 L 07/18/18 08:33 36.4 C L 91 H 16 95/69 L 97 Laboratory Results Short CBC 07/18/18 Range/Units 09:05 WBC 5.86 (4.8-10.8) K/uL Hgb 14.6 (12.0-16.0) g/dL Hct 42.1 (37-47) % Plt Count 184 (130-400) K/uL BMP 07/18/18 09:05 Sodium 143 Potassium 3.6 Chloride 111 H Carbon Dioxide 25 BUN 15 Creatinine 1.11 Glucose 83 Calcium 9.2 Cardiac Enzymes 07/18/18 Range/Units 09:05 Troponin I < 0.015 (0-0.045) ng/ml Liver Function 07/18/18 Range/Units 09:05 Total Bilirubin 0.3 (0.2-1) mg/dl AST 13 L (15-37) U/L ALT 19 (12-78) U/L Alkaline Phosphatase 92 (45-117) U/L Albumin 3.8 (3.4-5.0) gm/dl Diagnostic Findings CXR IMPRESSION: No active disease in the chest. CT ABD/PELVIS IMPRESSION: 1. No acute intra-abdominal pathology. 2. Stable hyperenhancing hepatic lesions. These are indeterminate. These are favored to represent hepatic adenomas or less likely atypical hemangiomas. These would be better characterized with contrast-enhanced liver MR with Gadavist. Code Status & VTE Plan VTE Prophylaxis Plan VTE Prophylaxis will be ordered: Yes Supervising Physician Co-Signing Physician Notes HISTORY: Record reviewed. Patient interviewed and examined. Care coordinated with LONNIE Thomas. Please refer to her documentation for patient's history. Briefly, 37 YO female with recently diagnosed DVT and PE treated with warfarin. Hematemesis today with fresh blood; occurred after several episodes of dry heaves. EXAM: General- no distress Lungs- clear to auscultation; no respiratory distress Cardiovascular- RRR; no murmur; no gallop; no JVD; no pretibial edema Abdomen- + bowel sounds, soft, mild epigastric tenderness Extremities- no cyanosis; no calf tenderness Neuro- alert, oriented Skin- warm & dry DATA: INR 2.1 Hgb 14.6 --> 12.5 ASSESSMENT AND PLAN: UGI bleed on warfarin. Suspect MW tear. GI consulted. IV PPI. Anticipated EGD. Recent DVT and PE. On warfarin with INR of 2.1. No need to reverse warfarin emergently. Hopefully there will not be any significant pathology on EGD and warfarin can be continued. Otherwise, may need IVC filter. Episode of chest pain this afternoon. VS and O2 sats stable. Doubt PE. Troponin normal. No EKG changes. Experiencing severe right hip pain. Has seen [facility] in past and is requesting consult during hospital stay. Please refer to DUSTIN Alfredo's documentation for discussion of other issues. (1) Deep vein thrombosis (DVT) of right lower extremity Affected thrombotic vein of extremity: femoral Chronicity: acute Qualified Code(s): I82.411 - Acute embolism and thrombosis of right femoral vein
[2018-07-18] MEDS: SODIUM CHLORIDE 0.9% 1000ML 1,000 ML IV SCH ×2 (13:18→22:57)
[2018-07-18] MEDS: PANTOprazole 40 MG in DEXTROSE 5% 100 ML IV SCH ×2 (13:18→19:19)
[2018-07-18] MEDS ORDERED: ACETAMINOPHEN 325 MG TAB PO PRN (13:52)
[2018-07-18] MEDS ORDERED: OXYCODONE/ACETAMINOPHEN 5mg/325mg TAB PO PRN (13:52)
[2018-07-18] MEDS ORDERED: HYDROCORTISONE 1% CRM 30 GM TUBE EXT PRN (14:18)
[2018-07-18] MEDS: PROMETHAZINE HCL 12.5 MG in SODIUM CHLORIDE 0.9% 50 ML IV PRN ×2 (14:49→23:46)
[2018-07-18] MEDS: SODIUM CHLORIDE 1 GM TABLET PO SCH ×2 (15:07→22:37)
[2018-07-18] MEDS ORDERED: clonazePAM 0.5 MG TAB PO STA (15:27)
[2018-07-18] MEDS ORDERED: ACETAMINOPHEN 1,000 MG/100 ML VIAL IV STA (15:27)
[2018-07-18 15:47] LABS: Hematocrit (blood only) 37.4 % (37-47); Hemoglobin 12.5 g/dL (12.0-16.0)
[2018-07-18] MEDS: MIDODRINE HCL 10 MG TAB PO SCH (16:53)
[2018-07-18] MEDS: LACTOBACILLUS ACIDOPHILUS (FLORANEX) TAB PO SCH (16:55)
[2018-07-18] MEDS: ONDANSETRON INJ 2 MG/ML 2 ML VIAL IV PRN (19:19)
[2018-07-18] MEDS ORDERED: MELATONIN PO SCH (21:00)
[2018-07-18] MEDS: MELATONIN PO SCH (22:29)
[2018-07-18] MEDS: NORETHINDRONE 0.35 MG PO SCH (22:29)
[2018-07-18] MEDS: clonazePAM 0.5 MG TAB PO SCH (22:35)
[2018-07-18] MEDS: TOPIRAMATE 100 MG TAB PO SCH (22:35)
[2018-07-18] MEDS: sulfaSALAzine 500 MG TABLET PO SCH (22:36)
[2018-07-18] MEDS: DOCUSATE SODIUM 100 MG CAP PO SCH (23:46)
[2018-07-18] MEDS: TIZANIDINE HCL 4 MG TABLET PO PRN (23:47)
[2018-07-19] MEDS: TRAZODONE HCL 50 MG TAB PO SCH ×2 (00:18→21:34)
[2018-07-19] MEDS: PANTOprazole 40 MG in DEXTROSE 5% 100 ML IV SCH ×3 (00:18→15:27)
[2018-07-19 01:39] LABS: Hematocrit (blood only) 35.5 % (37-47); Hemoglobin 11.8 g/dL (12.0-16.0)
[2018-07-19] MEDS: MIDODRINE HCL 10 MG TAB PO SCH ×3 (05:24→16:14)
[2018-07-19 07:04] LABS: Hematocrit (blood only) 35.7 % (37-47); Mean Corpuscular Hgb Conc 33.6 g/dL (32-36); Mean Corpuscular Volume 91.3 fL (80-100); Mean Platelet Volume 9.7 fL (7.4-10.4); Platelet Count 149 K/uL (130-400); RDW Coefficient of Variation 13.1 % (11.5-14.5); RDW Standard Deviation 43.4 fL (36.4-46.3); Red Blood Count 3.91 M/uL (4.2-5.4); White Blood Count 5.38 K/uL (4.8-10.8)
[2018-07-19 07:12] LABS: Prothrombin Time 19.2 Seconds (9.0-12.0)
[2018-07-19 07:43] LABS: BUN Creatinine Ratio 8.7 (10-20); Calcium 8.5 mg/dl (8.5-10.1); Est GFR (African American) 94.7; Est GFR (Non-African American) 81.7; Potassium 3.8 mmol/L (3.5-5.1)
[2018-07-19] MEDS: LACTOBACILLUS ACIDOPHILUS (FLORANEX) TAB PO SCH ×3 (08:00→17:55)
[2018-07-19] MEDS: FOLIC ACID 1 MG TAB PO SCH (08:04)
[2018-07-19] MEDS: clonazePAM 0.5 MG TAB PO SCH ×3 (08:04→21:34)
[2018-07-19] MEDS: CEROVITE ADV FORMULA TAB PO SCH (08:05)
[2018-07-19] MEDS: sulfaSALAzine 500 MG TABLET PO SCH ×2 (08:06→21:34)
[2018-07-19] MEDS: MAGNESIUM OXIDE 400 MG TAB PO SCH (08:06)
[2018-07-19] MEDS: TOPIRAMATE 100 MG TAB PO SCH ×2 (08:06→21:35)
[2018-07-19] MEDS: DOCUSATE SODIUM 100 MG CAP PO SCH ×2 (08:07→21:36)
[2018-07-19] MEDS: SODIUM CHLORIDE 1 GM TABLET PO SCH ×3 (08:07→21:35)
[2018-07-19] MEDS: RIBOFLAVIN PO SCH (08:08)
[2018-07-19] MEDS: TIZANIDINE HCL 4 MG TABLET PO PRN ×2 (08:09→21:32)
[2018-07-19] MEDS: VENLAFAXINE HCL XR 150 MG CAPXR PO SCH (08:11)
--- NOTE | 2018-07-19 08:50 | Anesthesiology Consultation ---
Date of Service July 19, 2018 Assessment & Plan Chart Review Chart Review: Acceptable Risk for Surgery and Patient NOT seen in Pre Admission Testing Consults Requested none ASA ASA4 Proposed Anesthesia Anesthesia Type: MAC Risk / Benefits Reviewed With: PT / POA / Parent / Guardian, Accepts Plan and Informed Consent Obtained History Surgery Operation Date: 07/19/18 08:30 Proposed Procedures p Esophagogastroduodenoscopy Dr Torres - Nayeli Torres Height/Weight Height: 5 ft 8 in Weight: 74.2 kg Allergies Allergy/AdvReac Type Severity Reaction Status Date / Time bupropion Allergy Mild Verified 07/18/18 09:55 metoclopramide Allergy Mild Verified 07/18/18 09:55 adhesive Allergy Unknown RASH Verified 07/18/18 09:55 gabapentin Allergy Unknown SHORTNESS Verified 07/18/18 09:55 OF BREATH hyoscyamine Allergy Unknown SHORTNESS Verified 07/18/18 09:55 OF BREATH/HYPOTENSION infliximab Allergy Unknown HYPOTENSION Verified 07/18/18 09:55 latex Allergy Unknown Verified 07/18/18 09:55 propoxyphene Allergy Unknown Verified 07/18/18 09:55 Medications Home Medications Medication Instructions Recorded Confirmed Last Taken Centrum 1 tab PO QAM 03/31/18 07/18/18 07/17/18 L.acidophilus-Bifido.longum 1 cap PO QAM 03/31/18 07/18/18 07/17/18 [Probiotic Pearls] clonazepam 0.5 mg PO BID 03/31/18 07/18/18 07/17/18 diclofenac sodium 1 applic TOPICAL QID PRN 03/31/18 07/18/18 Unknown docusate sodium [Colace] 200 mg PO BID 03/31/18 07/18/18 07/17/18 magnesium oxide 500 mg PO QAM 03/31/18 07/18/18 07/17/18 midodrine 10 mg PO TID 03/31/18 07/18/18 07/17/18 ranitidine HCl 150 mg PO BID 03/31/18 07/18/18 07/17/18 riboflavin (vitamin B2) 400 mg PO QAM 03/31/18 07/18/18 07/17/18 sodium chloride 2,000 mg PO TID 03/31/18 07/18/18 07/17/18 sulfasalazine 1,000 mg PO BID 03/31/18 07/18/18 07/17/18 tizanidine [Zanaflex] 2 mg PO TID PRN 03/31/18 07/18/18 Unknown valacyclovir 500 mg PO BID PRN 03/31/18 07/18/18 Unknown sumatriptan succinate 100 mg PO DIRECTED PRN 06/04/18 07/18/18 06/06/18 07:30 melatonin 0.5 tab PO HS 06/06/18 07/18/18 06/05/18 topiramate 100 mg PO BID 06/06/18 07/18/18 07/17/18 trazodone 100 mg PO HS 06/06/18 07/18/18 07/17/18 venlafaxine 300 mg PO DAILY 06/06/18 07/18/18 07/17/18 oxycodone-acetaminophen [Percocet] 1 tab PO Q6H PRN 06/24/18 07/18/18 07/17/18 clonazepam 1 mg PO HS 07/18/18 07/18/18 Unknown docusate sodium [Colace] 100 mg PO BID 07/18/18 07/18/18 07/17/18 20:40 folic acid 1 mg PO 6XWK 07/18/18 07/18/18 07/17/18 meclizine 25 mg PO TID PRN 07/18/18 07/18/18 Unknown menthol [Biofreeze (menthol)] 4 % TOPICAL UD PRN 07/18/18 07/18/18 Unknown methotrexate sodium 10 mg PO WK 07/18/18 07/18/18 07/14/18 norethindrone (contraceptive) 0.35 mg PO DAILY 07/18/18 07/18/18 Unknown tizanidine [Zanaflex] 2 mg PO Q8H PRN 07/18/18 07/18/18 Unknown warfarin [Coumadin] 7.5 mg PO SUTUTHFR 07/18/18 07/18/18 07/16/18 warfarin [Coumadin] 10 mg PO MOWEFR 07/18/18 07/18/18 07/17/18 Active Medications Generic Name Dose Route Start Last Admin Trade Name Freq PRN Reason Stop Dose Admin Clonazepam 1 mg 07/18/18 21:00 07/18/18 22:35 Klonopin PO 08/17/18 20:59 1 mg HS SAMANTHA Administration Clonazepam 0.5 mg 07/19/18 07:30 07/19/18 08:04 Klonopin PO 08/18/18 07:29 0.5 mg BID@0730,1130 SAMANTHA Administration Docusate Sodium 100 mg 07/18/18 23:00 07/19/18 08:07 Colace PO 08/17/18 22:59 100 mg BID SAMANTHA Administration Folic Acid 1 mg 07/19/18 09:00 07/19/18 08:04 Folvite PO 08/18/18 08:59 1 mg SuMoTuWeThSa@0900 SAMANTHA Administration Sodium Chloride 1,000 mls @ 100 mls/hr 07/18/18 12:45 07/19/18 08:03 Nss 1000ml IV 08/17/18 12:44 0 mls/hr .Q10H SAMANTHA Infusion Pantoprazole Sodium 40 mg/ 100 mls @ 20 mls/hr 07/18/18 12:45 07/19/18 08:03 Dextrose IV 08/17/18 12:44 0 mls/hr Q5H SAMANTHA Infusion Promethazine HCl 12.5 mg/ 50.5 mls @ 202 mls/hr 07/18/18 14:18 07/19/18 00:37 Sodium Chloride IV 08/17/18 14:17 Infused Q6H PRN Infusion Nausea And Vomiting Lactobacillus Acidophilus 2 tab 07/18/18 17:00 07/19/18 08:00 Floranex PO 08/17/18 16:59 2 tab TIDM SAMANTHA Administration Magnesium Oxide 400 mg 07/19/18 09:00 07/19/18 08:06 Mag-Ox PO 08/18/18 08:59 400 mg QAM SAMANTHA Administration Midodrine 10 mg 07/18/18 16:30 07/19/18 05:24 Proamatine PO 08/17/18 16:29 10 mg TID@0700,1200,1630 SAMANTHA Administration Multivitamins/Minerals 1 tab 07/19/18 09:00 07/19/18 08:05 Multivitamin W/ Minerals Tab PO 08/18/18 08:59 1 tab QAM SAMANTHA Administration ~Riboflavin 400mcg~ 1 ea 07/19/18 09:00 07/19/18 08:08 Non-Formulary PO 08/18/18 08:59 400 mg Patient's Own Med DAILY SAMANTHA Administration Melatonin~Non- 1 ea 07/18/18 22:00 07/18/18 22:29 Formulary Patient's PO 08/17/18 21:59 Not Given Own Med HS SAMANTHA ~Norethindrone 0. 1 ea 07/18/18 22:00 07/18/18 22:29 35mg Tabs~Non- PO 08/17/18 21:59 Not Given Formulary Patient's HS SAMANTHA Own Med Ondansetron HCl 4 mg 07/18/18 14:18 07/18/18 19:19 Zofran IV 08/17/18 14:17 4 mg Q6H PRN Administration Nausea Oxycodone/Acetaminophen 1 tab 07/18/18 13:52 07/18/18 15:06 Percocet 5mg/325mg PO 08/01/18 13:51 1 tab Q6H PRN Administration pain Ranitidine HCl 150 mg 07/18/18 21:00 07/19/18 08:05 Zantac PO 08/17/18 20:59 150 mg BID SAMANTHA Administration Sodium Chloride 2 gm 07/18/18 15:00 07/19/18 08:07 Sodium Chloride PO 08/17/18 14:59 2 gm TID SAMANTHA Administration Sulfadiazine 1,000 mg 07/18/18 21:00 07/19/18 08:06 Azulfidine PO 08/17/18 20:59 1,000 mg BID SAMANTHA Administration Tizanidine HCl 2 mg 07/18/18 22:47 07/19/18 08:09 Zanaflex PO 08/17/18 22:46 2 mg Q8H PRN Administration Muscle Spasm Topiramate 100 mg 07/18/18 21:00 07/19/18 08:06 Topamax PO 08/17/18 20:59 100 mg BID SAMANTHA Administration Trazodone HCl 50 mg 07/18/18 21:00 07/19/18 00:18 Desyrel PO 08/17/18 20:59 50 mg HS SAMANTHA Administration Venlafaxine HCl 300 mg 07/19/18 09:00 07/19/18 08:11 Effexor Extended Release PO 08/18/18 08:59 300 mg DAILY SAMANTHA Administration NPO Date Last Intake of Fluids: 07/19/18 Time Last Intake of Fluids: 08:15 Last Intake of Fluids Comment: SI OF WATER WITH PILL Date Last Intake of Solids: 07/17/18 Time Last Intake of Solids: 19:00 Past Medical History Medical History RSD (reflex sympathetic dystrophy) (Chronic) Pauciarticular juvenile rheumatoid arthritis (Chronic) IBS (irritable bowel syndrome) (Chronic) Bilateral pulmonary embolism (Chronic) Deep vein thrombosis (DVT) of right lower extremity (Chronic) Fibromyalgia (Chronic) Anxiety and depression (Chronic) Migraine (Chronic) Orthostatic hypotension (Chronic) Exercise / Class Metabolic Activity III < 4 Walking/Shop/Light housework Past Family History Family History Father Lymphoma Brother Juvenile rheumatoid arthritis Past Surgical History Surgical History History of appendectomy (Chronic) Past Anesthesia History No Hx of Anesthesia Complications and No Family Hx of Anesthesia Complications History of PONV No Hx of PONV and No Hx of Motion Sickness Social History Smoking Status: Never smoker Hx Alcohol Use: Yes Alcohol type: wine alcohol intake frequency: a few times a month Alcohol Intake Frequency Comment: once or twice a week Hx Substance Use: No substance use type: does not use Physical Exam Vital Signs Last Vital Signs Temp 37.1 C 07/19/18 08:37 Pulse 49 L 07/19/18 08:37 Resp 18 07/19/18 08:37 BP 99/67 L 07/19/18 08:37 Pulse Ox 96 07/19/18 07:06 Constitutional not obese ENMT Mouth: no dentition abnormality Thyromental Distance: > or= 3.5 Finger Breadths Mallampati Class: II Neck normal visual inspection and trachea midline; neck extension not limited Respiratory normal respiratory effort Auscultation: lungs clear to auscultation bilaterally Cardiovascular Rate/Rhythm: regular rate and regular rhythm Heart Sounds: no murmur Musculoskeletal Spine: normal cervical ROM Neurologic moves all extremities Motor/Sensory: no sensory deficit Psychiatric Orientation: alert and oriented x 3 Testing Laboratory Results 07/19/18 06:21 07/19/18 06:21 07/18/18 07/18/18 07/19/18 09:05 09:34 06:21 PT 20.4 H 19.2 H INR 2.1 H 2.0 H APTT 38.1 H Blood Type O Positive Antibody Screen NEGATIVE Electrocardiogram Date: 07/18/18 Findings: + SB @ (at 56) Chest X-Ray Date: 07/18/18 Findings: + NAD
[2018-07-19] MEDS ORDERED: ePHEDrine sulfate 50 MG/ML AMP IV PRN (08:51)
--- NOTE | 2018-07-19 08:52 | History & Physical Report ---
Date of Service July 19, 2018 Assessment & Plan (1) Hematemesis: EGD today History of Present Illness Chief Complaint: hematemesis Primary Care Provider: Cinda Kirby MD hematemesis Allergies Allergy/AdvReac Type Severity Reaction Status Date / Time bupropion Allergy Mild Verified 07/18/18 09:55 metoclopramide Allergy Mild Verified 07/18/18 09:55 adhesive Allergy Unknown RASH Verified 07/18/18 09:55 gabapentin Allergy Unknown SHORTNESS Verified 07/18/18 09:55 OF BREATH hyoscyamine Allergy Unknown SHORTNESS Verified 07/18/18 09:55 OF BREATH/HYPOTENSION infliximab Allergy Unknown HYPOTENSION Verified 07/18/18 09:55 latex Allergy Unknown Verified 07/18/18 09:55 propoxyphene Allergy Unknown Verified 07/18/18 09:55 Home Medications Home Medications Medication Instructions Recorded Confirmed Type Centrum 1 tab PO QAM 03/31/18 07/18/18 History L.acidophilus-Bifido.longum 1 cap PO QAM 03/31/18 07/18/18 History [Probiotic Pearls] clonazepam 0.5 mg PO BID 03/31/18 07/18/18 History diclofenac sodium 1 applic TOPICAL QID PRN 03/31/18 07/18/18 History docusate sodium [Colace] 200 mg PO BID 03/31/18 07/18/18 History magnesium oxide 500 mg PO QAM 03/31/18 07/18/18 History midodrine 10 mg PO TID 03/31/18 07/18/18 History ranitidine HCl 150 mg PO BID 03/31/18 07/18/18 History riboflavin (vitamin B2) 400 mg PO QAM 03/31/18 07/18/18 History sodium chloride 2,000 mg PO TID 03/31/18 07/18/18 History sulfasalazine 1,000 mg PO BID 03/31/18 07/18/18 History tizanidine [Zanaflex] 2 mg PO TID PRN 03/31/18 07/18/18 History valacyclovir 500 mg PO BID PRN 03/31/18 07/18/18 History sumatriptan succinate 100 mg PO DIRECTED PRN 06/04/18 07/18/18 History melatonin 0.5 tab PO HS 06/06/18 07/18/18 History topiramate 100 mg PO BID 06/06/18 07/18/18 History trazodone 100 mg PO HS 06/06/18 07/18/18 History venlafaxine 300 mg PO DAILY 06/06/18 07/18/18 History oxycodone-acetaminophen [Percocet] 1 tab PO Q6H PRN 06/24/18 07/18/18 History clonazepam 1 mg PO HS 07/18/18 07/18/18 History docusate sodium [Colace] 100 mg PO BID 07/18/18 07/18/18 History folic acid 1 mg PO 6XWK 07/18/18 07/18/18 History meclizine 25 mg PO TID PRN 07/18/18 07/18/18 History menthol [Biofreeze (menthol)] 4 % TOPICAL UD PRN 07/18/18 07/18/18 History methotrexate sodium 10 mg PO WK 07/18/18 07/18/18 History norethindrone (contraceptive) 0.35 mg PO DAILY 07/18/18 07/18/18 History tizanidine [Zanaflex] 2 mg PO Q8H PRN 07/18/18 07/18/18 History warfarin [Coumadin] 7.5 mg PO SUTUTHFR 07/18/18 07/18/18 History warfarin [Coumadin] 10 mg PO MOWEFR 07/18/18 07/18/18 History Past Med/Surg History Medical History RSD (reflex sympathetic dystrophy) (Chronic) Pauciarticular juvenile rheumatoid arthritis (Chronic) IBS (irritable bowel syndrome) (Chronic) Bilateral pulmonary embolism (Chronic) Deep vein thrombosis (DVT) of right lower extremity (Chronic) Fibromyalgia (Chronic) Anxiety and depression (Chronic) Migraine (Chronic) Orthostatic hypotension (Chronic) Surgical History History of appendectomy (Chronic) Family History Father Lymphoma Brother Juvenile rheumatoid arthritis Social History Preferred Language: Angolan Communication Ability: Effective Facility Supervisor Required: No Beliefs That Will Affect Care: None Current Living Situation: Spouse and Family Other Information That Helps Us Care for You: No Feels Safe at Home: Yes Safety Concerns: Feels Safe At This Time Smoking Status: Never smoker Second Hand Exposure: No Hx Alcohol Use: Yes Alcohol type: wine Hx Substance Use: No Physical Exam Vital Signs (Past 24 Hours): Last Vital Signs Temp 37.1 C 07/19/18 08:37 Pulse 49 L 07/19/18 08:37 Resp 18 07/19/18 08:37 BP 99/67 L 07/19/18 08:37 Pulse Ox 96 07/19/18 07:06 Constitutional: WD/WN, vitals as above Respiratory: normal respiratory effort, lungs clear to auscultation Cardiovascular: RRR, no murmur, no edema Gastrointestinal (Abdomen): normal bowel sounds, soft, nontender, no hepatosplenomegaly Code Status & VTE Plan VTE Prophylaxis Plan VTE Prophylaxis will be ordered: Yes (1) Hematemesis Nausea presence: with nausea Qualified Code(s): K92.0 - Hematemesis
[2018-07-19] MEDS ORDERED: LIDOCAINE HCL 2% 2 ML VIAL/AMP(20MG/ML) INFIL ONE (08:57)
[2018-07-19] MEDS ORDERED: PROPOFOL IV EMULSION 10 MG/ML 20 ML VIAL IV ONE (08:57)
[2018-07-19] MEDS ORDERED: NORETHINDRONE 0.35 MG PO SCH (09:00)
--- NOTE | 2018-07-19 09:01 | Hospitalist Progress Note ---
Date of Service July 19, 2018 Assessment & Plan (1) Hematemesis: Patient presenting from home with reports of one episode of hematemesis with bright red blood morning of admission. No more episodes since admitted. Denies prior episodes of similar symptoms. EGD/Colonoscopy in past - negative per patient. Recently admitted to [facility] for DVT/PE and was started on Coumadin. Previous heavy use of NSAIDs which were stopped about 1 month ago when patient was started on Coumadin -Hemodynamically stable. Hgb 14.6 ---> 12 today -INR 2.1 on day of admission, given stable vitals and hemoglobin not reversed . INR 2.0 today -S/P EGD today- Normal. Per GI--> Ok to restart coumadin -S/P IV Protonix bolus---> IV Drip---> Discontinued -GI signed off. Cleared for discharge to home with continuation of coumadin PLAN FOR EGD TODAY (2) Deep vein thrombosis (DVT) of right lower extremity: (3) Bilateral pulmonary embolism: -Recent diagnosis about 1 month ago -At the time of diagnosis, patient's control was changed to progestin only -Was started on Lovenox bridge/Coumadin -INR 2.1 on admission, not reversed as above. INR 2.0 today -Noted that outpatient RLE venous ultrasound on 07/05 did not show any new clot burden -Cleared by GI for coumadin re initiation as EGD normal and no more episodes of bleeding. Benefits > risks given DVT/PE 1 month ago. Understands risk of bleeding. (4) Pauciarticular juvenile rheumatoid arthritis: (5) Fibromyalgia: -Continue sulfasalazine and methotrexate, home dose of PRN Percocet -Has been having right hip pain and is scheduled to see [facility] pain management -Pain mx on board (6) Migraine: (7) Anxiety and depression: -Continue venlafaxine 300 mg daily , trazodone 50 mg q HS, topiramate 100 mg PO BID , clonazepam 0.5 mg PO BID. Hold for increased drowsiness. (8) Orthostatic hypotension: -BP stable, continue midodrine (9) DVT prophylaxis: -SCDs due to upper GI bleed DISPOSITION- Cleared by GI for discharge. Patient is a bit drowsy post zanaflex, EGD. Will monitor her for now. Updated mother by bedside. Answered all questions. Expected discharge home when stable Subjective Patient is status post EGD. Still a little drowsy. Received Zanaflex prior to EGD. EGD- no acute abnormalities found. Hungry and asking for food. Still has some nausea per patient. No vomiting Physical Exam Physical Exam: GENERAL- Awake, oriented x 3, bit drowsy NECK- Supple, no JVD LUNGS- Air entry bilaterally equal. No rales, rhonchi, crackles, wheezes heard. HEART- Regular rate and rhythm. No murmurs ABDOMEN- Soft, non tender, non distended, Bowel sounds heard. EXTREMITIES- Good peripheral pulses, no edema Results & Data Vital Signs (Past 12 Hours) Vital Signs Temp Pulse Pulse Resp BP BP Pulse Ox 07/19/18 08:37 37.1 C 49 L 18 99/67 L 07/19/18 07:06 37 C 54 L 16 98/64 L 96 07/19/18 03:46 36.7 C 54 L 16 96/60 L 94 07/18/18 23:58 37.0 C 59 L 20 99/65 L 95 (1) Deep vein thrombosis (DVT) of right lower extremity Affected thrombotic vein of extremity: femoral Chronicity: acute Qualified Code(s): I82.411 - Acute embolism and thrombosis of right femoral vein (2) Hematemesis Nausea presence: with nausea Qualified Code(s): K92.0 - Hematemesis
[2018-07-19] MEDS ORDERED: GLYCOPYRROLATE 0.2 MG/ML VIAL ONE (09:03)
--- NOTE | 2018-07-19 09:10 | GI REPORT ---
Patient Name: Karina Moreno Procedure Date: 07/19/2018 8:58 AM Date of : 1980 Admit Type: Inpatient Age: 37 Gender: Female Attending MD: Nayeli Torres DO Procedure: Upper GI endoscopy Providers: Nayeli Torres DO Referring MD: Kenton Kirby Indications: Epigastric abdominal pain, Hematemesis Medicines: Propofol per Anesthesia Complications: No immediate complications. Estimated blood loss: None. Estimated Blood Loss: Estimated blood loss: none. Procedure: Pre-Anesthesia Assessment: - Prior to the procedure, a History and Physical was performed, and patient medications, allergies and sensitivities were reviewed. The patient's tolerance of previous anesthesia was reviewed. - The risks and benefits of the procedure and the sedation options and risks were discussed with the patient. All questions were answered and informed consent was obtained. - Patient identification and proposed procedure were verified prior to the procedure by the physician and the nurse. The procedure was verified in the pre-procedure area in the procedure room. - Mental Status Examination: alert and oriented. Airway Examination: normal oropharyngeal airway and neck mobility. Respiratory Examination: clear to auscultation. CV Examination: normal. Abdominal Examination: bowel sounds present, abdomen soft and non-tender, no masses or organomegaly noted. - ASA Grade Assessment: IV - A patient with severe systemic disease that is a constant threat to life. After obtaining informed consent, the endoscope was passed under direct vision. Throughout the procedure, the patient's blood pressure, pulse, and oxygen saturations were monitored continuously. The Endoscope was introduced through the mouth, and advanced to the second part of duodenum. The upper GI endoscopy was accomplished without difficulty. The patient tolerated the procedure well. Findings: The esophagus was normal. The stomach was normal. The examined duodenum was normal. Impression: - Normal esophagus. - Normal stomach. - Normal examined duodenum. - No specimens collected. Recommendation: - Advance diet as tolerated. - Resume Coumadin (warfarin) at prior dose today. - Return patient to [facility] for possible discharge same day. Pablo Figueroa DO 07/19/2018 9:10:25 AM This report has been signed electronically. Note Initiated On: 07/19/2018 8:58 AM Number of Addenda: 0 I attest to the content of the Intraoperative Record and orders documented therein, exceptions below {[id number]}
--- NOTE | 2018-07-19 09:23 | Pain Management Consultation ---
Date of Consultation July 19, 2018 History of Present Illness Attending Physician: Tari Kirby History of Present Illness Went into the patient's room at 845 and she was not there. Patient is in endoscopy currently. Will attempt to see the patient tomorrow for hip pain. She does also have an appointment in less than 2 weeks to be seen for this issue at the office. Allergies Allergy/AdvReac Type Severity Reaction Status Date / Time bupropion Allergy Mild Verified 07/18/18 09:55 metoclopramide Allergy Mild Verified 07/18/18 09:55 adhesive Allergy Unknown RASH Verified 07/18/18 09:55 gabapentin Allergy Unknown SHORTNESS Verified 07/18/18 09:55 OF BREATH hyoscyamine Allergy Unknown SHORTNESS Verified 07/18/18 09:55 OF BREATH/HYPOTENSION infliximab Allergy Unknown HYPOTENSION Verified 07/18/18 09:55 latex Allergy Unknown Verified 07/18/18 09:55 propoxyphene Allergy Unknown Verified 07/18/18 09:55 Home Medications Home Medications Medication Instructions Recorded Confirmed Type Centrum 1 tab PO QAM 03/31/18 07/18/18 History L.acidophilus-Bifido.longum 1 cap PO QAM 03/31/18 07/18/18 History [Probiotic Pearls] clonazepam 0.5 mg PO BID 03/31/18 07/18/18 History diclofenac sodium 1 applic TOPICAL QID PRN 03/31/18 07/18/18 History docusate sodium [Colace] 200 mg PO BID 03/31/18 07/18/18 History magnesium oxide 500 mg PO QAM 03/31/18 07/18/18 History midodrine 10 mg PO TID 03/31/18 07/18/18 History ranitidine HCl 150 mg PO BID 03/31/18 07/18/18 History riboflavin (vitamin B2) 400 mg PO QAM 03/31/18 07/18/18 History sodium chloride 2,000 mg PO TID 03/31/18 07/18/18 History sulfasalazine 1,000 mg PO BID 03/31/18 07/18/18 History tizanidine [Zanaflex] 2 mg PO TID PRN 03/31/18 07/18/18 History valacyclovir 500 mg PO BID PRN 03/31/18 07/18/18 History sumatriptan succinate 100 mg PO DIRECTED PRN 06/04/18 07/18/18 History melatonin 0.5 tab PO HS 06/06/18 07/18/18 History topiramate 100 mg PO BID 06/06/18 07/18/18 History trazodone 100 mg PO HS 06/06/18 07/18/18 History venlafaxine 300 mg PO DAILY 06/06/18 07/18/18 History oxycodone-acetaminophen [Percocet] 1 tab PO Q6H PRN 06/24/18 07/18/18 History clonazepam 1 mg PO HS 07/18/18 07/18/18 History docusate sodium [Colace] 100 mg PO BID 07/18/18 07/18/18 History folic acid 1 mg PO 6XWK 07/18/18 07/18/18 History meclizine 25 mg PO TID PRN 07/18/18 07/18/18 History menthol [Biofreeze (menthol)] 4 % TOPICAL UD PRN 07/18/18 07/18/18 History methotrexate sodium 10 mg PO WK 07/18/18 07/18/18 History norethindrone (contraceptive) 0.35 mg PO DAILY 07/18/18 07/18/18 History tizanidine [Zanaflex] 2 mg PO Q8H PRN 07/18/18 07/18/18 History warfarin [Coumadin] 7.5 mg PO SUTUTHFR 07/18/18 07/18/18 History warfarin [Coumadin] 10 mg PO MOWEFR 07/18/18 07/18/18 History Patient History Medical History RSD (reflex sympathetic dystrophy) (Chronic) Pauciarticular juvenile rheumatoid arthritis (Chronic) IBS (irritable bowel syndrome) (Chronic) Bilateral pulmonary embolism (Chronic) Deep vein thrombosis (DVT) of right lower extremity (Chronic) Fibromyalgia (Chronic) Anxiety and depression (Chronic) Migraine (Chronic) Orthostatic hypotension (Chronic) Surgical History History of appendectomy (Chronic) Family History Father Lymphoma Brother Juvenile rheumatoid arthritis Social History Preferred Language: Tajik Communication Ability: Effective Application Manager Required: No Beliefs That Will Affect Care: None Current Living Situation: Spouse and Family Other Information That Helps Us Care for You: No Feels Safe at Home: Yes Safety Concerns: Feels Safe At This Time Smoking Status: Never smoker Second Hand Exposure: No Hx Alcohol Use: Yes Alcohol type: wine Hx Substance Use: No
--- NOTE | 2018-07-19 09:32 | Anesthesiology Progress Note ---
Date of Service July 19, 2018 Anesthesia Post Procedure Vital Signs Vital Signs: Temp Pulse Pulse Pulse Resp BP BP 07/19/18 09:23 68 16 159/95 H 07/19/18 09:08 55 L 12 130/81 07/19/18 08:37 37.1 C 49 L 18 07/19/18 07:06 37 C 54 L 16 98/64 L 07/19/18 03:46 36.7 C 54 L 16 96/60 L 07/18/18 23:58 37.0 C 59 L 20 99/65 L 07/18/18 19:51 36.7 C 54 L 20 98/63 L 07/18/18 18:36 63 07/18/18 14:36 36.6 C 59 L 18 96/60 L 07/18/18 14:23 36.7 C 55 L 16 95/63 L 07/18/18 14:21 57 L 07/18/18 13:29 65 20 95/66 L 07/18/18 12:30 79 19 07/18/18 12:01 60 15 106/53 L 07/18/18 12:00 70 20 07/18/18 11:30 60 21 07/18/18 11:00 59 L 21 105/66 07/18/18 10:30 64 20 07/18/18 10:26 65 20 97/61 L BP Pulse Ox 07/19/18 09:23 98 07/19/18 09:08 98 07/19/18 08:37 99/67 L 07/19/18 07:06 96 07/19/18 03:46 94 07/18/18 23:58 95 07/18/18 19:51 94 07/18/18 18:36 07/18/18 14:36 99 07/18/18 14:23 99 07/18/18 14:21 07/18/18 13:29 98 07/18/18 12:30 98 07/18/18 12:01 07/18/18 12:00 07/18/18 11:30 07/18/18 11:00 98 07/18/18 10:30 07/18/18 10:26 Pain Intensity Abdomen: Pain Intensity: 5 Right Leg: Pain Intensity: 8 Transfer of Care Handoff Completed per policy Notes Mental Status: alert / awake / arousable Patient Amnestic to Procedure: Yes Nausea / Vomiting: adequately controlled Pain: adequately controlled Airway Patency, RR, SpO2: stable & adequate BP & HR: stable & adequate Hydration State: stable & adequate Anesthetic Complications: no major complications apparent
[2018-07-19] MEDS: SODIUM CHLORIDE 0.9% 1000ML 1,000 ML IV SCH (15:26)
[2018-07-19] MEDS ORDERED: WARFARIN SOD 7.5 MG TAB PO SCH (16:00)
[2018-07-19] MEDS: ONDANSETRON INJ 2 MG/ML 2 ML VIAL IV PRN (18:03)
[2018-07-19] MEDS: NORETHINDRONE 0.35 MG PO SCH (21:36)
[2018-07-19] MEDS: MELATONIN PO SCH (21:38)
[2018-07-20 06:30] LABS: Hematocrit (blood only) 36.5 % (37-47); Hemoglobin 12.1 g/dL (12.0-16.0); Mean Corpuscular Hgb Conc 33.2 g/dL (32-36); Mean Corpuscular Volume 90.6 fL (80-100); Mean Platelet Volume 10.2 fL (7.4-10.4); Platelet Count 150 K/uL (130-400); RDW Coefficient of Variation 12.9 % (11.5-14.5); RDW Standard Deviation 42.9 fL (36.4-46.3); Red Blood Count 4.03 M/uL (4.2-5.4); White Blood Count 5.81 K/uL (4.8-10.8)
[2018-07-20 06:37] LABS: INR 1.8 (0.9-1.1); Prothrombin Time 17.9 Seconds (9.0-12.0)
[2018-07-20] MEDS: MIDODRINE HCL 10 MG TAB PO SCH (06:38)
[2018-07-20 07:09] LABS: BUN Creatinine Ratio 9.1 (10-20); Calcium 8.2 mg/dl (8.5-10.1); Creatinine Clr Calc Pharmacy 84.3 ml/min; Est GFR (African American) 91.1; Est GFR (Non-African American) 78.6; Potassium 3.7 mmol/L (3.5-5.1)
[2018-07-20] MEDS: CEROVITE ADV FORMULA TAB PO SCH (09:11)
[2018-07-20] MEDS: LACTOBACILLUS ACIDOPHILUS (FLORANEX) TAB PO SCH (09:11)
[2018-07-20] MEDS: SODIUM CHLORIDE 1 GM TABLET PO SCH (09:12)
[2018-07-20] MEDS: FOLIC ACID 1 MG TAB PO SCH (09:12)
[2018-07-20] MEDS: MAGNESIUM OXIDE 400 MG TAB PO SCH (09:12)
[2018-07-20] MEDS: TOPIRAMATE 100 MG TAB PO SCH (09:12)
[2018-07-20] MEDS: sulfaSALAzine 500 MG TABLET PO SCH (09:12)
[2018-07-20] MEDS: DOCUSATE SODIUM 100 MG CAP PO SCH (09:12)
[2018-07-20] MEDS: VENLAFAXINE HCL XR 150 MG CAPXR PO SCH (09:13)
[2018-07-20] MEDS: RIBOFLAVIN PO SCH (09:14)
--- NOTE | 2018-07-20 09:25 | Pain Management Consultation ---
Date of Consultation July 20, 2018 Assessment & Plan (1) Right groin pain: 1. She is not a candidate for a repeat radiofrequency ablation of the right genitofemoral nerve at this time until she is able to hold Coumadin for a procedure. 2. Lidocaine patches were ordered to help diminish pain. 3. Patient is scheduled to see me in the pain management office on 07/31/18. Will see her outpatient to further discuss options. 4. Thank you for the consultation. History of Present Illness Attending Physician: Tari Kirby History of Present Illness Ms. Moreno is a 37 year old white female that is being seen in consultation at the [facility] for right groin pain. Patient describes a burning, aching, and cramping sensation. Pain is aggravated with twisting and bending forwards. She states that the pain is similar to what it was previously. She did take one Percocet 2 days ago which alleviated the pain. Pain is currently 4/10. She denies any injury. No leg weakness or lateral hip pain. Case discussed with Dr. Sarah Roberts Pain Assessment [facility] Combined Pain Scale: 4-Mild to Mod - Interrupts ADLs. Decrease in job performance Allergies Allergy/AdvReac Type Severity Reaction Status Date / Time bupropion Allergy Mild Verified 07/18/18 09:55 metoclopramide Allergy Mild Verified 07/18/18 09:55 adhesive Allergy Unknown RASH Verified 07/18/18 09:55 gabapentin Allergy Unknown SHORTNESS Verified 07/18/18 09:55 OF BREATH hyoscyamine Allergy Unknown SHORTNESS Verified 07/18/18 09:55 OF BREATH/HYPOTENSION infliximab Allergy Unknown HYPOTENSION Verified 07/18/18 09:55 latex Allergy Unknown Verified 07/18/18 09:55 propoxyphene Allergy Unknown Verified 07/18/18 09:55 Home Medications Home Medications Medication Instructions Recorded Confirmed Type Centrum 1 tab PO QAM 03/31/18 07/18/18 History L.acidophilus-Bifido.longum 1 cap PO QAM 03/31/18 07/18/18 History [Probiotic Pearls] clonazepam 0.5 mg PO BID 03/31/18 07/18/18 History diclofenac sodium 1 applic TOPICAL QID PRN 03/31/18 07/18/18 History docusate sodium [Colace] 200 mg PO BID 03/31/18 07/18/18 History magnesium oxide 500 mg PO QAM 03/31/18 07/18/18 History midodrine 10 mg PO TID 03/31/18 07/18/18 History ranitidine HCl 150 mg PO BID 03/31/18 07/18/18 History riboflavin (vitamin B2) 400 mg PO QAM 03/31/18 07/18/18 History sodium chloride 2,000 mg PO TID 03/31/18 07/18/18 History sulfasalazine 1,000 mg PO BID 03/31/18 07/18/18 History tizanidine [Zanaflex] 2 mg PO TID PRN 03/31/18 07/18/18 History valacyclovir 500 mg PO BID PRN 03/31/18 07/18/18 History sumatriptan succinate 100 mg PO DIRECTED PRN 06/04/18 07/18/18 History melatonin 0.5 tab PO HS 06/06/18 07/18/18 History topiramate 100 mg PO BID 06/06/18 07/18/18 History trazodone 100 mg PO HS 06/06/18 07/18/18 History venlafaxine 300 mg PO DAILY 06/06/18 07/18/18 History oxycodone-acetaminophen [Percocet] 1 tab PO Q6H PRN 06/24/18 07/18/18 History clonazepam 1 mg PO HS 07/18/18 07/18/18 History docusate sodium [Colace] 100 mg PO BID 07/18/18 07/18/18 History folic acid 1 mg PO 6XWK 07/18/18 07/18/18 History meclizine 25 mg PO TID PRN 07/18/18 07/18/18 History menthol [Biofreeze (menthol)] 4 % TOPICAL UD PRN 07/18/18 07/18/18 History methotrexate sodium 10 mg PO WK 07/18/18 07/18/18 History norethindrone (contraceptive) 0.35 mg PO DAILY 07/18/18 07/18/18 History tizanidine [Zanaflex] 2 mg PO Q8H PRN 07/18/18 07/18/18 History warfarin [Coumadin] 7.5 mg PO SUTUTHFR 07/18/18 07/18/18 History warfarin [Coumadin] 10 mg PO MOWEFR 07/18/18 07/18/18 History Patient History Medical History RSD (reflex sympathetic dystrophy) (Chronic) Pauciarticular juvenile rheumatoid arthritis (Chronic) IBS (irritable bowel syndrome) (Chronic) Bilateral pulmonary embolism (Chronic) Deep vein thrombosis (DVT) of right lower extremity (Chronic) Fibromyalgia (Chronic) Anxiety and depression (Chronic) Migraine (Chronic) Orthostatic hypotension (Chronic) Surgical History History of appendectomy (Chronic) Family History Father Lymphoma Brother Juvenile rheumatoid arthritis Social History Preferred Language: Japanese Communication Ability: Effective 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 Speech and cognition is intact. Mood and affect is appropriate. Does not appear in acute distress. ABDOMEN: There is no guarding or rebound tenderness. There is moderate tenderness of the right ilioinguinal nerve, genitofemoral nerve, and non focal tenderness of the right lower quadrant of abdomen. RIGHT HIP: Full ROM of the right hip. NEURO: Awake, alert, and oriented x 3. CN II-XII grossly intact.
[2018-07-20] MEDS ORDERED: LIDOCAINE 5% 1 PATCH TD SCH (09:30)
[2018-07-20] MEDS: clonazePAM 0.5 MG TAB PO SCH ×2 (09:38→12:40)
--- NOTE | 2018-07-20 10:01 | Hospitalist Progress Note ---
Date of Service July 20, 2018 Assessment & Plan (1) Hematemesis: Patient presenting from home with reports of one episode of hematemesis ?? with bright red blood morning of admission. No more episodes since admitted. Denies prior episodes of similar symptoms. EGD/Colonoscopy in past - negative per patient. Recently admitted to [facility] for DVT/PE and was started on Coumadin. Previous heavy use of NSAIDs which were stopped about 1 month ago when patient was started on Coumadin -Hemodynamically stable. Hgb 14.6 ---> 12.1 today after receiving IVF -INR 2.1 on day of admission, given stable vitals and hemoglobin not reversed . INR 1.8 today -S/P EGD on 07/19/18 - Normal. Per GI--> Ok to restart coumadin. Unclear if had true hematemesis with completely negative EGD, No more episodes, significant anxiety/depression and dramatic. -S/P IV Protonix bolus---> IV Drip---> Discontinued -GI signed off. Cleared for discharge to home with continuation of coumadin (2) Deep vein thrombosis (DVT) of right lower extremity: (3) Bilateral pulmonary embolism: -Recent diagnosis about 1 month ago -At the time of diagnosis, patient's control was changed to progestin only -Was started on Lovenox bridge/Coumadin -INR 2.1 on admission, not reversed as above. INR 1.8 today. -Noted that outpatient RLE venous ultrasound on 07/05 did not show any new clot burden -Cleared by GI for coumadin re initiation as EGD normal and no more episodes of bleeding. Benefits > risks given DVT/PE 1 month ago. Understands risk of bleeding. -As INR is 1.8 - will give a dose of Lovenox 115 mcg (1.5 mg /kg) with coumadin 7.5 mg today evening -Follow up with coumadin clinic (4) Pauciarticular juvenile rheumatoid arthritis: (5) Fibromyalgia: -Continue sulfasalazine and methotrexate, home dose of PRN Percocet -Has been having right hip pain and is scheduled to see [facility] pain management -Pain mx saw her today- Recommended Lidoderm patch. If not covered, would just continue with home meds and see her outpatient on 07/31/18 -Would be concerned about continuation of narcotics given high risk of addiction (6) Migraine: (7) Anxiety and depression: -Continue venlafaxine 300 mg daily , trazodone 50 mg q HS, topiramate 100 mg PO BID , clonazepam 0.5 mg PO BID. (8) Orthostatic hypotension: -BP stable, continue midodrine (9) DVT prophylaxis: -SCDs due to upper GI bleed DISPOSITION- Cleared by GI for discharge. Okay to discharge home today Updated mother by bedside yesterday. Answered all questions. Subjective Patient feels tired as she did not sleep well at night. Pain is controlled. No more episodes of hematemesis or active bleeding. No abdominal pain, vomiting. Post procedure yesterday had an episode of heart rate dropping to 40s, now in 50s Tolerating p.o. diet well Physical Exam Physical Exam: GENERAL- Awake, oriented x 3, bit drowsy NECK- Supple, no JVD LUNGS- Air entry bilaterally equal. No rales, rhonchi, crackles, wheezes heard. HEART- Regular rate and rhythm. No murmurs ABDOMEN- Soft, non tender, non distended, Bowel sounds heard. EXTREMITIES- Good peripheral pulses, no edema Results & Data Vital Signs (Past 12 Hours) Vital Signs Temp Pulse Pulse Pulse Resp BP BP 07/20/18 07:56 51 L 98/62 L 07/20/18 07:29 52 L 07/20/18 07:16 36.8 C 51 L 16 78/45 L 07/20/18 04:21 36.9 C 45 L 18 82/54 L 07/19/18 23:58 37 C 54 L 18 86/51 L 07/19/18 23:54 41 L Pulse Ox 07/20/18 07:56 99 07/20/18 07:29 07/20/18 07:16 98 07/20/18 04:21 96 07/19/18 23:58 95 07/19/18 23:54 (1) Hematemesis Nausea presence: with nausea Qualified Code(s): K92.0 - Hematemesis (2) Deep vein thrombosis (DVT) of right lower extremity Affected thrombotic vein of extremity: femoral Chronicity: acute Qualified Code(s): I82.411 - Acute embolism and thrombosis of right femoral vein
--- NOTE | 2018-07-20 10:04 | Anesthesiology Progress Note ---
Date of Service July 20, 2018 Anesthesia Post Procedure Vital Signs Vital Signs: Temp Pulse Pulse Pulse Resp BP BP 07/20/18 07:56 51 L 98/62 L 07/20/18 07:29 52 L 07/20/18 07:16 36.8 C 51 L 16 78/45 L 07/20/18 04:21 36.9 C 45 L 18 82/54 L 07/19/18 23:58 37 C 54 L 18 86/51 L 07/19/18 23:54 41 L 07/19/18 20:41 36.5 C 40 L 18 113/72 07/19/18 16:00 38 L 07/19/18 15:07 36.4 C L 18 L 58 L 85/46 L 07/19/18 11:02 40 L 16 97/59 L 07/19/18 10:29 43 L 14 109/72 07/19/18 10:20 36.8 C 42 L 14 109/69 Pulse Ox 07/20/18 07:56 99 07/20/18 07:29 07/20/18 07:16 98 07/20/18 04:21 96 07/19/18 23:58 95 07/19/18 23:54 07/19/18 20:41 96 07/19/18 16:00 07/19/18 15:07 96 07/19/18 11:02 07/19/18 10:29 07/19/18 10:20 99 Pain Intensity Abdomen: Pain Intensity: 5 Right Leg: Pain Intensity: 8 Notes Mental Status: alert / awake / arousable and participated in evaluation Patient Amnestic to Procedure: Yes Nausea / Vomiting: adequately controlled Pain: adequately controlled Airway Patency, RR, SpO2: stable & adequate BP & HR: stable & adequate Hydration State: stable & adequate Anesthetic Complications: no major complications apparent and Pt Satisfied with anesthetic care
--- NOTE | 2018-07-20 10:16 | Discharge Summary ---
Date of Service July 20, 2018 Admission HPI Per Admitting Provider 37-year-old female who presents the ED with hematemesis. Patient was recently admitted to [facility] 06/24 through 06/26 for RLE DVT and bilateral PE. Initially patient was placed on heparin and then transition to Lovenox bridge/Coumadin. During that admission, patient's control was changed to progestin only and etolodac was stopped. Patient has been having increasing right hip pain and was recently seen by rheumatology who started her on methotrexate. She reports she has been avoiding all NSAIDs. Over the past 1 week, patient has noted her stools have been darker in color however not black or tarry. Yesterday, she reports she developed some nausea with cramping abdominal pain. This persisted until this morning when she had an episode of vomiting. She describes emesis as being a small amount of bright red blood. No bright red bleeding per rectum. She reports lightheadedness and dizziness but denies any syncopal events. No chest pain or shortness of breath. She denies other recent illnesses, fevers, chills. No urinary symptoms. In the ED, patient is hemodynamically stable with Hgb 14.6. INR is 2.1. CT ABD/pelvis is negative for acute findings. Patient was given IVF, IV promethazine, Protonix bolus, IV Zofran, IV morphine. Principal Diagnosis 1. Episode of blood in vomitus (x 1) in setting of coumadin 2. S/P EGD- Negative Secondary diagnoses on discharge 1. DVT/bilateral PE 2. Juvenile rheumatoid arthritis 3. Fibromyalgia 4. Anxiety/depression 5. Migraine Discharge Exam GENERAL- Awake, oriented x 3, bit drowsy NECK- Supple, no JVD LUNGS- Air entry bilaterally equal. No rales, rhonchi, crackles, wheezes heard. HEART- Regular rate and rhythm. No murmurs ABDOMEN- Soft, non tender, non distended, Bowel sounds heard. EXTREMITIES- Good peripheral pulses, no edema Discharge Data Allergies Allergy/AdvReac Type Severity Reaction Status Date / Time bupropion Allergy Mild Verified 07/18/18 09:55 metoclopramide Allergy Mild Verified 07/18/18 09:55 adhesive Allergy Unknown RASH Verified 07/18/18 09:55 gabapentin Allergy Unknown SHORTNESS Verified 07/18/18 09:55 OF BREATH hyoscyamine Allergy Unknown SHORTNESS Verified 07/18/18 09:55 OF BREATH/HYPOTENSION infliximab Allergy Unknown HYPOTENSION Verified 07/18/18 09:55 latex Allergy Unknown Verified 07/18/18 09:55 propoxyphene Allergy Unknown Verified 07/18/18 09:55 Consultations 07/18/18 11:57 ED Decision to Admit Stat 07/18/18 13:52 Consult Gastroenterology Routine 07/18/18 17:20 Consult Pain Management Routine Procedures Performed Operation Date: 07/19/18 08:30 Actual Procedures p Esophagogastroduodenoscopy - Nayeli Torres Ordered Studies 07/18/18 09:56 CT abd pelvis IV con only Stat Hospital Course (1) Hematemesis: Patient presenting from home with reports of one episode of hematemesis ?? with bright red blood morning of admission. No more episodes since admitted. Denies prior episodes of similar symptoms. EGD/Colonoscopy in past - negative per patient. Recently admitted to [facility] for DVT/PE and was started on Coumadin. Previous heavy use of NSAIDs which were stopped about 1 month ago when patient was started on Coumadin -Hemodynamically stable. Hgb 14.6 ---> 12.1 today after receiving IVF -INR 2.1 on day of admission, given stable vitals and hemoglobin not reversed . INR 1.8 today -S/P EGD on 07/19/18 - Normal. Per GI--> Ok to restart coumadin. Unclear if had true hematemesis with completely negative EGD, No more episodes, significant anxiety/depression and dramatic. -S/P IV Protonix bolus---> IV Drip---> Discontinued -GI signed off. Cleared for discharge to home with continuation of coumadin (2) Deep vein thrombosis (DVT) of right lower extremity: (3) Bilateral pulmonary embolism: -Recent diagnosis about 1 month ago -At the time of diagnosis, patient's control was changed to progestin only -Was started on Lovenox bridge/Coumadin -INR 2.1 on admission, not reversed as above. INR 1.8 today. -Noted that outpatient RLE venous ultrasound on 07/05 did not show any new clot burden -Cleared by GI for coumadin re initiation as EGD normal and no more episodes of bleeding. Benefits > risks given DVT/PE 1 month ago. Understands risk of bleeding. -As INR is 1.8 - will give a dose of Lovenox 115 mcg (1.5 mg /kg) with coumadin 7.5 mg today evening. INR in AM -Follow up with coumadin clinic (4) Pauciarticular juvenile rheumatoid arthritis: (5) Fibromyalgia: -Continue sulfasalazine and methotrexate, home dose of PRN Percocet -Has been having right hip pain and is scheduled to see [facility] Perez pain management -Pain mx saw her today- Recommended Lidoderm patch. If not covered, would just continue with home meds and see her outpatient on 07/31/18 -Would be concerned about continuation of narcotics given high risk of addiction (6) Migraine: (7) Anxiety and depression: -Continue venlafaxine 300 mg daily , trazodone 50 mg q HS, topiramate 100 mg PO BID , clonazepam 0.5 mg PO BID. (8) Orthostatic hypotension: -BP stable, continue midodrine (9) DVT prophylaxis: -SCDs due to upper GI bleed DISPOSITION- Cleared by GI for discharge. Okay to discharge home today Updated mother by bedside yesterday. Answered all questions. Total Time Total Time Spent Total Time Spent (In Minutes): 38 minutes Discharge Plan Discharge Items Patient Disposition: Home - Self-Care Reason For Visit: UPPER GI BLEED Discharge Diagnosis: 1. Episode of Follow-up/Referrals: Cinda Kirby MD [Primary Care Provider] - 07/21/18 10:45 am Sarah Roberts [Other] - 07/31/18 (As scheduled) Diet: Regular Addtl Provider Instructions: MEDICATION CHANGES 1. Coumadin today evening at 16:00 --- Dose 7.5 mg . INR today is 1.8. Next INR due: Tomorrow 2. Continue prior to home coumadin dosage PAIN MEDICATION Lidoderm patch as prescribed. Follow up with pain clinic on 07/31/18 Prescriptions: New lidocaine 5 % Adhesive Patch,Medicated 1 patch transdermal QAM 10 Days Qty: 10 RF: 0 Continued methotrexate sodium 2.5 mg tablet 10 mg PO WK RF: 0 meclizine 25 mg Tablet 25 mg PO TID PRN (Reason: Tremor(S)) RF: 0 folic acid 1 mg tablet 1 mg PO 6XWK RF: 0 Biofreeze (menthol) 4 % Gel 4 % topical UD PRN (Reason: Other) RF: 0 warfarin [Coumadin] 2.5 mg tablet 7.5 mg PO SUTUTHFR RF: 0 warfarin [Coumadin] 5 mg tablet 10 mg PO MOWEFR RF: 0 clonazepam 0.5 mg tablet 1 mg PO HS RF: 0 norethindrone (contraceptive) 0.35 mg Tablet 0.35 mg PO DAILY RF: 0 docusate sodium [Colace] 100 mg Capsule 100 mg PO BID RF: 0 tizanidine [Zanaflex] 2 mg Capsule 2 mg PO Q8H PRN (Reason: Muscle Spasm) RF: 0 sulfasalazine 500 mg Tablet 1,000 mg PO BID RF: 0 clonazepam 0.5 mg tablet 0.5 mg PO BID RF: 0 midodrine 5 mg tablet 10 mg PO TID RF: 0 valacyclovir 500 mg Tablet 500 mg PO BID PRN (Reason: Other) RF: 0 ranitidine HCl 150 mg Tablet 150 mg PO BID RF: 0 magnesium oxide 500 mg Tablet 500 mg PO QAM RF: 0 tizanidine [Zanaflex] 2 mg Capsule 2 mg PO TID PRN (Reason: Other) RF: 0 sodium chloride 1,000 mg Tablet,Soluble 2,000 mg PO TID RF: 0 diclofenac sodium 1 % gel 1 applic topical QID PRN (Reason: Pain) RF: 0 Centrum 18-400 mg-mcg Tablet 1 tab PO QAM RF: 0 L.acidophilus-Bifido.longum [Probiotic Pearls] 15 mg (1 billion cell) Capsule,Delayed Release(Dr/Ec) 1 cap PO QAM RF: 0 riboflavin (vitamin B2) 400 mg tablet 400 mg PO QAM RF: 0 sumatriptan succinate 100 mg tablet 100 mg PO DIRECTED PRN (Reason: Migraine Headache) RF: 0 topiramate 25 mg tablet 100 mg PO BID RF: 0 melatonin 3 mg tablet 0.5 tab PO HS RF: 0 trazodone 50 mg Tablet 100 mg PO HS RF: 0 venlafaxine 150 mg Capsule,Extended Release 24hr 300 mg PO DAILY RF: 0 oxycodone-acetaminophen [Percocet] 5-325 mg tablet 1 tab PO Q6H PRN (Reason: pain) RF: 0 Discontinued docusate sodium [Colace] 100 mg Capsule 200 mg PO BID RF: 0 Stand-Alone Forms: [facility] Discharge Orders: Discharge Order (Routine); Ordered 07/20/18 Ordered By: Tari Kirby Admission Data Admit Date/Time: 07/18/18 12:36 Attending Provider: Tari Kirby Admit Provider: Stefano Conte Primary Care Provider: Cinda Kirby Other Providers: Stefano Conte ; Nayeli Torres ; James Khanna Service: Telemetry
[2018-07-20] MEDS ORDERED: ENOXAPARIN INJ 120 MG/0.8 ML SYR SC SCH (11:00)
[2018-07-21] MEDS ORDERED: metHOTREXate sodium 2.5 MG TAB PO SCH (09:00)
== END 2018-07-20 11:45 | disposition home or self-care (01) | DRG 379 ==
LOC: ED 08:32 → SUATTDRO 12:36 → 2N 12:36

== ENCOUNTER 2023-03-24 14:37 | Inpatient (IN) ==
--- NOTE | 2023-03-24 14:49 | ED Triage Note ---
Date of Service March 24, 2023 Provider in Triage Author: Alethea Richter History of Present Illness This patient was briefly evaluated while in triage. An abbreviated physical exam was performed. This patient is a 42-year-old Female who presents to the ED for evaluation To ED from cardiology for continued shortness of breath x 2 weeks, was seen here twice for the same complaint. Was told to go to the ED for a repeat chest CT for PE and an echocardiogram per the patient. She was told not to leave without getting these tests done. Physical Exam GENERAL: NAD, seated in a WC, mother present CARDIOVASCULAR: RRR RESPIRATORY: CTA Initial orders for labs and / or imaging were placed and patient was placed in the waiting area until a bed is available. Please see further documentation for the full ED course.
[2023-03-24 15:27] LABS: Basophils # (auto) 0.02 K/uL (0.00-0.20); Basophils % (auto) 0.3 %; Eosinophils # (auto) 0.03 K/uL (0.00-0.50); Eosinophils % (auto) 0.5 %; Hematocrit (blood only) 41.8 % (37.0-47.0); Hemoglobin 13.9 g/dl (12.0-16.0); Immature Granulocytes # (auto) 0.01 K/uL (0.01-0.20); Immature Granulocytes % (auto) 0.2 %; Lymphocytes # (auto) 2.49 K/uL (1.20-3.40); Lymphocytes % (auto) 43.5 %; Mean Corpuscular Hemoglobin 30.3 pg (25.0-34.0); Mean Corpuscular Hgb Conc 33.3 g/dL (32.0-36.0); Mean Corpuscular Volume 91.3 fL (80.0-100.0); Mean Platelet Volume 10.2 fL (9.4-12.4); Monocytes # (auto) 0.35 K/uL (0.11-0.59); Monocytes % (auto) 6.1 %; Neutrophils # (auto) 2.82 K/uL (1.40-6.50); Neutrophils % (auto) 49.4 %; Platelet Count 182 K/uL (130-400); RDW Coefficient of Variation 13.4 % (11.5-14.5); Red Blood Count 4.58 M/uL (4.20-5.40); White Blood Count 5.72 K/ul (4.8-10.8)
[2023-03-24 15:38] LABS: Pregnancy Test, Serum Negative (Negative)
[2023-03-24 15:42] LABS: Albumin Globulin Ratio 1.8 (0.9-2); Albumin Level 4.6 gm/dl (3.4-5.0); BUN Creatinine Ratio 11.1 (10-20); Bilirubin,Total 0.4 mg/dl (0.2-1.0); Calcium 9.4 mg/dl (8.6-10.3); Creatinine Clr Calc Pharmacy 82.6 ml/min; Est GFR (African American) 82.6 ml/min; Est GFR (Non-African American) 71.3 ml/min; Globulin 2.6 gm/dl (2.5-4.0); Potassium 3.9 mmol/L (3.5-5.1); Total Protein 7.2 gm/dl (6.0-8.3)
[2023-03-24 15:48] LABS: Troponin I High Sensitivity 3.1 pg/ml (0-14)
[2023-03-24 15:53] LABS: Partial Thromboplastin Time 28 Seconds (21-31); Prothrombin Time 10.6 Seconds (9.0-12.0)
--- NOTE | 2023-03-24 15:53 | Electrocardiogram Report ---
Test Reason : Blood Pressure : / mmHG Vent. Rate : 053 BPM Atrial Rate : 053 BPM P-R Int : 144 ms QRS Dur : 070 ms QT Int : 408 ms P-R-T Axes : 052 003 026 degrees QTc Int : 382 ms Sinus bradycardia Low voltage QRS Poor R wave progression, consider anterior WI vs. lead placement vs. LVH Abnormal ECG When compared with ECG of 15-MAR-2023 13:30, Vent. rate has decreased BY 41 BPM Confirmed by Biju Middleton ([id number]) on 03/24/2023 3:53:12 PM Referred By: Confirmed By:Biju Middleton
[2023-03-24] MEDS: OPTIRAY 320 125ml IV ONE (16:07)
[2023-03-24] MEDS: SODIUM CHLORIDE 0.9% 1,000 ML IV SCH (16:16)
[2023-03-24 16:27] LABS: D Dimer 950 ug/L FEU (0-500)
--- NOTE | 2023-03-24 16:32 | CT Scan Report ---
CT angio chest PE protocol CT DOSE: 504.98 mGy.cm HISTORY: 42 years-old Female with Chest Pain, eval for PE. Acute chest pain with shortness of breat h TECHNIQUE: Multiple CTA images of the chest were obtained after the intravenous administration of 116 ml Optiray. Coronal and sagittal MIPS were obtained from the axial data set and were submitted for review. All measurements were obtained according to NASCET criteria. A dose lowering technique was u tilized adhering to the principles of ALARA. COMPARISON: 03/10/2023 FINDINGS: CTA: Heart is normal in size. No pericardial effusion. Unremarkable thoracic aorta. No pulmonary embo li identified. Suboptimal evaluation of the segmental and subsegmental branches secondary to respirat ory motion artifact. CT CHEST: Unremarkable thyroid. No lymphadenopathy. No pneumothorax, pleural effusion or airspace con solidation. Low suspicion at 3 mm solid nodule within the apical segment right upper lobe is unchange d and likely benign. Central airways are patent. No acute upper abdominal abnormality. Indeterminate 12 mm hypodense focus of the hepatic dome. Subcentimeter lateral right breast calcification. No acute fracture. IMPRESSION: Unremarkable CTA of the chest. No pulmonary emboli. ACT 112: Negative or not required by law. The above report was generated using voice recognition software. It may contain grammatical, syntax o r spelling errors. Electronically signed by: Shaquille Gardiner M.D. 03/24/2023 4:31 PM
--- NOTE | 2023-03-24 19:20 | History & Physical Report ---
Date of Service March 24, 2023 Assessment & Plan (1) Atypical chest pain: (2) Pauciarticular juvenile rheumatoid arthritis: (3) Fibromyalgia: (4) Orthostatic hypotension: (5) Shortness of breath at rest: (6) Immunosuppressed status: Plan This is a 42-year-old female who has a significant past medical history of posterior regular juvenile rheumatoid arthritis, fibromyalgia, RSD, psychogenic nonepileptic seizure, dysautonomia orthostatic hypotension syndrome, depression with anxiety, PTSD, history of DVT/PE, history of serotonin syndrome who presents to ED secondary to chest pain x 3 weeks. --CTA: negative for PE, heart is normal, no effusion Atypical Chest pain admit to tele for further w/u due to worsening sx referred from [facility] given hx of autoimmune/RA concern for ? pericarditis vs inflammatory costochondritis pt appears to have relief from nsaids/steroids obtain echo will cycle trops for completeness consult cardiology to weigh in on sx in am. Colchicine 1.2mg x 1 now; Toradol 15mg x 1 will hold OP meloxicam in favor of more frequent dosing of ibuprofen pt encouraged to trial ice will repeat inflammatory markers in a.m. RA Fibromyalgia RSD follows Dr. Mercado continue methotrexate, folic acid Depression Anxiety PTSD continue prazosin, trazodone, klonopin, effexor, topamax Orthostatic hypotension continue midodrine, bp stable DVT ppx: SQ Lovenox FULL CODE PCP: DR. Ulrich Dispo: admit to tele Pt was seen and examined in collaboration with Dr. Ceja, please see addendum A total of 80 minutes was spent coordinating, documenting, and providing care for this patient excluding time spent in the performance of separately billed services. This included personally viewing all current laboratories and imaging studies, medication reconciliation, outpatient chart review, and discussion with specialists. History of Present Illness Chief Complaint: CP x 3 weeks Primary Care Provider: Adam Ulrich MD This is a 42-year-old female who has a significant past medical history of posterior regular juvenile rheumatoid arthritis, fibromyalgia, RSD, psychogenic nonepileptic seizure, dysautonomia orthostatic hypotension syndrome, depression with anxiety, PTSD, history of DVT/PE, history of serotonin syndrome who presents to ED secondary to chest pain x 3 weeks. Of significance patient has had 2 recent ED evaluations for similar symptoms. She presented on 03/10/2023 due to shortness of breath with exertion while walking up steps. There was concern at that time regarding PE due to her prior history. CTA of her chest during that evaluation was negative for PE. She also underwent lower extremity duplex which was negative for DVT. Her EKG was unremarkable. She was treated for anxiety with Ativan and discharged home. She again represented on 03/15/2023 secondary to ongoing shortness of breath and now persistent chest pain. She was hemodynamically stable. She was treated with IV steroids and Toradol with mild relief and discharged home. She has not been following with outpatient providers and was recently was evaluated by cardiology today who referred her to ED for further evaluation. At that visit she was having difficulty speaking in sentences. She states that her chest pain has been constant for the last 3 weeks. She feels if she, "cannot take a deep breath." Her symptoms are made worse with loud talking and deep breathing. It does not seem to be improved or worsened with position although she states that she requires to be reclined to feel her best. She has to talk in very slow soft sentences due to her pain. She does not feel that anxiety is provoking her symptoms. She denies any recent viral illness. "I just want to relieve my pressure." She describes her pain as being substernal, central, deep and a constant tightness. She has never had anything like this before. She typically does not have any chest wall pain in relation to her fibromyalgia. She does have history of rheumatoid arthritis and follows very closely with rheumatology. She is on methotrexate for this. She also takes daily meloxicam. In ED patient remained hemodynamically stable. Her CTA chest was negative for PE, pericardial effusion or consolidation. She did have mildly elevated D- dimer. Her EKG revealed sinus bradycardia with rate [address] or T wave change. Allergies Allergy/AdvReac Type Severity Reaction Status Date / Time adhesive Allergy Intermediate RASH Verified 03/15/23 15:13 latex Allergy Intermediate RASH/SWELLING Verified 03/15/23 15:13 AT CONTACT/BURNING SENSATION gabapentin AdvReac Intermediate DEPRESSION Verified 03/15/23 15:13 MEDS DEACTIVATED THIS MED. hyoscyamine AdvReac Intermediate LOWERS B/P Verified 03/15/23 15:13 infliximab AdvReac Intermediate STOPPED Verified 03/15/23 15:13 WORKING INTENDED metoclopramide AdvReac Intermediate LOWERS B/P Verified 03/15/23 15:13 pregabalin [From Lyrica] AdvReac Intermediate DEPRESSION Verified 03/15/23 15:13 MEDS DEACTIVATED THIS MED. propoxyphene AdvReac Intermediate CAUSED Verified 03/15/23 15:13 MIGRAINES bupropion AdvReac Unknown Unknown Verified 03/15/23 15:13 Home Medications Medication Instructions Recorded Confirmed Type sumatriptan succinate 100 mg tablet 50 - 100 mg PO DIRECTED PRN 06/04/18 0 03/24/23 History Migraine Headache clonazepam 0.5 mg tablet 0.5 mg PO HS 07/18/18 03/24/23 History docusate sodium 100 mg capsule 200 mg PO QAM 07/18/18 03/24/23 History (Colace) tizanidine 2 mg capsule (Zanaflex) 2 mg PO Q8H PRN Muscle Spasm 07/18/18 03/24/23 History magnesium oxide 500 mg tablet 500 mg PO QAM 05/23/19 03/24/23 History sodium chloride 1,000 mg soluble 2,000 mg PO QAM 05/23/19 03/24/23 History tablet topiramate 25 mg tablet 75 mg PO BID 05/23/19 03/24/23 History trazodone 50 mg tablet 150 mg PO HS 05/23/19 03/24/23 History ammonium lactate 12 % topical cream 1 applic topical DAILY 11/21/19 03/24/23 History multivitamin 1 tab PO QAM 11/21/19 03/24/23 History folic acid 1 mg tablet 1 mg PO QAM 02/25/20 03/24/23 History meloxicam 7.5 mg tablet 15 mg PO QAM 02/25/20 03/24/23 History riboflavin (vitamin B2) 100 mg 400 mg PO QAM 02/25/20 03/24/23 History tablet (Vitamin B-2) triamcinolone acetonide 0.1 % 1 applic topical BID PRN Skin 02/25/20 03/24/23 History topical cream Irritation acetaminophen 500 mg tablet 1,000 mg PO Q6H PRN Pain 03/26/20 03/24/23 History (Tylenol Extra Strength) valacyclovir 500 mg tablet 500 mg PO BID PRN as directed 10/07/20 03/24/23 History medroxyprogesterone 150 mg/mL 150 mg IM Q3M #1 mL 12/18/21 03/24/23 Rx intramuscular syringe (Depo-Provera) Lactobacil.acidophilus-Bifido.animalis 1 cap PO QAM 03/15/23 03/24/23 History 5 billion cell sprinkle capsule (Probiotic) camphor-menthol 0.2 %-3.5 % 1 applic topical DIRECTED PRN 03/15/23 03/24/23 History topical gel PAIN/SORENESS fluocinolone 0.01 % scalp oil and 1 ea topical HS PRN TO SCALP 03/15/23 03/24/23 History shower cap NEEDED ketorolac 10 mg tablet 10 mg PO DIRECTED PRN Pain 03/15/23 03/24/23 History lidocaine 5 % topical patch 1 patch topical DAILY PRN Pain 03/15/23 03/24/23 History (Lidoderm) meclizine 25 mg tablet 25 mg PO DIRECTED PRN TREMORS 03/15/23 03/24/23 History melatonin 10 mg tablet 10 mg PO HS 03/15/23 03/24/23 History methotrexate sodium 2.5 mg tablet 10 mg PO WK 03/15/23 03/24/23 History midodrine 5 mg tablet 10 mg PO TID 03/15/23 03/24/23 History omeprazole 20 mg tablet,delayed 20 mg PO QAM 03/15/23 03/24/23 History release oxycodone-acetaminophen 5 mg-325 1 tab PO Q8H PRN Severe Pain 03/15/23 03/24/23 History mg tablet (Scale Score 7-10) prazosin 2 mg capsule 2 mg PO HS 03/15/23 03/24/23 History sennosides 8.6 mg capsule (senna) 8.6 mg PO DAILY PRN WHEN TAKING 03/15/23 03/24/23 History OXYCODONE venlafaxine 150 mg 150 mg PO QAM 03/15/23 03/24/23 History capsule,extended release 24 hr venlafaxine 75 mg capsule,extended 75 mg PO QAM 03/15/23 03/24/23 History release 24 hr Past Med/Surg History Medical History Encounter for routine gynecological examination with Papanicolaou smear of cervix Genital herpes simplex type 1 infection Pelvic inflammatory disease Severe cervical dysplasia HPV (human papilloma virus) infection RSD (reflex sympathetic dystrophy) Pauciarticular juvenile rheumatoid arthritis IBS (irritable bowel syndrome) Deep vein thrombosis (DVT) of right lower extremity Bilateral pulmonary embolism Fibromyalgia Anxiety and depression Migraine Orthostatic hypotension Surgical History H/O tooth extraction H/O arthroscopy of knee H/O colposcopy with cervical biopsy 03/26/09: dysplastic squamous epithelium, HGSIL (MANUELITO 3) History of loop electrical excision procedure (LEEP) 04/25/09: atypical squamous metaplastic mucosa, moderate chronic active en docervicitis with reactive atypia History of appendectomy Family History Father Non-Hodgkin lymphoma Brother Juvenile rheumatoid arthritis Mother Dyslipidemia Hypertension Other Alcohol abuse Arthritis Gallbladder disease Phlebitis Social History Smoking Status: Never smoker Second Hand Exposure: No; Do You Dip or Chew Tobacco: No; Hx Alcohol Use: No Hx Substance Use: No Preferred Language: [place] Communication Ability: Effective Extrusion Supervisor Required: No Beliefs That Will Affect Care: None marital status: Current Living Situation: Spouse current occupational status: employed Feels Safe at Home: Yes Dental Care, Regularly: Yes Physical Activity Frequency Comment: Exercises regularly. Seatbelt Use: always Sunscreen Use: Yes Assistive Devices: None Review of Systems Review of Systems: All systems reviewed & are unremarkable except as noted in HPI & below Physical Exam Physical Exam: please refer to Dr. Ceja addendum for physical exam findings. Results & Data Results & Data Vital Signs (Past 12 Hours) Vital Signs Temp Pulse Pulse Resp BP BP Pulse Ox 03/24/23 18:50 100 03/24/23 18:49 58 L 19 115/72 100 03/24/23 16:16 36.5 C 66 17 101/67 99 03/24/23 14:49 36.2 C L 85 14 102/69 95 O2 Del Method 03/24/23 18:50 Room Air 03/24/23 18:49 Room Air 03/24/23 16:16 Room Air 03/24/23 14:49 Room Air Diagnostic Findings Chest CTA 03/24/23 14:51 CT angio chest PE protocol CT DOSE: 504.98 mGy.cm HISTORY: 42 years-old Female with Chest Pain, eval for PE. Acute chest pain with shortness of breath TECHNIQUE: Multiple CTA images of the chest were obtained after the intravenous administration of 116 ml Optiray. Coronal and sagittal MIPS were obtained from the axial data set and were submitted for review. All measurements were obtained according to NASCET criteria. A dose lowering technique was utilized adhering to the principles of ALARA. COMPARISON: 03/10/2023 FINDINGS: CTA: Heart is normal in size. No pericardial effusion. Unremarkable thoracic aorta. No pulmonary emboli identified. Suboptimal evaluation of the segmental and subsegmental branches secondary to respiratory motion artifact. CT CHEST: Unremarkable thyroid. No lymphadenopathy. No pneumothorax, pleural effusion or airspace consolidation. Low suspicion at 3 mm solid nodule within the apical segment right upper lobe is unchanged and likely benign. Central airways are patent. No acute upper abdominal abnormality. Indeterminate 12 mm hypodense focus of the hepatic dome. Subcentimeter lateral right breast calcification. No acute fracture. IMPRESSION: Unremarkable CTA of the chest. No pulmonary emboli. ACT 112: Negative or not required by law. The above report was generated using voice recognition software. It may contain grammatical, syntax or spelling errors. Electronically signed by: Shaquille Gardiner M.D. 03/24/2023 4:31 PM Medications Administered Medication List Discontinued Medications Sodium Chloride (Nss) 1,000 mls @ 999 mls/hr IV .Q1H1M SAMANTHA Stop: 03/24/23 15:51 Last Infusion: 03/24/23 18:42 Dose: Infused Documented By: Admin: 03/24/23 16:16 Dose: 999 mls/hr Documented By: ALEENA Ioversol (Optiray 320 125ml) 116 ml IV ONCE ONE Stop: 03/24/23 16:07 Last Admin: 03/24/23 16:07 Dose: 116 ml Documented By: MARIANA COVID-19 Results Results COVID-19 Adm Lab Results: RBC 4.58 M/uL (4.20-5.40) 03/24/23 WBC 5.72 K/ul (4.8-10.8) 03/24/23 Hgb 13.9 g/dl (12.0-16.0) 03/24/23 Hct 41.8 % (37.0-47.0) 03/24/23 Plt Count 182 K/uL (130-400) 03/24/23 Neutrophils (%) (Auto) 49.4 % 03/24/23 Lymphocytes (%) (Auto) 43.5 % 03/24/23 Monocytes # (Auto) 0.35 K/uL (0.11-0.59) 03/24/23 Eosinophils # (Auto) 0.03 K/uL (0.00-0.50) 03/24/23 Immature Granulocyte % (Auto) 0.2 % 03/24/23 Neutrophils # (Auto) 2.82 K/uL (1.40-6.50) 03/24/23 Lymphocytes # (Auto) 2.49 K/uL (1.20-3.40) 03/24/23 Monocytes # (Auto) 0.35 K/uL (0.11-0.59) 03/24/23 Eosinophils # (Auto) 0.03 K/uL (0.00-0.50) 03/24/23 Basophils # (Auto) 0.02 K/uL (0.00-0.20) 03/24/23 Immature Granulocyte # (Auto) 0.01 K/uL (0.01-0.20) 4 Na 141 mmol/L (136-145) 03/24/23 K 3.9 mmol/L (3.5-5.1) 03/24/23 Cl 111 mmol/L (98-107) H 03/24/23 CO2 23 mmol/L (21-32) 03/24/23 Anion Gap 7 (3-11) 03/24/23 BUN 11 mg/dl (6-23) 03/24/23 Creatinine 0.99 mg/dl (0.6-1.2) 03/24/23 BUN/Creatinine Ratio 11.1 (10-20) 03/24/23 Glucose Level 92 mg/dl (70-99(Fasting)) 03/24/23 Ca 9.4 mg/dl (8.6-10.3) 03/24/23 Total Bilirubin 0.4 mg/dl (0.2-1.0) 03/24/23 AST/SGOT 12 U/L (13-39) L 03/24/23 ALT/SGPT 9 U/L (7-52) 03/24/23 Alkaline Phosphatase 62 U/L (34-104) 03/24/23 Total Protein 7.2 gm/dl (6.0-8.3) 03/24/23 Albumin 4.6 gm/dl (3.4-5.0) 03/24/23 Globulin 2.6 gm/dl (2.5-4.0) 03/24/23 Albumin/Globulin Ratio 1.8 (0.9-2) 03/24/23 D-Dimer 950 ug/L FEU (0-500) H* 03/24/23 PTT 28 Seconds (21-31) 03/24/23 INR 1.0 (0.9-1.1) 03/24/23 Code Status & VTE Plan Code Status FULL CODE VTE Prophylaxis Plan VTE Prophylaxis will be ordered: Yes Supervising Physician Co-Signing Physician Notes I have seen and examined the patient and have discussed the case with the provider above. I have reviewed the advanced practitioner's documentation, and I agree with, and take responsibility for that plan of care. 42 yo F with RA that is not currently in a flare, presents with 3 weeks of severe chest pain that is substernal and more toward the left anterior chest, described as deep and strong and constant. Doesnt seem to be related to positional changes, and pain is provoked by her using her full voice. She is speaking mostly in a whisper as a result of the severe discomfort. She denies any issues with swallowing, nausea or pain with eating. No changes in her bowel movements. She takes chronic NSAIDs. Vitals are stable and she is oxygenating well on room air. Palpation to the chest wall is causing tenderness and a reproduction of the pain. She notably does have fibromyalgia with multiple tenderpoints noted along her paraspinal area and along her sternum. Exam is otherwise unremarkable.She is WNWD and in NAD, she is mentating clearly. CV exam reveals S1/2 heard without murmurs, gallops or rubs. Lungs are clear to auscultation throughout. Strength is intact throughout. No gross focal neurologic deficit. Multiple joints were examined including most all except joints in her feet and there is no evidence of inflammation here. She has elevated inflammatory markers which are not common for her per her report. She has improved somewhat with recent one time injections of Toradol and Solumedrol, but symptoms of pain have return. There may be a slight positional component here, favoring possible acute pericarditis vs costochondritis. Would like to avoid steroids so agree with changing her Mobic to multi-daily dose Ibuprofen and adding colchicine trial x 24 hours to see if this abates her pain. She is not a fan of narcotics and also wishes to avoid these if possible. is at the bedside and assists with history and also agrees with the plan. Marcial,
[2023-03-24] MEDS: KETOROLAC TROMETHAMINE 15 MG/ML VIAL IV ONE (20:15)
[2023-03-24] MEDS: COLCHICINE 0.6 MG TAB PO ONE (20:18)
[2023-03-24] MEDS ORDERED: ONDANSETRON INJ 2 MG/ML 2 ML VIAL IV PRN (21:23)
[2023-03-24] MEDS ORDERED: POLYETHYLENE (MIRALAX) 17 GM PACK PO PRN (21:23)
[2023-03-24] MEDS ORDERED: ALUMINUM/MAGNESIUM SUSP 30 ML UDC PO PRN (21:23)
[2023-03-24] MEDS ORDERED: MAGNESIUM HYDROXIDE SUSP 30 ML UDC PO PRN (21:23)
[2023-03-24] MEDS ORDERED: tiZANidine HCL 4 MG TABLET PO PRN (21:23)
[2023-03-24] MEDS: clonazePAM 0.5 MG TAB PO SCH (22:13)
[2023-03-24] MEDS: ACETAMINOPHEN 325 MG TAB PO PRN (22:13)
[2023-03-24] MEDS: MELATONIN 3 MG TAB PO PRN (22:13)
[2023-03-24] MEDS: PRAZOSIN HCL 1 MG CAP PO SCH (22:14)
[2023-03-24] MEDS: MIDODRINE HCL 10 MG TAB PO SCH (22:14)
[2023-03-24] MEDS: traZODone HCL 50 MG TAB PO SCH (22:14)
[2023-03-24] MEDS: TOPIRAMATE 25 MG TAB PO SCH (22:15)
--- NOTE | 2023-03-25 02:11 | Emergency Department Note ---
History of Present Illness General Chief Complaint: Referred by Doctor Stated Complaint: SENT OVER Time Seen by Provider: 03/24/23 18:20 History of Present Illness Provider Complaint: chest pain Onset (ago): week(s) Onset (Weeks): 2 Duration: progressively worsening Onset: during rest Pain Location: substernal Severity: moderate Maximum Pain Intensity: 5 Current Pain Intensity: 5 Quality: + tightness and + sharp Relieved By: + nothing Exacerbated By: + inspiration Context: + history of DVT/PE; no recent illness, no recent surgery, no recent immobilization, no recent travel, no trauma/injury or no new medications Associated symptoms: + dyspnea and + palpitations; no nausea, no vomiting, no diaphoresis, no syncope, no fever, no cough or no leg swelling Home Medications Medication Instructions Recorded Confirmed Type sumatriptan succinate 100 mg tablet 50 - 100 mg PO DIRECTED PRN 06/04/18 03/24/23 History Migraine Headache clonazepam 0.5 mg tablet 0.5 mg PO HS 07/18/18 03/24/23 History docusate sodium 100 mg capsule 200 mg PO QAM 07/18/18 03/24/23 History (Colace) tizanidine 2 mg capsule (Zanaflex) 2 mg PO Q8H PRN Muscle Spasm 07/18/18 03/24/23 History magnesium oxide 500 mg tablet 500 mg PO QAM 05/23/19 03/24/23 History sodium chloride 1,000 mg soluble 2,000 mg PO QAM 05/23/19 03/24/23 History tablet topiramate 25 mg tablet 75 mg PO BID 05/23/19 03/24/23 History trazodone 50 mg tablet 150 mg PO HS 05/23/19 03/24/23 History ammonium lactate 12 % topical cream 1 applic topical DAILY 11/21/19 03/24/23 History multivitamin 1 tab PO QAM 11/21/19 03/24/23 History folic acid 1 mg tablet 1 mg PO QAM 02/25/20 03/24/23 History meloxicam 7.5 mg tablet 15 mg PO QAM 02/25/20 03/24/23 History riboflavin (vitamin B2) 100 mg 400 mg PO QAM 02/25/20 03/24/23 History tablet (Vitamin B-2) triamcinolone acetonide 0.1 % 1 applic topical BID PRN Skin 02/25/20 03/24/23 History topical cream Irritation acetaminophen 500 mg tablet 1,000 mg PO Q6H PRN Pain 03/26/20 03/24/23 History (Tylenol Extra Strength) valacyclovir 500 mg tablet 500 mg PO BID PRN as directed 10/07/20 03/24/23 History medroxyprogesterone 150 mg/mL 150 mg IM Q3M #1 mL 12/18/21 03/24/23 Rx intramuscular syringe (Depo-Provera) Lactobacil.acidophilus-Bifido.animalis 1 cap PO QAM 03/15/23 03/24/23 History 5 billion cell sprinkle capsule (Probiotic) camphor-menthol 0.2 %-3.5 % 1 applic topical DIRECTED PRN 03/15/23 03/24/23 History topical gel PAIN/SORENESS fluocinolone 0.01 % scalp oil and 1 ea topical HS PRN TO SCALP 03/15/23 03/24/23 History shower cap NEEDED ketorolac 10 mg tablet 10 mg PO DIRECTED PRN Pain 03/15/23 03/24/23 History lidocaine 5 % topical patch 1 patch topical DAILY PRN Pain 03/15/23 03/24/23 History (Lidoderm) meclizine 25 mg tablet 25 mg PO DIRECTED PRN TREMORS 03/15/23 03/24/23 History melatonin 10 mg tablet 10 mg PO HS 03/15/23 03/24/23 History methotrexate sodium 2.5 mg tablet 10 mg PO WK 03/15/23 03/24/23 History midodrine 5 mg tablet 10 mg PO TID 03/15/23 03/24/23 History omeprazole 20 mg tablet,delayed 20 mg PO QAM 03/15/23 03/24/23 History release oxycodone-acetaminophen 5 mg-325 1 tab PO Q8H PRN Severe Pain 03/15/23 03/24/23 History mg tablet (Scale Score 7-10) prazosin 2 mg capsule 2 mg PO HS 03/15/23 03/24/23 History sennosides 8.6 mg capsule (senna) 8.6 mg PO DAILY PRN WHEN TAKING 03/15/23 03/24/23 History OXYCODONE venlafaxine 150 mg 150 mg PO QAM 03/15/23 03/24/23 History capsule,extended release 24 hr venlafaxine 75 mg capsule,extended 75 mg PO QAM 03/15/23 03/24/23 History release 24 hr Allergies Allergy/AdvReac Type Severity Reaction Status Date / Time adhesive Allergy Intermediate RASH Verified 03/15/23 15:13 latex Allergy Intermediate RASH/SWELLING Verified 03/15/23 15:13 AT CONTACT/BURNING SENSATION gabapentin AdvReac Intermediate DEPRESSION Verified 03/15/23 15:13 MEDS DEACTIVATED THIS MED. hyoscyamine AdvReac Intermediate LOWERS B/P Verified 03/15/23 15:13 infliximab AdvReac Intermediate STOPPED Verified 03/15/23 15:13 WORKING INTENDED metoclopramide AdvReac Intermediate LOWERS B/P Verified 03/15/23 15:13 pregabalin [From Lyrica] AdvReac Intermediate DEPRESSION Verified 03/15/23 15:13 MEDS DEACTIVATED THIS MED. propoxyphene AdvReac Intermediate CAUSED Verified 03/15/23 15:13 MIGRAINES bupropion AdvReac Unknown Unknown Verified 03/15/23 15:13 Past Med/Surg History Medical History Encounter for routine gynecological examination with Papanicolaou smear of cervix Genital herpes simplex type 1 infection Pelvic inflammatory disease Severe cervical dysplasia HPV (human papilloma virus) infection RSD (reflex sympathetic dystrophy) Pauciarticular juvenile rheumatoid arthritis IBS (irritable bowel syndrome) Deep vein thrombosis (DVT) of right lower extremity Bilateral pulmonary embolism Fibromyalgia Anxiety and depression Migraine Orthostatic hypotension Surgical History H/O tooth extraction H/O arthroscopy of knee H/O colposcopy with cervical biopsy 03/26/09: dysplastic squamous epithelium, HGSIL (MANUELITO 3) History of loop electrical excision procedure (LEEP) 04/25/09: atypical squamous metaplastic mucosa, moderate chronic active endocervicitis with reactive atypia History of appendectomy Family History Father Non-Hodgkin lymphoma Brother Juvenile rheumatoid arthritis Mother Dyslipidemia Hypertension Other Alcohol abuse Arthritis Gallbladder disease Phlebitis Social History Smoking Status: Never smoker Second Hand Exposure: No; Do You Dip or Chew Tobacco: No; Tobacco Cessation Education Requested by Patient: No Hx Alcohol Use: No Hx Substance Use: No Preferred Language: [place] Communication Ability: Effective Electrical Tests Supervisor Required: No Beliefs That Will Affect Care: None marital status: Current Living Situation: Spouse and Family Current Living Situation Comment: and 2 children live in home current occupational status: employed Other Information That Helps Us Care for You: No Feels Safe at Home: Yes Safety Concerns: Feels Safe At This Time Dental Care, Regularly: Yes Physical Activity Frequency Comment: Exercises regularly. Seatbelt Use: always Sunscreen Use: Yes Assistive Devices: None Physical Exam Vital Signs Vital Signs - 24 hr 03/24/23 14:49 03/24/23 16:16 03/24/23 18:49 Temperature 36.2 C L 36.5 C Temperature Source Temporal Artery Scan Oral Pulse Rate 85 Pulse Rate [Right Finger] 66 58 L Pulse Rhythm [Right Finger] Regular Regular Pulse Strength [Right Finger] Normal Respiratory Rate 14 17 19 Respiratory Effort / Characteristics Non-Labored Spontaneous Non-Labored Spontaneous Respiratory Depth Normal Normal Normal Respiratory Pattern Regular Blood Pressure 102/69 Blood Pressure [Right Arm] 101/67 115/72 Blood Pressure Mean 80 Blood Pressure Mean [Right Arm] 78 86 Pulse Oximetry 95 99 100 Oxygen Delivery Method Room Air Room Air Room Air Sepsis Recent Fever Within 48 Hours No Sepsis New/Unexplained Change in Mental Status No Sepsis Action Taken by Nursing No Action Required 03/24/23 18:50 03/24/23 18:51 Temperature Temperature Source Pulse Rate 51 L Pulse Rate [Right Finger] Pulse Rhythm [Right Finger] Pulse Strength [Right Finger] Respiratory Rate Respiratory Effort / Characteristics Respiratory Depth Respiratory Pattern Blood Pressure Blood Pressure [Right Arm] Blood Pressure Mean Blood Pressure Mean [Right Arm] Pulse Oximetry 100 Oxygen Delivery Method Room Air Sepsis Recent Fever Within 48 Hours Sepsis New/Unexplained Change in Mental Status Sepsis Action Taken by Nursing Physical Exam GENERAL: oriented to person, place, and time. appears well-developed and well- nourished. HENT: Exam performed. - Head: Normocephalic and atraumatic. EYES: Conjunctivae and EOM are normal. Right eye exhibits no discharge. Left eye exhibits no discharge. No scleral icterus. NECK: Normal range of motion. Neck supple. No JVD present. CV: Normal rate, regular rhythm, normal heart sounds and intact distal pulses. There is no peripheral edema. Palpable radial pulses bue. PULM/CHEST: Effort normal and breath sounds normal. No respiratory distress. No stridor. no wheezes. no rales. ABD: The abdomen is soft. There is no tenderness. NEURO: Motor and sensation grossly intact. SKIN: Skin is warm and dry. He is not diaphoretic. PSYCH: normal mood and affect. Behavior is normal. Judgment and thought content normal. Course Course 1819: The patient was evaluated in room B5. A complete history and physical exam was performed Administered Medications Acetaminophen (Acetaminophen 325 Mg Tab) 650 mg PO Q4H PRN PRN Reason: Pain or Fever Stop: 04/23/23 21:22 Last Admin: 03/24/23 22:13 Dose: 650 mg Documented By: MARIAH Clonazepam (Clonazepam 0.5 Mg Tab) 0.5 mg PO HS SAMANTHA Stop: 04/23/23 21:22 Last Admin: 03/24/23 22:13 Dose: 0.5 mg Documented By: MARIAH Melatonin (Melatonin 3 Mg Tab) 9 mg PO HS PRN PRN Reason: Sleep Stop: 04/23/23 21:37 Last Admin: 03/24/23 22:13 Dose: 9 mg Documented By: MARIAH Midodrine (Midodrine Hcl 10 Mg Tab) 10 mg PO TIDM SAMANTHA Stop: 04/23/23 21:44 Last Admin: 03/24/23 22:14 Dose: 10 mg Documented By: MARAIH Prazosin HCl (Prazosin Hcl 1 Mg Cap) 2 mg PO HS SAMANTHA Stop: 04/23/23 21:22 Last Admin: 03/24/23 22:14 Dose: 2 mg Documented By: MARIAH Topiramate (Topiramate 25 Mg Tab) 75 mg PO BID SAMANTHA Stop: 04/23/23 21:22 Last Admin: 03/24/23 22:15 Dose: 75 mg Documented By: MARIAH Trazodone HCl (Trazodone Hcl 50 Mg Tab) 150 mg PO HS SAMANTHA Stop: 04/23/23 21:22 Last Admin: 03/24/23 22:14 Dose: 150 mg Documented By: MARIAH Discontinued Medications Colchicine (Colchicine 0.6 Mg Tab) 1.2 mg PO NOW ONE Stop: 03/24/23 19:49 Last Admin: 03/24/23 20:18 Dose: 1.2 mg Documented By: STAS Sodium Chloride (Nss) 1,000 mls @ 999 mls/hr IV .Q1H1M SAMANTHA Stop: 03/24/23 15:51 Last Infusion: 03/24/23 18:42 Dose: Infused Documented By: Admin: 03/24/23 16:16 Dose: 999 mls/hr Documented By: ALEENA Ioversol (Optiray 320 125ml) 116 ml IV ONCE ONE Stop: 03/24/23 16:07 Last Admin: 03/24/23 16:07 Dose: 116 ml Documented By: MARIANA Ketorolac Tromethamine (Ketorolac Tromethamine 15 Mg/Ml Vial) 15 mg IV NOW ONE Stop: 03/24/23 19:49 Last Admin: 03/24/23 20:15 Dose: 15 mg Documented By: STAS Medical Decision Making Laboratory Data Attestation: I reviewed the patient's lab results. 03/24/23 15:08 03/24/23 15:08 Labs: Lab Results 03/24/23 Range/Units 15:08 WBC 5.72 (4.8-10.8) K/ul RBC 4.58 (4.20-5.40) M/uL Hgb 13.9 (12.0-16.0) g/dl Hct 41.8 (37.0-47.0) % MCV 91.3 (80.0-100.0) fL MCH 30.3 (25.0-34.0) pg MCHC 33.3 (32.0-36.0) g/dL RDW Std Deviation 45.0 (36.4-46.3) fL RDW Coeff of Yandel 13.4 (11.5-14.5) % Plt Count 182 (130-400) K/uL MPV 10.2 (9.4-12.4) fL Immature Gran % (Auto) 0.2 % Neut % (Auto) 49.4 % Lymph % (Auto) 43.5 % [place] % (Auto) 6.1 % Eos % (Auto) 0.5 % Baso % (Auto) 0.3 % Neut # (Auto) 2.82 (1.40-6.50) K/uL Lymph # (Auto) 2.49 (1.20-3.40) K/uL [place] # (Auto) 0.35 (0.11-0.59) K/uL Eos # (Auto) 0.03 (0.00-0.50) K/uL Baso # (Auto) 0.02 (0.00-0.20) K/uL Immature Gran # (Auto) 0.01 (0.01-0.20) K/uL PT 10.6 (9.0-12.0) Seconds INR 1.0 (0.9-1.1) APTT 28 (21-31) Seconds PTT Ratio 1.0 D-Dimer 950 H* (0-500) ug/L FEU Sodium 141 (136-145) mmol/L Potassium 3.9 (3.5-5.1) mmol/L Chloride 111 H (98-107) mmol/L Carbon Dioxide 23 (21-32) mmol/L Anion Gap 7 (3-11) BUN 11 (6-23) mg/dl Creatinine 0.99 (0.6-1.2) mg/dl Est Cr Clr Drug Dosing 82.6 ml/min Est GFR ( Amer) 82.6 ml/min Est GFR (Non-Af Amer) 71.3 ml/min BUN/Creatinine Ratio 11.1 (10-20) Glucose 92 (70-99(Fasting)) mg/dl Calcium 9.4 (8.6-10.3) mg/dl Total Bilirubin 0.4 (0.2-1.0) mg/dl AST 12 L (13-39) U/L ALT 9 (7-52) U/L Alkaline Phosphatase 62 (34-104) U/L Troponin I High Sens 3.1 (0-14) pg/ml Total Protein 7.2 (6.0-8.3) gm/dl Albumin 4.6 (3.4-5.0) gm/dl Globulin 2.6 (2.5-4.0) gm/dl Albumin/Globulin Ratio 1.8 (0.9-2) HCG, Qual Negative (Negative) Imaging Data Chest x-ray: Radiologist's impression: Chest CTA 03/24/23 14:51 CT angio chest PE protocol CT DOSE: 504.98 mGy.cm HISTORY: 42 years-old Female with Chest Pain, eval for PE. Acute chest pain with shortness of breath TECHNIQUE: Multiple CTA images of the chest were obtained after the intravenous administration of 116 ml Optiray. Coronal and sagittal MIPS were obtained from the axial data set and were submitted for review. All measurements were obtained according to NASCET criteria. A dose lowering technique was utilized adhering to the principles of ALARA. COMPARISON: 03/10/2023 FINDINGS: CTA: Heart is normal in size. No pericardial effusion. Unremarkable thoracic aorta. No pulmonary emboli identified. Suboptimal evaluation of the segmental and subsegmental branches secondary to respiratory motion artifact. CT CHEST: Unremarkable thyroid. No lymphadenopathy. No pneumothorax, pleural effusion or airspace consolidation. Low suspicion at 3 mm solid nodule within the apical segment right upper lobe is unchanged and likely benign. Central airways are patent. No acute upper abdominal abnormality. Indeterminate 12 mm hypodense focus of the hepatic dome. Subcentimeter lateral right breast calcification. No acute fracture. IMPRESSION: Unremarkable CTA of the chest. No pulmonary emboli. ACT 112: Negative or not required by law. The above report was generated using voice recognition software. It may contain grammatical, syntax or spelling errors. Electronically signed by: Shaquille Gardiner M.D. 03/24/2023 4:31 PM ECG Data Attestation: I personally reviewed and interpreted this ECG as follows: Indication: chest pain Rate (beats per minute): 53 Rhythm: sinus bradycardia Findings: no ST depression, no ST elevation or no prolonged QT MDM Narrative Cardiac monitoring: An order was placed for continuous cardiac monitoring. The monitor shows a rate of 60 with sinus rhythm interpreted by me Patient was seen during a time of extreme volume and extreme acuity. Nursing triage protocols were initiated labs and imaging was conducted by protocol in the triage area. Labs within normal limits with exception of a positive D-dimer CTA of the chest is negative for PE. Patient will be admitted for chest pain workup rule out ACS. [facility] hospitalist Estefania Gómez notified and states to admit to Dr. Ceja. Impression & Plan Chest pain Discharge Plan Visit Data Chief Complaint: Referred by Doctor Stated Complaint: SENT OVER ED Provider: Johnny Donald Discharge Problem: Chest pain Patient Disposition: Admitted As Inpatient Discharge Instructions Interventions: ED Discharge Assessment Last Done: 03/24/23 20:46 Discharge Problem: Chest pain Qualifiers: Chest pain type: unspecified Qualified Code(s): R07.9 - Chest pain, unspecified
--- OUTSIDE RECORDS SUMMARY | 2023-03-25 03:46 | External Medical Summary | Summary of Care ---
Author Name Unknown Organization [facility] Address [address] [facility] [place] [address] Phone [phone] Care Team Providers Care Aircraft Mechanic Armament Name Role Phone Adam Ulrich MD Primary Care Provider + Encounter Details Date Type Department Care Team (Late st Contact Info) Description 03/21/2023 3:30 PM EST Nurse Only Ancillary [facility] [place] [address] [place] [address] Nurse, Int Med [address] [facility] [place] [address] Allergies Active Allergy Reactions Criticality Noted Date Comments Adhesive Tape Rash 06/26/2008 Amoxicillin Other (Please comment) 09/23/2009 yeast infections Yeast infection Propoxyphene N-Acetaminophen 09/23/2009 MIGRAINES Gabapentin 09/23/2009 Deactivates depression medications Latex Rash 06/26/2008 Ramon the skin, breathing problems Latex 02/27/2021 Other reaction(s): Unknown Hyoscyamine Sulfate 09/23/2009 Lowers BP Pregabalin Other (Please comment) High 11/12/2022 Suicidal ideations Metoclopramide Hcl 09/23/2009 Lowers BP Bupropion 05/11/2016 Patient unsure of side effect documented as of this encounter (statuses as of 03/21/2023) Medications Medication Sig Dispensed Refills Start Date End Date Status BIOFREEZE 4 % EX GEL as needed 0 Active Multiple Vitamin (MULTI VITAMIN DAILY) TABS Take by mouth. 0 12/15/2016 Active Acetaminophen 500 MG Oral Tablet Take 2 Tablets by mouth every 6 hours as needed for Pain. 30 Tab 0 03/30/2017 Active Docusate Sodium 100 MG Oral Capsule Take 2 Capsules by mouth in the morning and 2 Capsules before bedtime. 10 Cap 0 03/30/2017 Active Probiotic Product (PROBIOTIC ACIDOPHILUS BIOBEADS) Capsule Take 1 Cap by mouth daily. 0 Active clonazePAM (KLONOPIN) 0.5 MG Tablet Take 1 Tablet by mouth every night at bedtime. 0 12/03/2020 Active Triamcinolone Acetonide 0.1 % External Ointment (ARISTOCORT) Apply topically to affected area 2 times a day. Apply to areas of itchy rash on arms and legs 80 g 3 11/14/2019 Active Fluocinolone Acetonide Scalp 0.01 % External Oil ([place]-Smoothe/FS Scalp)Indications: Folliculitis Apply to scalp nightly as directed 118.28 mL 2 03/05/2020 Active Lidoderm 5 % External PatchIndications:P ain of right lower leg Place 1 Patch topically on the skin daily. Wear up to 12 hours a day 15 Patch 0 03/12/2020 Active Additional Information Patient taking differently:1 Patch TransdermalDAILY PRN, Wear up to 12 hours a day, as needed, Informant: Patient, Reported on 12/22/2021 Senna 8.6 MG Oral CapsuleIndications :Hip pain, right,Tear of right acetabular labrum, initial encounter 2 tablets at night orally as needed for constipation 60 Cap 0 03/28/2020 Active Additional Information Patient taking differently: 8.6 mg BID PRN, Constipation, (No instructions reported), Informant: Patient, Reported on 12/22/2021 Melatonin 10 MG Oral Tablet Take 1 Tablet by mouth at bedtime. 0 Active oxyCODONE-Acetamin ophen 5-325 MG Oral Tablet (Percocet)Indicati ons:Hip pain, right,Tear of right acetabular labrum, initial encounter Take 1 Tab by mouth every 8 hours as needed for Pain, Severe. 21 Tab 0 06/30/2020 Active Sodium Chloride 1 GM Oral Tablet Take 1 Tablet by mouth in the morning and 1 Tablet before bedtime. 0 10/08/2020 Active Venlafaxine HCl ER 150 MG Oral Capsule Extended Release 24 Hour (Effexor XR)Indications:Judah or depressive disorder, single episode, severe without psychotic features (HCC) Patient takes 150mg in am and 75mg in the pm. Patient reports she takes the whole 225 mg at once, daily. 0 08/27/2021 Active Ketorolac Tromethamine 10 MG Oral Tablet Take 1 Tablet by mouth every 6 hours as needed. 0 Active medroxyPROGESTERon e Acetate 150 MG/ML Intramuscular Suspension Prefilled Syringe (Depo-Provera)Selena cations:Surveillan ce for Depo-Provera contraception Inject 150 mg into a large muscle every 3 months. 1 mL 4 12/24/2021 Active Topiramate 25 MG Oral Tablet (topAMAX) TAKE THREE TABLETS BY MOUTH TWICE A DAY 540 Tablet 3 07/01/2022 07/01/19 24 Active traZODone HCl 50 MG Oral Tablet (Desyrel) TAKE ONE TO THREE TABLETS BY MOUTH AT BEDTIME 270 Tablet 3 03/09/2022 04/06/19 24 Active [facility] Magnesium 500 MG Oral Tablet (Magnesium Oxide -Mg Supplement)Indicat ions:Migraine without aura and without status migrainosus, not intractable TAKE 1 TABLET BY MOUTH EVERY DAY IN THE MORNING 90 Tablet 3 09/13/2022 Active Omeprazole 20 MG Oral Capsule Delayed Release (PriLOSEC)Indicati ons:Gastroesophage al reflux disease without esophagitis TAKE BY MOUTH 1 CAPSULE IN THE MORNING. 1 HOUR BEFORE THE FIRST MEAL OF THE DAY. 90 Capsule 1 09/12/2022 Active Folic Acid 1 MG Oral Tablet Take 1 Tablet by mouth in the morning. 90 Tablet 3 09/30/2022 Active Vitamin B-2 100 MG Oral Tablet (vitamin B-2)Indications:Ch ronic migraine without aura, not intractable, without status migrainosus TAKE 4 TABLETS BY MOUTH EVERY DAY 300 Tablet 3 10/20/2022 Active Methotrexate Sodium 2.5 MG Oral TabletIndications: Pauciarticular juvenile rheumatoid arthritis (HCC),Fibromyalgia Take 4 Tablets by mouth once a week. 52 Tablet 1 11/12/2022 Active Meloxicam 7.5 MG Oral Tablet (Mobic)Indications :Hip pain, right TAKE 2 TABLETS BY MOUTH DAILY FOR PAIN 180 Tablet 3 12/06/2022 Active tiZANidine HCl 2 MG Oral Tablet (Zanaflex)Indicati ons:Spasm of muscle TAKE 1 TABLET BY MOUTH EVERY 8 HOURS NEEDED FOR MUSCLE SPASM 30 Tablet 0 12/27/2022 Active Midodrine HCl 5 MG Oral Tablet (Proamatine) Take 2 Tablets by mouth in the morning and 2 Tablets at noon and 2 Tablets before bedtime. 540 Tablet 3 12/27/2022 Active SUMAtriptan Succinate 100 MG Oral TabletIndications: Migraine without aura and without status migrainosus, not intractable TAKE ONE HALF TO ONE TABLET BY MOUTH AT START OF HEADACHE MAY REPEAT ONCE AFTER TWO HOURS. TAKE UP TO 2 DAYS A WEEK. 9 Tablet 6 03/07/2023 Active Ammonium Lactate 12 % External Cream (Lac-Hydrin)Indica tions:Dry skin Apply topically to affected area 2 times a day. Apply to body, arms and legs 385 g 11 03/11/2023 Active Prazosin HCl 2 MG Oral Capsule (Minipress) Take 1 Capsule by mouth at bedtime. 0 02/15/2023 Active Diclofenac Sodium 50 MG Oral Tablet Delayed Release (Voltaren)Indicati ons:Chest pain, unspecified type,Pauciarticula r juvenile rheumatoid arthritis (HCC) Take 1 Tablet by mouth 2 times a day with morning and evening meals. Take with food.--HOLD meloxicam while on this 28 Tablet 0 03/18/2023 Active Hospital, Clinic, or Other Facility Administered Medication Ordered Dose Route Frequency Start Date End Date Status medroxyPROGESTERone (contracep) (Depo-Provera) inj 150 mgIndications:Surveillance for Depo-Provera contraception 150 mg IM [id number] 12/24/2021 Active documented as of this encounter (statuses as of 03/21/2023) Active Problems Problem Noted Date Diagnosed Date Encounter for long-term (current) use of medicat ions 07/20/2022 Psychogenic nonepileptic seizure 12/22/2021 Hypotension 11/09/2021 Serotonin syndrome 08/27/2021 Gastroesophageal reflux disease without esophagi tis 09/07/2020 Dehydration 07/02/2020 Adenoma of liver 08/08/2019 Overview: mri every 2-3 years until she is in her mid 40's. Major depressive disorder, s denice episode, severe without psychotic features 02/01/2019 History of pulmonary embolism 11/01/2018 Overview: 06/2018 Dysautonomia orthostatic hypotension syndrome Fibromyalgia 07/31/2008 Pauciarticular juvenile rheumatoid arthritis Overview: Diagnosed at age 15, JOSE MARTIN, RF, HLA B27 neg RSD (reflex sympathetic dystrophy) Overview: both legs, left knee MUNA (generalized anxiety disorder) documented as of this encounter (statuses as of 03/21/2023) Resolved Problems Problem Noted Date Diagnosed Date Resolved Date Stressful life event affecting family 05/03/2022 03/11/2023 Dizziness 11/09/2021 03/17/2023 History of seizure 05/05/2020 History of DVT (deep vein thrombosis) 11/01/2018 03/17/2023 Overview: 06/2018 History of pulmonary embolism 11/01/2018 08/08/2019 Chronic anticoagulation 07/26/201801/14 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 No-Patient declines Advance Directive brochure today. Conversion disorder 01/16/2014 03/17/19 24 Spells 12/25/2013 01/30/2019 Overview: Historical 03/26/2014 Autonomic dysfunction 11/07/20132020 Orthostatic hypotension 02/16/2013 09/2 05/2013 Dysplasia 11/08/2011 02/01/2019 Vision blurred 06/03/2010 08/25/2018 Cancer of cervix 03/19/2009 11/08/2011 Overview: stage 1 COMMON MIGRAINE WITHOUT MENT ION OF INTRACTABLE MIGRAINE 09/07/2020 Bipolar disorder 05/11/2011 Major depressive disorder Overview: ICD-10 update of inactive term Arthritis, rheumatoid 2008 Overview: LEONARDO Irritable bowel syndrome Overview: resolved documented as of this encounter (statuses as of 03/21/2023) Immunizations Name Administration Dates Next Due COVID-19 mRNA, LNP-s, No Pre serve, 2-Dose Series (Vega-Chi) 01/05/2021,05/30/2020,05/09/2020 H1N1 2009 Influenza, IM 02/21/2009 PPD 02/02/2016 Pneumococcal Conjugate Vacc, 13 Valent (Prevnar) 08/08/2019 Pneumococcal Polysaccharide PPV23 (Pneumovax) 10/25/2019,11/14/2012 Seasonal Influenza Virus Vac cine, Unspecified Formulation 10/27/2020,10/25/2019,11/17/2018,11/17,10/20/2016,11/29/2015,02/28/2015 ,12/07/2013,11/14/2013,11/14/2012,1102/2011,12/09/2010,01/14/2010 Seasonal Influenza, PF, 6 M & above, IM , (FluLaval or Fluzone) 11/19/2022,10/31/2021,10/27/2020,10/24,11/17/2018,10/20/2016 Seasonal Influenza, Quadriva lent, No Preserve, IM 11/17/2017,11/29/2015,02/28/2015 Seasonal Influenza, Split, I IV3, With Preserve, Inj 12/07/2013,11/14/2012,12/16/2011,12/09,01/14/2010 TD, Preservative Free 01/23/2015 TDAP (age 11 and older)(Adacel) 06/14/2004 documented as of this encounter Social History Tobacco Use Types Packs/Day Years Used Date Smoking Tobacco: Never Smokeless Tobacco: Never Alcohol Use Standard Drinks/Week Comments Yes 1 (1 standard drink = 0.6 oz pure alcohol) max of 1 glass of wine per week PHQ-2 Answer Date Recorded PHQ Adult Total Score 0 03/18/2023 Hunger Vital Sign Answer Date Recorded Within the past 12 months, y ou worried that your food would run out before you got the money to buy more. Never true 03/18/19 24 Within the past 12 months, t he food you bought just didn't last and you didn't have money to get more. Never true 03/18/2023 Sex and Gender Information Value Date Recorded Sex Assigned at Female 06/29/2018 2:32 PM EDT Gender Identity Female 06/29/2018 2:32 PM EDT Sexual Orientation Straight 06/29/2018 2: 32 PM EDT Job Start Date Occupation Industry Not on file Not on file Not on file documented as of this encounter Functional Status Functional Status Response Date of Assess ment Are you deaf or do you have serious difficulty h earing? No 09/18/2014 Are you blind or do you have serious difficulty seeing, even when wearing glasses? No 09/18/2014 Do you have serious difficul ty walking or climbing stairs? (5 years old or older) No 09/18/2014 Do you have difficulty dress ing or bathing? (5 years old or older) No 09/18/2014 Because of a physical, menta l, or emotional condition, do you have difficulty doing errands alone such as visiting a doctor s office or shopping? (15 years old or older) Yes 09/19/19 15 Cognitive Status Response Date of Assessm ent Because of a physical, menta l, or emotional condition, do you have serious difficulty concentrating, remembering, or making decisions? (5 years old or older) No 09/18/2014 documented as of this encounter Nursing Notes * Yasmin Amos LPN - 03/21/2023 3:26 PM EST Pre-Administration Time Out Procedure Performed: Yes Patient Identified (Ask Name/Date of ): Yes Does the patient have a fever greater than 101 degrees today? No Patient allergic to latex? No Has the patient ever fainted after receiving an injection? No VFC Stock: No Injection(s) verified: Yes, Injection Name: depo-medrol 40mg Verified Side and Site: Yes Verified Shot(s) with Parent(s)/Patient: Yes documented in this encounter Plan of Treatment Upcoming Encounters Date Type Department Care Team (Late st Contact Info) Description 04/11/2023 8:00 AM EST Office Visit Dermatology [facility] [place] [address] [place] [address] Deya James PA-C [address] [facility] [place] [address] 05/02/2023 11:30 AM EDT Office Visit Cardiology, [facility] [address] [place] [address] Lyndsay Christian PA-C [address] [place] [address] 05/06/2023 1:00 PM EDT Nurse Only Gynecology/Obstetrics [facility] [address] [facility] [place] [address] Gw, Nurse Obgyn Injection [address] [facility] [place] [address] 01/26/2024 8:20 AM EST Office Visit Rheumatology [address] [place] [address] Prashant Kidd MD [address] [place] [address] [place] [address] 02/07/2024 1:00 PM EST Office Visit Gynecology/Obstetrics [facility] [address] [place] [address] Evonne Lozoya CRNP [address] [place] [address] Health Maintenance Due Date Last Done Comments Lipid Panel 1982 HPV/Co-Test 2012 COVID-19 Vaccine (4 - 2022- season) 2022 01/05/2021, 05/30/2020, 05/09/2020 Mammogram 01/15/2024 01/14/2023, 12/16, 01/11/2022, Additional history exists Depression Screening 03/18/2024 03/18/2023 Cervical Cancer Screening 05/27/2024 Pap Smear 05/27/2024 05/27/2021, 04/14, 03/25/2016, Additional history exists DTaP,Tdap,and Td Vaccines (3 - Td or Tdap) 01/23/2025 01/23/2015, 06/14/2004 Diabetes Screening 01/05/2026 01/05/2023, 0 07/26/2022, 03/11/2022, Additional history exists Pneumococcal Vaccine: Pediatrics (0 to 5 Years) and At-Risk Patients (6 to 64 Years) (4 - PPSV23 or PCV20) 08/22/2047 10/25/2019, 08/08/2019, 11/14/2012 Influenza Vaccine (FLU shot) Completed 07/2022, 10/31/2021, 10/27/2020, Additional history exists GARDASIL-HPV IMMUNIZATION SERIES Aged Out No longer eligible based on patient's age to complete this topic MENINGOCOCCAL (MENACTRA/MENVEO) Aged Out No longer eligible based on patient's age to complete this topic documented as of this encounter Medical Devices Not on filedocumented as of this encounter Administered Medications Inactive Administered Medications - up to 3 most recent administrations Medication Order MAR Action Action Date Dose Rate Site methylPREDNISolone acetate (Depo-Medrol) 40 MG/ML inj 40 mg 40 mg, Intramuscular, ONCE, On 03/21/23 at 1500, For 1 dose Given 03/21/2023 3:29 PM EST 40 mg Dorsogluteal Left documented in this encounter Advance Directives Latest Code Status on File Code Status Date Activated Date Inactivated Comments Full Code 12/24/2013 3:12 PM 12/27/2013 3:01 PM Thi s order reflects the patients wishes and were consensually agreed upon. Question Answer Comments Discussion of Advance Directives occurred with: Patient/Family Does the patient have a Living Will? No Does the patient have Health Care Power of Seismograph Helper? No Care Teams Aircraft Mechanic Armament Relationship Specialty Start Date End Date Adam Ulrich MD [address] [place] [address] PCP - General Internal Medicine 10/09/18 documented as of this encounter
--- OUTSIDE RECORDS SUMMARY | 2023-03-25 03:46 | External Medical Summary | Summary of Care ---
Author Name Unknown Organization [facility] Address [address] [place] [address] Phone [phone] Care Team Providers Care Game Designer/Creative Director Name Role Phone Adam Ulrich MD Primary Care Provider + Reason for Visit * Reason Onset Date Comments case management 03/21/2023 Encounter Details Date Type Department Care Team (Late st Contact Info) Description 03/21/2023 Delivery Motorcycle Driver Telephone Care Coordination and Integration [address], [place] [phone] Sherrill Brunson RN [address], [place] [phone] case management Allergies Active Allergy Reactions Criticality Noted Date [...] as of this encounter (statuses as of 03/24/2023) Medications Medication Sig Dispensed Refills Start Date [...] Fluocinolone Acetonide Scalp 0.01 % External Oil ([place]-Smoothe/FS Scalp)Indications: Folliculitis Apply to scalp nightly as [...] mgIndications:Surveillance for Depo-Provera contraception 150 mg IM [id number] 12/24/2021 Active methylPREDNISolone acetate (Depo-Medrol) 40 MG/ML inj 40 mgIndications:Chest pain on breathing,CRP elevated,Pauciarticular juvenile rheumatoid arthritis (HCC) 40 mg IM ONCE 03/21/2023 03/21/2023 Ended documented as of this encounter (statuses as of 03/24/2023) Active Problems Problem Noted Date Diagnosed Date [...] as of this encounter (statuses as of 03/24/2023) Resolved Problems Problem Noted Date Diagnosed Date [...] Papanicolaou smear 02/02/2016 09/07/2020 Overview: LEEP ?>fu food and nutrition services assistant Sonia, last pap 01/28-neg Medical home patient encounter 12/16/2015 03/17/2023 ADVANCE DIRECTIVE INFORMATION 03/15/2014 10/14/2018 Overview: Do you have an Advance Directive for Health Care? No-Patient declines Advance Directive brochure today. Conversion disorder 01/16/2014 03/17/19 24 Spells 12/25/2013 01/30/2019 Overview: Historical 03/26/2014 Autonomic dysfunction 11/07/20132020 Orthostatic hypotension 02/16/201310/16 Dysplasia 11/08/2011 02/01/2019 Vision blurred 06/03/2010 08/25/2018 Cancer of cervix 03/19/2009 11/08/2011 Overview: stage 1 COMMON MIGRAINE WITHOUT MENT ION OF INTRACTABLE MIGRAINE 09/07/2020 Bipolar disorder 05/11/2011 Major depressive disorder Overview: ICD-10 update of inactive term Arthritis, rheumatoid 2008 Overview: LEONARDO Irritable bowel syndrome Overview: resolved documented as of this encounter (statuses as of 03/24/2023) Immunizations Name Administration Dates Next Due COVID-19 mRNA, LNP-s, No Pre serve, 2-Dose Series (Cardiovascular Decisions) 01/05/2021,05/30/2020,05/09/2020 H1N1 2009 Influenza, IM 02/21/2009 PPD 02/02/2016 Pneumococcal Conjugate Vacc, 13 Valent (Prevnar) 08/08/2019 Pneumococcal Polysaccharide PPV23 (Pneumovax) 10/25/2019,11/14/2012 Seasonal Influenza Virus Vac cine, Unspecified Formulation 10/27/2020,10/25/2019,11/17/2018,11/17,10/20/2016,11/29/2015,02/28/2015 ,12/07/2013,11/14/2013,11/14/2012,02/2011,12/09/2010,01/14/2010 Seasonal Influenza, PF, 6 M & above, [...] (15 years old or older) Yes 09/19/19 Cognitive Status Response Date of Assessm ent Because of a physical, menta l, or emotional condition, do you have serious difficulty concentrating, remembering, or making decisions? (5 years old or older) No 09/18/2014 documented as of this encounter Miscellaneous Notes * Telephone Encounter - Anderson Davis OSA - 03/24/2023 8:50 AM EST Pt. Made for 06/23 * Telephone Encounter - Anderson Davis OSA - 03/22/2023 11:18 AM EST MyG sent 03/22 * Telephone Encounter - Sherrill Brunson RN - 03/21/2023 2:45 PM EST Scheduld at 330 * Addendum Note - Roney Yee MD - 03/21/2023 2:30 PM ESTAddended by: RONEY YEE on: 03/21/2023 02:30 PM Modules accepted: Orders * Telephone Encounter - Roney Yee MD - 03/21/2023 2:29 PM EST Depomedrol 40mg IM ordered, pl kesha today. Further instruction per rheumatology. * Telephone Encounter - Sherrill Brunson RN - 03/21/2023 2:[address] Yee please place order for IM injection as discussed, unsure what dose you would like. Scheduling: please call patient to schedule follow up/return with her PCP for appointment (Dr Ulrich). Thank you! * Telephone Encounter - Prashant Kidd MD - 03/21/2023 12:[address] Yee/Mojgan Rader steroids in the past have not helped the patient. She is done better with injections or IV steroids. Sounds like she is gotten 2 doses of steroids from PCP and ED respectively. She did send me a my G email that will respond to. * Telephone Encounter - Roney Yee MD - 03/21/2023 12:23 PM EST Oral steroids should work since she needs it for few days as a tapering course. * Telephone Encounter - Sherrill Brunson RN - 03/21/2023 10:26 AM EST Oral steroids do not work for patient. Is infusion or injection an option? * Telephone Encounter - Roney Yee MD - 03/21/2023 10:15 AM EST Nml K, ESR, hi CRP., she did not start diclofenac I had prescribed. Consider pred taper, if willing will send Rx. she has sent message to DrOpperman, await his advice. * Telephone Encounter - Sherrill Brunson RN - 03/21/2023 9:48 AM EST Component Latest Ref Rng 03/18/2023 ESR <20 mm/hour 15 CRP (Inflammatory Marker) <=5 mg/L 13 (H) Potassium 3.5 - 5.1 mmol/L 4.3 Legend: (H) High Dr Yee: Please review results and advise. Patient continues to have labored breathing and discomfort. documented in this encounter Plan of Treatment Upcoming Encounters Date Type Department Care Team (Late st Contact Info) Description 03/24/2023 2:00 PM EST Office Visit Cardiology, [facility] [address] [facility] [place] [address] Ariane Alberts CRNP [address] [facility], [place] [address] 04/11/2023 8:00 AM EST Office Visit Dermatology [facility] [place] [address] [place] [address] Deya James PA-C [address] [place] [address] 05/02/2023 11:30 AM EDT Office Visit Cardiology, [facility] [address] [facility] [place] [address] Lyndsay Christian, VALENTINE [address] [facility] [address] 05/06/2023 1:00 PM EDT Nurse Only Gynecology/Obstetrics [facility] [address] [facility] [place] [address] Gw, Nurse Obgyn Injection [address] [place] [address] 06/24/2023 11:20 AM EDT Office Visit General Internal Medicine [facility] [address] [facility] [place], [place] [address] Adam Ulrich MD [address] [place] [address] 01/26/2024 8:20 AM EST Office Visit Rheumatology [place] [address] [place] [address] Prashant Kidd MD [address] [place] [address] [place] [address] 02/07/2024 1:00 PM EST Office Visit Gynecology/Obstetrics [facility] [address] [place] [address] Backer, Evonne LONNIE Torres [address] [place] [address] Health Maintenance Due Date Last Done Comments Lipid Panel 1982 HPV/Co-Test 2012 COVID-19 Vaccine ( - season) 2022 01/05/2021, 05/30/2020, 05/09/2020 Mammogram 01/15/2024 [...] Not on filedocumented as of this encounter Visit Diagnoses Diagnosis Chest pain on breathing- Primary Painful respiration CRP elevated Elevated C-reactive protein (CRP) 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 No Care Teams Game Designer/Creative Director Relationship Specialty Start Date End Date Adam Ulrich MD [address] [place] [address] PCP - General Internal Medicine 10/09/18 documented as of this encounter
--- OUTSIDE RECORDS SUMMARY | 2023-03-25 03:46 | External Medical Summary | Summary of Care ---
Author Name Unknown Organization [facility] Address [address] [place] [address] Phone [phone] Care Team Providers Care Boilermaker Fitter Name Role Phone Adam Ulrich MD Primary Care Provider + Reason for Visit * Reason Onset Date Comments case management 03/21/2023 Encounter Details Date Type Department Care Team (Late st Contact Info) Description 03/21/2023 Environmental Services Assistant Telephone Care Coordination and Integration [address], [place] [phone] Sherrill Brunson RN [address], [place] [phone] case management Allergies Active Allergy Reactions Criticality [...] as of this encounter (statuses as of 03/22/2023) Medications Medication Sig Dispensed Refills Start Date [...] Fluocinolone Acetonide Scalp 0.01 % External Oil ([place]-Smoothe/FS Scalp)Indications: Folliculitis Apply to scalp nightly as [...] mgIndications:Surveillance for Depo-Provera contraception 150 mg IM [id number] 12/24/2021 Active methylPREDNISolone acetate (Depo-Medrol) 40 MG/ML inj 40 mgIndications:Chest pain on breathing,CRP elevated,Pauciarticular juvenile rheumatoid arthritis (HCC) 40 mg IM ONCE 03/21/2023 03/21/2023 Ended documented as of this encounter (statuses as of 03/22/2023) Active Problems Problem Noted Date Diagnosed Date [...] as of this encounter (statuses as of 03/22/2023) Resolved Problems Problem Noted Date Diagnosed Date [...] Papanicolaou smear 02/02/2016 09/07/2020 Overview: LEEP ?>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, last pap 01/28-neg Medical home patient [...] as of this encounter (statuses as of 03/22/2023) Immunizations Name Administration Dates Next Due COVID-19 mRNA, LNP-s, No Pre serve, 2-Dose Series ([employer]) 01/05/2021,05/30/2020,05/09/2020 H1N1 2009 Influenza, IM 02/21/2009 PPD [...] - 03/21/2023 12:[address] Yee/Mojgan Oal steroids in the past have not helped [...] 04/11/2023 8:00 AM EST Office Visit Dermatology [facility] [address] [place] [address] Deya James PA-C [address] [facility] [place] [id number] 05/02/2023 11:30 AM EDT Office Visit Cardiology, [facility] [address] [place] [address] Lyndsay Christian PA-C [address] [place] [address] 05/06/2023 1:00 PM EDT Nurse Only Gynecology/Obstetrics [facility] [address] [place] [address] Gw, Nurse Obgyn Injection [address] [place] [address] 01/26/2024 8:20 AM EST Office Visit Rheumatology [place] [address] [employer] [place] [address] Prashant Kidd MD [facility] [employer] [place] [address] 02/07/2024 1:00 PM EST Office Visit Gynecology/Obstetrics [facility] [address] [place] [address] Evonne Lozoya CRNP [address] [place] [address] Health Maintenance Due Date Last Done Comments Lipid Panel 1982 HPV/Co-Test 2012 COVID-19 Vaccine ( season) 2022 01/05/2021, 05/30/2020, 05/09/2020 Mammogram 01/15/2024 [...] the patient have Health Care Power of Co Op? No Care Teams Boilermaker Fitter Relationship Specialty Start Date End Date Adam Ulrich MD [address] [place] [address] PCP - General Internal Medicine 10/09/18 documented as of this encounter
--- OUTSIDE RECORDS SUMMARY | 2023-03-25 03:47 | External Medical Summary | Summary of Care ---
Author Name Unknown Organization [facility] Address [address] [place] [address] Phone [phone] Care Team Providers Care Tow Truck Operator Name Role Phone Adam Ulrich MD Primary Care Provider + Reason for Visit * Reason Onset Date Comments case management 03/21/2023 Encounter Details Date Type Department Care Team (Late st Contact Info) Description 03/21/2023 Ground Crew Linesman Telephone Care Coordination and Integration [address] [place], [place] [phone] Sherrill Brunson RN [address] [place], [place] [phone] case management Allergies Active Allergy Reactions Criticality [...] Fluocinolone Acetonide Scalp 0.01 % External Oil ([place]-Smoothe/FS Scalp)Indications: Folliculitis Apply to scalp nightly as [...] mgIndications:Surveillance for Depo-Provera contraception 150 mg IM [id number] 12/24/2021 Active documented as of this encounter [...] Papanicolaou smear 02/02/2016 09/07/2020 Overview: LEEP ?>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, last pap 01/28-neg Medical home patient [...] mRNA, LNP-s, No Pre serve, 2-Dose Series ([employer]) 01/05/2021,05/30/2020,05/09/2020 H1N1 2009 Influenza, IM 02/21/2009 PPD 02/02/2016 Pneumococcal Conjugate Vacc, 13 Valent (Prevnar) 08/08/2019 Pneumococcal Polysaccharide PPV23 (Pneumovax) 10/25/2019,11/14/2012 Seasonal Influenza Virus Vac cine, Unspecified Formulation 10/27/2020,10/25/2019,11/17/2018,11/17,10/20/2016,11/29/2015,02/28/2015 ,12/07/2013,11/14/2013,11/14/2012,110 02/2011,12/09/2010,01/14/2010 Seasonal Influenza, PF, 6 M & above, [...] encounter Miscellaneous Notes * Telephone Encounter - Sherrill Brunson RN [...] ED respectively. She did send me a [employer] email that will respond to. * Telephone Encounter - Alberta Yee MD - 03/21/2023 12:23 PM EST Oral steroids should work since she needs it for few days as a tapering course. * Telephone Encounter - Sherrill Brunson RN - 03/21/2023 10:26 AM EST Oral steroids do not work for patient. Is infusion or injection an option? * Telephone Encounter - Alberta Yee MD - 03/21/2023 10:15 AM EST [...] 04/11/2023 8:00 AM EST Office Visit Dermatology [facility] [place] [address] [place] [address] Deya James PA-C [address] [place] [address] 05/02/2023 11:30 AM EDT Office Visit Cardiology, [facility] [address] [facility] [place] [address] Lyndsay Christian PA-C 132 [facility] [place] [address] 05/06/2023 1:00 PM EDT Nurse Only Gynecology/Obstetrics [facility] [address] [facility] [place] [address] Gw, Nurse Obgyn Injection [address] [facility] [place] [address] 01/26/2024 8:20 AM EST Office Visit Rheumatology [place] 264650 [facility] [place], [place] [address] Prashant Kidd MD [facility] [address] [facility] [place] [address] 02/07/2024 1:00 PM EST Office Visit Gynecology/Obstetrics [facility] [address] [facility] [place] [address] Evonne Lozoya CRNP 132 [facility] [place] [address] Health Maintenance Due Date Last Done Comments Lipid Panel 1982 HPV/Co-Test 2012 COVID-19 Vaccine ( - 2022- season) 2022 01/05/2021, 05/30/2020, 05/09/2020 [...] Not on filedocumented as of this encounter Advance Directives Latest Code Status on File Code Status Date Activated Date Inactivated Comments Full Code 12/24/2013 3:12 PM 12/27/2013 3:01 PM Thi s order reflects the patients wishes and were consensually agreed upon. Question Answer Comments Discussion of Advance Directives occurred with: Patient/Family Does the patient have a Living Will? No Does the patient have Health Care Power of Social Sciences Chair? No Care Teams Tow Truck Operator Relationship Specialty Start Date End Date Adam Ulrich MD [address] [place] [place] [address] PCP - General Internal Medicine 10/09/18 documented as of this encounter
--- OUTSIDE RECORDS SUMMARY | 2023-03-25 03:47 | External Medical Summary | Summary of Care ---
Author Name Unknown Organization [facility] Address [address] [place] [address] Phone [phone] Care Team Providers Care Line Fixer Name Role Phone Adam Ulrich MD Primary Care Provider + Reason for Visit * Reason Onset Date Comments case management 03/21/2023 Encounter Details Date Type Department Care Team (Late st Contact Info) Description 03/21/2023 Index Editor Telephone Care Coordination and Integration [address] [place], [place] [phone] Sherrill Brunson RN [address] [place], [place] [phone] case management Allergies Active Allergy Reactions Criticality [...] Fluocinolone Acetonide Scalp 0.01 % External Oil ([place]-Smoothe/FS Scalp)Indications: Folliculitis Apply to scalp nightly as [...] mgIndications:Surveillance for Depo-Provera contraception 150 mg IM [id number] 12/24/2021 Active documented as of this encounter [...] Papanicolaou smear 02/02/2016 09/07/2020 Overview: LEEP ?>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 Sonia, last pap 01/28-neg Medical home patient [...] mRNA, LNP-s, No Pre serve, 2-Dose Series ([employer]) 01/05/2021,05/30/2020,05/09/2020 H1N1 2009 Influenza, IM 02/21/2009 PPD [...] encounter Miscellaneous Notes * Telephone Encounter - Prashant Kidd MD [...] 04/11/2023 8:00 AM EST Office Visit Dermatology [facility] [address] [place] [address] Deya James PA-C [address] [place] [address] 05/02/2023 11:30 AM EDT Office Visit Cardiology, [facility] [address] [facility] [place] [address] Lyndsay Christian PA-C [address] [place] [address] 05/06/2023 1:00 PM EDT Nurse Only Gynecology/Obstetrics [facility] 132 [facility] [place] [address] Gw, Nurse Obgyn Injection 132 [facility] [place] [address] 01/26/2024 8:20 AM EST Office Visit Rheumatology [place] [phone] [facility] [place], [place] [address] Prashant Kidd MD [address] [place] [address], [place] [address] 02/07/2024 1:00 PM EST Office Visit Gynecology/Obstetrics [facility] 132 [facility] [place] [address] Evonne Lozoya CRNP 132 [facility] [place] [address] Health Maintenance Due Date Last Done Comments [...] the patient have Health Care Power of Terrapin Fisher? No Care Teams Line Fixer Relationship Specialty Start Date End Date Adam Ulrich MD [address] [place] [address] PCP - General Internal Medicine 10/09/18 documented as of this encounter
--- OUTSIDE RECORDS SUMMARY | 2023-03-25 03:47 | External Medical Summary | Summary of Care ---
Author Name Unknown Organization [facility] Address [address] [place] [address] Phone [phone] Care Team Providers Care Die Cast Supervisor Name Role Phone Adam Ulrich MD Primary Care Provider + Reason for Visit * Reason Onset Date Comments case management 03/21/2023 Encounter Details Date Type Department Care Team (Late st Contact Info) Description 03/21/2023 Embroidery Cutter Telephone Care Coordination and Integration [address] [place], [place] [phone] Sherrill Brunson RN [address] [place], [place] [phone] case management Allergies Active Allergy Reactions Criticality [...] Fluocinolone Acetonide Scalp 0.01 % External Oil ([place]-Smoothe/FS Scalp)Indications: Folliculitis Apply to scalp nightly as [...] mgIndications:Surveillance for Depo-Provera contraception 150 mg IM [id number] 12/24/2021 Active methylPREDNISolone acetate (Depo-Medrol) 40 MG/ML inj 40 mgIndications:Chest pain on breathing,CRP elevated,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 She did send me a [employer] email that will respond to. * Telephone [...] 04/11/2023 8:00 AM EST Office Visit Dermatology [facility] [address] [place] [address] Deya James PA-C [address] [place] [address] 05/02/2023 11:30 AM EDT Office Visit Cardiology, [facility] [address] [place] [address] Lyndsay Christian PA-C [address] [place] [address] 05/06/2023 1:00 PM EDT Nurse Only Gynecology/Obstetrics [facility] [address] [place] [address] Gw, Nurse Obgyn Injection [address] [place] [address] 01/26/2024 8:20 AM EST Office Visit Rheumatology [facility] [address] [employer] [place] [address] Prashant Kidd MD [address] [employer] [place] [address] 02/07/2024 1:00 PM EST Office Visit Gynecology/Obstetrics [facility] [address] [place] [address] Evonne Lozoya CRNP [address] [place] [address] Health Maintenance Due Date Last Done Comments [...] the patient have Health Care Power of Power Plant Assistant? No Care Teams Die Cast Supervisor Relationship Specialty Start Date End Date Adam Ulrich MD [address] [place] [address] PCP - General Internal Medicine 10/09/18 documented as of this encounter
--- OUTSIDE RECORDS SUMMARY | 2023-03-25 03:47 | External Medical Summary | Summary of Care ---
Author Name Unknown Organization [facility] Address [address] [place] [address] Phone [phone] Care Team Providers Care Tin Tie Machine Operator Automatic Name Role Phone Adam Ulrich MD Primary Care Provider + Reason for Visit * Reason Onset Date Comments case management 03/21/2023 Encounter Details Date Type Department Care Team (Late st Contact Info) Description 03/21/2023 Salesperson Surgical Appliances Telephone Care Coordination and Integration [address] [place], [place] [phone] Sherrill Brunson RN [address] [place], [place] [phone] case management Allergies Active Allergy Reactions Criticality [...] Fluocinolone Acetonide Scalp 0.01 % External Oil ([place]-Smoothe/FS Scalp)Indications: Folliculitis Apply to scalp nightly as [...] mgIndications:Surveillance for Depo-Provera contraception 150 mg IM [id number] 12/24/2021 Active methylPREDNISolone acetate (Depo-Medrol) 40 MG/ML [...] Papanicolaou smear 02/02/2016 09/07/2020 Overview: LEEP ?>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 She did send me a [employer] email that will respond to. * Telephone [...] 04/11/2023 8:00 AM EST Office Visit Dermatology [facility] [address] [facility] [place] [address] Deya James PA-C 45[address] [facility] [place] [address] 05/02/2023 11:30 AM EDT Office Visit Cardiology, [facility] [place] [address] Lyndsay Christian PA-C [address] [place] [address] 05/06/2023 1:00 PM EDT Nurse Only Gynecology/Obstetrics [facility] [place] [address] Gw, Nurse Obgyn Injection [facility] [place] [address] 01/26/2024 8:20 AM EST Office Visit Rheumatology [place] [address] [employer] [place] [address] Prashant Kidd MD [address] [employer] [place] [address] 02/07/2024 1:00 PM EST Office Visit Gynecology/Obstetrics [facility] [address] [place] [address] [place], LONNIE Huber [address] [place] [address] Health Maintenance Due Date Last Done Comments [...] the patient have Health Care Power of Submarine Element Coordinator? No Care Teams Tin Tie Machine Operator Automatic Relationship Specialty Start Date End Date Adam Ulrich MD [address] [place] [address] PCP - General Internal Medicine 10/09/18 documented as of this encounter
--- OUTSIDE RECORDS SUMMARY | 2023-03-25 03:47 | External Medical Summary | Summary of Care ---
Author Name Unknown Organization [facility] Address [address] [place] [address] Phone [phone] Care Team Providers Care Plug Overwrap Machine Tender Name Role Phone Adam Ulrich MD Primary Care Provider + Reason for Visit * Reason Onset Date Comments case management 03/21/2023 Encounter Details Date Type Department Care Team (Late st Contact Info) Description 03/21/2023 Customer Solutions Teammate Telephone Care Coordination and Integration [address] [place], [place] [phone] Sherrill Brunson RN [address] [place], [place] [phone] case management Allergies Active Allergy Reactions Criticality [...] Fluocinolone Acetonide Scalp 0.01 % External Oil ([place]-Smoothe/FS Scalp)Indications: Folliculitis Apply to scalp nightly as [...] mgIndications:Surveillance for Depo-Provera contraception 150 mg IM [id number] 12/24/2021 Active documented as of this encounter [...] Papanicolaou smear 02/02/2016 09/07/2020 Overview: LEEP ?>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 Sonia, last pap 01/28-neg Medical home patient [...] mRNA, LNP-s, No Pre serve, 2-Dose Series ([employer]) 01/05/2021,05/30/2020,05/09/2020 H1N1 2009 Influenza, IM 02/21/2009 PPD [...] encounter Miscellaneous Notes * Telephone Encounter - Alberta Yee MD [...] 04/11/2023 8:00 AM EST Office Visit Dermatology [facility] [place] [address] [facility] [place] [address] Deya James PA-C 5603 [facility] [place] [address] 05/02/2023 11:30 AM EDT Office Visit Cardiology, [facility] 132 [facility] [place] [address] Lyndsay Christian PA-C [address] [place] [address] 05/06/2023 1:00 PM EDT Nurse Only Gynecology/Obstetrics [facility] [address] [place] [address] Gw, Nurse Obgyn Injection [address] [place] [address] 01/26/2024 8:20 AM EST Office Visit Rheumatology [place] [address] [facility] [place] [address] Prashant Kidd MD [address] [place] [address] [place] [address] 02/07/2024 1:00 PM EST Office Visit Gynecology/Obstetrics [facility] [address] [place] [address] Backer, LONNIE Huber [address] [place] [address] Health Maintenance Due Date Last Done Comments [...] the patient have Health Care Power of Ocean Export Coordinator? No Care Teams Plug Overwrap Machine Tender Relationship Specialty Start Date End Date Adam Ulrich MD 200 [place] [address] PCP - General Internal Medicine 10/09/18 documented as of this encounter
--- OUTSIDE RECORDS SUMMARY | 2023-03-25 03:48 | External Medical Summary | Summary of Care ---
Author Name Unknown Organization [facility] Address [address] [place] [address] Phone [phone] Care Team Providers Care Controls Design Engineer Name Role Phone Adam Ulrich MD Primary Care Provider + Reason for Visit * Reason Onset Date Comments case management 03/21/2023 Encounter Details Date Type Department Care Team (Late st Contact Info) Description 03/21/2023 Showroom Consultant Telephone Care Coordination and Integration [address] [place], [place] [phone] Sherrill Brunson RN [address] [place], [place] [phone] case management Allergies Active Allergy Reactions Criticality [...] Fluocinolone Acetonide Scalp 0.01 % External Oil ([place]-Smoothe/FS Scalp)Indications: Folliculitis Apply to scalp nightly as [...] mgIndications:Surveillance for Depo-Provera contraception 150 mg IM [id number] 12/24/2021 Active documented as of this encounter [...] Papanicolaou smear 02/02/2016 09/07/2020 Overview: LEEP ?>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, last pap 01/28-neg Medical home patient [...] mRNA, LNP-s, No Pre serve, 2-Dose Series ([employer]) 01/05/2021,05/30/2020,05/09/2020 H1N1 2009 Influenza, IM 02/21/2009 PPD [...] 04/11/2023 8:00 AM EST Office Visit Dermatology [facility] [address] [place] [address] Deya James PA-C [address] [place] [address] 05/02/2023 11:30 AM EDT Office Visit Cardiology, [facility] [address] [facility] [place] [address] Lyndsay Christian PA-C 132 [facility] [place] [address] 05/06/2023 1:00 PM EDT Nurse Only Gynecology/Obstetrics [facility] [address] [facility] [place] [address] Gw, Nurse Obgyn Injection [address] [facility] [place] [address] 01/26/2024 8:20 AM EST Office Visit Rheumatology [address] [place] [address] Prashant Kidd MD [address] [facility] [place] [address] 02/07/2024 1:00 PM EST Office Visit Gynecology/Obstetrics Travis Lombardo [address] [place] [address] BackerEvonne CRNP [address] [place] [address] Health Maintenance Due Date Last Done Comments [...] the patient have Health Care Power of Protection Chief Industrial Plant? No Care Teams Controls Design Engineer Relationship Specialty Start Date End Date Adam Ulrich MD 200 [facility] [place] [address] PCP - General Internal Medicine 10/09/18 documented as of this encounter
--- OUTSIDE RECORDS SUMMARY | 2023-03-25 03:48 | External Medical Summary | Summary of Care ---
Author Name Unknown Organization [facility] Address [address] [place] [address] Phone [phone] Care Team Providers Care Diplomatic Interpreter Name Role Phone Adam Ulrich MD Primary Care Provider + Reason for Visit * Reason Onset Date Comments case management 03/21/2023 Encounter Details Date Type Department Care Team (Late st Contact Info) Description 03/21/2023 Straight Truck Driver Telephone Care Coordination and Integration [address] [place], [place] [phone] Sherrill Brunson RN [address] [place], [place] [phone] case management Allergies Active Allergy Reactions Criticality [...] Fluocinolone Acetonide Scalp 0.01 % External Oil ([place]-Smoothe/FS Scalp)Indications: Folliculitis Apply to scalp nightly as [...] mgIndications:Surveillance for Depo-Provera contraception 150 mg IM [id number] 12/24/2021 Active documented as of this encounter [...] Papanicolaou smear 02/02/2016 09/07/2020 Overview: LEEP ?>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 Sonia, last pap 01/28-neg Medical home patient [...] mRNA, LNP-s, No Pre serve, 2-Dose Series ([employer]) 01/05/2021,05/30/2020,05/09/2020 H1N1 2009 Influenza, IM 02/21/2009 PPD [...] 04/11/2023 8:00 AM EST Office Visit Dermatology [facility] [address] [place] [address] Deya Jaems PA-C [address] [place] [address] 05/02/2023 11:30 AM EDT Office Visit Cardiology, [facility] [address] [place] [address] Lyndsay Christian PA-C [address] [place] [address] 05/06/2023 1:00 PM EDT Nurse Only Gynecology/Obstetrics [facility] [address] [place] [address] Gw, Nurse Obgyn Injection [address] [place] [address] 01/26/2024 8:20 AM EST Office Visit Rheumatology [facility] [address] [employer] [place] [address] Prashant Kidd MD [address] [place] [address] 02/07/2024 1:00 PM EST [facility] [address] [place] [address] Evonne Lozoya CRNP [address] [place] [address] Health Maintenance Due Date Last Done Comments [...] the patient have Health Care Power of Gas Fitter Apprentice? No Care Teams Diplomatic Interpreter Relationship Specialty Start Date End Date Adam Ulrich MD 200 [facility] [place] [address] PCP - General Internal Medicine 10/09/18 documented as of this encounter
--- OUTSIDE RECORDS SUMMARY | 2023-03-25 03:48 | External Medical Summary | Summary of Care ---
Author Name Unknown Organization [facility] Address [address] [place] [address] Phone [phone] Care Team Providers Care Product Info Specialist Name Role Phone Adam Ulrich MD Primary Care Provider + Reason for Visit * Reason Onset Date Comments case management 03/21/2023 Encounter Details Date Type Department Care Team (Late st Contact Info) Description 03/21/2023 Bullet Assembly Press Setter Operator Telephone Care Coordination and Integration [address], [place] [phone] Sherrill Brunson RN [address], [place] [phone] case management Allergies Active Allergy Reactions Criticality [...] Fluocinolone Acetonide Scalp 0.01 % External Oil (Paul-Smoothe/FS Scalp)Indications: Folliculitis Apply to scalp nightly as [...] mgIndications:Surveillance for Depo-Provera contraception 150 mg IM [id number] 12/24/2021 Active documented as of this encounter [...] Papanicolaou smear 02/02/2016 09/07/2020 Overview: LEEP ?>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, last pap 01/28-neg Medical home [...] mRNA, LNP-s, No Pre serve, 2-Dose Series (Teamie) 01/05/2021,05/30/2020,05/09/2020 H1N1 2009 Influenza, IM 02/21/2009 PPD [...] 04/11/2023 8:00 AM EST Office Visit Dermatology [facility] [place] [address] [place] [address] Deya James PA-C [address] [place] [address] 05/02/2023 11:30 AM EDT Office Visit Cardiology, [facility] [address] [facility] [place] [address] Lyndsay Christian PA-C [address] [place] [address] 05/06/2023 1:00 PM EDT Nurse Only Gynecology/Obstetrics [facility] [address] [place] [address] Gw, Nurse Obgyn Injection [address] [place] [address] 01/26/2024 8:20 AM EST Office Visit Rheumatology [place] [address] [facility] [place] [address] Prashant Kidd MD [facility] [place] [address] 02/07/2024 1:00 PM EST Office Visit Gynecology/Obstetrics [facility] [address] [place] [address] Evonne Lozoya CRNP [address] [place] [address] Health Maintenance Due Date Last Done Comments Lipid Panel 1982 HPV/Co-Test 2012 COVID-19 Vaccine (4 - 2022-24 season) 2022 01/05/2021, 05/30/2020, 05/09/2020 Mammogram 01/15/2024 [...] the patient have Health Care Power of Dermatology Nurse Practitioner? No Care Teams Product Info Specialist Relationship Specialty Start Date End Date Adam Ulrich MD [address] [facility], [place] [phone] PCP - General Internal Medicine 10/09/18 documented as of this encounter
--- OUTSIDE RECORDS SUMMARY | 2023-03-25 03:48 | External Medical Summary | Summary of Care ---
Author Name Unknown Organization [facility] Address [address] [facility] [address] Phone [phone] Care Team Providers Care Sat Instructor Name Role Phone Adam Ulrich MD Primary Care Provider + Reason for Visit * Reason Comments Outpatient Testing Encounter Details Date Type Department Care Team (Late st Contact Info) Description 03/18/2023 1:30 PM EST Laboratory [facility] [place] [address] [place] [phone] [place], [facility] Scen[facility] [address] [place] [address] Chest pain, unspecified type; Pauciarticular juvenile rheumatoid arthritis (HCC); Hypokalemia Allergies Active Allergy Reactions Criticality Noted Date [...] as of this encounter (statuses as of 03/18/2023) Medications Medication Sig Dispensed Refills Start Date [...] Fluocinolone Acetonide Scalp 0.01 % External Oil (Wilber-Smoothe/FS Scalp)Indications: Folliculitis Apply to scalp nightly as [...] mgIndications:Surveillance for Depo-Provera contraception 150 mg IM [id number] 12/24/2021 Active documented as of this encounter (statuses as of 03/18/2023) Active Problems Problem Noted Date Diagnosed Date [...] as of this encounter (statuses as of 03/18/2023) Resolved Problems Problem Noted Date Diagnosed Date [...] Papanicolaou smear 02/02/2016 09/07/2020 Overview: LEEP ?>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 No-Patient declines Advance Directive brochure today. Conversion disorder 01/16/2014 03/17/19 24 Spells 12/25/2013 01/30/2019 Overview: Historical 03/26/2014 Autonomic dysfunction 11/07/20132020 Orthostatic hypotension 02/16/2013 092 05/2013 Dysplasia 11/08/2011 02/01/2019 Vision blurred 06/03/2010 08/25/2018 Cancer of cervix 03/19/2009 11/08/2011 Overview: stage 1 COMMON MIGRAINE WITHOUT MENT ION OF INTRACTABLE MIGRAINE 09/07/2020 Bipolar disorder 05/11/2011 Major depressive disorder Overview: ICD-10 update of inactive term Arthritis, rheumatoid 2008 Overview: LEONARDO Irritable bowel syndrome Overview: resolved documented as of this encounter (statuses as of 03/18/2023) Immunizations Name Administration Dates Next Due COVID-19 mRNA, LNP-s, No Pre serve, 2-Dose Series (NJOY) 01/05/2021,05/30/2020,05/09/2020 H1N1 2009 Influenza, IM 02/21/2009 PPD 02/02/2016 Pneumococcal Conjugate Vacc, 13 Valent (Prevnar) 08/08/2019 Pneumococcal Polysaccharide PPV23 (Pneumovax) 10/25/2019,11/14/2012 Seasonal Influenza Virus Vac cine, Unspecified Formulation 10/27/2020,10/25/2019,11/17/2018,11/17,10/20/2016,11/29/2015,02/28/2015 ,12/07/2013,11/14/2013,11/14/2012,11/0 02/2011,12/09/2010,01/14/2010 Seasonal Influenza, PF, 6 M & [...] No 09/18/2014 documented as of this encounter Plan of Treatment Upcoming Encounters Date Type Department Care Team (Late st Contact Info) Description 04/11/2023 8:00 AM EST Office Visit Dermatology [facility] [place] [address] [place] [address] Deya James PA-C [address] [facility] [place] [address] 05/02/2023 11:30 AM EDT Office Visit Cardiology, [facility] [address] [facility] [place] [address] Lyndsay Christian PA-C [address] [place] [address] 05/06/2023 1:00 PM EDT Nurse Only Gynecology/Obstetrics [facility] 132 [facility] [place] [address] Gw, Nurse Obgyn Injection 132 [facility] [place] [address] 01/26/2024 8:20 AM EST Office Visit Rheumatology [address] [place] [address] Prashant Kidd MD [address] [place] [address] [place], [place] [address] 02/07/2024 1:00 PM EST Office Visit Gynecology/Obstetrics [facility] 132 [facility] [place] [address] Evonne Lozoya CRNP 132 [facility] [place] [address] Pending Results Name Type Priority Associated Diagnoses Date /Time ERYTHROCYTE SEDIMENTATION RATE (ESR) Lab STAT Chest pain, unspecified type Pauciarticular juvenile rheumatoid arthritis (HCC) 03/18/2023 1:24 PM EST CRP (INFLAMMATORY MARKER) Lab Routine Chest pain, unspecified type Pauciarticular juvenile rheumatoid arthritis (HCC) 03/18/2023 1:24 PM EST Health Maintenance Due Date Last Done Comments Lipid Panel 1982 HPV/Co-Test 2012 Depression, Most Recent Score >= 10 (will fire each visit until score < 10) 05/04/2022 05/03/2022 COVID-19 Vaccine ( - 2022- season) 2022 01/05/2021, 05/30/2020, 05/09/2020 Mammogram 01/15/2024 01/14/2023, 12/16, 01/11/2022, Additional history exists Cervical Cancer Screening 05/27/2024 Pap Smear 05/27/2024 [...] Not on filedocumented as of this encounter Procedures Procedure Name Priority Date/Time Associated Diagnosis Comments POTASSIUM STAT 03/18/2023 1:24 PM EST Chest pain, unspecified type Hypokalemia documented in this encounter Results * POTASSIUM (03/18/2023 1:24 PM EST) Potassium 4.3 3.5 - 5.1 mmol/L 03/18/2023 1:37 PM EST [facility] [place] 56-02 Blood Venous blood specimen / Unknown Venipuncture / Unknown 03/18/2023 1:24 PM EST 03/18/2023 1:24 PM EST Alberta Yee MD LAB BLOOD ORDERABLES [facility] 56-02 [address] [place] [address] documented in this encounter Visit Diagnoses Diagnosis Chest pain, unspecified type Pauciarticular juvenile rheumatoid arthritis (HCC) Pauciarticular juvenile rheumatoid arthritis Hypokalemia Hypopotassemia documented in this encounter Advance Directives Latest [...] the patient have Health Care Power of Computer Education Professor? No Care Teams Sat Instructor Relationship Specialty Start Date End Date [facility] Ulrich MD [address] [facility] [address] PCP - General Internal Medicine 10/09/18 documented as of this encounter
--- OUTSIDE RECORDS SUMMARY | 2023-03-25 03:48 | External Medical Summary | Summary of Care ---
Author Name Unknown Organization [facility] Address [address] [place] [address] Phone [phone] Care Team Providers Care Manager Product Marketing Name Role Phone Adam Ulrich MD Primary Care Provider + Reason for Referral * Evaluate & Treat - Unlimited Visits (Within 10 days (routine)) - Authorized Specialty Diagnoses / Procedures Referred By Contact Referred To Contact Cardiovascular Medicine / Cardiology Diagnoses Precordial chest pain Pauciarticular juvenile rheumatoid arthritis (HCC) Alberta Yee MD [address] [place] [address] Referral ID Status Reason Start Date Expiration Date Visits Requested Visits Authorized [id number] Authorized Specialty Services Required 03/18/2023 999 999 Question Answer Referral Priority Within 10 days (routine) Where should this appointment be scheduled? [facility] To which of the following clinics are you referring your patient? General Cardiology Clinic Reason for Visit * Reason Comments Emergency Department Follow-Up Encounter Details Date Type Department Care Team (Late st Contact Info) Description 03/18/2023 12:40 PM EST Office Visit General Internal Medicine [facility] [place] [address] [place] [address] Alberta Yee MD [address] [place] [address] Chest pain, unspecified type*; Pauciarticular juvenile rheumatoid arthritis (HCC); Hypokalemia; Fibromyalgia; Psychogenic nonepileptic seizure Allergies Active Allergy Reactions Criticality Noted Date [...] Fluocinolone Acetonide Scalp 0.01 % External Oil (Trevose-Smoothe/FS Scalp)Indications: Folliculitis Apply to scalp nightly as [...] mgIndications:Surveillance for Depo-Provera contraception 150 mg IM [id number] 12/24/2021 Active documented as of this encounter [...] acute cor pulmonale 06/26/2018 11/01/2018 Tendinitis, de Dannyprudence's 02/27/2018 Seizure 10/13/2017 05/05/2020 H/O abnormal cervical Papanicolaou smear 02/02/2016 09/07/2020 Overview: LEEP ?>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, 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 pap 01/28-neg Medical home patient encounter [...] mRNA, LNP-s, No Pre serve, 2-Dose Series (Clicko) 01/05/2021,05/30/2020,05/09/2020 H1N1 2009 Influenza, IM 02/21/2009 PPD [...] on file documented as of this encounter Last Filed Vital Signs Vital Sign Reading Time Taken Comments Blood Pressure 90/56 03/18/2023 12:38 PM EST Pulse 76 03/18/2023 12:38 PM EST Temperature 36.9 C (98.5 F) 03/18/2023 1 2:38 PM EST Respiratory Rate - - Oxygen Saturation 98% 03/18/2023 12: 38 PM EST Inhaled Oxygen Concentration - - Weight 81.1 kg (178 lb 12.8 oz) 024 12:38 PM EST Height - - Body Mass Index 26.79 05/03/2022 10:14 AM EDT documented in this encounter Functional Status Functional Status Response [...] No 09/18/2014 documented as of this encounter Progress Notes * Alberta Yee MD - 03/18/2023 12:45 PM EST SUBJECTIVE: Karina Moreno is a 42 year old female. Chief Complaint Patient presents with Emergency Department Follow-Up HPI: Patient presents today for ER follow-up from 03/15/2023, seen with persistent symptoms of substernal chest pain shortness of breath. Had also been seen in the ED on 03/10/2023 and had a CTA chest which was negative for PE., saw DrOesterling in f/u 03/12/23 03/15/2353-Xgfxdf-IUE normal, chest x-ray negative, quad swab negative, labs-normal CBC, CMP except potassium 3.4, negative troponin, BNP, D-dimer 800 which was ordered at triage before they near the she already had a CT chest done recently. Recent right upper extremity ultrasound was negative for DVT. She has not tachycardic or hypoxic, PE suspicion was low. , no leg edema/pain She had responded to steroids for pain and was given Solu-Medrol 125 mg 60 mg IV and Toradol 15 mg,no discharge medications. Problem list as noted below, medications reviewed, followed by Rheumatology, last PCP evaluation was April 2022. Had seen Cardiology in 2020 -diag-conversion disorder Area of pain mainly in the upper chest across the upper chest, she feels it is deep-seated, constant, hurts to breathe. Denies heartburn, she is on PPI, also on meloxicam 7.5 mg 2 tablets daily and methotrexate weekly previous ESR and CRP have been normal Patient Active Problem List Diagnosis Code RSD (reflex sympathetic dystrophy) G90.50 MUNA (generalized anxiety disorder) F41.1 Pauciarticular juvenile rheumatoid arthritis (HCC) M08.40 Fibromyalgia M79.7 Dysautonomia orthostatic hypotension syndrome I95.1 History of pulmonary embolism Z86.711 Major depressive disorder, single episode, severe without psychotic features ([facility]) F32.2 Adenoma of liver D13.4 Dehydration E86.0 Gastroesophageal reflux disease without esophagitis K21.9 Serotonin syndrome G25.79 Hypotension I95.9 Psychogenic nonepileptic seizure F44.5 Encounter for long-term (current) use of medications Z79.899 Current Outpatient Medications Medication Sig Dispense Refill BIOFREEZE 4 % EX GEL as needed Multiple Vitamin (MULTI VITAMIN DAILY) TABS Take by mouth. Acetaminophen 500 MG Oral Tablet Take 2 Tablets by mouth every 6 hours as needed for Pain. 30 Tab Docusate Sodium 100 MG Oral Capsule Take 2 Capsules by mouth in the morning and 2 Capsules before bedtime. 10 Cap Probiotic Product (PROBIOTIC ACIDOPHILUS BIOBEADS) Capsule Take 1 Cap by mouth daily. clonazePAM (KLONOPIN) 0.5 MG Tablet Take 1 Tablet by mouth every night at bedtime. Triamcinolone Acetonide 0.1 % External Ointment (ARISTOCORT) Apply topically to affected area 2 times a day. Apply to areas of itchy rash on arms and legs 80 g 3 Fluocinolone Acetonide Scalp 0.01 % External Oil (Trevose-Smoothe/FS Scalp) Apply to scalp nightly asdirected 118.28 mL 2 Lidoderm 5 % External Patch Place 1 Patch topically on the skin daily. Wear up to 12 hours a day (Patient taking differently: Place 1 Patch topically on the skin daily as needed. Wear up to 12 hours a day, as needed) 15 Patch 0 Senna 8.6 MG Oral Capsule 2 tablets at night orally as needed for constipation (Patient taking differently: 8.6 mg 2 times a day as needed for Constipation.) 60 Cap 0 Melatonin 10 MG Oral Tablet Take 1 Tablet by mouth at bedtime. oxyCODONE-Acetaminophen 5-325 MG Oral Tablet (Percocet) Take 1 Tab by mouth every 8 hours as neededfor Pain, Severe. 21 Tab 0 Sodium Chloride 1 GM Oral Tablet Take 1 Tablet by mouth in the morning and 1 Tablet before bedtime. Venlafaxine HCl ER 150 MG Oral Capsule Extended Release 24 Hour (Effexor XR) Patient takes 150mg keegan and 75mg in the pm. Patient reports she takes the whole 225 mg at once, daily. Ketorolac Tromethamine 10 MG Oral Tablet Take 1 Tablet by mouth every 6 hours as needed. medroxyPROGESTERone Acetate 150 MG/ML Intramuscular Suspension Prefilled Syringe (Depo-Provera) Inject 150 mg into a large muscle every 3 months. 1 mL 4 Topiramate 25 MG Oral Tablet (topAMAX) TAKE THREE TABLETS BY MOUTH TWICE A DAY 540 Tablet 3 traZODone HCl 50 MG Oral Tablet (Desyrel) TAKE ONE TO THREE TABLETS BY MOUTH AT BEDTIME 270 Tablet 3 [employer] Magnesium 500 MG Oral Tablet (Magnesium Oxide -Mg Supplement) TAKE 1 TABLET BY MOUTH EVERY DAY IN THE MORNING 90 Tablet 3 Omeprazole 20 MG Oral Capsule Delayed Release (PriLOSEC) TAKE BY MOUTH 1 CAPSULE IN THE MORNING. 1 HOUR BEFORE THE FIRST MEAL OF THE DAY. 90 Capsule 1 Folic Acid 1 MG Oral Tablet Take 1 Tablet by mouth in the morning. 90 Tablet 3 Vitamin B-2 100 MG Oral Tablet (vitamin B-2) TAKE 4 TABLETS BY MOUTH EVERY DAY 300 Tablet 3 Methotrexate Sodium 2.5 MG Oral Tablet Take 4 Tablets by mouth once a week. 52 Tablet 1 Meloxicam 7.5 MG Oral Tablet (Mobic) TAKE 2 TABLETS BY MOUTH DAILY FOR PAIN 180 Tablet 3 tiZANidine HCl 2 MG Oral Tablet (Zanaflex) TAKE 1 TABLET BY MOUTH EVERY 8 HOURS NEEDED FOR MUSCLE SPASM 30 Tablet 0 Midodrine HCl 5 MG Oral Tablet (Proamatine) Take 2 Tablets by mouth in the morning and 2 Tablets atnoon and 2 Tablets before bedtime. 540 Tablet 3 SUMAtriptan Succinate 100 MG Oral Tablet TAKE ONE HALF TO ONE TABLET BY MOUTH AT START OF HEADACHE MAY REPEAT ONCE AFTER TWO HOURS. TAKE UP TO 2 DAYS A WEEK. 9 Tablet 6 Ammonium Lactate 12 % External Cream (Lac-Hydrin) Apply topically to affected area 2 times a day. Apply to body, arms and legs 385 g 11 Prazosin HCl 2 MG Oral Capsule (Minipress) Take 1 Capsule by mouth at bedtime. Current Facility-Administered Medications Medication Dose Route Frequency Provider Last Rate Last Admin medroxyPROGESTERone (contracep) (Depo-Provera) inj 150 mg 150 mg Intramuscular Q90 Days Evonne Lozoya CRNP 150 mg at 02/11/23 1250 Review of patient's allergies indicates: Allergen Reactions Lyrica [Pregabalin] Other (Please comment) Suicidal ideations Adhesive Tape Rash Amoxicillin Other (Please comment) yeast infections Yeast infection Darvocet [Propoxyphene N-Acetaminophen] MIGRAINES Gabapentin Deactivates depression medications Latex Rash Ramon the skin, breathing problems Latex Other reaction(s): Unknown Levbid [Hyoscyamine Sulfate] Lowers BP Reglan [Metoclopramide Hcl] Lowers BP Wellbutrin [Bupropion] Patient unsure of side effect OBJECTIVE: BP 90/56 | Pulse 76 | Temp 36.9 C (98.5 F) (Tympanic) | Wt 81.1 kg (178 lb 12.8 oz) | SpO2 98%| BMI 26.79 kg/m | BSA 1.98 m PHYSICAL EXAM: General: alert, healthy, no distress, well developed, appears anxious, breathes heavily at times. Neck: supple, no adenopathy, thyroid Not enlarged without nodularity Heart: regular rhythm and rate,No murmurs. Lungs: lungs clear to auscultation Chest wall--no bruise-,TTP upper chest both intercostal as well as on the ribs and costochondral junction Extremities: no edema Abdomen: Soft, non-tender, normal bowel sounds, no masses or organomegaly ASSESSMENT/PLAN: Chest pain, unspecified type (Primary) - ERYTHROCYTE SEDIMENTATION RATE (ESR); Future; Expected date: 03/18/2023 - CRP (INFLAMMATORY MARKER); Future; Expected date: 03/18/2023 - CARDIOLOGY REFERRAL OP - POTASSIUM; Future; Expected date: 03/18/2023 - Diclofenac Sodium 50 MG Oral Tablet Delayed Release (Voltaren); Take 1 Tablet by mouth 2 times a day with morning and evening meals. Take with food.--HOLD meloxicam while on this Pauciarticular juvenile rheumatoid arthritis (HCC) - ERYTHROCYTE SEDIMENTATION RATE (ESR); Future; Expected date: 03/18/2023 - CRP (INFLAMMATORY MARKER); Future; Expected date: 03/18/2023 - CARDIOLOGY REFERRAL OP - Diclofenac Sodium 50 MG Oral Tablet Delayed Release (Voltaren); Take 1 Tablet by mouth 2 times a day with morning and evening meals. Take with food.--HOLD meloxicam while on this Reproducible pain, likely MSK/Viral costochondritis - normal pulse ox , no tachycardia, no PE on CTA, trial of switching anti-inflammatories, obtain labs as above Patient states prior provider was going to check with her case resource manager or PCP regarding ordering an echo. Hypokalemia - POTASSIUM; Future; Expected date: 03/18/2023 Fibromyalgia Psychogenic nonepileptic seizure Follow-up: Return in about 3 months (around 06/16/2023), or if symptoms worsen or fail to improve. | Check-out note: With PCP K 4.3 (This note was completed using the dictation program Fluency Direct. As such, there may be misspellings, word substitutions, or other variations that should not change the essence of the clinical content of this encounter note. If there is need for further clarification, please direct questions to the provider listed above.) Patient and / caregiver verbalize understanding of above instructions and agrees with plan of care. Alberta Yee MD 03/18/2023 documented in this encounter Nursing Notes * Cici Wolf LPN - 03/18/2023 12:37 PM EST Patient presents for ER follow up. documented in this encounter Plan of Treatment Upcoming Encounters Date Type Department Care Team (Late st Contact Info) Description 04/11/2023 8:00 AM EST Office Visit Dermatology [facility], [place] [address] [facility] [place] [address] Deya James PA-C [address] [facility] [place] [address] 05/02/2023 11:30 AM EDT Office Visit Cardiology, [facility] [address] [place] [address] Lyndsay Christian PA-C 132 [facility] [place] [address] 05/06/2023 1:00 PM EDT Nurse Only Gynecology/Obstetrics [facility] [address] [place] [address] Gw, Nurse [facility]jection [facility] [address] 01/26/2024 8:20 AM EST Office Visit Rheumatology [address], [place] [address] Prashant Kidd MD [address] [place] [address], [place] [address] 02/07/2024 1:00 PM EST Office Visit Gynecology/Obstetrics [facility] 132 [facility] [place] [address] Evonne Loz[facility] CRNP [facility] [address] Pending Results Name Type Priority Associated Diagnoses Date /Time ERYTHROCYTE SEDIMENTATION RATE (ESR) Lab STAT Chest pain, unspecified type Pauciarticular juvenile rheumatoid arthritis (HCC) 03/18/2023 1:24 PM EST CRP (INFLAMMATORY MARKER) Lab Routine Chest pain, unspecified type Pauciarticular juvenile rheumatoid arthritis (HCC) 03/18/2023 1:24 PM EST Scheduled Orders Name Type Priority Associated Diagnoses Orde r Schedule ERYTHROCYTE SEDIMENTATION RATE (ESR) Lab STAT Chest pain, unspecified type Pauciarticular juvenile rheumatoid arthritis (HCC) Expected: 03/18/2023 (Approximate), Expires: 03/17/2024 CRP (INFLAMMATORY MARKER) Lab Routine Chest pain, unspecified type Pauciarticular juvenile rheumatoid arthritis (HCC) Expected: 03/18/2023 (Approximate), Expires: 03/17/2024 Scheduled Referrals Name Type Priority Associated Diagnoses Orde r Schedule CARDIOLOGY REFERRAL OP Referral Within 10 days (routine) Chest pain, unspecified type Pauciarticular juvenile rheumatoid arthritis (HCC) Ordered: 03/18/2023 Health Maintenance Due Date Last Done Comments [...] Not on filedocumented as of this encounter Results * POTASSIUM (03/18/2023 1:24 PM EST) Potassium 4.3 3.5 - 5.1 mmol/L 03/18/2023 1:37 PM EST [facility] 56-02 Blood Venous blood specimen / Unknown Venipuncture / Unknown 03/18/2023 1:24 PM EST 03/18/2023 1:24 PM EST Alberta Yee MD LAB BLOOD ORDERABLES [facility] 56-02 [address] [place] [address] documented in this encounter Visit Diagnoses Diagnosis Chest pain, unspecified type- Primary Pauciarticular juvenile rheumatoid arthritis (HCC) Pauciarticular juvenile rheumatoid arthritis Hypokalemia Hypopotassemia Fibromyalgia Mylagia and myositis, unspecified Psychogenic nonepileptic seizure documented in this encounter Advance Directives Latest [...] the patient have Health Care Power of Senior Energy Consultant? No Care Teams Manager Product Marketing Relationship Specialty Start Date End Date Adam Ulrich MD [address] [place] [address] PCP - General Internal Medicine 10/09/18 documented as of this encounter"
--- OUTSIDE RECORDS SUMMARY | 2023-03-25 03:49 | External Medical Summary ---
Author Name Unknown Address Unknown Organization K09:[facility] [place] [address] Laboratory Report Ordering Provider Test Date Status GENA SIM 03/18/2023 13:24:30 Final Observation Date Value Abnormality Reference (Units ) Status Potassium 03/18/2023 13:24:30 4.3 3.5-5.1 (m mol/L) Final Performing Location [facility] [place] [address]
--- OUTSIDE RECORDS SUMMARY | 2023-03-25 03:49 | External Medical Summary | Summary of Care ---
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 Name Role Phone Adam Ulrich MD Primary Care Provider + Reason for Referral * Evaluate & Treat - Unlimited Visits (Within 10 days (routine)) - Authorized Specialty Diagnoses / Procedures Referred By Contact Referred To Contact Cardiovascular Medicine / Cardiology Diagnoses Precordial chest pain Pauciarticular juvenile rheumatoid arthritis (HCC) Alberta Yee MD [address] [place] [address] [id number] Referral ID Status Reason Start Date Expiration Date Visits Requested Visits Authorized [id number] Authorized Specialty Services Required 03/18/2023 999 999 [...] Internal Medicine [place] [address] [place] [address] [address] Ablerta Yee MD [address] [place] [id number] Chest pain, unspecified type*; Pauciarticular juvenile rheumatoid [...] Fluocinolone Acetonide Scalp 0.01 % External Oil ([place]oot[place]/FS Scalp)Indications: Folliculitis Apply to scalp nightly as [...] mgIndications:Surveillance for Depo-Provera contraception 150 mg IM [id number] 12/24/2021 Active documented as of this encounter [...] Papanicolaou smear 02/02/2016 09/07/2020 Overview: LEEP ?>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, last pap 01/28-neg Medical home patient [...] mRNA, LNP-s, No Pre serve, 2-Dose Series (Power Efficiency) 01/05/2021,05/30/2020,05/09/2020 H1N1 2009 Influenza, IM 02/21/2009 PPD [...] for PE., saw DrOesterling in f/u 03/12/23 03/15/2342-Hzhurz-AGF normal, chest x-ray negative, quad swab negative, [...] disorder, single episode, severe without psychotic features ([facility]) F32.2 Adenoma of liver D13.4 Dehydration E86.0 [...] Fluocinolone Acetonide Scalp 0.01 % External Oil ([place]oot[place]/FS Scalp) Apply to scalp nightly asdirected 118.28 [...] kg (178 lb 12.8 oz) | SpO2 98% | BMI 26.79 kg/m | BSA 1.98 m PHYSICAL EXAM: General: alert, healthy, no distress, well developed Neck: supple, no adenopathy, thyroid Not enlarged [...] provider was going to check with her bar assistant or PCP regarding ordering an echo. Hypokalemia - POTASSIUM; Future; Expected date: 03/18/2023 Fibromyalgia Psychogenic nonepileptic seizure Follow-up: Return in about 3 months (around 06/16/2023), or if symptoms worsen or fail to improve. | Check-out note: With PCP (This note was completed using the dictation [...] 04/11/2023 8:00 AM EST Office Visit Dermatology [address] [address] Deya James PA-C [address] [facility] [place] [address] 05/02/2023 11:30 AM EDT Office Visit Cardiology, [facility] [address] [facility] [address] Lyndsay Christian [facility]-C [address] [facility] [place] [id number] 05/06/2023 1:00 PM EDT Nurse Only Gynecology/Obstetrics [facility] [address] [facility] [address] [address] Gw, Nurse Obgyn Injection [address] [facility] [address] 01/26/2024 8:20 AM EST Office Visit Rheumatology [place] [address] [facility], [place] [address] Prashant Kidd MD [facility], [place] [address] 02/07/2024 1:00 PM EST Office Visit Gynecology/[address]stetrics [address] [address] Evonne Lozoya CRNP [address] [facility] [address] Pending Results Name Type Priority Associated Diagnoses Date /Time ERYTHROCYTE SEDIMENTATION RATE (ESR) Lab STAT Chest pain, unspecified type Pauciarticular juvenile rheumatoid arthritis (HCC) 03/18/2023 1:24 PM EST CRP (INFLAMMATORY MARKER) Lab Routine Chest pain, unspecified type Pauciarticular juvenile rheumatoid arthritis (HCC) 03/18/2023 1:24 PM EST POTASSIUM Lab STAT Chest pain, unspecified type Hypokalemia 03/18/2023 1:24 PM EST Scheduled Orders Name Type Priority Associated Diagnoses Orde r Schedule ERYTHROCYTE SEDIMENTATION RATE (ESR) Lab STAT Chest pain, unspecified type Pauciarticular juvenile rheumatoid arthritis (HCC) Expected: 03/18/2023 (Approximate), Expires: 03/17/2024 CRP (INFLAMMATORY MARKER) Lab Routine Chest pain, unspecified type Pauciarticular juvenile rheumatoid arthritis (HCC) Expected: 03/18/2023 (Approximate), Expires: 03/17/2024 POTASSIUM Lab STAT Chest pain, unspecified type Hypokalemia Expected: 03/18/2023 (Approximate), Expires: 03/17/2024 Scheduled Referrals [...] < 10) 05/04/2022 05/03/2022 COVID-19 Vaccine ( season) 2022 01/05/2021, 05/30/2020, [...] of this encounter Visit Diagnoses Diagnosis Chest pain, [...] the patient have Health Care Power of Special Education Professional? No Care Teams Pie Crimping Machine Operator Relationship Specialty Start Date End Date Adam Ulrich MD [address] [place] [address] PCP - General Internal Medicine 10/09/18 documented as of this encounter"
--- OUTSIDE RECORDS SUMMARY | 2023-03-25 03:49 | External Medical Summary ---
Author Name Unknown Address Unknown Organization K01:[facility] - [address] [place] [address] Laboratory Report Ordering Provider Test Date Status GENA SIM 03/18/2023 13:24:30 Final Observation Date Value Abnormality Reference (Units ) Status CRP, low-sensitivity 03/18/2023 13:24:30 13 Above high normal <=5 (mg/L) Final Performing Location [facility] - [address] [place] [id number]
--- OUTSIDE RECORDS SUMMARY | 2023-03-25 03:49 | External Medical Summary ---
Author Name Unknown Address Unknown Organization K01:[facility] [place] [address] [place] [address] Laboratory Report Ordering Provider Test Date Status GENA SIM 03/18/2023 13:24:30 Final Observation Date Value Abnormality Reference (Units ) Status Erythrocyte sedimentation rate by Photometric method 03/18/2023 13:24:30 15 <20 (mm/hour) Final Performing Location [facility] - [address] [place] [address]
[2023-03-25 06:04] LABS: Hematocrit (blood only) 37.6 % (37.0-47.0); Hemoglobin 12.5 g/dl (12.0-16.0); Mean Corpuscular Hemoglobin 30.2 pg (25.0-34.0); Mean Corpuscular Hgb Conc 33.2 g/dL (32.0-36.0); Mean Corpuscular Volume 90.8 fL (80.0-100.0); Mean Platelet Volume 10.5 fL (9.4-12.4); Platelet Count 171 K/uL (130-400); RDW Coefficient of Variation 13.6 % (11.5-14.5); RDW Standard Deviation 44.7 fL (36.4-46.3); Red Blood Count 4.14 M/uL (4.20-5.40); White Blood Count 6.16 K/ul (4.8-10.8)
[2023-03-25 06:17] LABS: Alanine Aminotransferase 8 U/L (7-52); Albumin Globulin Ratio 1.8 (0.9-2); Albumin Level 3.9 gm/dl (3.4-5.0); Alkaline Phosphatase 56 U/L (34-104); Anion Gap 5 (3-11); Aspartate Aminotransferase 11 U/L (13-39); BUN Creatinine Ratio 11.2 (10-20); Bilirubin,Total 0.2 mg/dl (0.2-1.0); Blood Urea Nitrogen 10 mg/dl (6-23); C Reactive Protein 0.64 mg/dl (0-0.5); Calcium 8.9 mg/dl (8.6-10.3); Carbon Dioxide 21 mmol/L (21-32); Chloride 114 mmol/L (98-107); Creatinine Clr Calc Pharmacy 94.4 ml/min; Est GFR (Non-African American) 81.1 ml/min; Globulin 2.2 gm/dl (2.5-4.0); Glucose 101 mg/dl (70-99(Fasting)); Potassium 3.7 mmol/L (3.5-5.1); Sodium 140 mmol/L (136-145); Total Protein 6.1 gm/dl (6.0-8.3)
[2023-03-25 06:23] LABS: Troponin I High Sensitivity < 2.3 pg/ml (0-14)
[2023-03-25] MEDS: IBUPROFEN 600 MG TAB PO SCH (07:24)
[2023-03-25 07:33] LABS: Basophils # (auto) 0.03 K/uL (0.00-0.20); Basophils % (auto) 0.5 %; Eosinophils # (auto) 0.11 K/uL (0.00-0.50); Eosinophils % (auto) 1.8 %; Immature Granulocytes # (auto) 0.01 K/uL (0.01-0.20); Immature Granulocytes % (auto) 0.2 %; Lymphocytes % (auto) 55.2 %; Monocytes # (auto) 0.43 K/uL (0.11-0.59); Neutrophils # (auto) 2.18 K/uL (1.40-6.50); Neutrophils % (auto) 35.3 %
[2023-03-25] MEDS: PERFLUTREN LIPID MICROSPHERE (DEFINITY) IV ONE (08:11)
--- NOTE | 2023-03-25 08:34 | Cardiology Consultation ---
Date of Consultation March 25, 2023 Assessment & Plan (1) Atypical chest pain: (2) Pauciarticular juvenile rheumatoid arthritis: (3) Orthostatic hypotension: Plan Patient admitted for atypical chest pain with SOB with tachycardia. Given her history of PE/DVT, there was concerns for recurrent PE. Chest CTA was negative for pulmonary embolus or acute process. No DVT per venous duplex. . Chest pain is reproducible with movement, deep breaths and palpation to the chest wall/sternum. Findings are consistent with her underlying immunologic inflammatory disorders with RA/fibromyalgia. CRP is minimally elevated (chronic finding) HS troponin is negative. EKG is without acute changes. Echocardiogram is pending and will r/o pericardial effusion. No pericardial effusion on chest CTA. Otherwise chest pain is non cardiac. Colchicine initiated by hospitalist. Seems to have improved her symptoms overnight. Continue therapy. She will need f/u with her membership assistant on discharge. Await echo. If unremarkable, no further cardiac testing is warranted. Continue oral midodrine (home dose) for orthostatic hypotension. BP controlled during admission Case discussed with Dr. Garcia I spent a total of 45 minutes on the date of service in preparation, delivery, and documentation of the care provided to this patient, excluding any time spent in the performance of separately billed services. Lyndsay Christian PA-C Department of Cardiology, [facility] [address] This chart was completed in part utilizing Speech Voice Recognition Software. Grammatical errors, random word insertions, pronoun errors, and incomplete sentences are an occasional consequence of this system due to software limitations, ambient noise, and hardware issues. Any formal questions or concerns about the content, text, or information contained within the body of this dictation should be directly addressed to the provider for clarification. Supervising Physician Co-Signing Physician Notes I have reviewed the advance practitioner's documentation, and I agree with, and take responsibility for the plan of care. 42-year-old female present to the emergency department with chest discomfort. Notes a pleuritic pain on the left side of her chest which is somewhat reproducible with palpation. Discomfort rated as severe and present for nearly 3 weeks. Currently, resting comfortably at approximately 30 degrees semirecumbe nt position. present at bedside. Offers no additional concerns/complaints. PE: VSS. Gen: NAD, AAO x3. Heart: Regular rhythm. normal S1S2. No murmur. Lungs: clear B/L, No R/R/W. Ext: No edema. A/P: 42-year-old female with noncardiac chest pain. No evidence of acute coronary syndrome, or pericarditis. Pain appears to be musculoskeletal in origin. Most likely costochondritis versus pleurisy. Consider further treatment with NSAIDs or corticosteroids as per internal medicine. Results of echocardiogram discussed with patient and her . All questions answered to their satisfaction. No further inpatient cardiac testing or intervention recommended at this time. Thank you for allow me to participate in the care of your patient. History of Present Illness Reason for Consultation: Chest pain Requesting Physician: Dr. Ceja Attending Physician: Dr. Garcia History of Present Illness Patient is a 42 year old female who was admitted to [facility] with complaints of chest pain x several weeks associated with SOB. She was evaluated in the cardiology clinic yesterday and patient was tachycardic on arrival and had difficulty speaking in full sentences, limited by pain and SOB. She was referred to [place] for evaluation due to complex history of rheumatologic disorders and history of PE. Chest pain was reproducible upon palpation to the chest wall, consistent with her possible inflammatory disorders/possible costochondritis/fibromyalgia. History includes: 1. Syncope secondary to neurally mediated hypotension per tilt table test performed at [facility] 03/15/2012 2. Psychogenic nonepileptic seizures (PNES), dx 2013 3. History of PE and right leg DVT, unprovoked. 4. GERD 5. Reflex sympathetic dystrophy 6. Juvenile rheumatoid arthritis, follows with Dr. Kidd Upon arrival to ER, patient was found to have elevated D.Dimer. Given history of PE/DVT, she was sent for Chest CTA which was negative for PE and no other acute pulm process identified. No pericardial effusion noted. She was also sent for venous duplex which was negative for DVT. Other labs unremarkable. HS troponin unremarkable x3 since admission. CRP just minimally elevated consistent with underlying RA. Lyme screen is negative. EKG demonstrated NSR with low voltage QRS. She was started on colchicine for antiinflammatory response. She took her first dose last night and tolerated. At time of consult patient reports feeling somewhat better. Still having trouble taking a deep breath. Chest pain is still present but improved. She notes soreness with positional changes. had to help her sit up in bed due to the discomfort. No dizziness or lightheadedness. No orthopnea, PND or edema. Chest pain reproducible with movement and palpation of the chest wall. Allergies Allergy/AdvReac Type Severity Reaction Status Date / Time adhesive Allergy Intermediate RASH Verified 03/15/23 15:13 latex Allergy Intermediate RASH/SWELLING Verified 03/15/23 15:13 AT CONTACT/BURNING SENSATION gabapentin AdvReac Intermediate DEPRESSION Verified 03/15/23 15:13 MEDS DEACTIVATED THIS MED. hyoscyamine AdvReac Intermediate LOWERS B/P Verified 03/15/23 15:13 infliximab AdvReac Intermediate STOPPED Verified 03/15/23 15:13 WORKING INTENDED metoclopramide AdvReac Intermediate LOWERS B/P Verified 03/15/23 15:13 pregabalin [From Lyrica] AdvReac Intermediate DEPRESSION Verified 03/15/23 15:13 MEDS DEACTIVATED THIS MED. propoxyphene AdvReac Intermediate CAUSED Verified 03/15/23 15:13 MIGRAINES bupropion AdvReac Unknown Unknown Verified 03/15/23 15:13 Home Medications Medication Instructions Recorded Confirmed Type sumatriptan succinate 100 mg tablet 50 - 100 mg PO DIRECTED PRN 06/04/18 03/24/23 History Migraine Headache clonazepam 0.5 mg tablet 0.5 mg PO HS 07/18/18 03/24/23 History docusate sodium 100 mg capsule 200 mg PO QAM 07/18/18 03/24/23 History (Colace) tizanidine 2 mg capsule (Zanaflex) 2 mg PO Q8H PRN Muscle Spasm 07/18/18 03/24/23 History magnesium oxide 500 mg PO QAM 05/23/19 03/24/23 History sodium chloride 1,000 mg soluble 2,000 mg PO QAM 05/23/19 03/24/23 History tablet topiramate 25 mg tablet 75 mg PO BID 05/23/19 03/24/23 History trazodone 50 mg tablet 150 mg PO HS 05/23/19 03/24/23 History ammonium lactate 12 % topical cream 1 applic topical DAILY 11/21/19 03/24/23 History multivitamin 1 tab PO QAM 11/21/19 03/24/23 History folic acid 1 mg tablet 1 mg PO QAM 02/25/20 03/24/23 History meloxicam 7.5 mg tablet 15 mg PO QAM 02/25/20 03/24/23 History riboflavin (vitamin B2) 100 mg 400 mg PO QAM 02/25/20 03/24/23 History tablet (Vitamin B-2) triamcinolone acetonide 0.1 % 1 applic topical BID PRN Skin 02/25/20 03/24/23 History topical cream Irritation acetaminophen 500 mg tablet 1,000 mg PO Q6H PRN Pain 03/26/20 03/24/23 History (Tylenol Extra Strength) valacyclovir 500 mg tablet 500 mg PO BID PRN as directed 10/07/20 03/24/23 History medroxyprogesterone 150 mg/mL 150 mg IM Q3M #1 mL 12/18/21 03/24/23 Rx intramuscular syringe (Depo-Provera) Lactobacil.acidophilus-Bifido.animalis 1 cap PO QAM 03/15/23 03/24/23 History 5 billion cell sprinkle capsule (Probiotic) camphor-menthol 0.2 %-3.5 % 1 applic topical DIRECTED PRN 03/15/23 03/24/23 History topical gel PAIN/SORENESS fluocinolone 0.01 % scalp oil and 1 ea topical HS PRN TO SCALP 03/15/23 03/24/23 History shower cap NEEDED ketorolac 10 mg tablet 10 mg PO DIRECTED PRN Pain 03/15/23 03/24/23 History lidocaine 5 % topical patch 1 patch topical DAILY PRN Pain 03/15/23 03/24/23 History (Lidoderm) meclizine 25 mg tablet 25 mg PO DIRECTED PRN TREMORS 03/15/23 03/24/23 History melatonin 10 mg tablet 10 mg PO HS 03/15/23 03/24/23 History methotrexate sodium 2.5 mg tablet 10 mg PO WK 03/15/23 03/24/23 History midodrine 5 mg tablet 10 mg PO TID 03/15/23 03/24/23 History omeprazole 20 mg tablet,delayed 20 mg PO QAM 03/15/23 03/24/23 History release oxycodone-acetaminophen 5 mg-325 1 tab PO Q8H PRN Severe Pain 03/15/23 03/24/23 History mg tablet (Scale Score 7-10) prazosin 2 mg capsule 2 mg PO HS 03/15/23 03/24/23 History sennosides 8.6 mg capsule (senna) 8.6 mg PO DAILY PRN WHEN TAKING 03/15/23 03/24/23 History OXYCODONE venlafaxine 150 mg 150 mg PO QAM 03/15/23 03/24/23 History capsule,extended release 24 hr venlafaxine 75 mg capsule,extended 75 mg PO QAM 03/15/23 03/24/23 History release 24 hr Patient History Medical History Encounter for routine gynecological examination with Papanicolaou smear of cervix Genital herpes simplex type 1 infection Pelvic inflammatory disease Severe cervical dysplasia HPV (human papilloma virus) infection RSD (reflex sympathetic dystrophy) Pauciarticular juvenile rheumatoid arthritis IBS (irritable bowel syndrome) Deep vein thrombosis (DVT) of right lower extremity Bilateral pulmonary embolism Fibromyalgia Anxiety and depression Migraine Orthostatic hypotension Surgical History H/O tooth extraction H/O arthroscopy of knee H/O colposcopy with cervical biopsy 03/26/09: dysplastic squamous epithelium, HGSIL (MANUELITO 3) History of loop electrical excision procedure (LEEP) 04/25/09: atypical squamous metaplastic mucosa, moderate chronic active endocervicitis with reactive atypia History of appendectomy Family History Father Non-Hodgkin lymphoma Brother Juvenile rheumatoid arthritis Mother Dyslipidemia Hypertension Other Alcohol abuse Arthritis Gallbladder disease Phlebitis Social History Smoking Status: Never smoker Second Hand Exposure: No; Do You Dip or Chew Tobacco: No; Tobacco Cessation Education Requested by Patient: No Hx Alcohol Use: No Hx Substance Use: No Preferred Language: [place] Communication Ability: Effective Planner Intern Required: No Beliefs That Will Affect Care: None marital status: Current Living Situation: Spouse and Family Current Living Situation Comment: and 2 children live in home current occupational status: employed Other Information That Helps Us Care for You: No Feels Safe at Home: Yes Safety Concerns: Feels Safe At This Time Dental Care, Regularly: Yes Physical Activity Frequency Comment: Exercises regularly. Seatbelt Use: always Sunscreen Use: Yes Assistive Devices: None Review of Systems Review of Systems: All systems reviewed & are unremarkable except as noted in HPI & below Physical Exam Constitutional: WD/WN, vitals as above well nourished and average body habitus; no acute distress Respiratory: normal respiratory effort Auscultation: lungs clear to auscultation bilaterally Cardiovascular: Rate/Rhythm: regular rate and regular rhythm Heart Sounds: normal S1 and normal S2; no murmur Vessels: no JVD Extremities: no edema Gastrointestinal (Abdomen): normal bowel sounds, soft, nontender, no hepatosplenomegaly Skin: no rashes, warm and dry Neurologic: PERRL, EOMI, accommodation nl, no face palsy, no dysarthria Results & Data Vital Signs (Past 12 Hours) Vital Signs Temp Pulse Pulse Resp BP BP Pulse Ox 03/25/23 07:57 36.6 C 59 L 18 95/58 L 96 03/25/23 07:23 03/25/23 05:59 60 03/25/23 03:31 94/59 L 03/25/23 03:22 36.8 C 69 18 92/53 L 95 03/24/23 22:49 59 L 03/24/23 21:30 60 03/24/23 21:05 03/24/23 21:05 36.9 C 66 16 110/72 100 03/24/23 20:45 67 18 105/69 98 O2 Del Method 03/25/23 07:57 Room Air 03/25/23 07:23 Room Air 03/25/23 05:59 03/25/23 03:31 03/25/23 03:22 Room Air 03/24/23 22:49 03/24/23 21:30 03/24/23 21:05 Room Air 03/24/23 21:05 Room Air 03/24/23 20:45 Room Air Laboratory Results Cardiac Enzymes 03/24/23 03/24/23 03/25/23 Range/Units 15:08 20:50 05:26 AST 12 L 11 L (13-39) U/L Troponin I High Sens 3.1 < 2.3 < 2.3 (0-14) pg/ml Coagulation 03/24/23 Range/Units 15:08 PT 10.6 (9.0-12.0) Seconds APTT 28 (21-31) Seconds CBC 03/24/23 03/25/23 Range/Units 15:08 05:26 WBC 5.72 6.16 (4.8-10.8) K/ul RBC 4.58 4.14 L (4.20-5.40) M/uL Hgb 13.9 12.5 (12.0-16.0) g/dl Hct 41.8 37.6 (37.0-47.0) % Plt Count 182 171 (130-400) K/uL Neut # (Auto) 2.82 2.18 (1.40-6.50) K/uL Lymph # (Auto) 2.49 3.40 (1.20-3.40) K/uL Delta # (Auto) 0.35 0.43 (0.11-0.59) K/uL Eos # (Auto) 0.03 0.11 (0.00-0.50) K/uL Baso # (Auto) 0.02 0.03 (0.00-0.20) K/uL Comprehensive Metabolic Panel 03/24/23 03/25/23 Range/Units 15:08 05:26 Sodium 141 140 (136-145) mmol/L Potassium 3.9 3.7 (3.5-5.1) mmol/L Chloride 111 H 114 H (98-107) mmol/L Carbon Dioxide 23 21 (21-32) mmol/L BUN 11 10 (6-23) mg/dl Creatinine 0.99 0.89 (0.6-1.2) mg/dl Glucose 92 101 H (70-99(Fasting)) mg/dl Calcium 9.4 8.9 (8.6-10.3) mg/dl AST 12 L 11 L (13-39) U/L ALT 9 8 (7-52) U/L Alkaline Phosphatase 62 56 (34-104) U/L Total Protein 7.2 6.1 (6.0-8.3) gm/dl Albumin 4.6 3.9 (3.4-5.0) gm/dl Intake and Output 03/24/23 03/25/23 03/25/23 22:59 06:59 14:59 Intake Total 1000 / 1120 120 / 1120 Balance 1000 / 1120 120 / 1120 Intake: IV 1000 / 1000 Sodium Chloride 0.9% 1,000 ml @ 1000 / 1000 999 mls/hr IV .Q1H1M [facility] Rx#: [id number] Oral 120 / 120 Other: Weight 82.1 kg 82.1 kg Weight Measurement Method Standing Scale Standing Scale Diagnostic Findings Telemetry reviewed: Sinus with HR's ranging 55-70's. No arrhythmias. repeat EKG from 03/25/23: Sinus bradycardia Low voltage QRS No cacute changes. Echo - pending EKG on admission 03/24/23 reviewed: Sinus bradycardia low voltage QRS, poor R wave progression No significant change from previous Chest CTA report reviewed from 03/24/23: Unremarkable CTA of the chest. No pulmonary emboli. Chest xray report reviewed from admission: IMPRESSION: No active disease in the chest. Venous duplex report reviewed from admission: IMPRESSION: No venous thrombus within the right upper extremity. Outpatient EKG reviewed from 03/24/23: Normal sinus rhythm Low voltage QRS, consider pulmonary disease, pericardial effusion, or normal variant Cannot rule out Anterior infarct (cited on or before 24-MAR-2023) Abnormal ECG When compared with ECG of 19-JUN-2020 07:51, Nonspecific T wave abnormality, worse in Anterior leads Prior outpatient echo reviewed: Transthoracic echocardiogram 06/26/2020: The left ventricular cavity size is normal. The LV wall thickness is normal. The left ventricular wall motion is normal. Calculated LV ejection Fraction = 60% (bi-plane method of discs). The left ventricular diastolic function is normal. The left atrium is normal sized (< 35 ml/m^2). No significant valvular disease is present Medications Administered Current Inpatient Medications Acetaminophen (Acetaminophen 325 Mg Tab) 650 mg PO Q4H PRN PRN Reason: Pain or Fever Stop: 04/23/23 21:22 Last Admin: 03/24/23 22:13 Dose: 650 mg Al Hydrox/Mg Hydrox/Simethicone (Aluminum/Magnesium Susp 30 Ml Udc) 15 ml PO Q4H PRN PRN Reason: Dyspepsia Stop: 04/23/23 21:22 Clonazepam (Clonazepam 0.5 Mg Tab) 0.5 mg PO HS [facility] Stop: 04/23/23 21:22 Last Admin: 03/24/23 22:13 Dose: 0.5 mg Colchicine (Colchicine 0.6 Mg Tab) 0.6 mg PO BID [facility] Stop: 04/24/23 09:44 Last Admin: 03/25/23 10:22 Dose: 0.6 mg Docusate Sodium (Docusate Sodium 100 Mg Cap) 200 mg PO QAM [facility] Stop: 04/24/23 08:59 Last Admin: 03/25/23 08:42 Dose: 200 mg Enoxaparin Sodium (Enoxaparin Inj 40 Mg/0.4 Ml Syr) 40 mg SQ Q24H [facility]ANTHA Stop: 04/24/23 08:59 Last Admin: 03/25/23 08:41 Dose: 40 mg Folic Acid (Folic Acid 1 Mg Tab) 1 mg PO QAM [facility] Stop: 04/24/23 08:59 Last Admin: 03/25/23 08:40 Dose: Not Given Ibuprofen (Ibuprofen 600 Mg Tab) 600 mg PO Q8H [facility] Stop: 04/24/23 07:59 Last Admin: 03/25/23 07:24 Dose: 600 mg Lactic Acid (Ammonium Lactate 12% Lotion 225 Gm Btl) 1 gm EXT DAILY [facility]A Stop: 04/24/23 08:59 Last Admin: 03/25/23 08:39 Dose: 1 gm Lactobacillus Acidophilus (Advanced Probiotic 1250 Mg Capsule) 2 cap PO QAM [facility] Stop: 04/24/23 08:59 Last Admin: 03/25/23 08:43 Dose: 2 cap Magnesium Hydroxide (Magnesium Hydroxide Susp 30 Ml Udc) 30 ml PO Q12H PRN PRN Reason: Constipation Stop: 04/23/23 21:22 Magnesium Oxide (Magnesium Oxide 400 Mg Tab) 400 mg PO QAM [facility] Stop: 04/24/23 08:59 Last Admin: 03/25/23 08:42 Dose: 400 mg Melatonin (Melatonin 3 Mg Tab) 9 mg PO HS PRN PRN Reason: Sleep Stop: 04/23/23 21:37 Last Admin: 03/24/23 22:13 Dose: 9 mg Methotrexate (Methotrexate Sodium 2.5 Mg Tab) 10 mg PO FR [facility]A Stop: 04/24/23 08:59 Last Admin: 03/25/23 08:47 Dose: 10 mg Midodrine (Midodrine Hcl 10 Mg Tab) 10 mg PO TIDM [facility] Stop: 04/23/23 21:44 Last Admin: 03/25/23 07:23 Dose: 10 mg Multivitamins (Multivitamin Tab) 1 tab PO QAM [facility] Stop: 04/24/23 08:59 Last Admin: 03/25/23 08:42 Dose: 1 tab Ondansetron HCl (Ondansetron Inj 2 Mg/Ml 2 Ml Vial) 4 mg IV Q6H PRN PRN Reason: Nausea Stop: 04/23/23 21:22 Pantoprazole Sodium ([facility]antoprazole 40 Mg Tab) [facility] Stop: 04/24/23 08:59 Last Admin: 03/25/23 08:43 Dose: 40 mg Polyethylene Glycol (Polyethylene (Miralax) 17 Gm Pack) 17 gm PO DAILY PRN PRN Reason: Constipation Stop: 04/23/23 21:22 Prazosin HCl (Prazosin Hcl 1 Mg Cap) 2 mg PO [facility] Stop: 04/23/23 21:22 Last Admin: 03/24/23 22:14 Dose: 2 mg Sodium Chloride (Sodium Chloride 1 Gm Tablet) [facility] Stop: 04/24/23 08:59 Last Admin: 03/25/23 08:43 Dose: 2 gm Tizanidine HCl (Tizanidine Hcl 4 Mg Tablet) 2 mg PO Q8H PRN PRN Reason: Muscle Spasm Stop: 04/23/23 21:22 Topiramate (Topiramate 25 Mg Tab) 75 mg PO BID [facility] Stop: 04/23/23 21:22 Last Admin: 03/25/23 08:44 Dose: 75 mg Trazodone HCl (Trazodone Hcl 50 Mg Tab) 150 mg PO [facility] Stop: 04/23/23 21:22 Last Admin: 03/24/23 22:14 Dose: 150 mg Venlafaxine HCl (Venlafaxine Hcl Xr 75 Mg Capxr) 75 mg PO [facility] Stop: 04/24/23 08:59 Last Admin: 03/25/23 08:43 Dose: 75 mg Venlafaxine HCl (Venlafaxine Hcl Xr 150 Mg Capxr) 150 mg PO [facility] Stop: 04/24/23 08:59 Last Admin: 03/25/23 08:42 Dose: 150 mg
[2023-03-25] MEDS: AMMONIUM LACTATE 12% LOTION 225 GM BTL EXT SCH (08:39)
[2023-03-25] MEDS: FOLIC ACID 1 MG TAB PO SCH (08:40)
[2023-03-25] MEDS: ENOXAPARIN INJ 40 MG/0.4 ML SYR SQ SCH (08:41)
[2023-03-25] MEDS: DOCUSATE SODIUM 100 MG CAP PO SCH (08:42)
[2023-03-25] MEDS: MAGNESIUM OXIDE 400 MG TAB PO SCH (08:42)
[2023-03-25] MEDS: VENLAFAXINE HCL XR 150 MG CAPXR PO SCH (08:42)
[2023-03-25] MEDS: MULTIVITAMIN TAB PO SCH (08:42)
[2023-03-25] MEDS: PANTOprazole 40 MG TAB PO SCH (08:43)
[2023-03-25] MEDS: SODIUM CHLORIDE 1 GM TABLET PO SCH (08:43)
[2023-03-25] MEDS: ADVANCED PROBIOTIC 1250 MG CAPSULE PO SCH (08:43)
[2023-03-25] MEDS: VENLAFAXINE HCL XR 75 MG CAPXR PO SCH (08:43)
[2023-03-25] MEDS: metHOTREXate sodium 2.5 MG TAB PO SCH (08:47)
[2023-03-25] MEDS ORDERED: NON-FORMULARY MEDICATION (Riboflavin (Vitamin B2) [Vitamin B-2] 100 mg Tablet) PO SCH (09:00)
[2023-03-25] MEDS: COLCHICINE 0.6 MG TAB PO SCH (10:22)
--- NOTE | 2023-03-25 10:38 | Electrocardiogram Report ---
Test Reason : Blood Pressure : / mmHG Vent. Rate : 057 BPM Atrial Rate : 057 BPM P-R Int : 160 ms QRS Dur : 084 ms QT Int : 418 ms P-R-T Axes : 054 -04 015 degrees QTc Int : 406 ms Sinus bradycardia Poor R wave progression, consider anterior NC vs. lead placement vs. LVH Abnormal ECG When compared with ECG of 24-MAR-2023 15:05, No significant change was found Confirmed by Biju Middleton ([id number]) on 03/25/2023 10:38:31 AM Referred By: REFERRED SELF Confirmed By:Biju Middleton
[2023-03-25] MEDS: KETOROLAC TROMETHAMINE 15 MG/ML VIAL IV ONE (13:18)
--- NOTE | 2023-03-25 15:27 | Hospitalist Progress Note ---
Date of Service March 25, 2023 Assessment & Plan (1) Atypical chest pain: (2) Pauciarticular juvenile rheumatoid arthritis: (3) Fibromyalgia: (4) Orthostatic hypotension: (5) Shortness of breath at rest: (6) Immunosuppressed status: Plan Per admitting service notes with addendum: This is a 42-year-old female who has a significant past medical history of posterior regular juvenile rheumatoid arthritis, fibromyalgia, RSD, psychogenic nonepileptic seizure, dysautonomia orthostatic hypotension syndrome, depression with anxiety, PTSD, history of DVT/PE, history of serotonin syndrome who presents to ED secondary to chest pain x 3 weeks. --CTA: negative for PE, heart is normal, no effusion Atypical Chest pain admit to tele for further w/u due to worsening sx referred from cards clinic given hx of autoimmune/RA concern for ? pericarditis vs inflammatory costochon dritis pt appears to have relief from nsaids/steroids obtain echo will cycle trops for completeness consult cardiology to weigh in on sx in am. Colchicine 1.2mg x 1 now; Toradol 15mg x 1 will hold OP meloxicam in favor of more frequent dosing of ibuprofen pt encouraged to trial ice will repeat inflammatory markers in a.m. 03/25 Acute coronary syndrome ruled out Echocardiogram: No pericarditis Cardiology service consulted Also discussed with patient's sheet sorter Dr. Kidd Continue colchicine 0.6 mg twice daily Toradol 15 mg IV every 6 hours as needed Clinically improving Anticipate discharge with colchicine p.o. 0.6 mg twice daily and Toradol p.o. RA Fibromyalgia RSD follows Dr. Mercado continue methotrexate, folic acid Depression Anxiety PTSD continue prazosin, trazodone, klonopin, effexor, topamax Orthostatic hypotension continue midodrine, bp stable DVT ppx: SQ Lovenox FULL CODE PCP: DR. Ulrich Dispo: Anticipate discharge to home in 1-2 days Admission and Anticipated Discharge Date Admission Date: March 25, 2023 Subjective Follow-up for chest pain, etc. Seen resting in bed, sleeping but easily awakened Appears tired, but pleasant Patient's at the bedside visiting States chest pain seems to be improving today compared to yesterday Patient able to speak without shortness of breath due to pain Also able to take deep breaths without worsening of chest pain No fevers or chills, cough No other new symptoms Review of Systems Review of Systems: all noted and negative except for above Physical Exam Physical Exam: General- oriented x 3, not in distress, speaks in sentences with no effort or accessory muscle use Eyes- anicteric Neck- no JVD Lungs- clear breath sounds bilaterally, no rales/wheezes Heart- normal rate, regular rhythm; no murmurs Mild tenderness left chest wall Abdomen- normal bowel sounds, nondistended, soft, nontender Extremities- no pretibial edema, no calf tenderness Neuro- alert, oriented x 3; no gross focal neurologic deficits Skin- warm & dry Results & Data Results & Data Vital Signs (Past 12 Hours) Vital Signs Temp Pulse Pulse Resp BP Pulse Ox O2 Del Method 03/25/23 15:08 36.7 C 52 L 20 102/63 96 Room Air 03/25/23 11:33 36.7 C 67 20 93/60 L 95 Room Air 03/25/23 09:18 57 L 03/25/23 07:57 36.6 C 59 L 18 95/58 L 96 Room Air 03/25/23 07:23 Room Air 03/25/23 05:59 60 03/25/23 03:31 94/59 L all noted and reviewed including below
[2023-03-25] MEDS: KETOROLAC TROMETHAMINE 15 MG/ML VIAL IV PRN (20:02)
[2023-03-26] MEDS: SODIUM CHLORIDE 0.9% 1,000 ML IV SCH (08:44)
[2023-03-26 09:06] LABS: BUN Creatinine Ratio 10.9 (10-20); Calcium 8.9 mg/dl (8.6-10.3); Creatinine Clr Calc Pharmacy 92.3 ml/min; Est GFR (African American) 90.3 ml/min; Est GFR (Non-African American) 77.9 ml/min; Potassium 3.7 mmol/L (3.5-5.1)
== END 2023-03-26 13:42 | disposition home or self-care (01) | DRG 313 ==
LOC: 2N 14:37 → ED 14:37 → SUATTDRO 19:02 → 2N 20:46